=== PATIENT | female | born 1940 | race African-American/Black ===

== ENCOUNTER 2016-12-21 14:03 | Inpatient (IN) | payer MEDICARE, OTHER ==
[~2016-12-21] VITALS: Ht 165.1 cm; Wt 47.8 kg
[~2016-12-21 14:03] MED LIST: ACET325T21 PO; ACET325T9 PO; ACET500T68 PO; AMLO5TAB4 PO; BISA10SU2 RC; CHOL200074 PO; CHOL500021 PO; CYAN250T PO; DIVA125C3 PO; DIVA250T PO; DOCU100C28 PO; DONE5TAB56 PO; DOXY100C2 PO; FURO40TA4 PO; HALO2TAB PO; MAG30ORA2 PO; MAGN2400 PO; MEMA10TA PO; MEMA28CA PO; METH29OI TP; PANT40TA5 PO; POTA20TA82 PO; QUET25TA PO; RISP0.5T3 PO; SENN8.6T4 PO; SERT50TA PO; SIMV40TA3 PO; TRAZ50TA15 PO; TRIA1CAP3 PO
--- NOTE | 2016-12-21 14:39 | EKG ---
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
[2016-12-21 14:47] LABS: BASO % 1 % (0-3); EOS # 0.5 x10^3/uL (0.0-0.7); EOS % 10 % (0-3); HEMATOCRIT 35.6 % (36.0-47.0); HEMOGLOBIN 11.4 g/dL (12.0-15.5); LYMPH # 1.5 x10^3/uL (1.0-4.8); LYMPH % 30 % (24-48); MEAN CORPUSCULAR HEMOGLOBIN 30 pg (25-35); MEAN CORPUSCULAR HGB CONC 32 g/dL (31-37); MEAN CORPUSCULAR VOLUME 94 fL (79-100); MONO # 0.5 x10^3/uL (0.0-1.1); MONO % 9 % (0-9); NEUT # 2.7 x10^3uL (1.8-7.7); NEUT % 51 % (31-73); PLATELET COUNT 162 x10^3/uL (140-400); RED BLOOD COUNT 3.77 x10^6/uL (3.50-5.40); RED CELL DISTRIBUTION WIDTH 16.5 % (11.5-14.5); WHITE BLOOD COUNT 5.2 x10^3/uL (4.0-11.0)
[2016-12-21 14:52] LABS: ALBUMIN 2.5 g/dL (3.4-5.0); ALBUMIN/GLOBULIN RATIO 0.5 (1.0-1.7); ALK PHOS 112 U/L (46-116); ALT (SGPT) 17 U/L (14-59); ANION GAP 3 (6-14); AST (SGOT) 16 U/L (15-37); BLOOD UREA NITROGEN 17 mg/dL (7-20); BUN/CREATININE RATIO 19 (6-20); CALCIUM 9.4 mg/dL (8.5-10.1); CARBON DIOXIDE 37 mmol/L (21-32); CHLORIDE 108 mmol/L (98-107); CREATININE 0.9 mg/dL (0.6-1.0); GFR 73.3; GLUCOSE 97 mg/dL (70-99); MAGNESIUM 1.8 mg/dL (1.8-2.4); POTASSIUM 3.4 mmol/L (3.5-5.1); SODIUM 148 mmol/L (136-145); TOTAL BILIRUBIN 0.2 mg/dL (0.2-1.0); TOTAL PROTEIN 7.3 g/dL (6.4-8.2)
[2016-12-21 14:53] LABS: VAL ACID 45 mcg/mL (50-100)
[2016-12-21 15:21] LABS: BACTERIA,URINE 0 /HPF (0-FEW); BILIRUBIN,URINE NEG (NEG); CLARITY,URINE CLEAR; COLOR,URINE STRAW; GLUCOSE,URINE NEG (NEG); NITRITE,URINE NEG (NEG); RBC,URINE RARE /HPF (0-2); SQUAMOUS EPITHELIAL CELL,UR OCC /LPF; UROBILINOGEN,URINE 0.2 mg/dL (0.2 mg/dL); WBC,URINE OCC /HPF (0-4)
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
[2016-12-21] MEDS ORDERED: ACETAMINOPHEN 325 MG TABLET PO PRN (16:45)
[2016-12-21 17:45] VITALS: BP 169/79
--- NOTE | 2016-12-21 20:00 | PDOC ---
Exam Vikram Demential Exam: Vikram Note: Please also refer to the separate dictated note~for this date of service dictated separately.~Patient seen individually. Discussed the patient with Nursing staff reviewed the chart.~Reviewed interim history and current functioning. Reviewed vital signs,~Labs/ Radiology~and current medications noted below. Continue current treatment with the changes noted in the dictated addendum note Assessment: Vital Signs: Vital Signs Date Time Temp Pulse Resp B/P (MAP) Pulse Ox O2 Delivery O2 Flow Rate FiO2 12/21/16 17:45 98.1 67 18 169/79 (109) 97 12/21/16 14:15 Room Air Labs: Laboratory Tests Test 12/21/16 14:23 12/21/16 14:50 White Blood Count 5.2 x10^3/uL (4.0-11.0) Red Blood Count 3.77 x10^6/uL (3.50-5.40) Hemoglobin 11.4 g/dL (12.0-15.5) L Hematocrit 35.6 % (36.0-47.0) L Mean Corpuscular Volume 94 fL (79-100) Mean Corpuscular Hemoglobin 30 pg (25-35) Mean Corpuscular Hemoglobin Concent 32 g/dL (31-37) Red Cell Distribution Width 16.5 % (11.5-14.5) H Platelet Count 162 x10^3/uL (140-400) Neutrophils (%) (Auto) 51 % (31-73) Lymphocytes (%) (Auto) 30 % (24-48) Monocytes (%) (Auto) 9 % (0-9) Eosinophils (%) (Auto) 10 % (0-3) H Basophils (%) (Auto) 1 % (0-3) Neutrophils # (Auto) 2.7 x10^3uL (1.8-7.7) Lymphocytes # (Auto) 1.5 x10^3/uL (1.0-4.8) Monocytes # (Auto) 0.5 x10^3/uL (0.0-1.1) Eosinophils # (Auto) 0.5 x10^3/uL (0.0-0.7) Basophils # (Auto) 0.0 x10^3/uL (0.0-0.2) Sodium Level 148 mmol/L (136-145) H Potassium Level 3.4 mmol/L (3.5-5.1) L Chloride Level 108 mmol/L (98-107) H Carbon Dioxide Level 37 mmol/L (21-32) H Anion Gap 3 (6-14) L Blood Urea Nitrogen 17 mg/dL (7-20) Creatinine 0.9 mg/dL (0.6-1.0) Estimated GFR (Cockcroft-Gault) 73.3 BUN/Creatinine Ratio 19 (6-20) Glucose Level 97 mg/dL (70-99) Calcium Level 9.4 mg/dL (8.5-10.1) Magnesium Level 1.8 mg/dL (1.8-2.4) Total Bilirubin 0.2 mg/dL (0.2-1.0) Aspartate Amino Transferase (AST) 16 U/L (15-37) Alanine Aminotransferase (ALT) 17 U/L (14-59) Alkaline Phosphatase 112 U/L (46-116) Total Protein 7.3 g/dL (6.4-8.2) Albumin 2.5 g/dL (3.4-5.0) L Albumin/Globulin Ratio 0.5 (1.0-1.7) L Valproic Acid Level 45 mcg/mL (50-100) L Valproic Acid Last Dose Date 12/21/16 Valproic Acid Last Dose Time 0700 Urine Collection Type U cath Urine Color Straw Urine Clarity Clear Urine pH 7.0 Urine Specific [place] 1.015 Urine Protein Neg (NEG-TRACE) Urine Glucose (UA) Neg mg/dL (NEG) Urine Ketones (Stick) Neg mg/dL (NEG) Urine Blood Small (NEG) Urine Nitrite Neg (NEG) Urine Bilirubin Neg (NEG) Urine Urobilinogen Dipstick 0.2 mg/dL (0.2 mg/dL) Urine Leukocyte Esterase Neg (NEG) Urine RBC Rare /HPF (0-2) Urine WBC Occ /HPF (0-4) Urine Squamous Epithelial Cells Occ /LPF Urine Bacteria 0 /HPF (0-FEW) Urine Mucus Slight /LPF Current Medications: Meds: Current Medications Acetaminophen (Tylenol) 650 mg PRN Q6HRS PRN PO PAIN / TEMP; Start 12/21/16 at 16:45 Active Scripts Active Reported Divalproex Sodium 125 Mg Cap.sprink 125 Mg PO TID Namenda (Memantine Hcl) 10 Mg Tablet 10 Mg PO BID Quetiapine Fumarate 25 Mg Tablet 12.5 Mg PO TID Analgesic [place] (Methyl Salicylate/Menthol) 29 Gm Oint...g. 1 [place] TP PRN QID PRN Milk Of Magnesia (Magnesium Hydroxide) 2,400 Mg/10 Ml Oral.susp 2,400 Mg PO PRN QHS PRN Mag-Al Plus Xs Suspension (Mag Hydrox/Al Hydrox/Simeth) 30 Ml Oral.susp 15 Ml PO PRN AFTMEAL PRN Doxycycline Hyclate 100 Mg Capsule 100 Mg PO BID D3-50 (Cholecalciferol (Vitamin D3)) 50,000 Unit Capsule 50,000 Unit PO WEEKLY Tylenol (Acetaminophen) 325 Mg Tablet 650 Mg PO Q8HRS MAX ACETAMINOPHEN DOSE IS 4000 MG IN 24 HRS FROM ALL SOURCES FOR ADULTS. Haloperidol 2 Mg Tablet 2 Mg PO PRN Q4HRS PRN Zoloft (Sertraline Hcl) 50 Mg Tablet 50 Mg PO DAILY Acetaminophen 325 Mg Tablet 650 Mg PO PRN Q6HRS PRN Aricept (Donepezil Hcl) 5 Mg Tablet 10 Mg PO DAILY Trazodone Hcl 50 Mg Tablet 25 Mg PO QHS GIVE WITH FOOD Diagnosis: Problems: (1) Dementia with behavioral disturbance (2) Anxiety disorder (3) Impulse control disorder (4) Dementia, vascular, with depression (5) Dementia, vascular, with delusions (6) Dementia in Alzheimer's disease with depression (7) Dementia in Alzheimer's disease with delusions ADAN GOMES MD Dec 21, 2016 20:00
[2016-12-21] MEDS ORDERED: WARF-78 PO (20:29)
[2016-12-21] MEDS ORDERED: SOTA80TA20 PO (20:29)
[2016-12-21] MEDS ORDERED: CHOL2000 PO (20:29)
[2016-12-21] MEDS ORDERED: FURO20TA3 PO (20:29)
[2016-12-21] MEDS ORDERED: LORA10TA3 PO (20:29)
[2016-12-21] MEDS ORDERED: MAGNESIUM HYDROXIDE 2,400 MG/30 ML ORAL.SUSP. PO PRN (20:45)
[2016-12-21] MEDS ORDERED: MAG HYDROX/AL HYDROX/SIMETH 30 ML ORAL.SUSP PO PRN ×2 (20:45)
[2016-12-21] MEDS ORDERED: NON FORMULARY ITEM (Magnesium Hydroxide (Milk Of Magnesia) 2,400 MG) PO PRN (20:45)
[2016-12-21] MEDS ORDERED: METHYL SALICYLATE/MENTHOL TOPICAL OINTMENT 29GM TUBE. TP PRN (20:45)
[2016-12-21] MEDS: DIVALPROEX 125 MG CAP.SPRINK PO SCH (21:00)
[2016-12-21] MEDS: MEMANTINE 10 MG TABLET. PO SCH (21:00)
[2016-12-21] MEDS: SOTALOL 80 MG TABLET. PO SCH (21:00)
[2016-12-21] MEDS: traZODone 50 MG TABLET. PO SCH (21:00)
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
[2016-12-22 06:32] VITALS: BP 174/85
[2016-12-22] MEDS: DIVALPROEX 125 MG CAP.SPRINK PO SCH ×2 (08:21→20:55)
[2016-12-22] MEDS: MEMANTINE 10 MG TABLET. PO SCH ×2 (08:21→20:54)
[2016-12-22] MEDS: CHOLECALCIFEROL (VITAMIN D3) 1,000 UNIT TABLET PO SCH (08:26)
[2016-12-22] MEDS: SOTALOL 80 MG TABLET. PO SCH ×2 (08:27→20:54)
[2016-12-22] MEDS: DONEPEZIL HCL 5 MG TABLET. PO SCH (08:27)
[2016-12-22] MEDS: CETIRIZINE HCL 10 MG TABLET PO SCH (08:27)
[2016-12-22] MEDS: SERTRALINE 50 MG TABLET. PO SCH (08:27)
[2016-12-22] MEDS ORDERED: FUROSEMIDE 20 MG TABLET PO SCH (09:00)
[2016-12-22 13:46] LABS: THYROID STIM HORMONE (TSH) 2.555 uIU/mL (0.358-3.740)
[2016-12-22] MEDS: WARFARIN 5 MG TABLET. PO SCH (16:23)
[2016-12-22] MEDS ORDERED: amLODIPine BESYLATE 5 MG TABLET PO ONE (16:30)
[2016-12-22 16:35] VITALS: BP 186/98
[2016-12-22 17:09] LABS: T3 TOTAL 62 ng/dL (71-180); THYROXINE 5.9 ug/dL (4.5-12.0)
--- NOTE | 2016-12-22 19:59 | PDOC ---
Exam Vikram Demential Exam: Vikram Note: Please also refer to the separate dictated note~for this date of service dictated separately.~Patient seen individually. Discussed the patient with Nursing staff reviewed the chart.~Reviewed interim history and current functioning. Reviewed vital signs,~Labs/ Radiology~and current medications noted below. Continue current treatment with the changes noted in the dictated addendum note Assessment: Vital Signs: Vital Signs Date Time Temp Pulse Resp B/P (MAP) Pulse Ox O2 Delivery O2 Flow Rate FiO2 12/22/16 16:35 98.9 72 18 186/98 (127) 98 12/21/16 14:15 Room Air I&O Intake and Output 12/22/16 07:00 Intake Total 480 ml Balance 480 ml Intake Oral 480 ml Labs: Laboratory Tests Test 12/22/16 07:22 Prothrombin Time 26.0 SEC (9.4-11.4) H Prothrombin Time INR 2.5 (0.9-1.1) H Current Medications: Meds: Current Medications Acetaminophen (Tylenol) 650 mg PRN Q6HRS PRN PO PAIN / TEMP; Start 12/21/16 at 16:45; Stop 12/21/16 at 20:46; Status DC Divalproex Sodium (Depakote Sprinkles) 250 mg BID PO Last administered on 08:21; Start 12/21/16 at 21:00; Stop 12/22/16 at 18:34; Status DC Donepezil HCl (Aricept) 5 mg DAILY PO Last administered on 12/22/16 08:27; Start 12/22/16 at 09:00 Haloperidol (Haldol) 2 mg PRN Q4HRS PRN PO AGITATION; Start 12/21/16 at 20:30 Memantine (Namenda) 10 mg BID PO Last administered on 12/22/16 08:21; Start at 21:00 Sertraline HCl (Zoloft) 25 mg DAILY PO Last administered on 12/22/16 08:27; Start 12/22/16 at 09:00 Trazodone HCl (Desyrel) 50 mg QHS PO ; Start 12/21/16 at 21:00 Acetaminophen (Tylenol) 650 mg PRN Q6HRS PRN PO PAIN / TEMP; Start 12/21/16 at 20:45 Multi-Ingredient Ointment (Analgesic [place]) 1 cliff PRN QID PRN TP MUSCLE PAIN; Start 12/21/16 at 20:45 Al Hydroxide/Mg Hydroxide (Mylanta Plus Xs) 15 ml PRN AFTMEALHC PRN PO DYSPEPSIA; Start 12/21/16 at 20:45 Magnesium Hydroxide (Milk Of Magnesia) 2,400 mg PRN QHS PRN PO CONSTIPATION; Start 12/21/16 at 20:45 Furosemide (Lasix) 20 mg DAILY PO Last administered on 12/22/16 08:27; Start 12/22/16 at 09:00; Stop 12/22/16 at 16:11; Status DC Al Hydroxide/Mg Hydroxide (Mylanta Plus Xs) 15 ml PRN AFTMEAL PRN PO DYSPEPSIA ; Start 12/21/16 at 20:45; Status UNV Sotalol HCl (Betapace) 80 mg BID PO Last administered on 12/22/16 08:27; Start 12/21/16 at 21:00 Warfarin Sodium (Coumadin) 5 mg DAILY16 PO Last administered on 12/22/16 16:23 ; Start 12/22/16 at 16:00 Vitamin D (Vitamin D3) 2,000 unit DAILY PO Last administered on 12/22/16 08:26 ; Start 12/22/16 at 09:00 Cetirizine HCl (ZyrTEC) 10 mg DAILY PO Last administered on 12/22/16 08:27; Start 12/22/16 at 09:00 Non-Formulary Medication 2,400 mg PRN QHS PRN PO CONSTIPATION; Start 12/21/16 at 20:45; Status UNV Warfarin Sodium (Coumadin Per Physician) 1 each PRN DAILY PRN MC SEE COMMENTS; Start 12/21/16 at 21:15 Amlodipine Besylate (Norvasc) 10 mg DAILY PO ; Start 12/23/16 at 09:00 Amlodipine Besylate (Norvasc) 10 mg 1X ONCE PO Last administered on 12/22/16 16:25; Start 12/22/16 at 16:30; Stop 12/22/16 at 16:31; Status DC Divalproex Sodium (Depakote Sprinkles) 375 mg BID PO ; Start 12/22/16 at 21:00 Active Scripts Active Reported Vitamin D (Cholecalciferol (Vitamin D3)) 2,000 Unit Capsule 2,000 Units PO DAILY Betapace (Sotalol Hcl) 80 Mg Tablet 80 Mg PO BID Loratadine 10 Mg Tablet 10 Mg PO DAILY Furosemide 20 Mg Tablet 20 Mg PO DAILY Coumadin (Warfarin Sodium) 5 Mg Tablet 5 Mg PO HS Divalproex Sodium 125 Mg Cap.sprink 250 Mg PO BID Namenda (Memantine Hcl) 10 Mg Tablet 10 Mg PO BID Milk Of Magnesia (Magnesium Hydroxide) 2,400 Mg/10 Ml Oral.susp 2,400 Mg PO PRN QHS PRN Mag-Al Plus Xs Suspension (Mag Hydrox/Al Hydrox/Simeth) 30 Ml Oral.susp 15 Ml PO PRN AFTMEAL PRN Haloperidol 2 Mg Tablet 2 Mg PO PRN Q4HRS PRN Zoloft (Sertraline Hcl) 50 Mg Tablet 25 Mg PO DAILY Aricept (Donepezil Hcl) 5 Mg Tablet 5 Mg PO DAILY Trazodone Hcl 50 Mg Tablet 50 Mg PO QHS GIVE WITH FOOD Diagnosis: Problems: (1) Dementia with behavioral disturbance (2) Anxiety disorder (3) Impulse control disorder (4) Dementia, vascular, with depression (5) Dementia, vascular, with delusions (6) Dementia in Alzheimer's disease with depression (7) Dementia in Alzheimer's disease with delusions ADAN GOMES MD Dec 22, 2016 19:59
[2016-12-22] MEDS: traZODone 50 MG TABLET. PO SCH (20:54)
--- NOTE | 2016-12-22 23:43 | ACF ---
Admission Criteria Forms PSYCHIATRIC DISORDERS Clinical Indications for Inpatient Care (Place 'X' for any and all applicable criteria): Ongoing inpatient care may be needed for 1 or more of the following(1)(2)(3)(4)( 6)(7)(8): [ ]I. Danger to self or others not manageable at lower level of care. [ ]II. Grave disability (eg, inability to perform self care necessary at lower level of care) [ ]III. Agitation or inappropriate behavior interfering with care for primary condition (eg, attempting to discontinue lines or drains prematurely, unable to cooperate with respiratory care) [X]IV. Severe disability or disorder indicated by ALL of the following: [X]a) Severe behavioral health disorder-related symptoms or condition indicated by 1 or more of the following: [X]i) Severe problem with cognition, memory, judgment, or impulse control [ ]ii) Severe clinical manifestations (eg, hallucinations, delusions, other acute psychotic symptoms, arnoldo, extreme agitation or anxiety) [X]b) Patient management at lower level of care is not feasible until acute intervention or modification is initiated. Extended stay beyond goal length of stay for the primary condition may be needed untilALLof the following are present(1)(2)(3)(4)(722)(23): [ ]a) Danger to self or others is absent or manageable at lower level of care [ ]b) Behavior crisis management, including physical or chemical restraints, is required and is not available at a lower level of care. [ ]c) Behavioral symptoms (e.g., agitation, somnolence, inappropriate behavior) are present, and are not manageable at a lower level of care. [ ]d) Patient cannot understand follow-up treatment and crisis plan. [ ]e) Provider and supports are sufficiently available at lower level of care. [ ]f) Patient can participate (e.g., verify absence of plan for harm) and is in needed of monitoring. The original [facility] [employer] content created by [employer] has been revised. The portions of the content which have been revised are identified through the use of italic text, and [employer] has neither reviewed nor approved the modified material. All other unmodified content is copyright [facility] [employer]. Please see references footnoted in the original [facility] edition 2015 Admission Criteria Met?: Yes PRASHANT STAPLETON Dec 22, 2016 23:43
[2016-12-23 04:13] LABS: HEMOGLOBIN A1C 5.3 % (4.8-5.6)
[2016-12-23 05:58] VITALS: BP 159/88
[2016-12-23] MEDS: CETIRIZINE HCL 10 MG TABLET PO SCH (09:19)
[2016-12-23] MEDS: DONEPEZIL HCL 5 MG TABLET. PO SCH (09:19)
[2016-12-23] MEDS: CHOLECALCIFEROL (VITAMIN D3) 1,000 UNIT TABLET PO SCH (09:19)
[2016-12-23] MEDS: DIVALPROEX 125 MG CAP.SPRINK PO SCH ×2 (09:19→19:21)
[2016-12-23] MEDS: SERTRALINE 50 MG TABLET. PO SCH (09:19)
[2016-12-23] MEDS: MEMANTINE 10 MG TABLET. PO SCH ×2 (09:19→19:20)
[2016-12-23] MEDS: SOTALOL 80 MG TABLET. PO SCH ×2 (09:21→19:21)
[2016-12-23] MEDS: amLODIPine BESYLATE 10 MG TABLET PO SCH (09:22)
[2016-12-23] MEDS: WARFARIN 5 MG TABLET. PO SCH (15:49)
[2016-12-23 16:19] VITALS: BP 114/76
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
[2016-12-23] MEDS: traZODone 50 MG TABLET. PO SCH (19:21)
--- NOTE | 2016-12-23 19:59 | PDOC ---
Exam Vikram Demential Exam: Vikram Note: Please also refer to the separate dictated note~for this date of service dictated separately.~Patient seen individually. Discussed the patient with Nursing staff reviewed the chart.~Reviewed interim history and current functioning. Reviewed vital signs,~Labs/ Radiology~and current medications noted below. Continue current treatment with the changes noted in the dictated addendum note Assessment: Vital Signs: Vital Signs Date Time Temp Pulse Resp B/P (MAP) Pulse Ox O2 Delivery O2 Flow Rate FiO2 12/23/16 19:21 88 114/76 12/23/16 16:19 98.5 18 97 12/21/16 14:15 Room Air I&O Intake and Output 12/23/16 07:00 Intake Total 660 ml Balance 660 ml Intake Oral 660 ml # Voids 2 Current Medications: Meds: Current Medications Acetaminophen (Tylenol) 650 mg PRN Q6HRS PRN PO PAIN / TEMP; Start 12/21/16 at 16:45; Stop 12/21/16 at 20:46; Status DC Divalproex Sodium (Depakote Sprinkles) 250 mg BID PO Last administered on 08:21; Start 12/21/16 at 21:00; Stop 12/22/16 at 18:34; Status DC Donepezil HCl (Aricept) 5 mg DAILY PO Last administered on 12/23/16 09:19; Start 12/22/16 at 09:00 Haloperidol (Haldol) 2 mg PRN Q4HRS PRN PO AGITATION; Start 12/21/16 at 20:30 Memantine (Namenda) 10 mg BID PO Last administered on 12/23/16 19:20; Start at 21:00 Sertraline HCl (Zoloft) 25 mg DAILY PO Last administered on 12/23/16 09:19; Start 12/22/16 at 09:00 Trazodone HCl (Desyrel) 50 mg QHS PO Last administered on 12/23/16 19:21; Start 12/21/16 at 21:00 Acetaminophen (Tylenol) 650 mg PRN Q6HRS PRN PO PAIN / TEMP; Start 12/21/16 at 20:45 Multi-Ingredient Ointment (Analgesic [place]) 1 cliff PRN QID PRN TP MUSCLE PAIN; Start 12/21/16 at 20:45 Al Hydroxide/Mg Hydroxide (Mylanta Plus Xs) 15 ml PRN AFTMEALHC PRN PO DYSPEPSIA; Start 12/21/16 at 20:45 Magnesium Hydroxide (Milk Of Magnesia) 2,400 mg PRN QHS PRN PO CONSTIPATION; Start 12/21/16 at 20:45 Furosemide (Lasix) 20 mg DAILY PO Last administered on 12/22/16 08:27; Start 12/22/16 at 09:00; Stop 12/22/16 at 16:11; Status DC Al Hydroxide/Mg Hydroxide (Mylanta Plus Xs) 15 ml PRN AFTMEAL PRN PO DYSPEPSIA ; Start 12/21/16 at 20:45; Status UNV Sotalol HCl (Betapace) 80 mg BID PO Last administered on 12/23/16 19:21; Start 12/21/16 at 21:00 Warfarin Sodium (Coumadin) 5 mg DAILY16 PO Last administered on 12/23/16 15:49 ; Start 12/22/16 at 16:00 Vitamin D (Vitamin D3) 2,000 unit DAILY PO Last administered on 12/23/16 09:19 ; Start 12/22/16 at 09:00 Cetirizine HCl (ZyrTEC) 10 mg DAILY PO Last administered on 12/23/16 09:19; Start 12/22/16 at 09:00 Non-Formulary Medication 2,400 mg PRN QHS PRN PO CONSTIPATION; Start 12/21/16 at 20:45; Status UNV Warfarin Sodium (Coumadin Per Physician) 1 each PRN DAILY PRN MC SEE COMMENTS; Start 12/21/16 at 21:15 Amlodipine Besylate (Norvasc) 10 mg DAILY PO Last administered on 12/23/16 09: 22; Start 12/23/16 at 09:00 Amlodipine Besylate (Norvasc) 10 mg 1X ONCE PO Last administered on 12/22/16 16:25; Start 12/22/16 at 16:30; Stop 12/22/16 at 16:31; Status DC Divalproex Sodium (Depakote Sprinkles) 375 mg BID PO Last administered on 19:21; Start 12/22/16 at 21:00 Active Scripts Active Reported Vitamin D (Cholecalciferol (Vitamin D3)) 2,000 Unit Capsule 2,000 Units PO DAILY Betapace (Sotalol Hcl) 80 Mg Tablet 80 Mg PO BID Loratadine 10 Mg Tablet 10 Mg PO DAILY Furosemide 20 Mg Tablet 20 Mg PO DAILY Coumadin (Warfarin Sodium) 5 Mg Tablet 5 Mg PO HS Divalproex Sodium 125 Mg Cap.sprink 250 Mg PO BID Namenda (Memantine Hcl) 10 Mg Tablet 10 Mg PO BID Milk Of Magnesia (Magnesium Hydroxide) 2,400 Mg/10 Ml Oral.susp 2,400 Mg PO PRN QHS PRN Mag-Al Plus Xs Suspension (Mag Hydrox/Al Hydrox/Simeth) 30 Ml Oral.susp 15 Ml PO PRN AFTMEAL PRN Haloperidol 2 Mg Tablet 2 Mg PO PRN Q4HRS PRN Zoloft (Sertraline Hcl) 50 Mg Tablet 25 Mg PO DAILY Aricept (Donepezil Hcl) 5 Mg Tablet 5 Mg PO DAILY Trazodone Hcl 50 Mg Tablet 50 Mg PO QHS GIVE WITH FOOD Diagnosis: Problems: (1) Dementia with behavioral disturbance (2) Anxiety disorder (3) Impulse control disorder (4) Dementia, vascular, with depression (5) Dementia, vascular, with delusions (6) Dementia in Alzheimer's disease with depression (7) Dementia in Alzheimer's disease with delusions ADAN GOMES MD Dec 23, 2016 19:58
--- NOTE | 2016-12-23 23:54 | PN ---
DATE: 12/22/2016 This late entry 12/22/2016 covers elements not covered in my initial note. SUBJECTIVE: I met with the patient in the evening of 12/22/2016. The patient remains confused, making loud vulgar statements, cursing at staff previous evening. Speech is word salad, somewhat hypertensive during the day 12/22/2016, will defer to Dr. Nails. She was agitated, yelling, screaming obscenities evening of 12/22/2016. REVIEW OF SYSTEMS: Ambulation impaired. No CV, , pulmonary, eye, ENT system symptoms on review. Reliability poor. MENTAL STATUS EXAM: Oriented to herself. Insight, judgment, recent and remote memory, attention, concentration, fund of knowledge poor, consistent with her diagnosis. As I met with her, she was oblivious of her surroundings, smiling, but not aggressive she was shortly prior to my visit. LABORATORY DATA: Reviewed. IMPRESSION: Unchanged from initial note. PLAN: Valproic acid level is 45. She is on Depakote sprinkles 250 b.i.d. We will increase to 375 b.i.d. Check labs level, ammonia level in 3 days to reach a therapeutic level. Continue Zoloft, Aricept, trazodone, and Namenda along with Haldol p.r.n. for now. Review drug interactions, risk/benefit ratio favors no further change as of now. ADAN GOMES MD DR: FAISAL/alonso JOB#: [id number] / [id number]
[2016-12-24 06:16] VITALS: BP 155/90
[2016-12-24] MEDS: MEMANTINE 10 MG TABLET. PO SCH ×2 (07:37→19:38)
[2016-12-24] MEDS: CETIRIZINE HCL 10 MG TABLET PO SCH (07:37)
[2016-12-24] MEDS: SERTRALINE 50 MG TABLET. PO SCH (07:39)
[2016-12-24] MEDS: DIVALPROEX 125 MG CAP.SPRINK PO SCH ×2 (07:39→19:38)
[2016-12-24] MEDS: DONEPEZIL HCL 5 MG TABLET. PO SCH (07:39)
[2016-12-24] MEDS: SOTALOL 80 MG TABLET. PO SCH ×2 (07:39→19:39)
[2016-12-24] MEDS: amLODIPine BESYLATE 10 MG TABLET PO SCH (07:41)
[2016-12-24] MEDS: CHOLECALCIFEROL (VITAMIN D3) 1,000 UNIT TABLET PO SCH (07:41)
[2016-12-24 16:46] VITALS: BP 157/78
[2016-12-24] MEDS: WARFARIN 5 MG TABLET. PO SCH (16:54)
[2016-12-24] MEDS: traZODone 50 MG TABLET. PO SCH (19:39)
--- NOTE | 2016-12-24 20:03 | PDOC ---
Exam Vikram Demential Exam: Vikram Note: Please also refer to the separate dictated note~for this date of service dictated separately.~Patient seen individually. Discussed the patient with Nursing staff reviewed the chart.~Reviewed interim history and current functioning. Reviewed vital signs,~Labs/ Radiology~and current medications noted below. Continue current treatment with the changes noted in the dictated addendum note Assessment: Vital Signs: Vital Signs Date Time Temp Pulse Resp B/P (MAP) Pulse Ox O2 Delivery O2 Flow Rate FiO2 12/24/16 19:39 63 157/78 12/24/16 16:46 97.3 18 98 12/21/16 14:15 Room Air I&O Intake and Output 12/24/16 07:00 Intake Total 1080 ml Balance 1080 ml Intake Oral 1080 ml # Voids 1 # Bowel Movements 2 Current Medications: Meds: Current Medications Acetaminophen (Tylenol) 650 mg PRN Q6HRS PRN PO PAIN / TEMP; Start 12/21/16 at 16:45; Stop 12/21/16 at 20:46; Status DC Divalproex Sodium (Depakote Sprinkles) 250 mg BID PO Last administered on 08:21; Start 12/21/16 at 21:00; Stop 12/22/16 at 18:34; Status DC Donepezil HCl (Aricept) 5 mg DAILY PO Last administered on 12/24/16 07:39; Start 12/22/16 at 09:00 Haloperidol (Haldol) 2 mg PRN Q4HRS PRN PO AGITATION; Start 12/21/16 at 20:30 Memantine (Namenda) 10 mg BID PO Last administered on 12/24/16 19:38; Start at 21:00 Sertraline HCl (Zoloft) 25 mg DAILY PO Last administered on 12/24/16 07:39; Start 12/22/16 at 09:00 Trazodone HCl (Desyrel) 50 mg QHS PO Last administered on 12/24/16 19:39; Start 12/21/16 at 21:00 Acetaminophen (Tylenol) 650 mg PRN Q6HRS PRN PO PAIN / TEMP; Start 12/21/16 at 20:45 Multi-Ingredient Ointment (Analgesic [place]) 1 cliff PRN QID PRN TP MUSCLE PAIN; Start 12/21/16 at 20:45 Al Hydroxide/Mg Hydroxide (Mylanta Plus Xs) 15 ml PRN AFTMEALHC PRN PO DYSPEPSIA; Start 12/21/16 at 20:45 Magnesium Hydroxide (Milk Of Magnesia) 2,400 mg PRN QHS PRN PO CONSTIPATION; Start 12/21/16 at 20:45 Furosemide (Lasix) 20 mg DAILY PO Last administered on 12/22/16 08:27; Start 12/22/16 at 09:00; Stop 12/22/16 at 16:11; Status DC Al Hydroxide/Mg Hydroxide (Mylanta Plus Xs) 15 ml PRN AFTMEAL PRN PO DYSPEPSIA ; Start 12/21/16 at 20:45; Status UNV Sotalol HCl (Betapace) 80 mg BID PO Last administered on 12/24/16 19:39; Start 12/21/16 at 21:00 Warfarin Sodium (Coumadin) 5 mg DAILY16 PO Last administered on 12/24/16 16:54 ; Start 12/22/16 at 16:00 Vitamin D (Vitamin D3) 2,000 unit DAILY PO Last administered on 12/24/16 07:41 ; Start 12/22/16 at 09:00 Cetirizine HCl (ZyrTEC) 10 mg DAILY PO Last administered on 12/24/16 07:37; Start 12/22/16 at 09:00 Non-Formulary Medication 2,400 mg PRN QHS PRN PO CONSTIPATION; Start 12/21/16 at 20:45; Status UNV Warfarin Sodium (Coumadin Per Physician) 1 each PRN DAILY PRN MC SEE COMMENTS; Start 12/21/16 at 21:15 Amlodipine Besylate (Norvasc) 10 mg DAILY PO Last administered on 12/24/16 07: 41; Start 12/23/16 at 09:00 Amlodipine Besylate (Norvasc) 10 mg 1X ONCE PO Last administered on 12/22/16 16:25; Start 12/22/16 at 16:30; Stop 12/22/16 at 16:31; Status DC Divalproex Sodium (Depakote Sprinkles) 375 mg BID PO Last administered on 19:38; Start 12/22/16 at 21:00 Active Scripts Active Reported Vitamin D (Cholecalciferol (Vitamin D3)) 2,000 Unit Capsule 2,000 Units PO DAILY Betapace (Sotalol Hcl) 80 Mg Tablet 80 Mg PO BID Loratadine 10 Mg Tablet 10 Mg PO DAILY Furosemide 20 Mg Tablet 20 Mg PO DAILY Coumadin (Warfarin Sodium) 5 Mg Tablet 5 Mg PO HS Divalproex Sodium 125 Mg Cap.sprink 250 Mg PO BID Namenda (Memantine Hcl) 10 Mg Tablet 10 Mg PO BID Milk Of Magnesia (Magnesium Hydroxide) 2,400 Mg/10 Ml Oral.susp 2,400 Mg PO PRN QHS PRN Mag-Al Plus Xs Suspension (Mag Hydrox/Al Hydrox/Simeth) 30 Ml Oral.susp 15 Ml PO PRN AFTMEAL PRN Haloperidol 2 Mg Tablet 2 Mg PO PRN Q4HRS PRN Zoloft (Sertraline Hcl) 50 Mg Tablet 25 Mg PO DAILY Aricept (Donepezil Hcl) 5 Mg Tablet 5 Mg PO DAILY Trazodone Hcl 50 Mg Tablet 50 Mg PO QHS GIVE WITH FOOD Diagnosis: Problems: (1) Dementia with behavioral disturbance (2) Anxiety disorder (3) Impulse control disorder (4) Dementia, vascular, with depression (5) Dementia, vascular, with delusions (6) Dementia in Alzheimer's disease with depression (7) Dementia in Alzheimer's disease with delusions ADAN GOMES MD Dec 24, 2016 20:03
--- NOTE | 2016-12-25 02:24 | PN ---
DATE: 12/23/2016 This is a late entry for 12/23/2016 and covers elements not covered in my initial note of 12/23/2016. SUBJECTIVE: The patient was staffed at a treatment team meeting with the entire team morning 12/23/2016. Seen individually evening of 12/23/2016. She slept 7-1/2 hours previous evening. She uses profanities and the f -- word frequently. REVIEW OF SYSTEMS: Ambulation impaired, in a wheelchair, 2-person assist. No CV, , pulmonary, eye, ENT system symptoms on review. Reliability poor. MENTAL STATUS EXAM: Oriented to herself. Insight, judgment, recent and remote memory, attention, concentration, fund of knowledge poor, consistent with her diagnosis as mentioned in my initial note. PLAN: Reviewed drug interactions, risk and benefit ratio favors continuing current psychotropics. Depakote was increased. Labs level are awaited. We will adjust further to reach a therapeutic level since her last level was subtherapeutic at 45. ADAN GOMES MD DR: FAISAL/alonso JOB#: [id number] / [id number]
[2016-12-25 06:16] VITALS: BP 143/75
[2016-12-25] MEDS: DONEPEZIL HCL 5 MG TABLET. PO SCH (08:35)
[2016-12-25] MEDS: DIVALPROEX 125 MG CAP.SPRINK PO SCH ×2 (08:36→19:24)
[2016-12-25] MEDS: MEMANTINE 10 MG TABLET. PO SCH ×2 (08:36→19:24)
[2016-12-25] MEDS: amLODIPine BESYLATE 10 MG TABLET PO SCH (08:37)
[2016-12-25] MEDS: CETIRIZINE HCL 10 MG TABLET PO SCH (08:37)
[2016-12-25] MEDS: SERTRALINE 50 MG TABLET. PO SCH (08:37)
[2016-12-25] MEDS: CHOLECALCIFEROL (VITAMIN D3) 1,000 UNIT TABLET PO SCH (08:37)
[2016-12-25] MEDS: SOTALOL 80 MG TABLET. PO SCH ×2 (08:45→19:24)
[2016-12-25 15:54] VITALS: BP 107/59
[2016-12-25] MEDS: WARFARIN 5 MG TABLET. PO SCH (16:43)
[2016-12-25] MEDS: traZODone 50 MG TABLET. PO SCH (19:24)
--- NOTE | 2016-12-25 21:38 | PN ---
DATE: 12/24/2016 This late entry 12/24/2016 covers elements not covered in my initial note. SUBJECTIVE: I met with the patient in the evening of 12/24/2016. She is being very confused, labile in her mood, tearful, paranoid, delusional belief, children are being hurt, crying, believes she is , making repeated unconnected statements about this. REVIEW OF SYSTEMS: Ambulation impaired. No CV, , pulmonary, eye, ENT system symptoms on review. Reliability poor. MENTAL STATUS EXAM: Oriented to herself. Insight, judgment, recent and remote memory, attention, concentration, fund of knowledge poor, consistent with her diagnosis as mentioned in my initial note. PLAN: Continue current psychotropics mentioned in my initial note. Reviewed drug interactions, risk/benefit ratio favors no further change as of now. MAN Saúl GOMES MD DR: FAISAL/alonso JOB#: [id number] / [id number]
--- NOTE | 2016-12-25 23:29 | PDOC ---
Exam Vikram Demential Exam: Vikram Note: Please also refer to the separate dictated note~for this date of service dictated separately.~Patient seen individually. Discussed the patient with Nursing staff reviewed the chart.~Reviewed interim history and current functioning. Reviewed vital signs,~Labs/ Radiology~and current medications noted below. Continue current treatment with the changes noted in the dictated addendum note Assessment: Vital Signs: Vital Signs Date Time Temp Pulse Resp B/P (MAP) Pulse Ox O2 Delivery O2 Flow Rate FiO2 12/25/16 19:24 72 178/82 12/25/16 15:54 98.0 18 100 12/21/16 14:15 Room Air I&O Intake and Output 12/25/16 07:00 Intake Total 1260 ml Balance 1260 ml Intake Oral 1260 ml Labs: Laboratory Tests Test 12/25/16 08:08 Prothrombin Time 21.1 SEC (9.4-11.4) H Prothrombin Time INR 2.1 (0.9-1.1) H Current Medications: Meds: Current Medications Acetaminophen (Tylenol) 650 mg PRN Q6HRS PRN PO PAIN / TEMP; Start 12/21/16 at 16:45; Stop 12/21/16 at 20:46; Status DC Divalproex Sodium (Depakote Sprinkles) 250 mg BID PO Last administered on 08:21; Start 12/21/16 at 21:00; Stop 12/22/16 at 18:34; Status DC Donepezil HCl (Aricept) 5 mg DAILY PO Last administered on 12/25/16 08:35; Start 12/22/16 at 09:00 Haloperidol (Haldol) 2 mg PRN Q4HRS PRN PO AGITATION; Start 12/21/16 at 20:30 Memantine (Namenda) 10 mg BID PO Last administered on 12/25/16 19:24; Start at 21:00 Sertraline HCl (Zoloft) 25 mg DAILY PO Last administered on 12/25/16 08:37; Start 12/22/16 at 09:00 Trazodone HCl (Desyrel) 50 mg QHS PO Last administered on 12/25/16 19:24; Start 12/21/16 at 21:00 Acetaminophen (Tylenol) 650 mg PRN Q6HRS PRN PO PAIN / TEMP; Start 12/21/16 at 20:45 Multi-Ingredient Ointment (Analgesic [place]) 1 cliff PRN QID PRN TP MUSCLE PAIN; Start 12/21/16 at 20:45 Al Hydroxide/Mg Hydroxide (Mylanta Plus Xs) 15 ml PRN AFTMEALHC PRN PO DYSPEPSIA; Start 12/21/16 at 20:45 Magnesium Hydroxide (Milk Of Magnesia) 2,400 mg PRN QHS PRN PO CONSTIPATION; Start 12/21/16 at 20:45 Furosemide (Lasix) 20 mg DAILY PO Last administered on 12/22/16 08:27; Start 12/22/16 at 09:00; Stop 12/22/16 at 16:11; Status DC Al Hydroxide/Mg Hydroxide (Mylanta Plus Xs) 15 ml PRN AFTMEAL PRN PO DYSPEPSIA ; Start 12/21/16 at 20:45; Status UNV Sotalol HCl (Betapace) 80 mg BID PO Last administered on 12/25/16 19:24; Start 12/21/16 at 21:00 Warfarin Sodium (Coumadin) 5 mg DAILY16 PO Last administered on 12/25/16 16:43 ; Start 12/22/16 at 16:00 Vitamin D (Vitamin D3) 2,000 unit DAILY PO Last administered on 12/25/16 08:37 ; Start 12/22/16 at 09:00 Cetirizine HCl (ZyrTEC) 10 mg DAILY PO Last administered on 12/25/16 08:37; Start 12/22/16 at 09:00 Non-Formulary Medication 2,400 mg PRN QHS PRN PO CONSTIPATION; Start 12/21/16 at 20:45; Status UNV Warfarin Sodium (Coumadin Per Physician) 1 each PRN DAILY PRN MC SEE COMMENTS; Start 12/21/16 at 21:15 Amlodipine Besylate (Norvasc) 10 mg DAILY PO Last administered on 12/25/16 08: 37; Start 12/23/16 at 09:00 Amlodipine Besylate (Norvasc) 10 mg 1X ONCE PO Last administered on 12/22/16 16:25; Start 12/22/16 at 16:30; Stop 12/22/16 at 16:31; Status DC Divalproex Sodium (Depakote Sprinkles) 375 mg BID PO Last administered on t 19:24; Start 12/22/16 at 21:00 Active Scripts Active Reported Vitamin D (Cholecalciferol (Vitamin D3)) 2,000 Unit Capsule 2,000 Units PO DAILY Betapace (Sotalol Hcl) 80 Mg Tablet 80 Mg PO BID Loratadine 10 Mg Tablet 10 Mg PO DAILY Furosemide 20 Mg Tablet 20 Mg PO DAILY Coumadin (Warfarin Sodium) 5 Mg Tablet 5 Mg PO HS Divalproex Sodium 125 Mg Cap.sprink 250 Mg PO BID Namenda (Memantine Hcl) 10 Mg Tablet 10 Mg PO BID Milk Of Magnesia (Magnesium Hydroxide) 2,400 Mg/10 Ml Oral.susp 2,400 Mg PO PRN QHS PRN Mag-Al Plus Xs Suspension (Mag Hydrox/Al Hydrox/Simeth) 30 Ml Oral.susp 15 Ml PO PRN AFTMEAL PRN Haloperidol 2 Mg Tablet 2 Mg PO PRN Q4HRS PRN Zoloft (Sertraline Hcl) 50 Mg Tablet 25 Mg PO DAILY Aricept (Donepezil Hcl) 5 Mg Tablet 5 Mg PO DAILY Trazodone Hcl 50 Mg Tablet 50 Mg PO QHS GIVE WITH FOOD Diagnosis: Problems: (1) Dementia with behavioral disturbance (2) Anxiety disorder (3) Impulse control disorder (4) Dementia, vascular, with depression (5) Dementia, vascular, with delusions (6) Dementia in Alzheimer's disease with depression (7) Dementia in Alzheimer's disease with delusions ADAN GOMES MD Dec 25, 2016 23:29
[2016-12-26 05:47] VITALS: BP 134/72
[2016-12-26 06:55] LABS: BASO % 1 % (0-3); EOS # 0.5 x10^3/uL (0.0-0.7); EOS % 10 % (0-3); HEMATOCRIT 37.7 % (36.0-47.0); HEMOGLOBIN 12.2 g/dL (12.0-15.5); LYMPH # 1.6 x10^3/uL (1.0-4.8); LYMPH % 31 % (24-48); MEAN CORPUSCULAR HEMOGLOBIN 30 pg (25-35); MEAN CORPUSCULAR HGB CONC 32 g/dL (31-37); MEAN CORPUSCULAR VOLUME 94 fL (79-100); MONO # 0.6 x10^3/uL (0.0-1.1); MONO % 12 % (0-9); NEUT # 2.4 x10^3uL (1.8-7.7); NEUT % 47 % (31-73); PLATELET COUNT 170 x10^3/uL (140-400); RED BLOOD COUNT 4.01 x10^6/uL (3.50-5.40); RED CELL DISTRIBUTION WIDTH 16.5 % (11.5-14.5); WHITE BLOOD COUNT 5.2 x10^3/uL (4.0-11.0)
[2016-12-26 07:06] LABS: ALBUMIN 2.8 g/dL (3.4-5.0); ALBUMIN/GLOBULIN RATIO 0.6 (1.0-1.7); ALK PHOS 110 U/L (46-116); ALT (SGPT) 16 U/L (14-59); ANION GAP 5 (6-14); AST (SGOT) 15 U/L (15-37); BLOOD UREA NITROGEN 26 mg/dL (7-20); BUN/CREATININE RATIO 29 (6-20); CALCIUM 10.3 mg/dL (8.5-10.1); CARBON DIOXIDE 34 mmol/L (21-32); CHLORIDE 106 mmol/L (98-107); CREATININE 0.9 mg/dL (0.6-1.0); GFR 73.3; GLUCOSE 85 mg/dL (70-99); POTASSIUM 4.4 mmol/L (3.5-5.1); SODIUM 145 mmol/L (136-145); TOTAL BILIRUBIN 0.2 mg/dL (0.2-1.0); TOTAL PROTEIN 7.8 g/dL (6.4-8.2)
[2016-12-26 07:14] LABS: VAL ACID 58 mcg/mL (50-100)
[2016-12-26] MEDS: DONEPEZIL HCL 5 MG TABLET. PO SCH (07:43)
[2016-12-26] MEDS: DIVALPROEX 125 MG CAP.SPRINK PO SCH ×2 (07:45→19:30)
[2016-12-26] MEDS: SOTALOL 80 MG TABLET. PO SCH ×2 (07:45→19:31)
[2016-12-26] MEDS: MEMANTINE 10 MG TABLET. PO SCH ×2 (07:45→19:30)
[2016-12-26] MEDS: CHOLECALCIFEROL (VITAMIN D3) 1,000 UNIT TABLET PO SCH (07:46)
[2016-12-26] MEDS: SERTRALINE 50 MG TABLET. PO SCH (07:46)
[2016-12-26] MEDS: amLODIPine BESYLATE 10 MG TABLET PO SCH (07:46)
[2016-12-26] MEDS: CETIRIZINE HCL 10 MG TABLET PO SCH (07:47)
[2016-12-26] MEDS: ACETAMINOPHEN 325 MG TABLET PO PRN (07:50)
[2016-12-26 16:24] VITALS: BP 131/69
[2016-12-26] MEDS: WARFARIN 5 MG TABLET. PO SCH (16:50)
[2016-12-26] MEDS: traZODone 50 MG TABLET. PO SCH (19:30)
--- NOTE | 2016-12-26 19:57 | PDOC ---
Exam Vikram Demential Exam: Vikram Note: Please also refer to the separate dictated note~for this date of service dictated separately.~Patient seen individually. Discussed the patient with Nursing staff reviewed the chart.~Reviewed interim history and current functioning. Reviewed vital signs,~Labs/ Radiology~and current medications noted below. Continue current treatment with the changes noted in the dictated addendum note Assessment: Vital Signs: Vital Signs Date Time Temp Pulse Resp B/P (MAP) Pulse Ox O2 Delivery O2 Flow Rate FiO2 12/26/16 19:31 76 131/69 12/26/16 16:24 97.3 20 98 Room Air I&O Intake and Output 12/26/16 07:00 Intake Total 840 ml Balance 840 ml Intake Oral 840 ml # Voids 1 # Bowel Movements 1 Labs: Laboratory Tests Test 12/26/16 06:45 White Blood Count 5.2 x10^3/uL (4.0-11.0) Red Blood Count 4.01 x10^6/uL (3.50-5.40) Hemoglobin 12.2 g/dL (12.0-15.5) Hematocrit 37.7 % (36.0-47.0) Mean Corpuscular Volume 94 fL (79-100) Mean Corpuscular Hemoglobin 30 pg (25-35) Mean Corpuscular Hemoglobin Concent 32 g/dL (31-37) Red Cell Distribution Width 16.5 % (11.5-14.5) H Platelet Count 170 x10^3/uL (140-400) Neutrophils (%) (Auto) 47 % (31-73) Lymphocytes (%) (Auto) 31 % (24-48) Monocytes (%) (Auto) 12 % (0-9) H Eosinophils (%) (Auto) 10 % (0-3) H Basophils (%) (Auto) 1 % (0-3) Neutrophils # (Auto) 2.4 x10^3uL (1.8-7.7) Lymphocytes # (Auto) 1.6 x10^3/uL (1.0-4.8) Monocytes # (Auto) 0.6 x10^3/uL (0.0-1.1) Eosinophils # (Auto) 0.5 x10^3/uL (0.0-0.7) Basophils # (Auto) 0.0 x10^3/uL (0.0-0.2) Sodium Level 145 mmol/L (136-145) Potassium Level 4.4 mmol/L (3.5-5.1) Chloride Level 106 mmol/L (98-107) Carbon Dioxide Level 34 mmol/L (21-32) H Anion Gap 5 (6-14) L Blood Urea Nitrogen 26 mg/dL (7-20) H Creatinine 0.9 mg/dL (0.6-1.0) Estimated GFR (Cockcroft-Gault) 73.3 BUN/Creatinine Ratio 29 (6-20) H Glucose Level 85 mg/dL (70-99) Calcium Level 10.3 mg/dL (8.5-10.1) H Total Bilirubin 0.2 mg/dL (0.2-1.0) Aspartate Amino Transferase (AST) 15 U/L (15-37) Alanine Aminotransferase (ALT) 16 U/L (14-59) Alkaline Phosphatase 110 U/L (46-116) Ammonia 22 mcmol/L (11-34) Total Protein 7.8 g/dL (6.4-8.2) Albumin 2.8 g/dL (3.4-5.0) L Albumin/Globulin Ratio 0.6 (1.0-1.7) L Valproic Acid Level 58 mcg/mL (50-100) Valproic Acid Last Dose Date 12/25/16 Valproic Acid Last Dose Time 2100 Current Medications: Meds: Current Medications Acetaminophen (Tylenol) 650 mg PRN Q6HRS PRN PO PAIN / TEMP; Start 12/21/16 at 16:45; Stop 12/21/16 at 20:46; Status DC Divalproex Sodium (Depakote Sprinkles) 250 mg BID PO Last administered on 08:21; Start 12/21/16 at 21:00; Stop 12/22/16 at 18:34; Status DC Donepezil HCl (Aricept) 5 mg DAILY PO Last administered on 12/26/16 07:43; Start 12/22/16 at 09:00 Haloperidol (Haldol) 2 mg PRN Q4HRS PRN PO AGITATION; Start 12/21/16 at 20:30 Memantine (Namenda) 10 mg BID PO Last administered on 12/26/16 19:30; Start at 21:00 Sertraline HCl (Zoloft) 25 mg DAILY PO Last administered on 12/26/16 07:46; Start 12/22/16 at 09:00 Trazodone HCl (Desyrel) 50 mg QHS PO Last administered on 12/26/16 19:30; Start 12/21/16 at 21:00 Acetaminophen (Tylenol) 650 mg PRN Q6HRS PRN PO PAIN / TEMP Last administered on 12/26/16 07:50; Start 12/21/16 at 20:45 Multi-Ingredient Ointment (Analgesic [place]) 1 cliff PRN QID PRN TP MUSCLE PAIN; Start 12/21/16 at 20:45 Al Hydroxide/Mg Hydroxide (Mylanta Plus Xs) 15 ml PRN AFTMEALHC PRN PO DYSPEPSIA; Start 12/21/16 at 20:45 Magnesium Hydroxide (Milk Of Magnesia) 2,400 mg PRN QHS PRN PO CONSTIPATION; Start 12/21/16 at 20:45 Furosemide (Lasix) 20 mg DAILY PO Last administered on 12/22/16 08:27; Start 12/22/16 at 09:00; Stop 12/22/16 at 16:11; Status DC Al Hydroxide/Mg Hydroxide (Mylanta Plus Xs) 15 ml PRN AFTMEAL PRN PO DYSPEPSIA ; Start 12/21/16 at 20:45; Status UNV Sotalol HCl (Betapace) 80 mg BID PO Last administered on 12/26/16 19:31; Start 12/21/16 at 21:00 Warfarin Sodium (Coumadin) 5 mg DAILY16 PO Last administered on 12/26/16 16:50 ; Start 12/22/16 at 16:00 Vitamin D (Vitamin D3) 2,000 unit DAILY PO Last administered on 12/26/16 07:46 ; Start 12/22/16 at 09:00 Cetirizine HCl (ZyrTEC) 10 mg DAILY PO Last administered on 12/26/16 07:47; Start 12/22/16 at 09:00 Non-Formulary Medication 2,400 mg PRN QHS PRN PO CONSTIPATION; Start 12/21/16 at 20:45; Status UNV Warfarin Sodium (Coumadin Per Physician) 1 each PRN DAILY PRN MC SEE COMMENTS; Start 12/21/16 at 21:15 Amlodipine Besylate (Norvasc) 10 mg DAILY PO Last administered on 12/26/16 07: 46; Start 12/23/16 at 09:00 Amlodipine Besylate (Norvasc) 10 mg 1X ONCE PO Last administered on 12/22/16 16:25; Start 12/22/16 at 16:30; Stop 12/22/16 at 16:31; Status DC Divalproex Sodium (Depakote Sprinkles) 375 mg BID PO Last administered on 19:30; Start 12/22/16 at 21:00 Active Scripts Active Reported Vitamin D (Cholecalciferol (Vitamin D3)) 2,000 Unit Capsule 2,000 Units PO DAILY Betapace (Sotalol Hcl) 80 Mg Tablet 80 Mg PO BID Loratadine 10 Mg Tablet 10 Mg PO DAILY Furosemide 20 Mg Tablet 20 Mg PO DAILY Coumadin (Warfarin Sodium) 5 Mg Tablet 5 Mg PO HS Divalproex Sodium 125 Mg Cap.sprink 250 Mg PO BID Namenda (Memantine Hcl) 10 Mg Tablet 10 Mg PO BID Milk Of Magnesia (Magnesium Hydroxide) 2,400 Mg/10 Ml Oral.susp 2,400 Mg PO PRN QHS PRN Mag-Al Plus Xs Suspension (Mag Hydrox/Al Hydrox/Simeth) 30 Ml Oral.susp 15 Ml PO PRN AFTMEAL PRN Haloperidol 2 Mg Tablet 2 Mg PO PRN Q4HRS PRN Zoloft (Sertraline Hcl) 50 Mg Tablet 25 Mg PO DAILY Aricept (Donepezil Hcl) 5 Mg Tablet 5 Mg PO DAILY Trazodone Hcl 50 Mg Tablet 50 Mg PO QHS GIVE WITH FOOD Diagnosis: Problems: (1) Dementia with behavioral disturbance (2) Anxiety disorder (3) Impulse control disorder (4) Dementia, vascular, with depression (5) Dementia, vascular, with delusions (6) Dementia in Alzheimer's disease with depression (7) Dementia in Alzheimer's disease with delusions ADAN GOMES MD Dec 26, 2016 19:57
[2016-12-26] MEDS: HALOPERIDOL 2 MG TABLET PO PRN (21:29)
--- NOTE | 2016-12-27 00:27 | PN ---
DATE: 12/25/2016 This late entry 12/25/2016, covers elements not covered in my initial note. SUBJECTIVE: I met with the patient in the evening of 12/25/2016, the patient remains confused, compliant with medications and assessment not aggressive. REVIEW OF SYSTEMS: Ambulation impaired, in walker. No CV, , pulmonary, eye, ENT system symptoms on review. Reliability poor. MENTAL STATUS EXAM: Oriented to herself. Insight, judgment, recent and remote memory, attention, concentration, fund of knowledge poor, consistent with her diagnosis mentioned in my initial note. PLAN: Continue current psychotropics. Reviewed drug interactions risk/benefit ratio favors no further change. Repeat labs level on the valproic acid, adjust to reach a therapeutic level. MAN Saúl GOMES MD DR: FAISAL/alonso JOB#: [id number] / [id number]
[2016-12-27 06:13] VITALS: BP 168/83
[2016-12-27] MEDS: DIVALPROEX 125 MG CAP.SPRINK PO SCH ×2 (06:54→19:22)
[2016-12-27] MEDS: DONEPEZIL HCL 5 MG TABLET. PO SCH (06:54)
[2016-12-27] MEDS: CETIRIZINE HCL 10 MG TABLET PO SCH (06:54)
[2016-12-27] MEDS: CHOLECALCIFEROL (VITAMIN D3) 1,000 UNIT TABLET PO SCH (06:54)
[2016-12-27] MEDS: amLODIPine BESYLATE 10 MG TABLET PO SCH (06:55)
[2016-12-27] MEDS: MEMANTINE 10 MG TABLET. PO SCH ×2 (06:55→19:22)
[2016-12-27] MEDS: SERTRALINE 50 MG TABLET. PO SCH (06:55)
[2016-12-27] MEDS: SOTALOL 80 MG TABLET. PO SCH ×2 (06:58→19:23)
[2016-12-27] MEDS: WARFARIN 5 MG TABLET. PO SCH (16:06)
[2016-12-27 16:08] VITALS: BP 116/79
[2016-12-27] MEDS: traZODone 50 MG TABLET. PO SCH (19:22)
--- NOTE | 2016-12-27 19:54 | PDOC ---
Exam Vikram Demential Exam: Vikram Note: Please also refer to the separate dictated note~for this date of service dictated separately.~Patient seen individually. Discussed the patient with Nursing staff reviewed the chart.~Reviewed interim history and current functioning. Reviewed vital signs,~Labs/ Radiology~and current medications noted below. Continue current treatment with the changes noted in the dictated addendum note Assessment: Vital Signs: Vital Signs Date Time Temp Pulse Resp B/P (MAP) Pulse Ox O2 Delivery O2 Flow Rate FiO2 12/27/16 19:23 76 116/79 12/27/16 16:08 97.6 17 100 12/26/16 16:24 Room Air I&O Intake and Output 12/27/16 06:59 Intake Total 840 ml Balance 840 ml Intake Oral 840 ml # Voids 1 # Bowel Movements 2 Labs: Laboratory Tests Test 12/27/16 07:27 Prothrombin Time 35.4 SEC (9.4-11.4) H Prothrombin Time INR 3.4 (0.9-1.1) H Current Medications: Meds: Current Medications Acetaminophen (Tylenol) 650 mg PRN Q6HRS PRN PO PAIN / TEMP; Start 12/21/16 at 16:45; Stop 12/21/16 at 20:46; Status DC Divalproex Sodium (Depakote Sprinkles) 250 mg BID PO Last administered on 08:21; Start 12/21/16 at 21:00; Stop 12/22/16 at 18:34; Status DC Donepezil HCl (Aricept) 5 mg DAILY PO Last administered on 12/27/16 06:54; Start 12/22/16 at 09:00; Stop 12/27/16 at 16:53; Status DC Haloperidol (Haldol) 2 mg PRN Q4HRS PRN PO AGITATION Last administered on 21:29; Start 12/21/16 at 20:30 Memantine (Namenda) 10 mg BID PO Last administered on 12/27/16 19:22; Start at 21:00 Sertraline HCl (Zoloft) 25 mg DAILY PO Last administered on 12/27/16 06:55; Start 12/22/16 at 09:00; Stop 12/27/16 at 14:06; Status DC Trazodone HCl (Desyrel) 50 mg QHS PO Last administered on 12/27/16 19:22; Start 12/21/16 at 21:00 Acetaminophen (Tylenol) 650 mg PRN Q6HRS PRN PO PAIN / TEMP Last administered on 12/26/16 07:50; Start 12/21/16 at 20:45 Multi-Ingredient Ointment (Analgesic [place]) 1 cliff PRN QID PRN TP MUSCLE PAIN; Start 12/21/16 at 20:45 Al Hydroxide/Mg Hydroxide (Mylanta Plus Xs) 15 ml PRN AFTMEALHC PRN PO DYSPEPSIA; Start 12/21/16 at 20:45 Magnesium Hydroxide (Milk Of Magnesia) 2,400 mg PRN QHS PRN PO CONSTIPATION; Start 12/21/16 at 20:45 Furosemide (Lasix) 20 mg DAILY PO Last administered on 12/22/16 08:27; Start 12/22/16 at 09:00; Stop 12/22/16 at 16:11; Status DC Al Hydroxide/Mg Hydroxide (Mylanta Plus Xs) 15 ml PRN AFTMEAL PRN PO DYSPEPSIA ; Start 12/21/16 at 20:45; Status UNV Sotalol HCl (Betapace) 80 mg BID PO Last administered on 12/27/16 19:23; Start 12/21/16 at 21:00 Warfarin Sodium (Coumadin) 5 mg DAILY16 PO Last administered on 12/27/16 16:06 ; Start 12/22/16 at 16:00 Vitamin D (Vitamin D3) 2,000 unit DAILY PO Last administered on 12/27/16 06:54 ; Start 12/22/16 at 09:00 Cetirizine HCl (ZyrTEC) 10 mg DAILY PO Last administered on 12/27/16 06:54; Start 12/22/16 at 09:00 Non-Formulary Medication 2,400 mg PRN QHS PRN PO CONSTIPATION; Start 12/21/16 at 20:45; Status UNV Warfarin Sodium (Coumadin Per Physician) 1 each PRN DAILY PRN MC SEE COMMENTS; Start 12/21/16 at 21:15 Amlodipine Besylate (Norvasc) 10 mg DAILY PO Last administered on 12/27/16 06: 55; Start 12/23/16 at 09:00 Amlodipine Besylate (Norvasc) 10 mg 1X ONCE PO Last administered on 12/22/16 16:25; Start 12/22/16 at 16:30; Stop 12/22/16 at 16:31; Status DC Divalproex Sodium (Depakote Sprinkles) 375 mg BID PO Last administered on 06:54; Start 12/22/16 at 21:00; Stop 12/27/16 at 16:53; Status DC Sertraline HCl (Zoloft) 25 mg DAILY PO ; Start 12/28/16 at 09:00; Stop 12/28/16 at 09:00; Status DC Divalproex Sodium (Depakote Sprinkles) 500 mg BID PO Last administered on 19:22; Start 12/27/16 at 21:00 Donepezil HCl (Aricept) 10 mg DAILY PO ; Start 12/28/16 at 09:00 Sertraline HCl (Zoloft) 50 mg DAILY PO ; Start 12/28/16 at 09:00 Active Scripts Active Reported Vitamin D (Cholecalciferol (Vitamin D3)) 2,000 Unit Capsule 2,000 Units PO DAILY Betapace (Sotalol Hcl) 80 Mg Tablet 80 Mg PO BID Loratadine 10 Mg Tablet 10 Mg PO DAILY Furosemide 20 Mg Tablet 20 Mg PO DAILY Coumadin (Warfarin Sodium) 5 Mg Tablet 5 Mg PO HS Divalproex Sodium 125 Mg Cap.sprink 250 Mg PO BID Namenda (Memantine Hcl) 10 Mg Tablet 10 Mg PO BID Milk Of Magnesia (Magnesium Hydroxide) 2,400 Mg/10 Ml Oral.susp 2,400 Mg PO PRN QHS PRN Mag-Al Plus Xs Suspension (Mag Hydrox/Al Hydrox/Simeth) 30 Ml Oral.susp 15 Ml PO PRN AFTMEAL PRN Haloperidol 2 Mg Tablet 2 Mg PO PRN Q4HRS PRN Zoloft (Sertraline Hcl) 50 Mg Tablet 25 Mg PO DAILY Aricept (Donepezil Hcl) 5 Mg Tablet 5 Mg PO DAILY Trazodone Hcl 50 Mg Tablet 50 Mg PO QHS GIVE WITH FOOD Diagnosis: Problems: (1) Dementia with behavioral disturbance (2) Anxiety disorder (3) Impulse control disorder (4) Dementia, vascular, with depression (5) Dementia, vascular, with delusions (6) Dementia in Alzheimer's disease with depression (7) Dementia in Alzheimer's disease with delusions ADAN GOMES MD Dec 27, 2016 19:54
--- NOTE | 2016-12-28 01:44 | PN ---
DATE: 12/26/2016 This is a late entry for date of service 12/26/2016 covers elements not covered in my initial note. SUBJECTIVE: The patient was seen individually evening of 12/26/2016. Per nursing report, the patient is confused, compliant with medications and assessment agitated and aggressive before dinnertime. REVIEW OF SYSTEMS: Ambulation impaired. No CV, , pulmonary, eye, ENT system symptoms on review. Reliability poor. MENTAL STATUS EXAM: Oriented to herself. Insight, judgment, recent and remote memory, attention, concentration, fund of knowledge poor, consistent with her diagnosis mentioned in my initial note. PLAN: Continue trazodone 50 mg at bedtime, increase Zoloft to 50 mg a day, Aricept to 10 mg a day, Namenda is 10 b.i.d., Depakote Sprinkles 375 mg b.i.d. with a level of 45. We will increase the Depakote to 500 b.i.d. Check labs level. Adjust further as clinically indicated. Reviewed drug interaction risk, benefit ratio at some length and this favors no other changes than noted. MAN Saúl GOMES MD DR: FAISAL/alonso JOB#: [id number] / [id number]
[2016-12-28 05:58] VITALS: BP 147/79
[2016-12-28] MEDS: SERTRALINE 50 MG TABLET. PO SCH (08:50)
[2016-12-28] MEDS: CHOLECALCIFEROL (VITAMIN D3) 1,000 UNIT TABLET PO SCH (08:50)
[2016-12-28] MEDS: SOTALOL 80 MG TABLET. PO SCH ×2 (08:50→20:51)
[2016-12-28] MEDS: amLODIPine BESYLATE 10 MG TABLET PO SCH (08:51)
[2016-12-28] MEDS: MEMANTINE 10 MG TABLET. PO SCH ×2 (08:51→19:42)
[2016-12-28] MEDS: CETIRIZINE HCL 10 MG TABLET PO SCH (08:51)
[2016-12-28] MEDS: DIVALPROEX 125 MG CAP.SPRINK PO SCH ×2 (08:51→19:43)
[2016-12-28] MEDS: DONEPEZIL HCL 10 MG TABLET PO SCH (08:51)
[2016-12-28] MEDS ORDERED: SERTRALINE 25 MG TABLET. PO SCH (09:00)
[2016-12-28 16:12] VITALS: BP 107/47
[2016-12-28] MEDS: WARFARIN 5 MG TABLET. PO SCH (17:21)
--- NOTE | 2016-12-28 18:51 | PDOC ---
Exam Vikram Demential Exam: Vikram Note: Please also refer to the separate dictated note~for this date of service dictated separately.~Patient seen individually. Discussed the patient with Nursing staff reviewed the chart.~Reviewed interim history and current functioning. Reviewed vital signs,~Labs/ Radiology~and current medications noted below. Continue current treatment with the changes noted in the dictated addendum note Assessment: Vital Signs: Vital Signs Date Time Temp Pulse Resp B/P (MAP) Pulse Ox O2 Delivery O2 Flow Rate FiO2 12/28/16 16:12 98.9 73 18 107/47 (67) 100 12/26/16 16:24 Room Air I&O Intake and Output 12/28/16 07:00 Intake Total 960 ml Balance 960 ml Intake Oral 960 ml # Bowel Movements 1 Current Medications: Meds: Current Medications Acetaminophen (Tylenol) 650 mg PRN Q6HRS PRN PO PAIN / TEMP; Start 12/21/16 at 16:45; Stop 12/21/16 at 20:46; Status DC Divalproex Sodium (Depakote Sprinkles) 250 mg BID PO Last administered on 08:21; Start 12/21/16 at 21:00; Stop 12/22/16 at 18:34; Status DC Donepezil HCl (Aricept) 5 mg DAILY PO Last administered on 12/27/16 06:54; Start 12/22/16 at 09:00; Stop 12/27/16 at 16:53; Status DC Haloperidol (Haldol) 2 mg PRN Q4HRS PRN PO AGITATION Last administered on 21:29; Start 12/21/16 at 20:30 Memantine (Namenda) 10 mg BID PO Last administered on 12/28/16 08:51; Start at 21:00 Sertraline HCl (Zoloft) 25 mg DAILY PO Last administered on 12/27/16 06:55; Start 12/22/16 at 09:00; Stop 12/27/16 at 14:06; Status DC Trazodone HCl (Desyrel) 50 mg QHS PO Last administered on 12/27/16 19:22; Start 12/21/16 at 21:00 Acetaminophen (Tylenol) 650 mg PRN Q6HRS PRN PO PAIN / TEMP Last administered on 12/26/16 07:50; Start 12/21/16 at 20:45 Multi-Ingredient Ointment (Analgesic [place]) 1 cliff PRN QID PRN TP MUSCLE PAIN; Start 12/21/16 at 20:45 Al Hydroxide/Mg Hydroxide (Mylanta Plus Xs) 15 ml PRN AFTMEALHC PRN PO DYSPEPSIA; Start 12/21/16 at 20:45 Magnesium Hydroxide (Milk Of Magnesia) 2,400 mg PRN QHS PRN PO CONSTIPATION; Start 12/21/16 at 20:45 Furosemide (Lasix) 20 mg DAILY PO Last administered on 12/22/16 08:27; Start 12/22/16 at 09:00; Stop 12/22/16 at 16:11; Status DC Al Hydroxide/Mg Hydroxide (Mylanta Plus Xs) 15 ml PRN AFTMEAL PRN PO DYSPEPSIA ; Start 12/21/16 at 20:45; Status UNV Sotalol HCl (Betapace) 80 mg BID PO Last administered on 12/28/16 08:50; Start 12/21/16 at 21:00 Warfarin Sodium (Coumadin) 5 mg DAILY16 PO Last administered on 12/28/16 17:21 ; Start 12/22/16 at 16:00 Vitamin D (Vitamin D3) 2,000 unit DAILY PO Last administered on 12/28/16 08:50 ; Start 12/22/16 at 09:00 Cetirizine HCl (ZyrTEC) 10 mg DAILY PO Last administered on 12/28/16 08:51; Start 12/22/16 at 09:00 Non-Formulary Medication 2,400 mg PRN QHS PRN PO CONSTIPATION; Start 12/21/16 at 20:45; Status UNV Warfarin Sodium (Coumadin Per Physician) 1 each PRN DAILY PRN MC SEE COMMENTS; Start 12/21/16 at 21:15 Amlodipine Besylate (Norvasc) 10 mg DAILY PO Last administered on 12/28/16 08: 51; Start 12/23/16 at 09:00 Amlodipine Besylate (Norvasc) 10 mg 1X ONCE PO Last administered on 12/22/16 16:25; Start 12/22/16 at 16:30; Stop 12/22/16 at 16:31; Status DC Divalproex Sodium (Depakote Sprinkles) 375 mg BID PO Last administered on 06:54; Start 12/22/16 at 21:00; Stop 12/27/16 at 16:53; Status DC Sertraline HCl (Zoloft) 25 mg DAILY PO ; Start 12/28/16 at 09:00; Stop 12/28/16 at 09:00; Status DC Divalproex Sodium (Depakote Sprinkles) 500 mg BID PO Last administered on 08:51; Start 12/27/16 at 21:00 Donepezil HCl (Aricept) 10 mg DAILY PO Last administered on 12/28/16 08:51; Start 12/28/16 at 09:00 Sertraline HCl (Zoloft) 50 mg DAILY PO Last administered on 12/28/16 08:50; Start 12/28/16 at 09:00 Active Scripts Active Reported Vitamin D (Cholecalciferol (Vitamin D3)) 2,000 Unit Capsule 2,000 Units PO DAILY Betapace (Sotalol Hcl) 80 Mg Tablet 80 Mg PO BID Loratadine 10 Mg Tablet 10 Mg PO DAILY Furosemide 20 Mg Tablet 20 Mg PO DAILY Coumadin (Warfarin Sodium) 5 Mg Tablet 5 Mg PO HS Divalproex Sodium 125 Mg Cap.sprink 250 Mg PO BID Namenda (Memantine Hcl) 10 Mg Tablet 10 Mg PO BID Milk Of Magnesia (Magnesium Hydroxide) 2,400 Mg/10 Ml Oral.susp 2,400 Mg PO PRN QHS PRN Mag-Al Plus Xs Suspension (Mag Hydrox/Al Hydrox/Simeth) 30 Ml Oral.susp 15 Ml PO PRN AFTMEAL PRN Haloperidol 2 Mg Tablet 2 Mg PO PRN Q4HRS PRN Zoloft (Sertraline Hcl) 50 Mg Tablet 25 Mg PO DAILY Aricept (Donepezil Hcl) 5 Mg Tablet 5 Mg PO DAILY Trazodone Hcl 50 Mg Tablet 50 Mg PO QHS GIVE WITH FOOD Diagnosis: Problems: (1) Dementia in Alzheimer's disease with delusions (2) Dementia in Alzheimer's disease with depression (3) Dementia, vascular, with delusions (4) Dementia, vascular, with depression (5) Impulse control disorder (6) Anxiety disorder (7) Dementia with behavioral disturbance ADAN GOMES MD Dec 28, 2016 18:51
[2016-12-28] MEDS: traZODone 50 MG TABLET. PO SCH (19:42)
[2016-12-28 20:53] VITALS: BP 93/60
--- NOTE | 2016-12-29 04:21 | PN ---
DATE: 12/27/2016 This late entry of 12/27/2016 covers elements not covered in my initial note of 12/27/2016. SUBJECTIVE: I met with the patient evening of 12/27/2016. Per nursing report, the patient remains labile, confused, delusional, cursing, using profane language including "PU ---" and "F--- off." She gets intermittently aggressive. REVIEW OF SYSTEMS: Ambulation impaired, in a wheelchair. No CV, , pulmonary, eye, ENT system symptoms on review. Reliability poor. MENTAL STATUS EXAMINATION: Oriented to herself. Insight, judgment, recent and remote memory, attention, concentration, fund of knowledge poor, consistent with her diagnosis mentioned in my initial note. PLAN: The patient's Depakote was increased as was the Aricept and Zoloft. Follow labs level, make further adjustments as clinically indicated. Review drug interactions risk, benefit ratio. ADAN GOMES MD DR: FAISAL/alonso JOB#: [id number] / [id number]
[2016-12-29 06:27] VITALS: BP 133/73
[2016-12-29] MEDS: DIVALPROEX 125 MG CAP.SPRINK PO SCH ×2 (09:23→19:22)
[2016-12-29] MEDS: DONEPEZIL HCL 10 MG TABLET PO SCH (09:23)
[2016-12-29] MEDS: SERTRALINE 50 MG TABLET. PO SCH (09:23)
[2016-12-29] MEDS: MEMANTINE 10 MG TABLET. PO SCH ×2 (09:23→19:22)
[2016-12-29] MEDS: CETIRIZINE HCL 10 MG TABLET PO SCH (09:23)
[2016-12-29] MEDS: amLODIPine BESYLATE 10 MG TABLET PO SCH (09:23)
[2016-12-29] MEDS: CHOLECALCIFEROL (VITAMIN D3) 1,000 UNIT TABLET PO SCH (09:23)
[2016-12-29] MEDS: SOTALOL 80 MG TABLET. PO SCH ×2 (09:24→21:00)
[2016-12-29 16:31] VITALS: BP 106/65
[2016-12-29] MEDS: WARFARIN 5 MG TABLET. PO SCH (17:18)
--- NOTE | 2016-12-29 18:36 | PDOC ---
Exam Vikram Demential Exam: Vikram Note: Please also refer to the separate dictated note~for this date of service dictated separately.~Patient seen individually. Discussed the patient with Nursing staff reviewed the chart.~Reviewed interim history and current functioning. Reviewed vital signs,~Labs/ Radiology~and current medications noted below. Continue current treatment with the changes noted in the dictated addendum note Assessment: Vital Signs: Vital Signs Date Time Temp Pulse Resp B/P (MAP) Pulse Ox O2 Delivery O2 Flow Rate FiO2 12/29/16 16:31 97.1 85 20 106/65 (79) 96 12/26/16 16:24 Room Air I&O Intake and Output 12/29/16 07:00 Intake Total 720 ml Balance 720 ml Intake Oral 720 ml Current Medications: Meds: Current Medications Acetaminophen (Tylenol) 650 mg PRN Q6HRS PRN PO PAIN / TEMP; Start 12/21/16 at 16:45; Stop 12/21/16 at 20:46; Status DC Divalproex Sodium (Depakote Sprinkles) 250 mg BID PO Last administered on 08:21; Start 12/21/16 at 21:00; Stop 12/22/16 at 18:34; Status DC Donepezil HCl (Aricept) 5 mg DAILY PO Last administered on 12/27/16 06:54; Start 12/22/16 at 09:00; Stop 12/27/16 at 16:53; Status DC Haloperidol (Haldol) 2 mg PRN Q4HRS PRN PO AGITATION Last administered on 21:29; Start 12/21/16 at 20:30 Memantine (Namenda) 10 mg BID PO Last administered on 12/29/16 09:23; Start at 21:00 Sertraline HCl (Zoloft) 25 mg DAILY PO Last administered on 12/27/16 06:55; Start 12/22/16 at 09:00; Stop 12/27/16 at 14:06; Status DC Trazodone HCl (Desyrel) 50 mg QHS PO Last administered on 12/28/16 19:42; Start 12/21/16 at 21:00 Acetaminophen (Tylenol) 650 mg PRN Q6HRS PRN PO PAIN / TEMP Last administered on 12/26/16 07:50; Start 12/21/16 at 20:45 Multi-Ingredient Ointment (Analgesic [place]) 1 cliff PRN QID PRN TP MUSCLE PAIN; Start 12/21/16 at 20:45 Al Hydroxide/Mg Hydroxide (Mylanta Plus Xs) 15 ml PRN AFTMEALHC PRN PO DYSPEPSIA; Start 12/21/16 at 20:45 Magnesium Hydroxide (Milk Of Magnesia) 2,400 mg PRN QHS PRN PO CONSTIPATION; Start 12/21/16 at 20:45 Furosemide (Lasix) 20 mg DAILY PO Last administered on 12/22/16 08:27; Start 12/22/16 at 09:00; Stop 12/22/16 at 16:11; Status DC Al Hydroxide/Mg Hydroxide (Mylanta Plus Xs) 15 ml PRN AFTMEAL PRN PO DYSPEPSIA ; Start 12/21/16 at 20:45; Status UNV Sotalol HCl (Betapace) 80 mg BID PO Last administered on 12/29/16 09:24; Start 12/21/16 at 21:00 Warfarin Sodium (Coumadin) 5 mg DAILY16 PO Last administered on 12/29/16 17:18 ; Start 12/22/16 at 16:00 Vitamin D (Vitamin D3) 2,000 unit DAILY PO Last administered on 12/29/16 09:23 ; Start 12/22/16 at 09:00 Cetirizine HCl (ZyrTEC) 10 mg DAILY PO Last administered on 12/29/16 09:23; Start 12/22/16 at 09:00 Non-Formulary Medication 2,400 mg PRN QHS PRN PO CONSTIPATION; Start 12/21/16 at 20:45; Status UNV Warfarin Sodium (Coumadin Per Physician) 1 each PRN DAILY PRN MC SEE COMMENTS; Start 12/21/16 at 21:15 Amlodipine Besylate (Norvasc) 10 mg DAILY PO Last administered on 12/29/16 09: 23; Start 12/23/16 at 09:00 Amlodipine Besylate (Norvasc) 10 mg 1X ONCE PO Last administered on 12/22/16 16:25; Start 12/22/16 at 16:30; Stop 12/22/16 at 16:31; Status DC Divalproex Sodium (Depakote Sprinkles) 375 mg BID PO Last administered on 06:54; Start 12/22/16 at 21:00; Stop 12/27/16 at 16:53; Status DC Sertraline HCl (Zoloft) 25 mg DAILY PO ; Start 12/28/16 at 09:00; Stop 12/28/16 at 09:00; Status DC Divalproex Sodium (Depakote Sprinkles) 500 mg BID PO Last administered on 09:23; Start 12/27/16 at 21:00 Donepezil HCl (Aricept) 10 mg DAILY PO Last administered on 12/29/16 09:23; Start 12/28/16 at 09:00 Sertraline HCl (Zoloft) 50 mg DAILY PO Last administered on 12/29/16 09:23; Start 12/28/16 at 09:00 Active Scripts Active Reported Vitamin D (Cholecalciferol (Vitamin D3)) 2,000 Unit Capsule 2,000 Units PO DAILY Betapace (Sotalol Hcl) 80 Mg Tablet 80 Mg PO BID Loratadine 10 Mg Tablet 10 Mg PO DAILY Furosemide 20 Mg Tablet 20 Mg PO DAILY Coumadin (Warfarin Sodium) 5 Mg Tablet 5 Mg PO HS Divalproex Sodium 125 Mg Cap.sprink 250 Mg PO BID Namenda (Memantine Hcl) 10 Mg Tablet 10 Mg PO BID Milk Of Magnesia (Magnesium Hydroxide) 2,400 Mg/10 Ml Oral.susp 2,400 Mg PO PRN QHS PRN Mag-Al Plus Xs Suspension (Mag Hydrox/Al Hydrox/Simeth) 30 Ml Oral.susp 15 Ml PO PRN AFTMEAL PRN Haloperidol 2 Mg Tablet 2 Mg PO PRN Q4HRS PRN Zoloft (Sertraline Hcl) 50 Mg Tablet 25 Mg PO DAILY Aricept (Donepezil Hcl) 5 Mg Tablet 5 Mg PO DAILY Trazodone Hcl 50 Mg Tablet 50 Mg PO QHS GIVE WITH FOOD Diagnosis: Problems: (1) Dementia in Alzheimer's disease with delusions (2) Dementia in Alzheimer's disease with depression (3) Dementia, vascular, with delusions (4) Dementia, vascular, with depression (5) Impulse control disorder (6) Anxiety disorder (7) Dementia with behavioral disturbance ADAN GOMES MD Dec 29, 2016 18:36
[2016-12-29] MEDS: traZODone 50 MG TABLET. PO SCH (19:22)
--- NOTE | 2016-12-30 03:16 | PN ---
DATE: 12/28/2016 This late entry 12/28/2016 covers elements not covered in my initial note. SUBJECTIVE: I met with the patient evening of 12/28/2016. The patient remains confused, slept through breakfast, son visited, no yelling was noted, still remains somewhat delusional. REVIEW OF SYSTEMS: Ambulation impaired, in a walker. No CV, , pulmonary, eye, ENT system symptoms on review. Reliability poor. MENTAL STATUS EXAM: Oriented to herself. Insight, judgment, recent and remote memory, attention, concentration, fund of knowledge poor, consistent with her diagnosis mentioned in my initial note. I met with the patient evening of 12/28/2016 for this evaluation. PLAN: Continue current psychotropics mentioned in my initial note. Review drug contractions, risk/benefit ratio favors no further change as of now. MAN Saúl GOMES MD DR: FAISAL/alonso JOB#: [id number] / [id number]
[2016-12-30 06:19] VITALS: BP 146/77
[2016-12-30 07:37] LABS: BASO % 1 % (0-3); EOS # 0.5 x10^3/uL (0.0-0.7); EOS % 9 % (0-3); HEMATOCRIT 37.8 % (36.0-47.0); HEMOGLOBIN 12.2 g/dL (12.0-15.5); LYMPH # 1.5 x10^3/uL (1.0-4.8); LYMPH % 28 % (24-48); MEAN CORPUSCULAR HEMOGLOBIN 30 pg (25-35); MEAN CORPUSCULAR HGB CONC 32 g/dL (31-37); MEAN CORPUSCULAR VOLUME 94 fL (79-100); MONO # 0.5 x10^3/uL (0.0-1.1); MONO % 9 % (0-9); NEUT # 2.9 x10^3uL (1.8-7.7); NEUT % 53 % (31-73); PLATELET COUNT 179 x10^3/uL (140-400); RED BLOOD COUNT 4.02 x10^6/uL (3.50-5.40); RED CELL DISTRIBUTION WIDTH 16.4 % (11.5-14.5); WHITE BLOOD COUNT 5.5 x10^3/uL (4.0-11.0)
[2016-12-30 07:47] LABS: ALBUMIN 2.6 g/dL (3.4-5.0); ALBUMIN/GLOBULIN RATIO 0.5 (1.0-1.7); ALK PHOS 110 U/L (46-116); ALT (SGPT) 15 U/L (14-59); ANION GAP -1 (6-14); AST (SGOT) 23 U/L (15-37); BLOOD UREA NITROGEN 24 mg/dL (7-20); BUN/CREATININE RATIO 30 (6-20); CARBON DIOXIDE 38 mmol/L (21-32); CHLORIDE 109 mmol/L (98-107); CREATININE 0.8 mg/dL (0.6-1.0); GFR 83.9; GLUCOSE 81 mg/dL (70-99); POTASSIUM 5.2 mmol/L (3.5-5.1); SODIUM 146 mmol/L (136-145); TOTAL BILIRUBIN 0.1 mg/dL (0.2-1.0); TOTAL PROTEIN 7.5 g/dL (6.4-8.2); VAL ACID 64 mcg/mL (50-100)
[2016-12-30] MEDS: MEMANTINE 10 MG TABLET. PO SCH ×2 (09:24→19:31)
[2016-12-30] MEDS: DIVALPROEX 125 MG CAP.SPRINK PO SCH ×2 (09:24→19:31)
[2016-12-30] MEDS: CHOLECALCIFEROL (VITAMIN D3) 1,000 UNIT TABLET PO SCH (09:24)
[2016-12-30] MEDS: amLODIPine BESYLATE 10 MG TABLET PO SCH (09:24)
[2016-12-30] MEDS: CETIRIZINE HCL 10 MG TABLET PO SCH (09:24)
[2016-12-30] MEDS: SERTRALINE 50 MG TABLET. PO SCH (09:24)
[2016-12-30] MEDS: DONEPEZIL HCL 10 MG TABLET PO SCH (09:24)
[2016-12-30] MEDS: SOTALOL 80 MG TABLET. PO SCH ×2 (09:25→19:38)
[2016-12-30] MEDS: busPIRone 5 MG TABLET. PO SCH ×2 (14:02→19:30)
[2016-12-30 16:14] VITALS: BP 106/71
[2016-12-30] MEDS: traZODone 50 MG TABLET. PO SCH (19:32)
--- NOTE | 2016-12-30 20:42 | PDOC ---
Exam Vikram Demential Exam: Vikram Note: Please also refer to the separate dictated note~for this date of service dictated separately.~Patient seen individually. Discussed the patient with Nursing staff reviewed the chart.~Reviewed interim history and current functioning. Reviewed vital signs,~Labs/ Radiology~and current medications noted below. Continue current treatment with the changes noted in the dictated addendum note Assessment: Vital Signs: Vital Signs Date Time Temp Pulse Resp B/P (MAP) Pulse Ox O2 Delivery O2 Flow Rate FiO2 12/30/16 19:38 74 115/70 12/30/16 16:14 97.5 20 99 12/26/16 16:24 Room Air I&O Intake and Output 12/30/16 07:00 Intake Total 960 ml Balance 960 ml Intake Oral 960 ml # Voids 1 # Bowel Movements 2 Labs: Laboratory Tests Test 12/30/16 07:27 12/30/16 13:12 White Blood Count 5.5 x10^3/uL (4.0-11.0) Red Blood Count 4.02 x10^6/uL (3.50-5.40) Hemoglobin 12.2 g/dL (12.0-15.5) Hematocrit 37.8 % (36.0-47.0) Mean Corpuscular Volume 94 fL (79-100) Mean Corpuscular Hemoglobin 30 pg (25-35) Mean Corpuscular Hemoglobin Concent 32 g/dL (31-37) Red Cell Distribution Width 16.4 % (11.5-14.5) H Platelet Count 179 x10^3/uL (140-400) Neutrophils (%) (Auto) 53 % (31-73) Lymphocytes (%) (Auto) 28 % (24-48) Monocytes (%) (Auto) 9 % (0-9) Eosinophils (%) (Auto) 9 % (0-3) H Basophils (%) (Auto) 1 % (0-3) Neutrophils # (Auto) 2.9 x10^3uL (1.8-7.7) Lymphocytes # (Auto) 1.5 x10^3/uL (1.0-4.8) Monocytes # (Auto) 0.5 x10^3/uL (0.0-1.1) Eosinophils # (Auto) 0.5 x10^3/uL (0.0-0.7) Basophils # (Auto) 0.0 x10^3/uL (0.0-0.2) Sodium Level 146 mmol/L (136-145) H Potassium Level 5.2 mmol/L (3.5-5.1) H Chloride Level 109 mmol/L (98-107) H Carbon Dioxide Level 38 mmol/L (21-32) H Anion Gap -1 (6-14) L Blood Urea Nitrogen 24 mg/dL (7-20) H Creatinine 0.8 mg/dL (0.6-1.0) Estimated GFR (Cockcroft-Gault) 83.9 BUN/Creatinine Ratio 30 (6-20) H Glucose Level 81 mg/dL (70-99) Calcium Level 10.0 mg/dL (8.5-10.1) Total Bilirubin 0.1 mg/dL (0.2-1.0) L Aspartate Amino Transferase (AST) 23 U/L (15-37) Alanine Aminotransferase (ALT) 15 U/L (14-59) Alkaline Phosphatase 110 U/L (46-116) Total Protein 7.5 g/dL (6.4-8.2) Albumin 2.6 g/dL (3.4-5.0) L Albumin/Globulin Ratio 0.5 (1.0-1.7) L Valproic Acid Level 64 mcg/mL (50-100) Valproic Acid Last Dose Date 12/29/16 Valproic Acid Last Dose Time 2100 Prothrombin Time 54.9 SEC (9.4-11.4) H Prothrombin Time INR 5.3 (0.9-1.1) *H Current Medications: Meds: Current Medications Acetaminophen (Tylenol) 650 mg PRN Q6HRS PRN PO PAIN / TEMP; Start 12/21/16 at 16:45; Stop 12/21/16 at 20:46; Status DC Divalproex Sodium (Depakote Sprinkles) 250 mg BID PO Last administered on 08:21; Start 12/21/16 at 21:00; Stop 12/22/16 at 18:34; Status DC Donepezil HCl (Aricept) 5 mg DAILY PO Last administered on 12/27/16 06:54; Start 12/22/16 at 09:00; Stop 12/27/16 at 16:53; Status DC Haloperidol (Haldol) 2 mg PRN Q4HRS PRN PO AGITATION Last administered on 21:29; Start 12/21/16 at 20:30 Memantine (Namenda) 10 mg BID PO Last administered on 12/30/16 19:31; Start at 21:00 Sertraline HCl (Zoloft) 25 mg DAILY PO Last administered on 12/27/16 06:55; Start 12/22/16 at 09:00; Stop 12/27/16 at 14:06; Status DC Trazodone HCl (Desyrel) 50 mg QHS PO Last administered on 12/30/16 19:32; Start 12/21/16 at 21:00 Acetaminophen (Tylenol) 650 mg PRN Q6HRS PRN PO PAIN / TEMP Last administered on 12/26/16 07:50; Start 12/21/16 at 20:45 Multi-Ingredient Ointment (Analgesic [place]) 1 cliff PRN QID PRN TP MUSCLE PAIN; Start 12/21/16 at 20:45 Al Hydroxide/Mg Hydroxide (Mylanta Plus Xs) 15 ml PRN AFTMEALHC PRN PO DYSPEPSIA; Start 12/21/16 at 20:45 Magnesium Hydroxide (Milk Of Magnesia) 2,400 mg PRN QHS PRN PO CONSTIPATION; Start 12/21/16 at 20:45 Furosemide (Lasix) 20 mg DAILY PO Last administered on 12/22/16 08:27; Start 12/22/16 at 09:00; Stop 12/22/16 at 16:11; Status DC Al Hydroxide/Mg Hydroxide (Mylanta Plus Xs) 15 ml PRN AFTMEAL PRN PO DYSPEPSIA ; Start 12/21/16 at 20:45; Status UNV Sotalol HCl (Betapace) 80 mg BID PO Last administered on 12/30/16 19:38; Start 12/21/16 at 21:00 Warfarin Sodium (Coumadin) 5 mg DAILY16 PO Last administered on 12/29/16 17:18 ; Start 12/22/16 at 16:00; Stop 12/30/16 at 12:17; Status DC Vitamin D (Vitamin D3) 2,000 unit DAILY PO Last administered on 12/30/16 09:24 ; Start 12/22/16 at 09:00 Cetirizine HCl (ZyrTEC) 10 mg DAILY PO Last administered on 12/30/16 09:24; Start 12/22/16 at 09:00 Non-Formulary Medication 2,400 mg PRN QHS PRN PO CONSTIPATION; Start 12/21/16 at 20:45; Status UNV Warfarin Sodium (Coumadin Per Physician) 1 each PRN DAILY PRN MC SEE COMMENTS; Start 12/21/16 at 21:15; Stop 12/30/16 at 12:17; Status DC Amlodipine Besylate (Norvasc) 10 mg DAILY PO Last administered on 12/30/16 09: 24; Start 12/23/16 at 09:00 Amlodipine Besylate (Norvasc) 10 mg 1X ONCE PO Last administered on 12/22/16 16:25; Start 12/22/16 at 16:30; Stop 12/22/16 at 16:31; Status DC Divalproex Sodium (Depakote Sprinkles) 375 mg BID PO Last administered on 06:54; Start 12/22/16 at 21:00; Stop 12/27/16 at 16:53; Status DC Sertraline HCl (Zoloft) 25 mg DAILY PO ; Start 12/28/16 at 09:00; Stop 12/28/16 at 09:00; Status DC Divalproex Sodium (Depakote Sprinkles) 500 mg BID PO Last administered on 19:31; Start 12/27/16 at 21:00 Donepezil HCl (Aricept) 10 mg DAILY PO Last administered on 12/30/16 09:24; Start 12/28/16 at 09:00 Sertraline HCl (Zoloft) 50 mg DAILY PO Last administered on 12/30/16 09:24; Start 12/28/16 at 09:00 Warfarin Sodium (Coumadin Per Pharmacy) 1 each PRN DAILY PRN MC SEE COMMENTS Last administered on 12/30/16 14:09; Start 12/30/16 at 12:15 Buspirone HCl (Buspar) 5 mg BID PO ; Start 12/30/16 at 21:00; Stop 12/30/16 at 21:00; Status DC Buspirone HCl (Buspar) 5 mg TID PO Last administered on 12/30/16t 19:30; Start 12/30/16 at 14:00 Warfarin Sodium (Coumadin - No Dose Today) 1 each 1X WARF ONCE MC ; Start 12/30 at 16:00; Stop 12/30/16 at 16:01; Status DC Active Scripts Active Reported Vitamin D (Cholecalciferol (Vitamin D3)) 2,000 Unit Capsule 2,000 Units PO DAILY Betapace (Sotalol Hcl) 80 Mg Tablet 80 Mg PO BID Loratadine 10 Mg Tablet 10 Mg PO DAILY Furosemide 20 Mg Tablet 20 Mg PO DAILY Coumadin (Warfarin Sodium) 5 Mg Tablet 5 Mg PO HS Divalproex Sodium 125 Mg Cap.sprink 250 Mg PO BID Namenda (Memantine Hcl) 10 Mg Tablet 10 Mg PO BID Milk Of Magnesia (Magnesium Hydroxide) 2,400 Mg/10 Ml Oral.susp 2,400 Mg PO PRN QHS PRN Mag-Al Plus Xs Suspension (Mag Hydrox/Al Hydrox/Simeth) 30 Ml Oral.susp 15 Ml PO PRN AFTMEAL PRN Haloperidol 2 Mg Tablet 2 Mg PO PRN Q4HRS PRN Zoloft (Sertraline Hcl) 50 Mg Tablet 25 Mg PO DAILY Aricept (Donepezil Hcl) 5 Mg Tablet 5 Mg PO DAILY Trazodone Hcl 50 Mg Tablet 50 Mg PO QHS GIVE WITH FOOD Diagnosis: Problems: (1) Dementia with behavioral disturbance (2) Anxiety disorder (3) Impulse control disorder (4) Dementia, vascular, with depression (5) Dementia, vascular, with delusions (6) Dementia in Alzheimer's disease with depression (7) Dementia in Alzheimer's disease with delusions ADAN GOMES MD Dec 30, 2016 20:42
[2016-12-30] MEDS ORDERED: busPIRone 5 MG TABLET. PO SCH (21:00)
--- NOTE | 2016-12-31 01:58 | PN ---
DATE: 12/29/2016 This is a late entry for 12/29/2016 and covers elements not covered in my initial note. I met with the patient the evening of 12/29/2016. The patient remains confused, has not been cursing, slept reasonably well. REVIEW OF SYSTEMS: Ambulation impaired, in a wheelchair. No CV, , pulmonary, eye system symptoms on review. Reliability poor. MENTAL STATUS EXAM: Oriented to herself. Insight, judgment, recent and remote memory, attention, concentration, fund of knowledge poor, consistent with her diagnosis mentioned in my initial note. PLAN: Continue current psychotropics. Reviewed drug contractions. Risk/benefit ratio favors no further changes as of now, but may consider increasing Zoloft in due course. Depakote was increased. Repeat labs level on 12/30/2016. Adjust further as clinically indicated. MAN Saúl GOMES MD DR: FAISAL/alonso JOB#: [id number] / [id number]
[2016-12-31 06:05] VITALS: BP 145/76
[2016-12-31 08:07] LABS: ALBUMIN 2.9 g/dL (3.4-5.0); ALBUMIN/GLOBULIN RATIO 0.6 (1.0-1.7); CALCIUM 10.3 mg/dL (8.5-10.1); CREATININE 0.8 mg/dL (0.6-1.0); GFR 83.9; MAGNESIUM 2.1 mg/dL (1.8-2.4); POTASSIUM 4.3 mmol/L (3.5-5.1); TOTAL BILIRUBIN 0.2 mg/dL (0.2-1.0); TOTAL PROTEIN 8.1 g/dL (6.4-8.2)
[2016-12-31] MEDS: busPIRone 5 MG TABLET. PO SCH ×3 (08:15→19:34)
[2016-12-31] MEDS: CETIRIZINE HCL 10 MG TABLET PO SCH (08:15)
[2016-12-31] MEDS: amLODIPine BESYLATE 10 MG TABLET PO SCH (08:15)
[2016-12-31] MEDS: SERTRALINE 50 MG TABLET. PO SCH (08:15)
[2016-12-31] MEDS: MEMANTINE 10 MG TABLET. PO SCH ×2 (08:15→19:34)
[2016-12-31] MEDS: DONEPEZIL HCL 10 MG TABLET PO SCH (08:15)
[2016-12-31] MEDS: CHOLECALCIFEROL (VITAMIN D3) 1,000 UNIT TABLET PO SCH (08:15)
[2016-12-31] MEDS: DIVALPROEX 125 MG CAP.SPRINK PO SCH ×2 (08:16→19:34)
[2016-12-31] MEDS: SOTALOL 80 MG TABLET. PO SCH ×2 (08:18→22:02)
--- NOTE | 2016-12-31 10:16 | PDOC ---
Exam Vikram Demential Exam: Vikram Note: Please also refer to the separate dictated note~for this date of service dictated separately.~Patient seen individually. Discussed the patient with Nursing staff reviewed the chart.~Reviewed interim history and current functioning. Reviewed vital signs,~Labs/ Radiology~and current medications noted below. Continue current treatment with the changes noted in the dictated addendum note Assessment: Vital Signs: Vital Signs Date Time Temp Pulse Resp B/P (MAP) Pulse Ox O2 Delivery O2 Flow Rate FiO2 12/31/16 08:18 68 145/76 12/31/16 06:05 98.4 18 95 12/26/16 16:24 Room Air I&O Intake and Output 12/31/16 06:59 Intake Total 1620 ml Balance 1620 ml Intake Oral 1620 ml Labs: Laboratory Tests Test 12/30/16 13:12 12/31/16 07:31 Prothrombin Time 54.9 SEC (9.4-11.4) H 50.2 SEC (9.4-11.4) H Prothrombin Time INR 5.3 (0.9-1.1) *H 4.9 (0.9-1.1) *H Sodium Level 143 mmol/L (136-145) Potassium Level 4.3 mmol/L (3.5-5.1) Chloride Level 107 mmol/L (98-107) Carbon Dioxide Level 35 mmol/L (21-32) H Anion Gap 1 (6-14) L Blood Urea Nitrogen 25 mg/dL (7-20) H Creatinine 0.8 mg/dL (0.6-1.0) Estimated GFR (Cockcroft-Gault) 83.9 BUN/Creatinine Ratio 31 (6-20) H Glucose Level 73 mg/dL (70-99) Calcium Level 10.3 mg/dL (8.5-10.1) H Magnesium Level 2.1 mg/dL (1.8-2.4) Total Bilirubin 0.2 mg/dL (0.2-1.0) Aspartate Amino Transferase (AST) 16 U/L (15-37) Alanine Aminotransferase (ALT) 15 U/L (14-59) Alkaline Phosphatase 114 U/L (46-116) Total Protein 8.1 g/dL (6.4-8.2) Albumin 2.9 g/dL (3.4-5.0) L Albumin/Globulin Ratio 0.6 (1.0-1.7) L Current Medications: Meds: Current Medications Acetaminophen (Tylenol) 650 mg PRN Q6HRS PRN PO PAIN / TEMP; Start 12/21/16 at 16:45; Stop 12/21/16 at 20:46; Status DC Divalproex Sodium (Depakote Sprinkles) 250 mg BID PO Last administered on 08:21; Start 12/21/16 at 21:00; Stop 12/22/16 at 18:34; Status DC Donepezil HCl (Aricept) 5 mg DAILY PO Last administered on 12/27/16 06:54; Start 12/22/16 at 09:00; Stop 12/27/16 at 16:53; Status DC Haloperidol (Haldol) 2 mg PRN Q4HRS PRN PO AGITATION Last administered on 21:29; Start 12/21/16 at 20:30 Memantine (Namenda) 10 mg BID PO Last administered on 12/31/16 08:15; Start at 21:00 Sertraline HCl (Zoloft) 25 mg DAILY PO Last administered on 12/27/16 06:55; Start 12/22/16 at 09:00; Stop 12/27/16 at 14:06; Status DC Trazodone HCl (Desyrel) 50 mg QHS PO Last administered on 12/30/16 19:32; Start 12/21/16 at 21:00 Acetaminophen (Tylenol) 650 mg PRN Q6HRS PRN PO PAIN / TEMP Last administered on 12/26/16 07:50; Start 12/21/16 at 20:45 Multi-Ingredient Ointment (Analgesic [place]) 1 cliff PRN QID PRN TP MUSCLE PAIN; Start 12/21/16 at 20:45 Al Hydroxide/Mg Hydroxide (Mylanta Plus Xs) 15 ml PRN AFTMEALHC PRN PO DYSPEPSIA; Start 12/21/16 at 20:45 Magnesium Hydroxide (Milk Of Magnesia) 2,400 mg PRN QHS PRN PO CONSTIPATION; Start 12/21/16 at 20:45 Furosemide (Lasix) 20 mg DAILY PO Last administered on 12/22/16 08:27; Start 12/22/16 at 09:00; Stop 12/22/16 at 16:11; Status DC Al Hydroxide/Mg Hydroxide (Mylanta Plus Xs) 15 ml PRN AFTMEAL PRN PO DYSPEPSIA ; Start 12/21/16 at 20:45; Status UNV Sotalol HCl (Betapace) 80 mg BID PO Last administered on 12/31/16 08:18; Start 12/21/16 at 21:00 Warfarin Sodium (Coumadin) 5 mg DAILY16 PO Last administered on 12/29/16 17:18 ; Start 12/22/16 at 16:00; Stop 12/30/16 at 12:17; Status DC Vitamin D (Vitamin D3) 2,000 unit DAILY PO Last administered on 12/31/16 08:15 ; Start 12/22/16 at 09:00 Cetirizine HCl (ZyrTEC) 10 mg DAILY PO Last administered on 12/31/16 08:15; Start 12/22/16 at 09:00 Non-Formulary Medication 2,400 mg PRN QHS PRN PO CONSTIPATION; Start 12/21/16 at 20:45; Status UNV Warfarin Sodium (Coumadin Per Physician) 1 each PRN DAILY PRN MC SEE COMMENTS; Start 12/21/16 at 21:15; Stop 12/30/16 at 12:17; Status DC Amlodipine Besylate (Norvasc) 10 mg DAILY PO Last administered on 12/31/16 08: 15; Start 12/23/16 at 09:00 Amlodipine Besylate (Norvasc) 10 mg 1X ONCE PO Last administered on 12/22/16 16:25; Start 12/22/16 at 16:30; Stop 12/22/16 at 16:31; Status DC Divalproex Sodium (Depakote Sprinkles) 375 mg BID PO Last administered on 06:54; Start 12/22/16 at 21:00; Stop 12/27/16 at 16:53; Status DC Sertraline HCl (Zoloft) 25 mg DAILY PO ; Start 12/28/16 at 09:00; Stop 12/28/16 at 09:00; Status DC Divalproex Sodium (Depakote Sprinkles) 500 mg BID PO Last administered on 08:16; Start 12/27/16 at 21:00 Donepezil HCl (Aricept) 10 mg DAILY PO Last administered on 12/31/16 08:15; Start 12/28/16 at 09:00 Sertraline HCl (Zoloft) 50 mg DAILY PO Last administered on 12/31/16 08:15; Start 12/28/16 at 09:00 Warfarin Sodium (Coumadin Per Pharmacy) 1 each PRN DAILY PRN MC SEE COMMENTS Last administered on 12/30/16 14:09; Start 12/30/16 at 12:15 Buspirone HCl (Buspar) 5 mg BID PO ; Start 12/30/16 at 21:00; Stop 12/30/16 at 21:00; Status DC Buspirone HCl (Buspar) 5 mg TID PO Last administered on 12/31/16 08:15; Start 12/30/16 at 14:00 Warfarin Sodium (Coumadin - No Dose Today) 1 each 1X WARF ONCE MC ; Start 12/30 at 16:00; Stop 12/30/16 at 16:01; Status DC Active Scripts Active Reported Vitamin D (Cholecalciferol (Vitamin D3)) 2,000 Unit Capsule 2,000 Units PO DAILY Betapace (Sotalol Hcl) 80 Mg Tablet 80 Mg PO BID Loratadine 10 Mg Tablet 10 Mg PO DAILY Furosemide 20 Mg Tablet 20 Mg PO DAILY Coumadin (Warfarin Sodium) 5 Mg Tablet 5 Mg PO HS Divalproex Sodium 125 Mg Cap.sprink 250 Mg PO BID Namenda (Memantine Hcl) 10 Mg Tablet 10 Mg PO BID Milk Of Magnesia (Magnesium Hydroxide) 2,400 Mg/10 Ml Oral.susp 2,400 Mg PO PRN QHS PRN Mag-Al Plus Xs Suspension (Mag Hydrox/Al Hydrox/Simeth) 30 Ml Oral.susp 15 Ml PO PRN AFTMEAL PRN Haloperidol 2 Mg Tablet 2 Mg PO PRN Q4HRS PRN Zoloft (Sertraline Hcl) 50 Mg Tablet 25 Mg PO DAILY Aricept (Donepezil Hcl) 5 Mg Tablet 5 Mg PO DAILY Trazodone Hcl 50 Mg Tablet 50 Mg PO QHS GIVE WITH FOOD Diagnosis: Problems: (1) Dementia in Alzheimer's disease with delusions (2) Dementia in Alzheimer's disease with depression (3) Dementia, vascular, with delusions (4) Dementia, vascular, with depression (5) Impulse control disorder (6) Anxiety disorder (7) Dementia with behavioral disturbance ADAN GOMES MD Dec 31, 2016 10:16
[2016-12-31 15:56] VITALS: BP 122/87
--- NOTE | 2016-12-31 19:02 | PN ---
DATE: 12/30/2016 PSYCHIATRIC PROGRESS NOTE This note covers elements not covered in my initial note of 12/30/2016. SUBJECTIVE: The patient was staffed at a treatment team meeting with the entire team morning of 12/30/2016. Seen individually evening of 12/30/2016. She remains disorganized, confused, but more alert yesterday, though yesterday morning, she was cursing today she has not done that. REVIEW OF SYSTEMS: Ambulation impaired. No CV, , pulmonary, eye, ENT system symptoms on review. Reliability poor. MENTAL STATUS EXAM: Oriented to herself. Insight, judgment, recent and remote memory, attention, concentration, fund of knowledge poor, consistent with her diagnosis mentioned in my initial note. PLAN: Continue current psychotropics reviewed, drug interactions. Risk/benefit ratio favors no further Change. MAN Saúl GOMES MD DR: FAISAL/alonso JOB#: [id number] / [id number]
[2016-12-31] MEDS: traZODone 50 MG TABLET. PO SCH (19:34)
--- NOTE | 2016-12-31 19:55 | PDOC ---
Exam Vikram Demential Exam: Vikram Note: Please also refer to the separate dictated note~for this date of service dictated separately.~Patient seen individually. Discussed the patient with Nursing staff reviewed the chart.~Reviewed interim history and current functioning. Reviewed vital signs,~Labs/ Radiology~and current medications noted below. Continue current treatment with the changes noted in the dictated addendum note Assessment: Vital Signs: Vital Signs Date Time Temp Pulse Resp B/P (MAP) Pulse Ox O2 Delivery O2 Flow Rate FiO2 12/31/16 15:56 97.7 77 18 122/87 (99) 98 12/26/16 16:24 Room Air I&O Intake and Output 12/31/16 06:59 Intake Total 1620 ml Balance 1620 ml Intake Oral 1620 ml Labs: Laboratory Tests Test 12/31/16 07:31 Prothrombin Time 50.2 SEC (9.4-11.4) H Prothrombin Time INR 4.9 (0.9-1.1) *H Sodium Level 143 mmol/L (136-145) Potassium Level 4.3 mmol/L (3.5-5.1) Chloride Level 107 mmol/L (98-107) Carbon Dioxide Level 35 mmol/L (21-32) H Anion Gap 1 (6-14) L Blood Urea Nitrogen 25 mg/dL (7-20) H Creatinine 0.8 mg/dL (0.6-1.0) Estimated GFR (Cockcroft-Gault) 83.9 BUN/Creatinine Ratio 31 (6-20) H Glucose Level 73 mg/dL (70-99) Calcium Level 10.3 mg/dL (8.5-10.1) H Magnesium Level 2.1 mg/dL (1.8-2.4) Total Bilirubin 0.2 mg/dL (0.2-1.0) Aspartate Amino Transferase (AST) 16 U/L (15-37) Alanine Aminotransferase (ALT) 15 U/L (14-59) Alkaline Phosphatase 114 U/L (46-116) Total Protein 8.1 g/dL (6.4-8.2) Albumin 2.9 g/dL (3.4-5.0) L Albumin/Globulin Ratio 0.6 (1.0-1.7) L Current Medications: Meds: Current Medications Acetaminophen (Tylenol) 650 mg PRN Q6HRS PRN PO PAIN / TEMP; Start 12/21/16 at 16:45; Stop 12/21/16 at 20:46; Status DC Divalproex Sodium (Depakote Sprinkles) 250 mg BID PO Last administered on 08:21; Start 12/21/16 at 21:00; Stop 12/22/16 at 18:34; Status DC Donepezil HCl (Aricept) 5 mg DAILY PO Last administered on 12/27/16 06:54; Start 12/22/16 at 09:00; Stop 12/27/16 at 16:53; Status DC Haloperidol (Haldol) 2 mg PRN Q4HRS PRN PO AGITATION Last administered on 21:29; Start 12/21/16 at 20:30 Memantine (Namenda) 10 mg BID PO Last administered on 12/31/16 19:34; Start at 21:00 Sertraline HCl (Zoloft) 25 mg DAILY PO Last administered on 12/27/16 06:55; Start 12/22/16 at 09:00; Stop 12/27/16 at 14:06; Status DC Trazodone HCl (Desyrel) 50 mg QHS PO Last administered on 12/31/16 19:34; Start 12/21/16 at 21:00 Acetaminophen (Tylenol) 650 mg PRN Q6HRS PRN PO PAIN / TEMP Last administered on 12/26/16 07:50; Start 12/21/16 at 20:45 Multi-Ingredient Ointment (Analgesic [place]) 1 cliff PRN QID PRN TP MUSCLE PAIN; Start 12/21/16 at 20:45 Al Hydroxide/Mg Hydroxide (Mylanta Plus Xs) 15 ml PRN AFTMEALHC PRN PO DYSPEPSIA; Start 12/21/16 at 20:45 Magnesium Hydroxide (Milk Of Magnesia) 2,400 mg PRN QHS PRN PO CONSTIPATION; Start 12/21/16 at 20:45 Furosemide (Lasix) 20 mg DAILY PO Last administered on 12/22/16 08:27; Start 12/22/16 at 09:00; Stop 12/22/16 at 16:11; Status DC Al Hydroxide/Mg Hydroxide (Mylanta Plus Xs) 15 ml PRN AFTMEAL PRN PO DYSPEPSIA ; Start 12/21/16 at 20:45; Status UNV Sotalol HCl (Betapace) 80 mg BID PO Last administered on 12/31/16 08:18; Start 12/21/16 at 21:00 Warfarin Sodium (Coumadin) 5 mg DAILY16 PO Last administered on 12/29/16 17:18 ; Start 12/22/16 at 16:00; Stop 12/30/16 at 12:17; Status DC Vitamin D (Vitamin D3) 2,000 unit DAILY PO Last administered on 12/31/16 08:15 ; Start 12/22/16 at 09:00 Cetirizine HCl (ZyrTEC) 10 mg DAILY PO Last administered on 12/31/16 08:15; Start 12/22/16 at 09:00 Non-Formulary Medication 2,400 mg PRN QHS PRN PO CONSTIPATION; Start 12/21/16 at 20:45; Status UNV Warfarin Sodium (Coumadin Per Physician) 1 each PRN DAILY PRN MC SEE COMMENTS; Start 12/21/16 at 21:15; Stop 12/30/16 at 12:17; Status DC Amlodipine Besylate (Norvasc) 10 mg DAILY PO Last administered on 12/31/16 08: 15; Start 12/23/16 at 09:00 Amlodipine Besylate (Norvasc) 10 mg 1X ONCE PO Last administered on 12/22/16 16:25; Start 12/22/16 at 16:30; Stop 12/22/16 at 16:31; Status DC Divalproex Sodium (Depakote Sprinkles) 375 mg BID PO Last administered on 06:54; Start 12/22/16 at 21:00; Stop 12/27/16 at 16:53; Status DC Sertraline HCl (Zoloft) 25 mg DAILY PO ; Start 12/28/16 at 09:00; Stop 12/28/16 at 09:00; Status DC Divalproex Sodium (Depakote Sprinkles) 500 mg BID PO Last administered on 19:34; Start 12/27/16 at 21:00 Donepezil HCl (Aricept) 10 mg DAILY PO Last administered on 12/31/16 08:15; Start 12/28/16 at 09:00 Sertraline HCl (Zoloft) 50 mg DAILY PO Last administered on 12/31/16 08:15; Start 12/28/16 at 09:00 Warfarin Sodium (Coumadin Per Pharmacy) 1 each PRN DAILY PRN MC SEE COMMENTS Last administered on 12/31/16 14:38; Start 12/30/16 at 12:15 Buspirone HCl (Buspar) 5 mg BID PO ; Start 12/30/16 at 21:00; Stop 12/30/16 at 21:00; Status DC Buspirone HCl (Buspar) 5 mg TID PO Last administered on 12/31/16 19:34; Start 12/30/16 at 14:00 Warfarin Sodium (Coumadin - No Dose Today) 1 each 1X WARF ONCE MC ; Start 12/30 at 16:00; Stop 12/30/16 at 16:01; Status DC Warfarin Sodium (Coumadin - No Dose Today) 1 each 1X WARF ONCE MC ; Start 12/31 at 16:00; Stop 12/31/16 at 16:01; Status DC Active Scripts Active Reported Vitamin D (Cholecalciferol (Vitamin D3)) 2,000 Unit Capsule 2,000 Units PO DAILY Betapace (Sotalol Hcl) 80 Mg Tablet 80 Mg PO BID Loratadine 10 Mg Tablet 10 Mg PO DAILY Furosemide 20 Mg Tablet 20 Mg PO DAILY Coumadin (Warfarin Sodium) 5 Mg Tablet 5 Mg PO HS Divalproex Sodium 125 Mg Cap.sprink 250 Mg PO BID Namenda (Memantine Hcl) 10 Mg Tablet 10 Mg PO BID Milk Of Magnesia (Magnesium Hydroxide) 2,400 Mg/10 Ml Oral.susp 2,400 Mg PO PRN QHS PRN Mag-Al Plus Xs Suspension (Mag Hydrox/Al Hydrox/Simeth) 30 Ml Oral.susp 15 Ml PO PRN AFTMEAL PRN Haloperidol 2 Mg Tablet 2 Mg PO PRN Q4HRS PRN Zoloft (Sertraline Hcl) 50 Mg Tablet 25 Mg PO DAILY Aricept (Donepezil Hcl) 5 Mg Tablet 5 Mg PO DAILY Trazodone Hcl 50 Mg Tablet 50 Mg PO QHS GIVE WITH FOOD Diagnosis: Problems: (1) Dementia with behavioral disturbance (2) Anxiety disorder (3) Impulse control disorder (4) Dementia, vascular, with depression (5) Dementia, vascular, with delusions (6) Dementia in Alzheimer's disease with depression (7) Dementia in Alzheimer's disease with delusions ADAN GOMES MD Dec 31, 2016 19:55
--- NOTE | 2016-12-31 22:04 | PN ---
DATE: 12/30/2016 This is a late entry for 12/30/2016 covers the elements not covered in my initial note of 12/30/2016. SUBJECTIVE: The patient was seen on rounds the evening of 12/30/2016. She was also at a treatment team meeting with the entire team. ADAN GOMES MD DR: FAISAL/alonso JOB#: [id number] / [id number]
[2016-12-31] MEDS: HALOPERIDOL 2 MG TABLET PO PRN (22:40)
--- NOTE | 2017-01-01 04:55 | PN ---
DATE: 12/31/2016 PSYCHIATRIC PROGRESS NOTE The patient was seen individually on the morning of 12/31/2016. This note follows elements not covered in my note of 12/31/2016. SUBJECTIVE: Per nursing report, the patient remains confused, but is less agitated, less labile. INR is elevated and I will defer to Dr. Rain. REVIEW OF SYSTEMS: Ambulation impaired. No CV, , pulmonary, eye, ENT system symptoms on review. Reliability poor. MENTAL STATUS EXAM: Oriented to herself. Insight, judgment, recent and remote memory, attention, concentration, fund of knowledge poor, consistent with her diagnosis as mentioned in my initial note. PLAN: Continue current psychotropics, reviewed drug interactions. Risk/benefit ratio favors no further change at this time. MAN Saúl GOMES MD DR: FAISAL/alonso JOB#: [id number] / [id number]
[2017-01-01 06:06] VITALS: BP 130/68
[2017-01-01] MEDS: DONEPEZIL HCL 10 MG TABLET PO SCH (07:59)
[2017-01-01] MEDS: SOTALOL 80 MG TABLET. PO SCH ×2 (08:00→19:37)
[2017-01-01] MEDS: MEMANTINE 10 MG TABLET. PO SCH ×2 (08:00→19:34)
[2017-01-01] MEDS: DIVALPROEX 125 MG CAP.SPRINK PO SCH ×2 (08:00→19:34)
[2017-01-01] MEDS: busPIRone 5 MG TABLET. PO SCH ×3 (08:00→19:34)
[2017-01-01] MEDS: amLODIPine BESYLATE 10 MG TABLET PO SCH (08:01)
[2017-01-01] MEDS: CHOLECALCIFEROL (VITAMIN D3) 1,000 UNIT TABLET PO SCH (08:16)
[2017-01-01] MEDS: CETIRIZINE HCL 10 MG TABLET PO SCH (08:16)
[2017-01-01] MEDS: SERTRALINE 50 MG TABLET. PO SCH (08:16)
[2017-01-01 15:42] VITALS: BP 155/71
[2017-01-01] MEDS ORDERED: WARFARIN 3 MG TABLET. PO ONE (16:00)
[2017-01-01] MEDS: traZODone 50 MG TABLET. PO SCH (19:34)
[2017-01-02 06:40] VITALS: BP 125/85
[2017-01-02] MEDS: DONEPEZIL HCL 10 MG TABLET PO SCH (08:29)
[2017-01-02] MEDS: DIVALPROEX 125 MG CAP.SPRINK PO SCH ×2 (08:30→19:57)
[2017-01-02] MEDS: busPIRone 5 MG TABLET. PO SCH ×3 (08:30→19:56)
[2017-01-02] MEDS: MEMANTINE 10 MG TABLET. PO SCH ×2 (08:30→19:56)
[2017-01-02] MEDS: CHOLECALCIFEROL (VITAMIN D3) 1,000 UNIT TABLET PO SCH (08:31)
[2017-01-02] MEDS: SERTRALINE 50 MG TABLET. PO SCH (08:31)
[2017-01-02] MEDS: amLODIPine BESYLATE 10 MG TABLET PO SCH (08:31)
[2017-01-02] MEDS: CETIRIZINE HCL 10 MG TABLET PO SCH (08:31)
[2017-01-02] MEDS: SOTALOL 80 MG TABLET. PO SCH ×2 (08:59→20:02)
[2017-01-02] MEDS ORDERED: WARFARIN 4 MG TABLET. PO ONE (16:00)
[2017-01-02 16:44] VITALS: BP 125/80
--- NOTE | 2017-01-02 19:47 | PDOC ---
Exam Vikram Demential Exam: Vikram Note: Please also refer to the separate dictated note~for this date of service dictated separately.~Patient seen individually. Discussed the patient with Nursing staff reviewed the chart.~Reviewed interim history and current functioning. Reviewed vital signs,~Labs/ Radiology~and current medications noted below. Continue current treatment with the changes noted in the dictated addendum note Assessment: Vital Signs: Vital Signs Date Time Temp Pulse Resp B/P (MAP) Pulse Ox O2 Delivery O2 Flow Rate FiO2 01/02/17 16:44 97.5 79 20 125/80 (95) 99 01/01/17 15:42 Room Air I&O Intake and Output 01/02/17 06:59 Intake Total 960 ml Balance 960 ml Intake Oral 960 ml # Bowel Movements 1 Labs: Laboratory Tests Test 01/02/17 06:38 Prothrombin Time 21.4 SEC (9.4-11.4) H Prothrombin Time INR 2.1 (0.9-1.1) H Current Medications: Meds: Current Medications Acetaminophen (Tylenol) 650 mg PRN Q6HRS PRN PO PAIN / TEMP; Start 12/21/16 at 16:45; Stop 12/21/16 at 20:46; Status DC Divalproex Sodium (Depakote Sprinkles) 250 mg BID PO Last administered on 08:21; Start 12/21/16 at 21:00; Stop 12/22/16 at 18:34; Status DC Donepezil HCl (Aricept) 5 mg DAILY PO Last administered on 12/27/16 06:54; Start 12/22/16 at 09:00; Stop 12/27/16 at 16:53; Status DC Haloperidol (Haldol) 2 mg PRN Q4HRS PRN PO AGITATION Last administered on 22:40; Start 12/21/16 at 20:30 Memantine (Namenda) 10 mg BID PO Last administered on 01/02/17 08:30; Start at 21:00 Sertraline HCl (Zoloft) 25 mg DAILY PO Last administered on 12/27/16 06:55; Start 12/22/16 at 09:00; Stop 12/27/16 at 14:06; Status DC Trazodone HCl (Desyrel) 50 mg QHS PO Last administered on 01/01/17 19:34; Start 12/21/16 at 21:00 Acetaminophen (Tylenol) 650 mg PRN Q6HRS PRN PO PAIN / TEMP Last administered on 12/26/16 07:50; Start 12/21/16 at 20:45 Multi-Ingredient Ointment (Analgesic [place]) 1 cliff PRN QID PRN TP MUSCLE PAIN; Start 12/21/16 at 20:45 Al Hydroxide/Mg Hydroxide (Mylanta Plus Xs) 15 ml PRN AFTMEALHC PRN PO DYSPEPSIA; Start 12/21/16 at 20:45 Magnesium Hydroxide (Milk Of Magnesia) 2,400 mg PRN QHS PRN PO CONSTIPATION; Start 12/21/16 at 20:45 Furosemide (Lasix) 20 mg DAILY PO Last administered on 12/22/16 08:27; Start 12/22/16 at 09:00; Stop 12/22/16 at 16:11; Status DC Al Hydroxide/Mg Hydroxide (Mylanta Plus Xs) 15 ml PRN AFTMEAL PRN PO DYSPEPSIA ; Start 12/21/16 at 20:45; Status UNV Sotalol HCl (Betapace) 80 mg BID PO Last administered on 01/01/17 19:37; Start 12/21/16 at 21:00 Warfarin Sodium (Coumadin) 5 mg DAILY16 PO Last administered on 12/29/16 17:18 ; Start 12/22/16 at 16:00; Stop 12/30/16 at 12:17; Status DC Vitamin D (Vitamin D3) 2,000 unit DAILY PO Last administered on 01/02/17 08:31 ; Start 12/22/16 at 09:00 Cetirizine HCl (ZyrTEC) 10 mg DAILY PO Last administered on 01/02/17 08:31; Start 12/22/16 at 09:00 Non-Formulary Medication 2,400 mg PRN QHS PRN PO CONSTIPATION; Start 12/21/16 at 20:45; Status UNV Warfarin Sodium (Coumadin Per Physician) 1 each PRN DAILY PRN MC SEE COMMENTS; Start 12/21/16 at 21:15; Stop 12/30/16 at 12:17; Status DC Amlodipine Besylate (Norvasc) 10 mg DAILY PO Last administered on 01/02/17 08: 31; Start 12/23/16 at 09:00 Amlodipine Besylate (Norvasc) 10 mg 1X ONCE PO Last administered on 12/22/16 16:25; Start 12/22/16 at 16:30; Stop 12/22/16 at 16:31; Status DC Divalproex Sodium (Depakote Sprinkles) 375 mg BID PO Last administered on 06:54; Start 12/22/16 at 21:00; Stop 12/27/16 at 16:53; Status DC Sertraline HCl (Zoloft) 25 mg DAILY PO ; Start 12/28/16 at 09:00; Stop 12/28/16 at 09:00; Status DC Divalproex Sodium (Depakote Sprinkles) 500 mg BID PO Last administered on 08:30; Start 12/27/16 at 21:00; Stop 01/02/17 at 19:20; Status DC Donepezil HCl (Aricept) 10 mg DAILY PO Last administered on 01/02/17 08:29; Start 12/28/16 at 09:00 Sertraline HCl (Zoloft) 50 mg DAILY PO Last administered on 01/02/17 08:31; Start 12/28/16 at 09:00 Warfarin Sodium (Coumadin Per Pharmacy) 1 each PRN DAILY PRN MC SEE COMMENTS Last administered on 01/02/17 10:25; Start 12/30/16 at 12:15 Buspirone HCl (Buspar) 5 mg BID PO ; Start 12/30/16 at 21:00; Stop 12/30/16 at 21:00; Status DC Buspirone HCl (Buspar) 5 mg TID PO Last administered on 01/02/17 08:30; Start 12/30/16 at 14:00 Warfarin Sodium (Coumadin - No Dose Today) 1 each 1X WARF ONCE MC ; Start 12/30 at 16:00; Stop 12/30/16 at 16:01; Status DC Warfarin Sodium (Coumadin - No Dose Today) 1 each 1X WARF ONCE MC ; Start 12/31 at 16:00; Stop 12/31/16 at 16:01; Status DC Warfarin Sodium (Coumadin) 3 mg 1X WARF ONCE PO Last administered on 17:11; Start 01/01/17 at 16:00; Stop 01/01/17 at 16:01; Status DC Olanzapine (ZyPREXA ZYDIS) 2.5 mg PRN Q2HR PRN PO PSYCHOSIS; Start 01/01/17 at 12:15 Warfarin Sodium (Coumadin) 4 mg 1X WARF ONCE PO Last administered on t 16:45; Start 01/02/17 at 16:00; Stop 01/02/17 at 16:01; Status DC Divalproex Sodium (Depakote Sprinkles) 500 mg HS PO ; Start 01/02/17 at 21:00 Divalproex Sodium (Depakote Sprinkles) 250 mg DAILY PO ; Start 01/03/17 at 09:00 Divalproex Sodium (Depakote Sprinkles) 250 mg DAILY PO ; Start 01/03/17 at 09:00 ; Stop 01/03/17 at 09:00; Status DC Active Scripts Active Reported Vitamin D (Cholecalciferol (Vitamin D3)) 2,000 Unit Capsule 2,000 Units PO DAILY Betapace (Sotalol Hcl) 80 Mg Tablet 80 Mg PO BID Loratadine 10 Mg Tablet 10 Mg PO DAILY Furosemide 20 Mg Tablet 20 Mg PO DAILY Coumadin (Warfarin Sodium) 5 Mg Tablet 5 Mg PO HS Divalproex Sodium 125 Mg Cap.sprink 250 Mg PO BID Namenda (Memantine Hcl) 10 Mg Tablet 10 Mg PO BID Milk Of Magnesia (Magnesium Hydroxide) 2,400 Mg/10 Ml Oral.susp 2,400 Mg PO PRN QHS PRN Mag-Al Plus Xs Suspension (Mag Hydrox/Al Hydrox/Simeth) 30 Ml Oral.susp 15 Ml PO PRN AFTMEAL PRN Haloperidol 2 Mg Tablet 2 Mg PO PRN Q4HRS PRN Zoloft (Sertraline Hcl) 50 Mg Tablet 25 Mg PO DAILY Aricept (Donepezil Hcl) 5 Mg Tablet 5 Mg PO DAILY Trazodone Hcl 50 Mg Tablet 50 Mg PO QHS GIVE WITH FOOD Diagnosis: Problems: (1) Dementia with behavioral disturbance (2) Anxiety disorder (3) Impulse control disorder (4) Dementia, vascular, with depression (5) Dementia, vascular, with delusions (6) Dementia in Alzheimer's disease with depression (7) Dementia in Alzheimer's disease with delusions ADAN GOMES MD Jan 02, 2017 19:47
[2017-01-02] MEDS: traZODone 50 MG TABLET. PO SCH (19:56)
[2017-01-03 06:04] VITALS: BP 132/71
[2017-01-03] MEDS: DONEPEZIL HCL 10 MG TABLET PO SCH (08:34)
[2017-01-03] MEDS: busPIRone 5 MG TABLET. PO SCH ×2 (08:35→14:16)
[2017-01-03] MEDS: SOTALOL 80 MG TABLET. PO SCH ×2 (08:35→19:48)
[2017-01-03] MEDS: DIVALPROEX 125 MG CAP.SPRINK PO SCH ×3 (08:38→19:49)
[2017-01-03] MEDS: MEMANTINE 10 MG TABLET. PO SCH ×2 (08:38→19:48)
[2017-01-03] MEDS: CHOLECALCIFEROL (VITAMIN D3) 1,000 UNIT TABLET PO SCH (08:39)
[2017-01-03] MEDS: SERTRALINE 50 MG TABLET. PO SCH (08:39)
[2017-01-03] MEDS: CETIRIZINE HCL 10 MG TABLET PO SCH (08:39)
[2017-01-03] MEDS: amLODIPine BESYLATE 10 MG TABLET PO SCH (08:39)
[2017-01-03] MEDS: ACETAMINOPHEN 325 MG TABLET PO PRN (08:45)
[2017-01-03] MEDS ORDERED: DIVALPROEX 125 MG CAP.SPRINK PO SCH ×2 (09:00)
[2017-01-03 15:49] VITALS: BP 107/65
[2017-01-03] MEDS ORDERED: WARFARIN 4 MG TABLET. PO ONE (16:00)
[2017-01-03] MEDS: traZODone 50 MG TABLET. PO SCH (19:47)
--- NOTE | 2017-01-03 19:54 | PDOC ---
Exam Vikram Demential Exam: Vikram Note: Please also refer to the separate dictated note~for this date of service dictated separately.~Patient seen individually. Discussed the patient with Nursing staff reviewed the chart.~Reviewed interim history and current functioning. Reviewed vital signs,~Labs/ Radiology~and current medications noted below. Continue current treatment with the changes noted in the dictated addendum note Assessment: Vital Signs: Vital Signs Date Time Temp Pulse Resp B/P (MAP) Pulse Ox O2 Delivery O2 Flow Rate FiO2 01/03/17 19:48 73 107/65 01/03/17 15:49 97.1 20 98 01/01/17 15:42 Room Air I&O Intake and Output 01/03/17 07:00 Intake Total 1100 ml Balance 1100 ml Intake Oral 1100 ml # Voids 2 # Bowel Movements 1 Labs: Laboratory Tests Test 01/03/17 07:24 Prothrombin Time 23.5 SEC (9.4-11.4) H Prothrombin Time INR 2.3 (0.9-1.1) H Current Medications: Meds: Current Medications Acetaminophen (Tylenol) 650 mg PRN Q6HRS PRN PO PAIN / TEMP; Start 12/21/16 at 16:45; Stop 12/21/16 at 20:46; Status DC Divalproex Sodium (Depakote Sprinkles) 250 mg BID PO Last administered on 08:21; Start 12/21/16 at 21:00; Stop 12/22/16 at 18:34; Status DC Donepezil HCl (Aricept) 5 mg DAILY PO Last administered on 12/27/16 06:54; Start 12/22/16 at 09:00; Stop 12/27/16 at 16:53; Status DC Haloperidol (Haldol) 2 mg PRN Q4HRS PRN PO AGITATION Last administered on 22:40; Start 12/21/16 at 20:30 Memantine (Namenda) 10 mg BID PO Last administered on 01/03/17 19:48; Start at 21:00 Sertraline HCl (Zoloft) 25 mg DAILY PO Last administered on 12/27/16 06:55; Start 12/22/16 at 09:00; Stop 12/27/16 at 14:06; Status DC Trazodone HCl (Desyrel) 50 mg QHS PO Last administered on 01/03/17 19:47; Start 12/21/16 at 21:00 Acetaminophen (Tylenol) 650 mg PRN Q6HRS PRN PO PAIN / TEMP Last administered on 01/03/17 08:45; Start 12/21/16 at 20:45 Multi-Ingredient Ointment (Analgesic [place]) 1 cliff PRN QID PRN TP MUSCLE PAIN; Start 12/21/16 at 20:45 Al Hydroxide/Mg Hydroxide (Mylanta Plus Xs) 15 ml PRN AFTMEALHC PRN PO DYSPEPSIA; Start 12/21/16 at 20:45 Magnesium Hydroxide (Milk Of Magnesia) 2,400 mg PRN QHS PRN PO CONSTIPATION; Start 12/21/16 at 20:45 Furosemide (Lasix) 20 mg DAILY PO Last administered on 12/22/16 08:27; Start 12/22/16 at 09:00; Stop 12/22/16 at 16:11; Status DC Al Hydroxide/Mg Hydroxide (Mylanta Plus Xs) 15 ml PRN AFTMEAL PRN PO DYSPEPSIA ; Start 12/21/16 at 20:45; Status UNV Sotalol HCl (Betapace) 80 mg BID PO Last administered on 01/03/17 19:48; Start 12/21/16 at 21:00 Warfarin Sodium (Coumadin) 5 mg DAILY16 PO Last administered on 12/29/16 17:18 ; Start 12/22/16 at 16:00; Stop 12/30/16 at 12:17; Status DC Vitamin D (Vitamin D3) 2,000 unit DAILY PO Last administered on 01/03/17 08:39 ; Start 12/22/16 at 09:00 Cetirizine HCl (ZyrTEC) 10 mg DAILY PO Last administered on 01/03/17 08:39; Start 12/22/16 at 09:00 Non-Formulary Medication 2,400 mg PRN QHS PRN PO CONSTIPATION; Start 12/21/16 at 20:45; Status UNV Warfarin Sodium (Coumadin Per Physician) 1 each PRN DAILY PRN MC SEE COMMENTS; Start 12/21/16 at 21:15; Stop 12/30/16 at 12:17; Status DC Amlodipine Besylate (Norvasc) 10 mg DAILY PO Last administered on 01/03/17 08: 39; Start 12/23/16 at 09:00 Amlodipine Besylate (Norvasc) 10 mg 1X ONCE PO Last administered on 12/22/16 16:25; Start 12/22/16 at 16:30; Stop 12/22/16 at 16:31; Status DC Divalproex Sodium (Depakote Sprinkles) 375 mg BID PO Last administered on 06:54; Start 12/22/16 at 21:00; Stop 12/27/16 at 16:53; Status DC Sertraline HCl (Zoloft) 25 mg DAILY PO ; Start 12/28/16 at 09:00; Stop 12/28/16 at 09:00; Status DC Divalproex Sodium (Depakote Sprinkles) 500 mg BID PO Last administered on 08:30; Start 12/27/16 at 21:00; Stop 01/02/17 at 19:20; Status DC Donepezil HCl (Aricept) 10 mg DAILY PO Last administered on 01/03/17 08:34; Start 12/28/16 at 09:00 Sertraline HCl (Zoloft) 50 mg DAILY PO Last administered on 01/03/17 08:39; Start 12/28/16 at 09:00 Warfarin Sodium (Coumadin Per Pharmacy) 1 each PRN DAILY PRN MC SEE COMMENTS Last administered on 01/03/17 15:05; Start 12/30/16 at 12:15 Buspirone HCl (Buspar) 5 mg BID PO ; Start 12/30/16 at 21:00; Stop 12/30/16 at 21:00; Status DC Buspirone HCl (Buspar) 5 mg TID PO Last administered on 01/03/17 14:16; Start 12/30/16 at 14:00; Stop 01/03/17 at 18:36; Status DC Warfarin Sodium (Coumadin - No Dose Today) 1 each 1X WARF ONCE MC ; Start 12/30 at 16:00; Stop 12/30/16 at 16:01; Status DC Warfarin Sodium (Coumadin - No Dose Today) 1 each 1X WARF ONCE MC ; Start 12/31 at 16:00; Stop 12/31/16 at 16:01; Status DC Warfarin Sodium (Coumadin) 3 mg 1X WARF ONCE PO Last administered on 17:11; Start 01/01/17 at 16:00; Stop 01/01/17 at 16:01; Status DC Olanzapine (ZyPREXA ZYDIS) 2.5 mg PRN Q2HR PRN PO PSYCHOSIS; Start 01/01/17 at 12:15 Warfarin Sodium (Coumadin) 4 mg 1X WARF ONCE PO Last administered on 16:45; Start 01/02/17 at 16:00; Stop 01/02/17 at 16:01; Status DC Divalproex Sodium (Depakote Sprinkles) 500 mg HS PO Last administered on 19:49; Start 01/02/17 at 21:00 Divalproex Sodium (Depakote Sprinkles) 250 mg DAILY PO ; Start 01/03/17 at 09:00 ; Stop 01/03/17 at 09:00; Status DC Divalproex Sodium (Depakote Sprinkles) 250 mg DAILY PO ; Start 01/03/17 at 09:00 ; Stop 01/03/17 at 09:00; Status DC Divalproex Sodium (Depakote Sprinkles) 250 mg BID92 PO Last administered on 14:16; Start 01/03/17 at 09:00 Warfarin Sodium (Coumadin) 4 mg 1X WARF ONCE PO Last administered on 15:54; Start 01/03/17 at 16:00; Stop 01/03/17 at 16:02; Status DC Active Scripts Active Reported Vitamin D (Cholecalciferol (Vitamin D3)) 2,000 Unit Capsule 2,000 Units PO DAILY Betapace (Sotalol Hcl) 80 Mg Tablet 80 Mg PO BID Loratadine 10 Mg Tablet 10 Mg PO DAILY Furosemide 20 Mg Tablet 20 Mg PO DAILY Coumadin (Warfarin Sodium) 5 Mg Tablet 5 Mg PO HS Divalproex Sodium 125 Mg Cap.sprink 250 Mg PO BID Namenda (Memantine Hcl) 10 Mg Tablet 10 Mg PO BID Milk Of Magnesia (Magnesium Hydroxide) 2,400 Mg/10 Ml Oral.susp 2,400 Mg PO PRN QHS PRN Mag-Al Plus Xs Suspension (Mag Hydrox/Al Hydrox/Simeth) 30 Ml Oral.susp 15 Ml PO PRN AFTMEAL PRN Haloperidol 2 Mg Tablet 2 Mg PO PRN Q4HRS PRN Zoloft (Sertraline Hcl) 50 Mg Tablet 25 Mg PO DAILY Aricept (Donepezil Hcl) 5 Mg Tablet 5 Mg PO DAILY Trazodone Hcl 50 Mg Tablet 50 Mg PO QHS GIVE WITH FOOD Diagnosis: Problems: (1) Dementia with behavioral disturbance (2) Anxiety disorder (3) Impulse control disorder (4) Dementia, vascular, with depression (5) Dementia, vascular, with delusions (6) Dementia in Alzheimer's disease with depression (7) Dementia in Alzheimer's disease with delusions ADAN GOMES MD Jan 03, 2017 19:54
[2017-01-04] MEDS ORDERED: ACET325T9 PO (02:11)
[2017-01-04] MEDS ORDERED: CETI10TA16 PO (02:12)
[2017-01-04] MEDS ORDERED: DIVA125C PO (03:05)
[2017-01-04] MEDS ORDERED: DONE10TA61 PO (03:05)
[2017-01-04] MEDS ORDERED: MAGN400O7 PO (03:06)
[2017-01-04] MEDS ORDERED: METH29OI TP (03:07)
[2017-01-04] MEDS ORDERED: OLAN5TAB5 PO (03:08)
[2017-01-04] MEDS ORDERED: BUSP5TAB PO (03:10)
[2017-01-04] MEDS ORDERED: AMLO10TA4 PO (03:11)
[2017-01-04] MEDS ORDERED: WARF1TAB74 PO (03:13)
[2017-01-04] MEDS: DIVALPROEX 125 MG CAP.SPRINK PO SCH ×2 (08:35→15:38)
[2017-01-04] MEDS: MEMANTINE 10 MG TABLET. PO SCH (08:35)
[2017-01-04] MEDS: CHOLECALCIFEROL (VITAMIN D3) 1,000 UNIT TABLET PO SCH (08:35)
[2017-01-04] MEDS: CETIRIZINE HCL 10 MG TABLET PO SCH (08:35)
[2017-01-04] MEDS: DONEPEZIL HCL 10 MG TABLET PO SCH (08:35)
[2017-01-04] MEDS: SERTRALINE 50 MG TABLET. PO SCH (08:35)
[2017-01-04] MEDS: amLODIPine BESYLATE 10 MG TABLET PO SCH (08:35)
[2017-01-04] MEDS: SOTALOL 80 MG TABLET. PO SCH (08:37)
[2017-01-04 09:00] VITALS: BP 137/72
--- NOTE | 2017-01-04 10:26 | PN ---
DATE: 01/02/2017 PSYCHIATRIC PROGRESS NOTE This is a late entry 01/02/2017, covers elements not covered in my initial note of 01/02/2017. SUBJECTIVE: The patient remains confused. I met with her in the evening of 01/02/2017, somewhat sedated at times. REVIEW OF SYSTEMS: No CV, , pulmonary, eye, ENT system symptoms on review. Reliability poor. She is in a wheelchair. MENTAL STATUS EXAM: Oriented to herself. Insight, judgment, recent and remote memory, attention, concentration, fund of knowledge poor, consistent with her diagnoses mentioned in my initial note. PLAN: Change Depakote Sprinkles from 500 b.i.d. to 250 mg and 500 mg at bedtime to help with the daytime sedation. Maintain the rest unchanged. Review drug interactions. Risk/benefit ratio favors no further change. MAN Saúl GOMES MD DR: FAISAL/alonso JOB#: [id number] / [id number]
[2017-01-04] MEDS ORDERED: WARFARIN 3 MG TABLET. PO ONE (15:15)
[2017-01-04 15:55] VITALS: BP 124/80
--- NOTE | 2017-01-04 19:37 | PDOC ---
Exam Vikram Demential Exam: Vikram Note: Please also refer to the separate dictated note~for this date of service dictated separately.~Patient seen individually. Discussed the patient with Nursing staff reviewed the chart.~Reviewed interim history and current functioning. Reviewed vital signs,~Labs/ Radiology~and current medications noted below. Continue current treatment with the changes noted in the dictated addendum note Assessment: Vital Signs: Vital Signs Date Time Temp Pulse Resp B/P (MAP) Pulse Ox O2 Delivery O2 Flow Rate FiO2 01/04/17 15:55 97.0 69 16 124/80 (95) 98 01/01/17 15:42 Room Air I&O Intake and Output 01/05/17 07:00 Intake Total 840 ml Balance 840 ml Intake Oral 840 ml Labs: Laboratory Tests Test 01/04/17 06:15 Prothrombin Time 28.9 SEC (9.4-11.4) H Prothrombin Time INR 2.8 (0.9-1.1) H Current Medications: Meds: Current Medications Acetaminophen (Tylenol) 650 mg PRN Q6HRS PRN PO PAIN / TEMP; Start 12/21/16 at 16:45; Stop 12/21/16 at 20:46; Status DC Divalproex Sodium (Depakote Sprinkles) 250 mg BID PO Last administered on 08:21; Start 12/21/16 at 21:00; Stop 12/22/16 at 18:34; Status DC Donepezil HCl (Aricept) 5 mg DAILY PO Last administered on 12/27/16 06:54; Start 12/22/16 at 09:00; Stop 12/27/16 at 16:53; Status DC Haloperidol (Haldol) 2 mg PRN Q4HRS PRN PO AGITATION Last administered on 22:40; Start 12/21/16 at 20:30; Stop 01/04/17 at 16:32; Status DC Memantine (Namenda) 10 mg BID PO Last administered on 01/04/17 08:35; Start at 21:00; Stop 01/04/17 at 16:32; Status DC Sertraline HCl (Zoloft) 25 mg DAILY PO Last administered on 12/27/16 06:55; Start 12/22/16 at 09:00; Stop 12/27/16 at 14:06; Status DC Trazodone HCl (Desyrel) 50 mg QHS PO Last administered on 01/03/17 19:47; Start 12/21/16 at 21:00; Stop 01/04/17 at 16:32; Status DC Acetaminophen (Tylenol) 650 mg PRN Q6HRS PRN PO PAIN / TEMP Last administered on 01/03/17 08:45; Start 12/21/16 at 20:45; Stop 01/04/17 at 16:32; Status DC Multi-Ingredient Ointment (Analgesic [place]) 1 morteza PRN QID PRN TP MUSCLE PAIN; Start 12/21/16 at 20:45; Stop 01/04/17 at 16:32; Status DC Al Hydroxide/Mg Hydroxide (Mylanta Plus Xs) 15 ml PRN AFTMEALHC PRN PO DYSPEPSIA; Start 12/21/16 at 20:45; Stop 01/04/17 at 16:32; Status DC Magnesium Hydroxide (Milk Of Magnesia) 2,400 mg PRN QHS PRN PO CONSTIPATION; Start 12/21/16 at 20:45; Stop 01/04/17 at 16:32; Status DC Furosemide (Lasix) 20 mg DAILY PO Last administered on 12/22/16 08:27; Start 12/22/16 at 09:00; Stop 12/22/16 at 16:11; Status DC Al Hydroxide/Mg Hydroxide (Mylanta Plus Xs) 15 ml PRN AFTMEAL PRN PO DYSPEPSIA ; Start 12/21/16 at 20:45; Status UNV Sotalol HCl (Betapace) 80 mg BID PO Last administered on 01/04/17 08:37; Start 12/21/16 at 21:00; Stop 01/04/17 at 16:32; Status DC Warfarin Sodium (Coumadin) 5 mg DAILY16 PO Last administered on 12/29/16 17:18 ; Start 12/22/16 at 16:00; Stop 12/30/16 at 12:17; Status DC Vitamin D (Vitamin D3) 2,000 unit DAILY PO Last administered on 01/04/17 08:35 ; Start 12/22/16 at 09:00; Stop 01/04/17 at 16:32; Status DC Cetirizine HCl (ZyrTEC) 10 mg DAILY PO Last administered on 01/04/17 08:35; Start 12/22/16 at 09:00; Stop 01/04/17 at 16:32; Status DC Non-Formulary Medication 2,400 mg PRN QHS PRN PO CONSTIPATION; Start 12/21/16 at 20:45; Status UNV Warfarin Sodium (Coumadin Per Physician) 1 each PRN DAILY PRN MC SEE COMMENTS; Start 12/21/16 at 21:15; Stop 12/30/16 at 12:17; Status DC Amlodipine Besylate (Norvasc) 10 mg DAILY PO Last administered on 01/04/17 08: 35; Start 12/23/16 at 09:00; Stop 01/04/17 at 16:32; Status DC Amlodipine Besylate (Norvasc) 10 mg 1X ONCE PO Last administered on 12/22/16 16:25; Start 12/22/16 at 16:30; Stop 12/22/16 at 16:31; Status DC Divalproex Sodium (Depakote Sprinkles) 375 mg BID PO Last administered on 06:54; Start 12/22/16 at 21:00; Stop 12/27/16 at 16:53; Status DC Sertraline HCl (Zoloft) 25 mg DAILY PO ; Start 12/28/16 at 09:00; Stop 12/28/16 at 09:00; Status DC Divalproex Sodium (Depakote Sprinkles) 500 mg BID PO Last administered on 08:30; Start 12/27/16 at 21:00; Stop 01/02/17 at 19:20; Status DC Donepezil HCl (Aricept) 10 mg DAILY PO Last administered on 01/04/17 08:35; Start 12/28/16 at 09:00; Stop 01/04/17 at 16:32; Status DC Sertraline HCl (Zoloft) 50 mg DAILY PO Last administered on 01/04/17 08:35; Start 12/28/16 at 09:00; Stop 01/04/17 at 16:32; Status DC Warfarin Sodium (Coumadin Per Pharmacy) 1 each PRN DAILY PRN MC SEE COMMENTS Last administered on 01/04/17 12:40; Start 12/30/16 at 12:15; Stop 01/04/17 at 16:32; Status DC Buspirone HCl (Buspar) 5 mg BID PO ; Start 12/30/16 at 21:00; Stop 12/30/16 at 21:00; Status DC Buspirone HCl (Buspar) 5 mg TID PO Last administered on 01/03/17 14:16; Start 12/30/16 at 14:00; Stop 01/03/17 at 18:36; Status DC Warfarin Sodium (Coumadin - No Dose Today) 1 each 1X WARF ONCE MC ; Start 12/30 at 16:00; Stop 12/30/16 at 16:01; Status DC Warfarin Sodium (Coumadin - No Dose Today) 1 each 1X WARF ONCE MC ; Start 12/31 at 16:00; Stop 12/31/16 at 16:01; Status DC Warfarin Sodium (Coumadin) 3 mg 1X WARF ONCE PO Last administered on 17:11; Start 01/01/17 at 16:00; Stop 01/01/17 at 16:01; Status DC Olanzapine (ZyPREXA ZYDIS) 2.5 mg PRN Q2HR PRN PO PSYCHOSIS; Start 01/01/17 at 12:15; Stop 01/04/17 at 16:32; Status DC Warfarin Sodium (Coumadin) 4 mg 1X WARF ONCE PO Last administered on 16:45; Start 01/02/17 at 16:00; Stop 01/02/17 at 16:01; Status DC Divalproex Sodium (Depakote Sprinkles) 500 mg HS PO Last administered on 19:49; Start 01/02/17 at 21:00; Stop 01/04/17 at 16:32; Status DC Divalproex Sodium (Depakote Sprinkles) 250 mg DAILY PO ; Start 01/03/17 at 09:00 ; Stop 01/03/17 at 09:00; Status DC Divalproex Sodium (Depakote Sprinkles) 250 mg DAILY PO ; Start 01/03/17 at 09:00 ; Stop 01/03/17 at 09:00; Status DC Divalproex Sodium (Depakote Sprinkles) 250 mg BID92 PO Last administered on 15:38; Start 01/03/17 at 09:00; Stop 01/04/17 at 16:32; Status DC Warfarin Sodium (Coumadin) 4 mg 1X WARF ONCE PO Last administered on 15:54; Start 01/03/17 at 16:00; Stop 01/03/17 at 16:02; Status DC Warfarin Sodium (Coumadin) 3 mg 1X WARF ONCE PO Last administered on 15:38; Start 01/04/17 at 15:15; Stop 01/04/17 at 15:16; Status DC Active Scripts Active Reported Coumadin (Warfarin Sodium) 1 Mg Tablet 3 Mg PO DAILY16 Norvasc (Amlodipine Besylate) 10 Mg Tablet 10 Mg PO DAILY Buspirone Hcl 5 Mg Tablet 5 Mg PO TID Zyprexa Zydis (Olanzapine) 5 Mg Tab.rapdis 2.5 Mg PO PRN Q2HR PRN MDD 7.5mg Analgesic [place] (Methyl Salicylate/Menthol) 28 Gm Oint...g. 1 Morteza TP PRN QID PRN Milk Of Magnesia (Magnesium Hydroxide) 400 Mg/5 Ml Oral.susp 2,400 Mg PO PRN QHS PRN Aricept (Donepezil Hcl) 10 Mg Tablet 10 Mg PO DAILY Depakote Sprinkle (Divalproex Sodium) 125 Mg Cap.sprink 500 Mg PO QHS Cetirizine Hcl 10 Mg Tablet 10 Mg PO DAILY Tylenol (Acetaminophen) 325 Mg Tablet 650 Mg PO PRN Q6HRS PRN Vitamin D (Cholecalciferol (Vitamin D3)) 2,000 Unit Capsule 2,000 Units PO DAILY Betapace (Sotalol Hcl) 80 Mg Tablet 80 Mg PO BID Divalproex Sodium 125 Mg Cap.sprink 250 Mg PO BID92 Namenda (Memantine Hcl) 10 Mg Tablet 10 Mg PO BID Mag-Al Plus Xs Suspension (Mag Hydrox/Al Hydrox/Simeth) 30 Ml Oral.susp 15 Ml PO PRN AFTMEAL PRN Haloperidol 2 Mg Tablet 2 Mg PO PRN Q4HRS PRN Zoloft (Sertraline Hcl) 50 Mg Tablet 50 Mg PO DAILY Trazodone Hcl 50 Mg Tablet 50 Mg PO QHS GIVE WITH FOOD Diagnosis: Problems: (1) Dementia with behavioral disturbance (2) Anxiety disorder (3) Impulse control disorder (4) Dementia, vascular, with depression (5) Dementia, vascular, with delusions (6) Dementia in Alzheimer's disease with depression (7) Dementia in Alzheimer's disease with delusions ADAN GOMES MD Jan 04, 2017 19:37
--- NOTE | 2017-01-05 01:52 | PN ---
DATE: 01/03/2017 This late entry 01/03/2017 covers elements not covered in my initial note. I met with the patient in the evening of 01/03/2017. The patient has been somewhat sedated. Staff had to feed her supper, normally she feeds herself. REVIEW OF SYSTEMS: Ambulation impaired, in a wheelchair. No CV, , pulmonary, eye, ENT system symptoms on review. Reliability poor. MENTAL STATUS EXAM: Oriented to herself, not very verbal. Insight, judgment, recent and remote memory, attention, concentration, fund of knowledge poor, consistent with her diagnosis mentioned in my initial note. PLAN: Stop the BuSpar in case it is causing sedation. Maintain the rest of the psychotropics mentioned in my initial note. Check labs level on the Depakote. Adjust further as clinically indicated, reviewed drug interactions, risk/benefit ratio favors no further change. MAN Saúl GOMES MD DR: FAISAL/alonso JOB#: [id number] / [id number]
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
== END 2017-01-04 16:32 | DRG 56 ==
LOC: ER 14:03 → GEROPSY 17:22
PROVIDERS: ADMIT Psychiatry & Neurology Psychiatry; ATTEND Psychiatry & Neurology Psychiatry
DX: G30.9 Alzheimer's disease, unspecified (principal); E43 Unspecified severe protein-calorie malnutrition; E87.0 Hyperosmolality and hypernatremia; F01.51 Vascular dementia, unspecified severity, with behavioral disturbance; I48.91 Unspecified atrial fibrillation; R13.10 Dysphagia, unspecified; F02.81 Dementia in other diseases classified elsewhere, unspecified severity, with behavioral disturbance; E78.5 Hyperlipidemia, unspecified; E87.6 Hypokalemia; F22 Delusional disorders; F32.9 Major depressive disorder, single episode, unspecified; F41.9 Anxiety disorder, unspecified; F63.9 Impulse disorder, unspecified; I10 Essential (primary) hypertension; G47.00 Insomnia, unspecified; Z66 Do not resuscitate; Z99.3 Dependence on wheelchair
CPT/HCPCS: 36415; 80053; 80061; 80164; 81001; 82140; 82306; 82607; 83036; 83540; 83550; 83735; 84436; 84443; 84480; 85025; 85610; 86592; 86593; 93005; 99285-25

== ENCOUNTER 2017-03-09 17:30 | Inpatient (IN) | payer MEDICARE, OTHER ==
[~2017-03-09] VITALS: Ht 162.6 cm; Wt 53.2 kg
[~2017-03-09 17:30] MED LIST changes: +AMLO10TA4 PO; +BUSP5TAB PO; +CETI10TA16 PO; +CHOL2000 PO; +DIVA125C PO; +DONE10TA61 PO; +FURO20TA3 PO; +LORA10TA3 PO; +MAGN400O7 PO; +OLAN5TAB5 PO; +SOTA80TA20 PO; +WARF-78 PO; +WARF1TAB74 PO
[2017-03-09 18:11] LABS: BASO % 0 % (0-3); EOS # 0.9 x10^3/uL (0.0-0.7); EOS % 14 % (0-3); HEMATOCRIT 37.4 % (36.0-47.0); HEMOGLOBIN 12.3 g/dL (12.0-15.5); LYMPH % 32 % (24-48); MEAN CORPUSCULAR HEMOGLOBIN 31 pg (25-35); MEAN CORPUSCULAR HGB CONC 33 g/dL (31-37); MEAN CORPUSCULAR VOLUME 95 fL (79-100); MONO # 0.6 x10^3/uL (0.0-1.1); MONO % 9 % (0-9); NEUT # 2.8 x10^3uL (1.8-7.7); NEUT % 44 % (31-73); PLATELET COUNT 175 x10^3/uL (140-400); RED BLOOD COUNT 3.93 x10^6/uL (3.50-5.40); RED CELL DISTRIBUTION WIDTH 16.3 % (11.5-14.5); WHITE BLOOD COUNT 6.3 x10^3/uL (4.0-11.0)
[2017-03-09 18:22] LABS: ALBUMIN 2.6 g/dL (3.4-5.0); ALBUMIN/GLOBULIN RATIO 0.6 (1.0-1.7); CREATININE 0.9 mg/dL (0.6-1.0); GFR 73.3; MAGNESIUM 1.8 mg/dL (1.8-2.4); POTASSIUM 3.9 mmol/L (3.5-5.1); TOTAL BILIRUBIN 0.1 mg/dL (0.2-1.0); TOTAL PROTEIN 7.1 g/dL (6.4-8.2)
[2017-03-09] MEDS ORDERED: LIDOCAINE 2%/EPI 1:100,000 20 ML VIAL. IJ ONE (18:30)
[2017-03-09 19:05] LABS: COLOR,URINE STRAW
[2017-03-09 19:06] LABS: BACTERIA,URINE MANY /HPF (0-FEW); BILIRUBIN,URINE NEG (NEG); CLARITY,URINE HAZY; GLUCOSE,URINE NEG (NEG); NITRITE,URINE POS (NEG); SQUAMOUS EPITHELIAL CELL,UR OCC /LPF; UROBILINOGEN,URINE 0.2 mg/dL (0.2 mg/dL)
[2017-03-09] MEDS ORDERED: CEPHALEXIN 250 MG CAPSULE PO ONE (19:30)
[2017-03-09] MEDS ORDERED: MAG HYDROX/AL HYDROX/SIMETH 30 ML ORAL.SUSP PO PRN (20:15)
[2017-03-09] MEDS ORDERED: METHYL SALICYLATE/MENTHOL TOPICAL OINTMENT 29GM TUBE. TP PRN (20:15)
[2017-03-09] MEDS ORDERED: MAGNESIUM HYDROXIDE 2,400 MG/30 ML ORAL.SUSP. PO PRN (20:15)
[2017-03-09] MEDS ORDERED: ACETAMINOPHEN 325 MG TABLET PO PRN (20:15)
[2017-03-09 20:18] VITALS: BP 168/82
--- NOTE | 2017-03-09 20:45 | PDOC ---
Exam Vikram Demential Exam: Vikram Note: Please also refer to the separate dictated note~for this date of service dictated separately.~Patient seen individually. Discussed the patient with Nursing staff reviewed the chart.~Reviewed interim history and current functioning. Reviewed vital signs,~Labs/ Radiology~and current medications noted below. Continue current treatment with the changes noted in the dictated addendum note Assessment: Vital Signs: Vital Signs Date Time Temp Pulse Resp B/P (MAP) Pulse Ox O2 Delivery O2 Flow Rate FiO2 03/09/17 20:18 97.4 55 18 168/82 (110) 95.0 03/09/17 17:56 98 Room Air Labs: Laboratory Tests Test 03/09/17 17:45 03/09/17 18:30 White Blood Count 6.3 x10^3/uL (4.0-11.0) Red Blood Count 3.93 x10^6/uL (3.50-5.40) Hemoglobin 12.3 g/dL (12.0-15.5) Hematocrit 37.4 % (36.0-47.0) Mean Corpuscular Volume 95 fL (79-100) Mean Corpuscular Hemoglobin 31 pg (25-35) Mean Corpuscular Hemoglobin Concent 33 g/dL (31-37) Red Cell Distribution Width 16.3 % (11.5-14.5) H Platelet Count 175 x10^3/uL (140-400) Neutrophils (%) (Auto) 44 % (31-73) Lymphocytes (%) (Auto) 32 % (24-48) Monocytes (%) (Auto) 9 % (0-9) Eosinophils (%) (Auto) 14 % (0-3) H Basophils (%) (Auto) 0 % (0-3) Neutrophils # (Auto) 2.8 x10^3uL (1.8-7.7) Lymphocytes # (Auto) 2.0 x10^3/uL (1.0-4.8) Monocytes # (Auto) 0.6 x10^3/uL (0.0-1.1) Eosinophils # (Auto) 0.9 x10^3/uL (0.0-0.7) H Basophils # (Auto) 0.0 x10^3/uL (0.0-0.2) Sodium Level 143 mmol/L (136-145) Potassium Level 3.9 mmol/L (3.5-5.1) Chloride Level 105 mmol/L (98-107) Carbon Dioxide Level 32 mmol/L (21-32) Anion Gap 6 (6-14) Blood Urea Nitrogen 21 mg/dL (7-20) H Creatinine 0.9 mg/dL (0.6-1.0) Estimated GFR (Cockcroft-Gault) 73.3 BUN/Creatinine Ratio 23 (6-20) H Glucose Level 108 mg/dL (70-99) H Calcium Level 10.0 mg/dL (8.5-10.1) Magnesium Level 1.8 mg/dL (1.8-2.4) Total Bilirubin 0.1 mg/dL (0.2-1.0) L Aspartate Amino Transferase (AST) 18 U/L (15-37) Alanine Aminotransferase (ALT) 18 U/L (14-59) Alkaline Phosphatase 97 U/L (46-116) Total Protein 7.1 g/dL (6.4-8.2) Albumin 2.6 g/dL (3.4-5.0) L Albumin/Globulin Ratio 0.6 (1.0-1.7) L Urine Collection Type U cath Urine Color Straw Urine Clarity Hazy Urine pH 7.0 Urine Specific [place] 1.015 Urine Protein Neg (NEG-TRACE) Urine Glucose (UA) Neg mg/dL (NEG) Urine Ketones (Stick) Neg mg/dL (NEG) Urine Blood Trace (NEG) Urine Nitrite Pos (NEG) Urine Bilirubin Neg (NEG) Urine Urobilinogen Dipstick 0.2 mg/dL (0.2 mg/dL) Urine Leukocyte Esterase Large (NEG) Urine RBC 3-5 /HPF (0-2) Urine WBC 11-20 /HPF (0-4) Urine Squamous Epithelial Cells Occ /LPF Urine Bacteria Many /HPF (0-FEW) Current Medications: Meds: Current Medications Lidocaine/ Epinephrine (Xylocaine 2%-Epi 1:100,000) 20 ml 1X ONCE IJ ; Start 03/09/17 at 18:30; Stop 03/09/17 at 18:31; Status DC Cephalexin HCl (Keflex) 500 mg 1X ONCE PO ; Start 03/09/17 at 19:30; Stop 03/09 at 19:32; Status DC Acetaminophen (Tylenol) 650 mg PRN Q6HRS PRN PO PAIN / TEMP; Start 03/09/17 at 20:15 Multi-Ingredient Ointment (Analgesic [place]) 1 morteza PRN QID PRN TP MUSCLE PAIN; Start 03/09/17 at 20:15 Al Hydroxide/Mg Hydroxide (Mylanta Plus Xs) 15 ml PRN AFTMEALHC PRN PO DYSPEPSIA; Start 03/09/17 at 20:15 Magnesium Hydroxide (Milk Of Magnesia) 2,400 mg PRN QHS PRN PO CONSTIPATION; Start 03/09/17 at 20:15 Active Scripts Active Reported Coumadin (Warfarin Sodium) 1 Mg Tablet 3 Mg PO DAILY16 Norvasc (Amlodipine Besylate) 10 Mg Tablet 10 Mg PO DAILY Buspirone Hcl 5 Mg Tablet 5 Mg PO TID Zyprexa Zydis (Olanzapine) 5 Mg Tab.rapdis 2.5 Mg PO PRN Q2HR PRN MDD 7.5mg Analgesic [place] (Methyl Salicylate/Menthol) 28 Gm Oint...g. 1 Morteza TP PRN QID PRN Milk Of Magnesia (Magnesium Hydroxide) 400 Mg/5 Ml Oral.susp 2,400 Mg PO PRN QHS PRN Aricept (Donepezil Hcl) 10 Mg Tablet 10 Mg PO DAILY Depakote Sprinkle (Divalproex Sodium) 125 Mg Cap.sprink 500 Mg PO QHS Cetirizine Hcl 10 Mg Tablet 10 Mg PO DAILY Tylenol (Acetaminophen) 325 Mg Tablet 650 Mg PO PRN Q6HRS PRN Vitamin D (Cholecalciferol (Vitamin D3)) 2,000 Unit Capsule 2,000 Units PO DAILY Betapace (Sotalol Hcl) 80 Mg Tablet 80 Mg PO BID Divalproex Sodium 125 Mg Cap.sprink 250 Mg PO BID92 Namenda (Memantine Hcl) 10 Mg Tablet 10 Mg PO BID Mag-Al Plus Xs Suspension (Mag Hydrox/Al Hydrox/Simeth) 30 Ml Oral.susp 15 Ml PO PRN AFTMEAL PRN Haloperidol 2 Mg Tablet 2 Mg PO PRN Q4HRS PRN Zoloft (Sertraline Hcl) 50 Mg Tablet 50 Mg PO DAILY Trazodone Hcl 50 Mg Tablet 50 Mg PO QHS GIVE WITH FOOD Diagnosis: Problems: (1) Dementia with behavioral disturbance (2) Anxiety disorder (3) Impulse control disorder (4) Dementia, vascular, with depression (5) Dementia, vascular, with delusions (6) Dementia in Alzheimer's disease with depression (7) Dementia in Alzheimer's disease with delusions ADAN GOMES MD Mar 09, 2017 20:45
[2017-03-09 21:19] LABS: VAL ACID 69 mcg/mL (50-100)
[2017-03-09] MEDS ORDERED: BUSP10TA PO (21:38)
[2017-03-09] MEDS ORDERED: WARF3TAB7 PO (21:38)
[2017-03-09] MEDS ORDERED: DIVA125C PO (21:38)
--- NOTE | 2017-03-09 21:56 | EKG ---
[address] [address] Test Date: 2017-03-09 Test Time: 17:57:48 Pat Name: HAILEY LABOY Department: Room: [address] [place] [address] Gender: F Puff Ironer: OLEKSANDR : 1940 Requested By: NI LUND Order Number: [id number] Reading MD: Ramírez Santana MD Measurements Intervals [place] Rate: 58 P: 33 KS: 160 QRS: -21 QRSD: 88 T: -36 QT: 414 QTc: 410 Interpretive Statements SINUS RHYTHM LEFTWARD AXIS NON-SPECIFIC ST/T CHANGES Electronically Signed On 03-12-2017 13:36:38 CDT by Ramírez Santana MD
[2017-03-09] MEDS: MEMANTINE 10 MG TABLET. PO SCH (22:30)
[2017-03-09] MEDS: DIVALPROEX 125 MG CAP.SPRINK PO SCH (22:30)
[2017-03-09] MEDS: busPIRone 10 MG TABLET. PO SCH (22:30)
--- NOTE | 2017-03-10 03:52 | ED.ADGEN ---
Past History Past Medical History: A-Fib, Anxiety, High Cholesterol, Hypertension, Other Past Surgical History: Other Smoking: Non-smoker Alcohol Use: None Drug Use: None Adult General Chief Complaint Chief Complaint Encounter for medical screening evaluation for psychiatric hold [facility] HPI Patient is a 76-year-old female with recent hospitalization for depression who presents by taxi from nursing facility with complaints of suicidal ideation and requests for readmission to [facility] health unit. Patient states she feels depressed is tearful. She does not like her current facility's cafeteria staffing and is having difficulty adapting to new environment. Patient denies any medical symptoms or complaints. [] Review of Systems Review of Systems ROS as per HPI Current Medications Current Medications Current Medications Medications (Trade) Dose Ordered Sig/Lauro Start Time Stop Time Status Last Admin Dose Admin Lidocaine/ Epinephrine (Xylocaine 2%-Epi 1:100,000) 20 ml 1X ONCE 03/09/17 18:30 03/09/17 18:31 DC Allergies Allergies Allergies Coded Allergies Type Severity Reaction Last Updated Verified No Known Drug Allergies 10/26/14 No Physical Exam Physical Exam Constitutional: Well developed, well nourished, no acute distress, non-toxic appearance. [] HENT: Normocephalic, atraumatic, bilateral external ears normal, oropharynx moist, no oral exudates, nose normal. [] Eyes: PERRLA, EOMI, conjunctiva normal, no discharge. [] Neck: Normal range of motion, no tenderness, supple, no stridor. [] Cardiovascular:Heart rate regular rhythm, no murmur [] Lungs & Thorax: Bilateral breath sounds clear to auscultation [] Abdomen: Bowel sounds normal, soft, no tenderness, no masses, no pulsatile masses. [] Skin: Warm, dry, no erythema, no rash. [] Back: No tenderness, no CVA tenderness. [] Extremities: No tenderness, no cyanosis, no clubbing, ROM intact, no edema. [] Neurologic: Alert and oriented,, normal motor function, normal sensory function , no focal deficits noted. [] Psychologic: Affect normal, tearful, depressed, suicidal ideation. Current Patient Data Vital Signs Vital Signs Date Time Temp Pulse Resp B/P (MAP) Pulse Ox O2 Delivery O2 Flow Rate FiO2 03/09/17 17:56 97.5 73 18 98 Room Air Lab Results Laboratory Tests Test 03/09/17 17:45 03/09/17 18:30 White Blood Count 6.3 x10^3/uL (4.0-11.0) Red Blood Count 3.93 x10^6/uL (3.50-5.40) Hemoglobin 12.3 g/dL (12.0-15.5) Hematocrit 37.4 % (36.0-47.0) Mean Corpuscular Volume 95 fL (79-100) Mean Corpuscular Hemoglobin 31 pg (25-35) Mean Corpuscular Hemoglobin Concent 33 g/dL (31-37) Red Cell Distribution Width 16.3 % (11.5-14.5) H Platelet Count 175 x10^3/uL (140-400) Neutrophils (%) (Auto) 44 % (31-73) Lymphocytes (%) (Auto) 32 % (24-48) Monocytes (%) (Auto) 9 % (0-9) Eosinophils (%) (Auto) 14 % (0-3) H Basophils (%) (Auto) 0 % (0-3) Neutrophils # (Auto) 2.8 x10^3uL (1.8-7.7) Lymphocytes # (Auto) 2.0 x10^3/uL (1.0-4.8) Monocytes # (Auto) 0.6 x10^3/uL (0.0-1.1) Eosinophils # (Auto) 0.9 x10^3/uL (0.0-0.7) H Basophils # (Auto) 0.0 x10^3/uL (0.0-0.2) Sodium Level 143 mmol/L (136-145) Potassium Level 3.9 mmol/L (3.5-5.1) Chloride Level 105 mmol/L (98-107) Carbon Dioxide Level 32 mmol/L (21-32) Anion Gap 6 (6-14) Blood Urea Nitrogen 21 mg/dL (7-20) H Creatinine 0.9 mg/dL (0.6-1.0) Estimated GFR (Cockcroft-Gault) 73.3 BUN/Creatinine Ratio 23 (6-20) H Glucose Level 108 mg/dL (70-99) H Calcium Level 10.0 mg/dL (8.5-10.1) Magnesium Level 1.8 mg/dL (1.8-2.4) Total Bilirubin 0.1 mg/dL (0.2-1.0) L Aspartate Amino Transferase (AST) 18 U/L (15-37) Alanine Aminotransferase (ALT) 18 U/L (14-59) Alkaline Phosphatase 97 U/L (46-116) Total Protein 7.1 g/dL (6.4-8.2) Albumin 2.6 g/dL (3.4-5.0) L Albumin/Globulin Ratio 0.6 (1.0-1.7) L 25-Hydroxy Vitamin D Total 36.7 ng/mL (30.0-100.0) Valproic Acid Level 69 mcg/mL (50-100) Valproic Acid Last Dose Date 03/09/17 Valproic Acid Last Dose Time 0900 Urine Collection Type U cath Urine Color Straw Urine Clarity Hazy Urine pH 7.0 Urine Specific [place] 1.015 Urine Protein Neg (NEG-TRACE) Urine Glucose (UA) Neg mg/dL (NEG) Urine Ketones (Stick) Neg mg/dL (NEG) Urine Blood Trace (NEG) Urine Nitrite Pos (NEG) Urine Bilirubin Neg (NEG) Urine Urobilinogen Dipstick 0.2 mg/dL (0.2 mg/dL) Urine Leukocyte Esterase Large (NEG) Urine RBC 3-5 /HPF (0-2) Urine WBC 11-20 /HPF (0-4) Urine Squamous Epithelial Cells Occ /LPF Urine Bacteria Many /HPF (0-FEW) EKG EKG [EKG: Normal sinus rhythm] Radiology/Procedures Radiology/Procedures [] Course & Med Decision Making Course & Med Decision Making Pertinent Labs and Imaging studies reviewed. (See chart for details) [Medically cleared. Patient does have a urinary tract infection. Single dose of antibiotic given. Patient accepted to SDU.] Final Impression Final Impression [#1 and counter for medical screening exam for psychiatric admission #2 urinary tract infection] Problems: Dragon Disclaimer Dragon Disclaimer This electronic medical record was generated, in whole or in part, using a voice recognition dictation system. NI LUND DO Mar 10, 2017 03:52
[2017-03-10 06:10] VITALS: BP 132/72
--- NOTE | 2017-03-10 08:01 | RAD ---
Portable chest, 03/09/2017: History: Shortness of breath seen in behavioral health evaluation The heart is enlarged with prominence of the left ventricle. There is calcific plaquing and tortuosity of the thoracic aorta. The pulmonary vascularity is normal. No pulmonary infiltrates are seen. There is no evidence of pleural fluid. Moderate hypertrophic spurring is present in the spine. IMPRESSION: 1. Cardiomegaly and aortic atherosclerosis. 2. No acute abnormality is detected.
[2017-03-10] MEDS: busPIRone 10 MG TABLET. PO SCH ×3 (08:24→19:23)
[2017-03-10] MEDS: MEMANTINE 10 MG TABLET. PO SCH ×2 (08:24→19:22)
[2017-03-10] MEDS: SERTRALINE 50 MG TABLET. PO SCH (08:26)
[2017-03-10] MEDS: DIVALPROEX 125 MG CAP.SPRINK PO SCH ×3 (08:27→19:23)
[2017-03-10] MEDS: DONEPEZIL HCL 10 MG TABLET PO SCH (08:27)
[2017-03-10] MEDS ORDERED: ACETAMINOPHEN 325 MG TABLET PO PRN (08:30)
[2017-03-10] MEDS ORDERED: MAGNESIUM HYDROXIDE 2,400 MG/30 ML ORAL.SUSP. PO PRN (08:30)
[2017-03-10] MEDS ORDERED: METHYL SALICYLATE/MENTHOL TOPICAL OINTMENT 29GM TUBE. TP PRN (08:30)
[2017-03-10] MEDS: CHOLECALCIFEROL (VITAMIN D3) 1,000 UNIT TABLET PO SCH (08:43)
[2017-03-10] MEDS: CETIRIZINE HCL 10 MG TABLET PO SCH (08:44)
[2017-03-10] MEDS ORDERED: amLODIPine BESYLATE 10 MG TABLET PO SCH (09:00)
[2017-03-10] MEDS: SOTALOL 80 MG TABLET. PO SCH ×2 (09:00→19:24)
[2017-03-10 14:08] LABS: THYROID STIM HORMONE (TSH) 4.257 uIU/mL (0.358-3.740)
[2017-03-10 16:18] VITALS: BP 122/89
[2017-03-10] MEDS: WARFARIN 2.5 MG TABLET. PO SCH (16:23)
[2017-03-10] MEDS: WARFARIN 1 MG TABLET. PO SCH (16:23)
[2017-03-10 19:08] LABS: T3 TOTAL 74 ng/dL (71-180); THYROXINE 6.4 ug/dL (4.5-12.0)
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
[2017-03-10] MEDS: traZODone 50 MG TABLET. PO SCH (19:36)
--- NOTE | 2017-03-10 20:36 | PDOC ---
Exam Vikram Demential Exam: Vikram Note: Please also refer to the separate dictated note~for this date of service dictated separately.~Patient seen individually. Discussed the patient with Nursing staff reviewed the chart.~Reviewed interim history and current functioning. Reviewed vital signs,~Labs/ Radiology~and current medications noted below. Continue current treatment with the changes noted in the dictated addendum note Assessment: Vital Signs: Vital Signs Date Time Temp Pulse Resp B/P (MAP) Pulse Ox O2 Delivery O2 Flow Rate FiO2 03/10/17 19:24 64 122/89 03/10/17 16:18 97.8 16 97 Room Air 03/09/17 20:18 95.0 I&O Intake and Output 03/11/17 07:00 Intake Total 840 ml Balance 840 ml Intake Oral 840 ml Labs: Laboratory Tests Test 03/10/17 09:17 Prothrombin Time 26.7 SEC (9.4-11.4) H Prothrombin Time INR 2.6 (0.9-1.1) H Current Medications: Meds: Current Medications Lidocaine/ Epinephrine (Xylocaine 2%-Epi 1:100,000) 20 ml 1X ONCE IJ ; Start 03/09/17 at 18:30; Stop 03/09/17 at 18:31; Status DC Cephalexin HCl (Keflex) 500 mg 1X ONCE PO Last administered on 03/09/17t 22:30 ; Start 03/09/17 at 19:30; Stop 03/09/17 at 19:32; Status DC Acetaminophen (Tylenol) 650 mg PRN Q6HRS PRN PO PAIN / TEMP; Start 03/09/17 at 20:15; Stop 03/10/17 at 16:10; Status DC Multi-Ingredient Ointment (Analgesic [place]) 1 morteza PRN QID PRN TP MUSCLE PAIN; Start 03/09/17 at 20:15; Stop 03/10/17 at 16:12; Status DC Al Hydroxide/Mg Hydroxide (Mylanta Plus Xs) 15 ml PRN AFTMEALHC PRN PO DYSPEPSIA; Start 03/09/17 at 20:15 Magnesium Hydroxide (Milk Of Magnesia) 2,400 mg PRN QHS PRN PO CONSTIPATION; Start 03/09/17 at 20:15; Stop 03/10/17 at 16:12; Status DC Buspirone HCl (Buspar) 10 mg TID PO Last administered on 03/10/17 19:23; Start 03/09/17 at 22:30 Divalproex Sodium (Depakote Sprinkles) 250 mg BID92 PO Last administered on 13:31; Start 03/10/17 at 09:00 Divalproex Sodium (Depakote Sprinkles) 375 mg HS PO Last administered on 19:23; Start 03/09/17 at 22:30 Donepezil HCl (Aricept) 10 mg DAILY PO Last administered on 03/10/17 08:27; Start 03/10/17 at 09:00 Haloperidol (Haldol) 2 mg PRN Q4HRS PRN PO AGITATION; Start 03/09/17 at 22:15 Memantine (Namenda) 10 mg BID PO Last administered on 03/10/17 19:22; Start 03/09/17 at 22:30 Olanzapine (ZyPREXA ZYDIS) 2.5 mg PRN Q2HR PRN PO PSYCHOSIS; Start 03/09/17 at 22:15 Sertraline HCl (Zoloft) 50 mg DAILY PO Last administered on 03/10/17 08:26; Start 03/10/17 at 09:00 Trazodone HCl (Desyrel) 50 mg QHS PO Last administered on 03/10/17 19:36; Start 03/10/17 at 21:00 Acetaminophen (Tylenol) 650 mg PRN Q6HRS PRN PO PAIN / TEMP; Start 03/10/17 at 08:30 Amlodipine Besylate (Norvasc) 2.5 mg DAILY PO Last administered on 03/10/17 08 :43; Start 03/10/17 at 09:00; Stop 03/10/17 at 16:11; Status DC Cetirizine HCl (ZyrTEC) 10 mg DAILY PO Last administered on 03/10/17 08:44; Start 03/10/17 at 09:00 Magnesium Hydroxide (Milk Of Magnesia) 2,400 mg PRN QHS PRN PO CONSTIPATION; Start 03/10/17 at 08:30 Multi-Ingredient Ointment (Analgesic [place]) 1 morteza PRN QID PRN TP MUSCLE PAIN; Start 03/10/17 at 08:30 Sotalol HCl (Betapace) 80 mg BID PO Last administered on 03/10/17 19:24; Start 03/10/17 at 09:00 Warfarin Sodium (Coumadin) 2.5 mg DAILY16 PO Last administered on 03/10/17 16: 23; Start 03/10/17 at 16:00 Vitamin D (Vitamin D3) 2,000 unit DAILY PO Last administered on 03/10/17 08:43 ; Start 03/10/17 at 09:00 Warfarin Sodium (Coumadin Per Pharmacy) 1 each PRN DAILY PRN MC SEE COMMENTS Last administered on 03/10/17 13:45; Start 03/10/17 at 08:30 Warfarin Sodium (Coumadin) 1 mg DAILY16 PO Last administered on 03/10/17 16:23 ; Start 03/10/17 at 16:00 Amlodipine Besylate (Norvasc) 2.5 mg DAILY PO ; Start 03/11/17 at 09:00 Active Scripts Active Reported Warfarin Sodium 3 Mg Tablet 3.5 Mg PO Depakote Sprinkle (Divalproex Sodium) 125 Mg Cap.sprink 375 Mg PO HS Buspirone Hcl 10 Mg Tablet 10 Mg PO TID Norvasc (Amlodipine Besylate) 10 Mg Tablet 10 Mg PO DAILY Zyprexa Zydis (Olanzapine) 5 Mg Tab.rapdis 2.5 Mg PO PRN Q2HR PRN MDD 7.5mg Analgesic [place] (Methyl Salicylate/Menthol) 28 Gm Oint...g. 1 Morteza TP PRN QID PRN Milk Of Magnesia (Magnesium Hydroxide) 400 Mg/5 Ml Oral.susp 2,400 Mg PO PRN QHS PRN Aricept (Donepezil Hcl) 10 Mg Tablet 10 Mg PO DAILY Cetirizine Hcl 10 Mg Tablet 10 Mg PO DAILY Tylenol (Acetaminophen) 325 Mg Tablet 650 Mg PO PRN Q6HRS PRN Vitamin D (Cholecalciferol (Vitamin D3)) 2,000 Unit Capsule 2,000 Units PO DAILY Betapace (Sotalol Hcl) 80 Mg Tablet 80 Mg PO BID Divalproex Sodium 125 Mg Cap.sprink 250 Mg PO BID92 Namenda (Memantine Hcl) 10 Mg Tablet 10 Mg PO BID Mag-Al Plus Xs Suspension (Mag Hydrox/Al Hydrox/Simeth) 30 Ml Oral.susp 15 Ml PO PRN AFTMEAL PRN Haloperidol 2 Mg Tablet 2 Mg PO PRN Q4HRS PRN Zoloft (Sertraline Hcl) 50 Mg Tablet 50 Mg PO DAILY Trazodone Hcl 50 Mg Tablet 50 Mg PO QHS GIVE WITH FOOD Diagnosis: Problems: (1) Dementia with behavioral disturbance (2) Anxiety disorder (3) Impulse control disorder (4) Dementia, vascular, with depression (5) Dementia, vascular, with delusions (6) Dementia in Alzheimer's disease with depression (7) Dementia in Alzheimer's disease with delusions ADAN GOMES MD Mar 10, 2017 20:36
[2017-03-11 05:09] LABS: HEMOGLOBIN A1C 5.4 % (4.8-5.6)
[2017-03-11] MEDS: DIVALPROEX 125 MG CAP.SPRINK PO SCH ×3 (09:38→19:46)
[2017-03-11] MEDS: CHOLECALCIFEROL (VITAMIN D3) 1,000 UNIT TABLET PO SCH (09:38)
[2017-03-11] MEDS: busPIRone 10 MG TABLET. PO SCH ×3 (09:38→19:46)
[2017-03-11] MEDS: MEMANTINE 10 MG TABLET. PO SCH ×2 (09:38→19:46)
[2017-03-11] MEDS: DONEPEZIL HCL 10 MG TABLET PO SCH (09:39)
[2017-03-11] MEDS: CETIRIZINE HCL 10 MG TABLET PO SCH (09:39)
[2017-03-11] MEDS: SERTRALINE 50 MG TABLET. PO SCH (09:39)
[2017-03-11 09:45] VITALS: BP 114/70
[2017-03-11] MEDS: SOTALOL 80 MG TABLET. PO SCH ×2 (09:49→19:47)
[2017-03-11] MEDS: amLODIPine BESYLATE 2.5 MG TABLET PO SCH (09:49)
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
[2017-03-11 16:05] VITALS: BP 109/70
[2017-03-11] MEDS: WARFARIN 1 MG TABLET. PO SCH (16:26)
[2017-03-11] MEDS: WARFARIN 2.5 MG TABLET. PO SCH (16:26)
[2017-03-11] MEDS: traZODone 50 MG TABLET. PO SCH (19:46)
--- NOTE | 2017-03-11 20:50 | PDOC ---
Exam Vikram Demential Exam: Vikram Note: Please also refer to the separate dictated note~for this date of service dictated separately.~Patient seen individually. Discussed the patient with Nursing staff reviewed the chart.~Reviewed interim history and current functioning. Reviewed vital signs,~Labs/ Radiology~and current medications noted below. Continue current treatment with the changes noted in the dictated addendum note Assessment: Vital Signs: Vital Signs Date Time Temp Pulse Resp B/P (MAP) Pulse Ox O2 Delivery O2 Flow Rate FiO2 03/11/17 19:47 63 109/70 03/11/17 16:05 97.2 20 96 03/10/17 16:18 Room Air 03/09/17 20:18 95.0 I&O Intake and Output 03/12/17 07:00 Intake Total 1200 ml Balance 1200 ml Intake Oral 1200 ml Labs: Laboratory Tests Test 03/11/17 06:10 Prothrombin Time 25.5 SEC (9.4-11.4) H Prothrombin Time INR 2.5 (0.9-1.1) H Current Medications: Meds: Current Medications Lidocaine/ Epinephrine (Xylocaine 2%-Epi 1:100,000) 20 ml 1X ONCE IJ ; Start 03/09/17 at 18:30; Stop 03/09/17 at 18:31; Status DC Cephalexin HCl (Keflex) 500 mg 1X ONCE PO Last administered on 03/09/17t 22:30 ; Start 03/09/17 at 19:30; Stop 03/09/17 at 19:32; Status DC Acetaminophen (Tylenol) 650 mg PRN Q6HRS PRN PO PAIN / TEMP; Start 03/09/17 at 20:15; Stop 03/10/17 at 16:10; Status DC Multi-Ingredient Ointment (Analgesic [place]) 1 morteza PRN QID PRN TP MUSCLE PAIN; Start 03/09/17 at 20:15; Stop 03/10/17 at 16:12; Status DC Al Hydroxide/Mg Hydroxide (Mylanta Plus Xs) 15 ml PRN AFTMEALHC PRN PO DYSPEPSIA; Start 03/09/17 at 20:15 Magnesium Hydroxide (Milk Of Magnesia) 2,400 mg PRN QHS PRN PO CONSTIPATION; Start 03/09/17 at 20:15; Stop 03/10/17 at 16:12; Status DC Buspirone HCl (Buspar) 10 mg TID PO Last administered on 03/11/17 19:46; Start 03/09/17 at 22:30 Divalproex Sodium (Depakote Sprinkles) 250 mg BID92 PO Last administered on 14:36; Start 03/10/17 at 09:00 Divalproex Sodium (Depakote Sprinkles) 375 mg HS PO Last administered on 19:46; Start 03/09/17 at 22:30 Donepezil HCl (Aricept) 10 mg DAILY PO Last administered on 03/11/17 09:39; Start 03/10/17 at 09:00 Haloperidol (Haldol) 2 mg PRN Q4HRS PRN PO AGITATION; Start 03/09/17 at 22:15 Memantine (Namenda) 10 mg BID PO Last administered on 03/11/17 19:46; Start 03/09/17 at 22:30 Olanzapine (ZyPREXA ZYDIS) 2.5 mg PRN Q2HR PRN PO PSYCHOSIS; Start 03/09/17 at 22:15 Sertraline HCl (Zoloft) 50 mg DAILY PO Last administered on 03/11/17 09:39; Start 03/10/17 at 09:00; Stop 03/11/17 at 18:11; Status DC Trazodone HCl (Desyrel) 50 mg QHS PO Last administered on 03/11/17 19:46; Start 03/10/17 at 21:00 Acetaminophen (Tylenol) 650 mg PRN Q6HRS PRN PO PAIN / TEMP Last administered on 03/11/17 09:50; Start 03/10/17 at 08:30 Amlodipine Besylate (Norvasc) 2.5 mg DAILY PO Last administered on 03/10/17 08 :43; Start 03/10/17 at 09:00; Stop 03/10/17 at 16:11; Status DC Cetirizine HCl (ZyrTEC) 10 mg DAILY PO Last administered on 03/11/17 09:39; Start 03/10/17 at 09:00 Magnesium Hydroxide (Milk Of Magnesia) 2,400 mg PRN QHS PRN PO CONSTIPATION; Start 03/10/17 at 08:30 Multi-Ingredient Ointment (Analgesic [place]) 1 morteza PRN QID PRN TP MUSCLE PAIN; Start 03/10/17 at 08:30 Sotalol HCl (Betapace) 80 mg BID PO Last administered on 03/11/17 19:47; Start 03/10/17 at 09:00 Warfarin Sodium (Coumadin) 2.5 mg DAILY16 PO Last administered on 03/11/17 16: 26; Start 03/10/17 at 16:00 Vitamin D (Vitamin D3) 2,000 unit DAILY PO Last administered on 03/11/17 09:38 ; Start 03/10/17 at 09:00 Warfarin Sodium (Coumadin Per Pharmacy) 1 each PRN DAILY PRN MC SEE COMMENTS Last administered on 03/11/17 13:38; Start 03/10/17 at 08:30 Warfarin Sodium (Coumadin) 1 mg DAILY16 PO Last administered on 03/11/17 16:26 ; Start 03/10/17 at 16:00 Amlodipine Besylate (Norvasc) 2.5 mg DAILY PO Last administered on 03/11/17 09 :49; Start 03/11/17 at 09:00 Sertraline HCl (Zoloft) 75 mg DAILY PO ; Start 03/12/17 at 09:00 Active Scripts Active Reported Warfarin Sodium 3 Mg Tablet 3.5 Mg PO Depakote Sprinkle (Divalproex Sodium) 125 Mg Cap.sprink 375 Mg PO HS Buspirone Hcl 10 Mg Tablet 10 Mg PO TID Norvasc (Amlodipine Besylate) 10 Mg Tablet 10 Mg PO DAILY Zyprexa Zydis (Olanzapine) 5 Mg Tab.rapdis 2.5 Mg PO PRN Q2HR PRN MDD 7.5mg Analgesic [place] (Methyl Salicylate/Menthol) 28 Gm Oint...g. 1 Morteza TP PRN QID PRN Milk Of Magnesia (Magnesium Hydroxide) 400 Mg/5 Ml Oral.susp 2,400 Mg PO PRN QHS PRN Aricept (Donepezil Hcl) 10 Mg Tablet 10 Mg PO DAILY Cetirizine Hcl 10 Mg Tablet 10 Mg PO DAILY Tylenol (Acetaminophen) 325 Mg Tablet 650 Mg PO PRN Q6HRS PRN Vitamin D (Cholecalciferol (Vitamin D3)) 2,000 Unit Capsule 2,000 Units PO DAILY Betapace (Sotalol Hcl) 80 Mg Tablet 80 Mg PO BID Divalproex Sodium 125 Mg Cap.sprink 250 Mg PO BID92 Namenda (Memantine Hcl) 10 Mg Tablet 10 Mg PO BID Mag-Al Plus Xs Suspension (Mag Hydrox/Al Hydrox/Simeth) 30 Ml Oral.susp 15 Ml PO PRN AFTMEAL PRN Haloperidol 2 Mg Tablet 2 Mg PO PRN Q4HRS PRN Zoloft (Sertraline Hcl) 50 Mg Tablet 50 Mg PO DAILY Trazodone Hcl 50 Mg Tablet 50 Mg PO QHS GIVE WITH FOOD Diagnosis: Problems: (1) Dementia with behavioral disturbance (2) Anxiety disorder (3) Impulse control disorder (4) Dementia, vascular, with depression (5) Dementia, vascular, with delusions (6) Dementia in Alzheimer's disease with depression (7) Dementia in Alzheimer's disease with delusions ADAN GOMES MD Mar 11, 2017 20:50
[2017-03-12 05:56] VITALS: BP 158/84
[2017-03-12] MEDS: DIVALPROEX 125 MG CAP.SPRINK PO SCH ×3 (06:30→19:35)
[2017-03-12] MEDS: DONEPEZIL HCL 10 MG TABLET PO SCH (06:31)
[2017-03-12] MEDS: MEMANTINE 10 MG TABLET. PO SCH ×2 (06:31→19:35)
[2017-03-12] MEDS: amLODIPine BESYLATE 2.5 MG TABLET PO SCH (06:31)
[2017-03-12] MEDS: busPIRone 10 MG TABLET. PO SCH ×3 (06:31→19:35)
[2017-03-12] MEDS: CETIRIZINE HCL 10 MG TABLET PO SCH (06:31)
[2017-03-12] MEDS: CHOLECALCIFEROL (VITAMIN D3) 1,000 UNIT TABLET PO SCH (06:31)
[2017-03-12] MEDS: SOTALOL 80 MG TABLET. PO SCH ×2 (06:32→19:34)
[2017-03-12] MEDS: SERTRALINE 50 MG TABLET. PO SCH (06:35)
[2017-03-12] MEDS ORDERED: FOSFOMYCIN TROMETHAMINE 3 GM PACKET PO ONE (12:00)
[2017-03-12 16:09] VITALS: BP 128/81
[2017-03-12] MEDS: WARFARIN 2.5 MG TABLET. PO SCH (18:11)
[2017-03-12] MEDS: WARFARIN 1 MG TABLET. PO SCH (18:11)
[2017-03-12] MEDS: traZODone 50 MG TABLET. PO SCH (19:35)
--- NOTE | 2017-03-12 21:42 | PN ---
DATE: 03/11/2017 PSYCHIATRIC PROGRESS NOTE This late entry for 03/11/2017 covers elements not covered in my initial note of 03/11/2017. SUBJECTIVE: I met with the patient evening of 03/11/2017. The patient slept much of the day on 03/11/2017, was combative with cares, restless, anxious morning of 03/11/2017. REVIEW OF SYSTEMS: Ambulation impaired, in a wheelchair. No CV, , pulmonary, eye, ENT system symptoms on review. Reliability poor. MENTAL STATUS EXAM: Oriented to herself. Insight, judgment, recent and remote memory, attention, concentration, fund of knowledge poor, consistent with her diagnosis mentioned in my initial note. PLAN: Increase Zoloft to 75 mg a day. Continue rest of the psychotropics, Aricept, Depakote, Namenda, BuSpar, trazodone, along with Zyprexa p.r.n. Reviewed drug interactions, risk/benefit ratio favors no further change. ADAN GOMES MD DR: FAISAL/alonso JOB#: [id number] / [id number]
--- NOTE | 2017-03-12 23:43 | PDOC ---
Exam Vikram Demential Exam: Vikram Note: Please also refer to the separate dictated note~for this date of service dictated separately.~Patient seen individually. Discussed the patient with Nursing staff reviewed the chart.~Reviewed interim history and current functioning. Reviewed vital signs,~Labs/ Radiology~and current medications noted below. Continue current treatment with the changes noted in the dictated addendum note Assessment: Vital Signs: Vital Signs Date Time Temp Pulse Resp B/P (MAP) Pulse Ox O2 Delivery O2 Flow Rate FiO2 03/12/17 19:34 80 128/81 03/12/17 16:09 98.3 18 94 03/10/17 16:18 Room Air 03/09/17 20:18 95.0 I&O Intake and Output 03/13/17 07:00 Intake Total 1200 ml Balance 1200 ml Intake Oral 1200 ml # Bowel Movements 2 Current Medications: Meds: Current Medications Lidocaine/ Epinephrine (Xylocaine 2%-Epi 1:100,000) 20 ml 1X ONCE IJ ; Start 03/09/17 at 18:30; Stop 03/09/17 at 18:31; Status DC Cephalexin HCl (Keflex) 500 mg 1X ONCE PO Last administered on 03/09/17 22:30 ; Start 03/09/17 at 19:30; Stop 03/09/17 at 19:32; Status DC Acetaminophen (Tylenol) 650 mg PRN Q6HRS PRN PO PAIN / TEMP; Start 03/09/17 at 20:15; Stop 03/10/17 at 16:10; Status DC Multi-Ingredient Ointment (Analgesic [place]) 1 morteza PRN QID PRN TP MUSCLE PAIN; Start 03/09/17 at 20:15; Stop 03/10/17 at 16:12; Status DC Al Hydroxide/Mg Hydroxide (Mylanta Plus Xs) 15 ml PRN AFTMEALHC PRN PO DYSPEPSIA; Start 03/09/17 at 20:15 Magnesium Hydroxide (Milk Of Magnesia) 2,400 mg PRN QHS PRN PO CONSTIPATION; Start 03/09/17 at 20:15; Stop 03/10/17 at 16:12; Status DC Buspirone HCl (Buspar) 10 mg TID PO Last administered on 03/12/17t 19:35; Start 03/09/17 at 22:30 Divalproex Sodium (Depakote Sprinkles) 250 mg BID92 PO Last administered on 14:00; Start 03/10/17 at 09:00 Divalproex Sodium (Depakote Sprinkles) 375 mg HS PO Last administered on 19:35; Start 03/09/17 at 22:30 Donepezil HCl (Aricept) 10 mg DAILY PO Last administered on 03/12/17 06:31; Start 03/10/17 at 09:00 Haloperidol (Haldol) 2 mg PRN Q4HRS PRN PO AGITATION; Start 03/09/17 at 22:15 Memantine (Namenda) 10 mg BID PO Last administered on 03/12/17 19:35; Start 03/09/17 at 22:30 Olanzapine (ZyPREXA ZYDIS) 2.5 mg PRN Q2HR PRN PO PSYCHOSIS; Start 03/09/17 at 22:15 Sertraline HCl (Zoloft) 50 mg DAILY PO Last administered on 03/11/17 09:39; Start 03/10/17 at 09:00; Stop 03/11/17 at 18:11; Status DC Trazodone HCl (Desyrel) 50 mg QHS PO Last administered on 03/12/17 19:35; Start 03/10/17 at 21:00 Acetaminophen (Tylenol) 650 mg PRN Q6HRS PRN PO PAIN / TEMP Last administered on 03/11/17 09:50; Start 03/10/17 at 08:30 Amlodipine Besylate (Norvasc) 2.5 mg DAILY PO Last administered on 03/10/17 08 :43; Start 03/10/17 at 09:00; Stop 03/10/17 at 16:11; Status DC Cetirizine HCl (ZyrTEC) 10 mg DAILY PO Last administered on 03/12/17 06:31; Start 03/10/17 at 09:00 Magnesium Hydroxide (Milk Of Magnesia) 2,400 mg PRN QHS PRN PO CONSTIPATION; Start 03/10/17 at 08:30 Multi-Ingredient Ointment (Analgesic [place]) 1 morteza PRN QID PRN TP MUSCLE PAIN; Start 03/10/17 at 08:30 Sotalol HCl (Betapace) 80 mg BID PO Last administered on 03/12/17 19:34; Start 03/10/17 at 09:00 Warfarin Sodium (Coumadin) 2.5 mg DAILY16 PO Last administered on 03/12/17 18: 11; Start 03/10/17 at 16:00 Vitamin D (Vitamin D3) 2,000 unit DAILY PO Last administered on 03/12/17 06:31 ; Start 03/10/17 at 09:00 Warfarin Sodium (Coumadin Per Pharmacy) 1 each PRN DAILY PRN MC SEE COMMENTS Last administered on 03/11/17 13:38; Start 03/10/17 at 08:30 Warfarin Sodium (Coumadin) 1 mg DAILY16 PO Last administered on 03/12/17 18:11 ; Start 03/10/17 at 16:00 Amlodipine Besylate (Norvasc) 2.5 mg DAILY PO Last administered on 03/12/17 06 :31; Start 03/11/17 at 09:00 Sertraline HCl (Zoloft) 75 mg DAILY PO Last administered on 03/12/17 06:35; Start 03/12/17 at 09:00 Fosfomycin Tromethamine (Monurol) 3 gm 1X ONCE PO Last administered on 14:36; Start 03/12/17 at 12:00; Stop 03/12/17 at 12:01; Status DC Active Scripts Active Reported Warfarin Sodium 3 Mg Tablet 3.5 Mg PO Depakote Sprinkle (Divalproex Sodium) 125 Mg Cap.sprink 375 Mg PO HS Buspirone Hcl 10 Mg Tablet 10 Mg PO TID Norvasc (Amlodipine Besylate) 10 Mg Tablet 10 Mg PO DAILY Zyprexa Zydis (Olanzapine) 5 Mg Tab.rapdis 2.5 Mg PO PRN Q2HR PRN MDD 7.5mg Analgesic [place] (Methyl Salicylate/Menthol) 28 Gm Oint...g. 1 Morteza TP PRN QID PRN Milk Of Magnesia (Magnesium Hydroxide) 400 Mg/5 Ml Oral.susp 2,400 Mg PO PRN QHS PRN Aricept (Donepezil Hcl) 10 Mg Tablet 10 Mg PO DAILY Cetirizine Hcl 10 Mg Tablet 10 Mg PO DAILY Tylenol (Acetaminophen) 325 Mg Tablet 650 Mg PO PRN Q6HRS PRN Vitamin D (Cholecalciferol (Vitamin D3)) 2,000 Unit Capsule 2,000 Units PO DAILY Betapace (Sotalol Hcl) 80 Mg Tablet 80 Mg PO BID Divalproex Sodium 125 Mg Cap.sprink 250 Mg PO BID92 Namenda (Memantine Hcl) 10 Mg Tablet 10 Mg PO BID Mag-Al Plus Xs Suspension (Mag Hydrox/Al Hydrox/Simeth) 30 Ml Oral.susp 15 Ml PO PRN AFTMEAL PRN Haloperidol 2 Mg Tablet 2 Mg PO PRN Q4HRS PRN Zoloft (Sertraline Hcl) 50 Mg Tablet 50 Mg PO DAILY Trazodone Hcl 50 Mg Tablet 50 Mg PO QHS GIVE WITH FOOD Diagnosis: Problems: (1) Dementia with behavioral disturbance (2) Anxiety disorder (3) Impulse control disorder (4) Dementia, vascular, with depression (5) Dementia, vascular, with delusions (6) Dementia in Alzheimer's disease with depression (7) Dementia in Alzheimer's disease with delusions ADAN GOMES MD Mar 12, 2017 23:43
[2017-03-13 06:09] VITALS: BP 159/78
[2017-03-13] MEDS: SOTALOL 80 MG TABLET. PO SCH ×2 (06:29→19:36)
[2017-03-13] MEDS: DIVALPROEX 125 MG CAP.SPRINK PO SCH ×3 (06:29→19:36)
[2017-03-13] MEDS: amLODIPine BESYLATE 2.5 MG TABLET PO SCH (06:29)
[2017-03-13] MEDS: CETIRIZINE HCL 10 MG TABLET PO SCH (06:29)
[2017-03-13] MEDS: MEMANTINE 10 MG TABLET. PO SCH ×2 (06:29→19:36)
[2017-03-13] MEDS: busPIRone 10 MG TABLET. PO SCH ×3 (06:30→19:36)
[2017-03-13] MEDS: DONEPEZIL HCL 10 MG TABLET PO SCH (06:30)
[2017-03-13] MEDS: SERTRALINE 50 MG TABLET. PO SCH (06:30)
[2017-03-13] MEDS: CHOLECALCIFEROL (VITAMIN D3) 1,000 UNIT TABLET PO SCH (06:30)
[2017-03-13] MEDS: WARFARIN 1 MG TABLET. PO SCH (16:10)
[2017-03-13] MEDS: WARFARIN 2.5 MG TABLET. PO SCH (16:11)
[2017-03-13 16:30] VITALS: BP 123/74
--- NOTE | 2017-03-13 17:59 | PDOC ---
Exam Vikram Demential Exam: Vikram Note: Please also refer to the separate dictated note~for this date of service dictated separately.~Patient seen individually. Discussed the patient with Nursing staff reviewed the chart.~Reviewed interim history and current functioning. Reviewed vital signs,~Labs/ Radiology~and current medications noted below. Continue current treatment with the changes noted in the dictated addendum note Assessment: Vital Signs: Vital Signs Date Time Temp Pulse Resp B/P (MAP) Pulse Ox O2 Delivery O2 Flow Rate FiO2 03/13/17 16:30 97.6 73 18 123/74 (90) 94 03/10/17 16:18 Room Air 03/09/17 20:18 95.0 I&O Intake and Output 03/14/17 07:00 Intake Total 360 ml Balance 360 ml Intake Oral 360 ml Current Medications: Meds: Current Medications Lidocaine/ Epinephrine (Xylocaine 2%-Epi 1:100,000) 20 ml 1X ONCE IJ ; Start 03/09/17 at 18:30; Stop 03/09/17 at 18:31; Status DC Cephalexin HCl (Keflex) 500 mg 1X ONCE PO Last administered on 03/09/17t 22:30 ; Start 03/09/17 at 19:30; Stop 03/09/17 at 19:32; Status DC Acetaminophen (Tylenol) 650 mg PRN Q6HRS PRN PO PAIN / TEMP; Start 03/09/17 at 20:15; Stop 03/10/17 at 16:10; Status DC Multi-Ingredient Ointment (Analgesic [place]) 1 morteza PRN QID PRN TP MUSCLE PAIN; Start 03/09/17 at 20:15; Stop 03/10/17 at 16:12; Status DC Al Hydroxide/Mg Hydroxide (Mylanta Plus Xs) 15 ml PRN AFTMEALHC PRN PO DYSPEPSIA; Start 03/09/17 at 20:15 Magnesium Hydroxide (Milk Of Magnesia) 2,400 mg PRN QHS PRN PO CONSTIPATION; Start 03/09/17 at 20:15; Stop 03/10/17 at 16:12; Status DC Buspirone HCl (Buspar) 10 mg TID PO Last administered on 03/13/17t 14:17; Start 03/09/17 at 22:30 Divalproex Sodium (Depakote Sprinkles) 250 mg BID92 PO Last administered on 14:17; Start 03/10/17 at 09:00 Divalproex Sodium (Depakote Sprinkles) 375 mg HS PO Last administered on 19:35; Start 03/09/17 at 22:30 Donepezil HCl (Aricept) 10 mg DAILY PO Last administered on 03/13/17 06:30; Start 03/10/17 at 09:00 Haloperidol (Haldol) 2 mg PRN Q4HRS PRN PO AGITATION; Start 03/09/17 at 22:15 Memantine (Namenda) 10 mg BID PO Last administered on 03/13/17 06:29; Start 03/09/17 at 22:30 Olanzapine (ZyPREXA ZYDIS) 2.5 mg PRN Q2HR PRN PO PSYCHOSIS Last administered on 03/13/17 16:28; Start 03/09/17 at 22:15 Sertraline HCl (Zoloft) 50 mg DAILY PO Last administered on 03/11/17 09:39; Start 03/10/17 at 09:00; Stop 03/11/17 at 18:11; Status DC Trazodone HCl (Desyrel) 50 mg QHS PO Last administered on 03/12/17 19:35; Start 03/10/17 at 21:00 Acetaminophen (Tylenol) 650 mg PRN Q6HRS PRN PO PAIN / TEMP Last administered on 03/11/17 09:50; Start 03/10/17 at 08:30 Amlodipine Besylate (Norvasc) 2.5 mg DAILY PO Last administered on 03/10/17 08 :43; Start 03/10/17 at 09:00; Stop 03/10/17 at 16:11; Status DC Cetirizine HCl (ZyrTEC) 10 mg DAILY PO Last administered on 03/13/17 06:29; Start 03/10/17 at 09:00 Magnesium Hydroxide (Milk Of Magnesia) 2,400 mg PRN QHS PRN PO CONSTIPATION; Start 03/10/17 at 08:30 Multi-Ingredient Ointment (Analgesic [place]) 1 morteza PRN QID PRN TP MUSCLE PAIN; Start 03/10/17 at 08:30 Sotalol HCl (Betapace) 80 mg BID PO Last administered on 03/13/17 06:29; Start 03/10/17 at 09:00 Warfarin Sodium (Coumadin) 2.5 mg DAILY16 PO Last administered on 03/13/17 16: 11; Start 03/10/17 at 16:00 Vitamin D (Vitamin D3) 2,000 unit DAILY PO Last administered on 03/13/17 06:30 ; Start 03/10/17 at 09:00 Warfarin Sodium (Coumadin Per Pharmacy) 1 each PRN DAILY PRN MC SEE COMMENTS Last administered on 03/11/17 13:38; Start 03/10/17 at 08:30 Warfarin Sodium (Coumadin) 1 mg DAILY16 PO Last administered on 03/13/17 16:10 ; Start 03/10/17 at 16:00 Amlodipine Besylate (Norvasc) 2.5 mg DAILY PO Last administered on 03/13/17 06 :29; Start 03/11/17 at 09:00 Sertraline HCl (Zoloft) 75 mg DAILY PO Last administered on 03/13/17 06:30; Start 03/12/17 at 09:00 Fosfomycin Tromethamine (Monurol) 3 gm 1X ONCE PO Last administered on 14:36; Start 03/12/17 at 12:00; Stop 03/12/17 at 12:01; Status DC Atorvastatin Calcium (Lipitor) 20 mg QHS PO ; Start 03/13/17 at 21:00 Quetiapine Fumarate (SEROquel) 12.5 mg QHS PO ; Start 03/13/17 at 21:00; Status UNV Active Scripts Active Reported Warfarin Sodium 3 Mg Tablet 3.5 Mg PO Depakote Sprinkle (Divalproex Sodium) 125 Mg Cap.sprink 375 Mg PO HS Buspirone Hcl 10 Mg Tablet 10 Mg PO TID Norvasc (Amlodipine Besylate) 10 Mg Tablet 10 Mg PO DAILY Zyprexa Zydis (Olanzapine) 5 Mg Tab.rapdis 2.5 Mg PO PRN Q2HR PRN MDD 7.5mg Analgesic [place] (Methyl Salicylate/Menthol) 28 Gm Oint...g. 1 Morte[place] TP PRN QID PRN Milk Of Magnesia (Magnesium Hydroxide) 400 Mg/5 Ml Oral.susp 2,400 Mg PO PRN QHS PRN Aricept (Donepezil Hcl) 10 Mg Tablet 10 Mg PO DAILY Cetirizine Hcl 10 Mg Tablet 10 Mg PO DAILY Tylenol (Acetaminophen) 325 Mg Tablet 650 Mg PO PRN Q6HRS PRN Vitamin D (Cholecalciferol (Vitamin D3)) 2,000 Unit Capsule 2,000 Units PO DAILY Betapace (Sotalol Hcl) 80 Mg Tablet 80 Mg PO BID Divalproex Sodium 125 Mg Cap.sprink 250 Mg PO BID92 Namenda (Memantine Hcl) 10 Mg Tablet 10 Mg PO BID Mag-Al Plus Xs Suspension (Mag Hydrox/Al Hydrox/Simeth) 30 Ml Oral.susp 15 Ml PO PRN AFTMEAL PRN Haloperidol 2 Mg Tablet 2 Mg PO PRN Q4HRS PRN Zoloft (Sertraline Hcl) 50 Mg Tablet 50 Mg PO DAILY Trazodone Hcl 50 Mg Tablet 50 Mg PO QHS GIVE WITH FOOD Diagnosis: Problems: (1) Dementia in Alzheimer's disease with delusions (2) Dementia in Alzheimer's disease with depression (3) Dementia, vascular, with delusions (4) Dementia, vascular, with depression (5) Impulse control disorder (6) Anxiety disorder ADAN GOMES MD Mar 13, 2017 17:59
[2017-03-13] MEDS: traZODone 50 MG TABLET. PO SCH (19:36)
[2017-03-13] MEDS: QUEtiapine 25 MG TABLET. PO SCH (19:37)
[2017-03-13] MEDS: ATORVASTATIN CALCIUM 20 MG TABLET PO SCH (19:37)
--- NOTE | 2017-03-13 19:59 | PDOC ---
Exam Vikram Demential Exam: Vikram Note: Please also refer to the separate dictated note~for this date of service dictated separately.~Patient seen individually. Discussed the patient with Nursing staff reviewed the chart.~Reviewed interim history and current functioning. Reviewed vital signs,~Labs/ Radiology~and current medications noted below. Continue current treatment with the changes noted in the dictated addendum note Assessment: Vital Signs: Vital Signs Date Time Temp Pulse Resp B/P (MAP) Pulse Ox O2 Delivery O2 Flow Rate FiO2 03/13/17 19:36 73 123/74 03/13/17 16:30 97.6 18 94 03/10/17 16:18 Room Air 03/09/17 20:18 95.0 I&O Intake and Output 03/14/17 07:00 Intake Total 480 ml Balance 480 ml Intake Oral 480 ml # Bowel Movements 1 Current Medications: Meds: Current Medications Lidocaine/ Epinephrine (Xylocaine 2%-Epi 1:100,000) 20 ml 1X ONCE IJ ; Start 03/09/17 at 18:30; Stop 03/09/17 at 18:31; Status DC Cephalexin HCl (Keflex) 500 mg 1X ONCE PO Last administered on 03/09/17 22:30 ; Start 03/09/17 at 19:30; Stop 03/09/17 at 19:32; Status DC Acetaminophen (Tylenol) 650 mg PRN Q6HRS PRN PO PAIN / TEMP; Start 03/09/17 at 20:15; Stop 03/10/17 at 16:10; Status DC Multi-Ingredient Ointment (Analgesic [place]) 1 morteza PRN QID PRN TP MUSCLE PAIN; Start 03/09/17 at 20:15; Stop 03/10/17 at 16:12; Status DC Al Hydroxide/Mg Hydroxide (Mylanta Plus Xs) 15 ml PRN AFTMEALHC PRN PO DYSPEPSIA; Start 03/09/17 at 20:15 Magnesium Hydroxide (Milk Of Magnesia) 2,400 mg PRN QHS PRN PO CONSTIPATION; Start 03/09/17 at 20:15; Stop 03/10/17 at 16:12; Status DC Buspirone HCl (Buspar) 10 mg TID PO Last administered on 03/13/17t 19:36; Start 03/09/17 at 22:30 Divalproex Sodium (Depakote Sprinkles) 250 mg BID92 PO Last administered on 14:17; Start 03/10/17 at 09:00 Divalproex Sodium (Depakote Sprinkles) 375 mg HS PO Last administered on 19:36; Start 03/09/17 at 22:30 Donepezil HCl (Aricept) 10 mg DAILY PO Last administered on 03/13/17 06:30; Start 03/10/17 at 09:00 Haloperidol (Haldol) 2 mg PRN Q4HRS PRN PO AGITATION; Start 03/09/17 at 22:15 Memantine (Namenda) 10 mg BID PO Last administered on 03/13/17 19:36; Start 03/09/17 at 22:30 Olanzapine (ZyPREXA ZYDIS) 2.5 mg PRN Q2HR PRN PO PSYCHOSIS Last administered on 03/13/17 16:28; Start 03/09/17 at 22:15 Sertraline HCl (Zoloft) 50 mg DAILY PO Last administered on 03/11/17 09:39; Start 03/10/17 at 09:00; Stop 03/11/17 at 18:11; Status DC Trazodone HCl (Desyrel) 50 mg QHS PO Last administered on 03/13/17 19:36; Start 03/10/17 at 21:00 Acetaminophen (Tylenol) 650 mg PRN Q6HRS PRN PO PAIN / TEMP Last administered on 03/11/17 09:50; Start 03/10/17 at 08:30 Amlodipine Besylate (Norvasc) 2.5 mg DAILY PO Last administered on 03/10/17 08 :43; Start 03/10/17 at 09:00; Stop 03/10/17 at 16:11; Status DC Cetirizine HCl (ZyrTEC) 10 mg DAILY PO Last administered on 03/13/17 06:29; Start 03/10/17 at 09:00 Magnesium Hydroxide (Milk Of Magnesia) 2,400 mg PRN QHS PRN PO CONSTIPATION; Start 03/10/17 at 08:30 Multi-Ingredient Ointment (Analgesic [place]) 1 morteza PRN QID PRN TP MUSCLE PAIN; Start 03/10/17 at 08:30 Sotalol HCl (Betapace) 80 mg BID PO Last administered on 03/13/17 19:36; Start 03/10/17 at 09:00 Warfarin Sodium (Coumadin) 2.5 mg DAILY16 PO Last administered on 03/13/17 16: 11; Start 03/10/17 at 16:00 Vitamin D (Vitamin D3) 2,000 unit DAILY PO Last administered on 03/13/17 06:30 ; Start 03/10/17 at 09:00 Warfarin Sodium (Coumadin Per Pharmacy) 1 each PRN DAILY PRN MC SEE COMMENTS Last administered on 03/11/17 13:38; Start 03/10/17 at 08:30 Warfarin Sodium (Coumadin) 1 mg DAILY16 PO Last administered on 03/13/17 16:10 ; Start 03/10/17 at 16:00 Amlodipine Besylate (Norvasc) 2.5 mg DAILY PO Last administered on 03/13/17 06 :29; Start 03/11/17 at 09:00 Sertraline HCl (Zoloft) 75 mg DAILY PO Last administered on 03/13/17 06:30; Start 03/12/17 at 09:00 Fosfomycin Tromethamine (Monurol) 3 gm 1X ONCE PO Last administered on 14:36; Start 03/12/17 at 12:00; Stop 03/12/17 at 12:01; Status DC Atorvastatin Calcium (Lipitor) 20 mg QHS PO Last administered on 03/13/17 19: 37; Start 03/13/17 at 21:00 Quetiapine Fumarate (SEROquel) 12.5 mg QHS PO Last administered on 03/13/17 19 :37; Start 03/13/17 at 21:00 Active Scripts Active Reported Warfarin Sodium 3 Mg Tablet 3.5 Mg PO Depakote Sprinkle (Divalproex Sodium) 125 Mg Cap.sprink 375 Mg PO HS Buspirone Hcl 10 Mg Tablet 10 Mg PO TID Norvasc (Amlodipine Besylate) 10 Mg Tablet 10 Mg PO DAILY Zyprexa Zydis (Olanzapine) 5 Mg Tab.rapdis 2.5 Mg PO PRN Q2HR PRN MDD 7.5mg Analgesic [place] (Methyl Salicylate/Menthol) 28 Gm Oint...g. 1 [place] TP PRN QID PRN Milk Of Magnesia (Magnesium Hydroxide) 400 Mg/5 Ml Oral.susp 2,400 Mg PO PRN QHS PRN Aricept (Donepezil Hcl) 10 Mg Tablet 10 Mg PO DAILY Cetirizine Hcl 10 Mg Tablet 10 Mg PO DAILY Tylenol (Acetaminophen) 325 Mg Tablet 650 Mg PO PRN Q6HRS PRN Vitamin D (Cholecalciferol (Vitamin D3)) 2,000 Unit Capsule 2,000 Units PO DAILY Betapace (Sotalol Hcl) 80 Mg Tablet 80 Mg PO BID Divalproex Sodium 125 Mg Cap.sprink 250 Mg PO BID92 Namenda (Memantine Hcl) 10 Mg Tablet 10 Mg PO BID Mag-Al Plus Xs Suspension (Mag Hydrox/Al Hydrox/Simeth) 30 Ml Oral.susp 15 Ml PO PRN AFTMEAL PRN Haloperidol 2 Mg Tablet 2 Mg PO PRN Q4HRS PRN Zoloft (Sertraline Hcl) 50 Mg Tablet 50 Mg PO DAILY Trazodone Hcl 50 Mg Tablet 50 Mg PO QHS GIVE WITH FOOD Diagnosis: Problems: (1) Dementia with behavioral disturbance (2) Anxiety disorder (3) Impulse control disorder (4) Dementia, vascular, with depression (5) Dementia, vascular, with delusions (6) Dementia in Alzheimer's disease with depression (7) Dementia in Alzheimer's disease with delusions ADAN GOMES MD Mar 13, 2017 19:59
[2017-03-14 06:20] VITALS: BP 127/76
--- NOTE | 2017-03-14 09:38 | PN ---
DATE: 03/12/2017 PSYCHIATRIC PROGRESS NOTE This late entry for 03/12/2017 covers elements not covered in my initial note of 03/12/2017. SUBJECTIVE: I met with the patient evening of 03/12/2017. The patient has been confused, combative with cares, trying to stand up with a fall risk. Son visited. Nursing staff wondered whether he had smell of alcohol on him. Other than care, she is doing better. REVIEW OF SYSTEMS: Ambulation impaired in wheelchair. No CV, , pulmonary, eye, ENT system symptoms on review. Reliability poor. MENTAL STATUS EXAM: Oriented to herself. Insight, judgment, recent and remote memory, attention, concentration, fund of knowledge poor, consistent with her diagnosis mentioned in my initial note. PLAN: Continue current psychotropics. Reviewed drug interactions. Risks and benefits ratio favors no further change. MAN Saúl GOMES MD DR: FAISAL/alonso JOB#: [id number] / [id number]
[2017-03-14] MEDS: DIVALPROEX 125 MG CAP.SPRINK PO SCH ×3 (10:17→19:21)
[2017-03-14] MEDS: CHOLECALCIFEROL (VITAMIN D3) 1,000 UNIT TABLET PO SCH (10:17)
[2017-03-14] MEDS: SOTALOL 80 MG TABLET. PO SCH ×2 (10:17→19:23)
[2017-03-14] MEDS: busPIRone 10 MG TABLET. PO SCH ×3 (10:17→19:21)
[2017-03-14] MEDS: SERTRALINE 50 MG TABLET. PO SCH (10:18)
[2017-03-14] MEDS: CETIRIZINE HCL 10 MG TABLET PO SCH (10:18)
[2017-03-14] MEDS: DONEPEZIL HCL 10 MG TABLET PO SCH (10:18)
[2017-03-14] MEDS: amLODIPine BESYLATE 2.5 MG TABLET PO SCH (10:18)
[2017-03-14] MEDS: MEMANTINE 10 MG TABLET. PO SCH ×2 (10:18→19:23)
[2017-03-14 16:00] VITALS: BP 114/51
[2017-03-14] MEDS: traZODone 50 MG TABLET. PO SCH (19:20)
[2017-03-14] MEDS: ATORVASTATIN CALCIUM 20 MG TABLET PO SCH (19:20)
[2017-03-14] MEDS: QUEtiapine 25 MG TABLET. PO SCH (19:21)
--- NOTE | 2017-03-14 19:46 | PDOC ---
Exam Vikram Demential Exam: Vikram Note: Please also refer to the separate dictated note~for this date of service dictated separately.~Patient seen individually. Discussed the patient with Nursing staff reviewed the chart.~Reviewed interim history and current functioning. Reviewed vital signs,~Labs/ Radiology~and current medications noted below. Continue current treatment with the changes noted in the dictated addendum note Assessment: Vital Signs: Vital Signs Date Time Temp Pulse Resp B/P (MAP) Pulse Ox O2 Delivery O2 Flow Rate FiO2 03/14/17 19:23 80 160/72 03/14/17 16:00 97.5 16 100 03/10/17 16:18 Room Air 03/09/17 20:18 95.0 I&O Intake and Output 03/15/17 07:00 Intake Total 1200 ml Balance 1200 ml Intake Oral 1200 ml Labs: Laboratory Tests Test 03/14/17 07:35 Prothrombin Time 37.2 SEC (9.4-11.4) H Prothrombin Time INR 3.7 (0.9-1.1) H Current Medications: Meds: Current Medications Lidocaine/ Epinephrine (Xylocaine 2%-Epi 1:100,000) 20 ml 1X ONCE IJ ; Start 03/09/17 at 18:30; Stop 03/09/17 at 18:31; Status DC Cephalexin HCl (Keflex) 500 mg 1X ONCE PO Last administered on 03/09/17t 22:30 ; Start 03/09/17 at 19:30; Stop 03/09/17 at 19:32; Status DC Acetaminophen (Tylenol) 650 mg PRN Q6HRS PRN PO PAIN / TEMP; Start 03/09/17 at 20:15; Stop 03/10/17 at 16:10; Status DC Multi-Ingredient Ointment (Analgesic [place]) 1 morteza PRN QID PRN TP MUSCLE PAIN; Start 03/09/17 at 20:15; Stop 03/10/17 at 16:12; Status DC Al Hydroxide/Mg Hydroxide (Mylanta Plus Xs) 15 ml PRN AFTMEALHC PRN PO DYSPEPSIA; Start 03/09/17 at 20:15 Magnesium Hydroxide (Milk Of Magnesia) 2,400 mg PRN QHS PRN PO CONSTIPATION; Start 03/09/17 at 20:15; Stop 03/10/17 at 16:12; Status DC Buspirone HCl (Buspar) 10 mg TID PO Last administered on 03/14/17 19:21; Start 03/09/17 at 22:30 Divalproex Sodium (Depakote Sprinkles) 250 mg BID92 PO Last administered on 14:51; Start 03/10/17 at 09:00 Divalproex Sodium (Depakote Sprinkles) 375 mg HS PO Last administered on 19:21; Start 03/09/17 at 22:30 Donepezil HCl (Aricept) 10 mg DAILY PO Last administered on 03/14/17 10:18; Start 03/10/17 at 09:00 Haloperidol (Haldol) 2 mg PRN Q4HRS PRN PO AGITATION; Start 03/09/17 at 22:15 Memantine (Namenda) 10 mg BID PO Last administered on 03/14/17 19:23; Start 03/09/17 at 22:30 Olanzapine (ZyPREXA ZYDIS) 2.5 mg PRN Q2HR PRN PO PSYCHOSIS Last administered on 03/13/17 16:28; Start 03/09/17 at 22:15 Sertraline HCl (Zoloft) 50 mg DAILY PO Last administered on 03/11/17 09:39; Start 03/10/17 at 09:00; Stop 03/11/17 at 18:11; Status DC Trazodone HCl (Desyrel) 50 mg QHS PO Last administered on 03/14/17 19:20; Start 03/10/17 at 21:00 Acetaminophen (Tylenol) 650 mg PRN Q6HRS PRN PO PAIN / TEMP Last administered on 03/11/17 09:50; Start 03/10/17 at 08:30 Amlodipine Besylate (Norvasc) 2.5 mg DAILY PO Last administered on 03/10/17 08 :43; Start 03/10/17 at 09:00; Stop 03/10/17 at 16:11; Status DC Cetirizine HCl (ZyrTEC) 10 mg DAILY PO Last administered on 03/14/17 10:18; Start 03/10/17 at 09:00 Magnesium Hydroxide (Milk Of Magnesia) 2,400 mg PRN QHS PRN PO CONSTIPATION; Start 03/10/17 at 08:30 Multi-Ingredient Ointment (Analgesic [place]) 1 morteza PRN QID PRN TP MUSCLE PAIN; Start 03/10/17 at 08:30 Sotalol HCl (Betapace) 80 mg BID PO Last administered on 03/14/17 19:23; Start 03/10/17 at 09:00 Warfarin Sodium (Coumadin) 2.5 mg DAILY16 PO Last administered on 03/13/17 16: 11; Start 03/10/17 at 16:00; Stop 03/14/17 at 14:02; Status DC Vitamin D (Vitamin D3) 2,000 unit DAILY PO Last administered on 03/14/17 10:17 ; Start 03/10/17 at 09:00 Warfarin Sodium (Coumadin Per Pharmacy) 1 each PRN DAILY PRN MC SEE COMMENTS Last administered on 03/14/17 14:08; Start 03/10/17 at 08:30 Warfarin Sodium (Coumadin) 1 mg DAILY16 PO Last administered on 03/13/17 16:10 ; Start 03/10/17 at 16:00; Stop 03/14/17 at 14:02; Status DC Amlodipine Besylate (Norvasc) 2.5 mg DAILY PO Last administered on 03/14/17 10 :18; Start 03/11/17 at 09:00 Sertraline HCl (Zoloft) 75 mg DAILY PO Last administered on 03/14/17 10:18; Start 03/12/17 at 09:00 Fosfomycin Tromethamine (Monurol) 3 gm 1X ONCE PO Last administered on 14:36; Start 03/12/17 at 12:00; Stop 03/12/17 at 12:01; Status DC Atorvastatin Calcium (Lipitor) 20 mg QHS PO Last administered on 03/14/17 19: 20; Start 03/13/17 at 21:00 Quetiapine Fumarate (SEROquel) 12.5 mg QHS PO Last administered on 03/14/17 19 :21; Start 03/13/17 at 21:00 Warfarin Sodium (Coumadin - No Dose Today) 1 each 1X WARF ONCE MC Last administered on 03/14/17 15:00; Start 03/14/17 at 16:00; Stop 03/14/17 at 16:01 ; Status DC Active Scripts Active Reported Warfarin Sodium 3 Mg Tablet 3.5 Mg PO Depakote Sprinkle (Divalproex Sodium) 125 Mg Cap.sprink 375 Mg PO HS Buspirone Hcl 10 Mg Tablet 10 Mg PO TID Norvasc (Amlodipine Besylate) 10 Mg Tablet 10 Mg PO DAILY Zyprexa Zydis (Olanzapine) 5 Mg Tab.rapdis 2.5 Mg PO PRN Q2HR PRN MDD 7.5mg Analgesic [place] (Methyl Salicylate/Menthol) 28 Gm Oint...g. 1 [place] TP PRN QID PRN Milk Of Magnesia (Magnesium Hydroxide) 400 Mg/5 Ml Oral.susp 2,400 Mg PO PRN QHS PRN Aricept (Donepezil Hcl) 10 Mg Tablet 10 Mg PO DAILY Cetirizine Hcl 10 Mg Tablet 10 Mg PO DAILY Tylenol (Acetaminophen) 325 Mg Tablet 650 Mg PO PRN Q6HRS PRN Vitamin D (Cholecalciferol (Vitamin D3)) 2,000 Unit Capsule 2,000 Units PO DAILY Betapace (Sotalol Hcl) 80 Mg Tablet 80 Mg PO BID Divalproex Sodium 125 Mg Cap.sprink 250 Mg PO BID92 Namenda (Memantine Hcl) 10 Mg Tablet 10 Mg PO BID Mag-Al Plus Xs Suspension (Mag Hydrox/Al Hydrox/Simeth) 30 Ml Oral.susp 15 Ml PO PRN AFTMEAL PRN Haloperidol 2 Mg Tablet 2 Mg PO PRN Q4HRS PRN Zoloft (Sertraline Hcl) 50 Mg Tablet 50 Mg PO DAILY Trazodone Hcl 50 Mg Tablet 50 Mg PO QHS GIVE WITH FOOD Diagnosis: Problems: (1) Anxiety disorder (2) Impulse control disorder (3) Dementia, vascular, with depression (4) Dementia, vascular, with delusions (5) Dementia in Alzheimer's disease with depression (6) Dementia in Alzheimer's disease with delusions ADAN GOMES MD Mar 14, 2017 19:45
--- NOTE | 2017-03-15 02:11 | PN ---
DATE: 03/13/2017 This late entry for 03/13/2017 covers elements not covered in my initial note of 03/13/2017. SUBJECTIVE: I met with the patient in the evening of 03/13/2017. The patient slept 9-1/2 hours previous evening, she removed her shirt a few times, clawing at staff around her, looking terrified, somewhat paranoid, suspicious. REVIEW OF SYSTEMS: Ambulation impaired, in wheelchair. No CV, , pulmonary, eye, ENT system symptoms on review. Reliability poor. MENTAL STATUS EXAM: Oriented to herself. Insight, judgment, recent and remote memory, attention, concentration, fund of knowledge poor, consistent with her diagnosis mentioned in my initial note. PLAN: Continue current psychotropics. Start Seroquel 12.5 mg p.o. at bedtime as an atypical antipsychotic. Valproic acid level is therapeutic at 69. Reviewed drug interactions. Risk/benefit ratio favors no further change. ADAN GOMES MD DR: FAISAL/alonso JOB#: [id number] / [id number]
[2017-03-15 06:38] VITALS: BP 142/76
[2017-03-15] MEDS: MEMANTINE 10 MG TABLET. PO SCH ×2 (08:20→19:22)
[2017-03-15] MEDS: SERTRALINE 50 MG TABLET. PO SCH (08:20)
[2017-03-15] MEDS: DONEPEZIL HCL 10 MG TABLET PO SCH (08:21)
[2017-03-15] MEDS: CETIRIZINE HCL 10 MG TABLET PO SCH (08:21)
[2017-03-15] MEDS: busPIRone 10 MG TABLET. PO SCH ×3 (08:21→19:22)
[2017-03-15] MEDS: amLODIPine BESYLATE 2.5 MG TABLET PO SCH (08:21)
[2017-03-15] MEDS: CHOLECALCIFEROL (VITAMIN D3) 1,000 UNIT TABLET PO SCH (08:21)
[2017-03-15] MEDS: DIVALPROEX 125 MG CAP.SPRINK PO SCH ×3 (08:21→19:23)
[2017-03-15] MEDS: SOTALOL 80 MG TABLET. PO SCH ×2 (08:22→19:23)
[2017-03-15 16:31] VITALS: BP 143/72
[2017-03-15] MEDS: traZODone 50 MG TABLET. PO SCH (19:22)
[2017-03-15] MEDS: ATORVASTATIN CALCIUM 20 MG TABLET PO SCH (19:23)
[2017-03-15] MEDS: QUEtiapine 25 MG TABLET. PO SCH (19:23)
--- NOTE | 2017-03-15 21:42 | PDOC ---
Exam Vikram Demential Exam: Vikram Note: Please also refer to the separate dictated note~for this date of service dictated separately.~Patient seen individually. Discussed the patient with Nursing staff reviewed the chart.~Reviewed interim history and current functioning. Reviewed vital signs,~Labs/ Radiology~and current medications noted below. Continue current treatment with the changes noted in the dictated addendum note Assessment: Vital Signs: Vital Signs Date Time Temp Pulse Resp B/P (MAP) Pulse Ox O2 Delivery O2 Flow Rate FiO2 03/15/17 19:23 62 143/72 03/15/17 16:31 97.3 20 98 03/10/17 16:18 Room Air 03/09/17 20:18 95.0 I&O Intake and Output 03/16/17 07:00 Intake Total 480 ml Balance 480 ml Intake Oral 480 ml Labs: Laboratory Tests Test 03/15/17 07:13 Prothrombin Time 35.6 SEC (9.4-11.4) H Prothrombin Time INR 3.6 (0.9-1.1) H Current Medications: Meds: Current Medications Lidocaine/ Epinephrine (Xylocaine 2%-Epi 1:100,000) 20 ml 1X ONCE IJ ; Start 03/09/17 at 18:30; Stop 03/09/17 at 18:31; Status DC Cephalexin HCl (Keflex) 500 mg 1X ONCE PO Last administered on 03/09/17t 22:30 ; Start 03/09/17 at 19:30; Stop 03/09/17 at 19:32; Status DC Acetaminophen (Tylenol) 650 mg PRN Q6HRS PRN PO PAIN / TEMP; Start 03/09/17 at 20:15; Stop 03/10/17 at 16:10; Status DC Multi-Ingredient Ointment (Analgesic [place]) 1 morteza PRN QID PRN TP MUSCLE PAIN; Start 03/09/17 at 20:15; Stop 03/10/17 at 16:12; Status DC Al Hydroxide/Mg Hydroxide (Mylanta Plus Xs) 15 ml PRN AFTMEALHC PRN PO DYSPEPSIA; Start 03/09/17 at 20:15 Magnesium Hydroxide (Milk Of Magnesia) 2,400 mg PRN QHS PRN PO CONSTIPATION; Start 03/09/17 at 20:15; Stop 03/10/17 at 16:12; Status DC Buspirone HCl (Buspar) 10 mg TID PO Last administered on 03/15/17 19:22; Start 03/09/17 at 22:30 Divalproex Sodium (Depakote Sprinkles) 250 mg BID92 PO Last administered on 14:16; Start 03/10/17 at 09:00 Divalproex Sodium (Depakote Sprinkles) 375 mg HS PO Last administered on 19:23; Start 03/09/17 at 22:30 Donepezil HCl (Aricept) 10 mg DAILY PO Last administered on 03/15/17 08:21; Start 03/10/17 at 09:00 Haloperidol (Haldol) 2 mg PRN Q4HRS PRN PO AGITATION; Start 03/09/17 at 22:15 Memantine (Namenda) 10 mg BID PO Last administered on 03/15/17 19:22; Start 03/09/17 at 22:30 Olanzapine (ZyPREXA ZYDIS) 2.5 mg PRN Q2HR PRN PO PSYCHOSIS Last administered on 03/13/17 16:28; Start 03/09/17 at 22:15 Sertraline HCl (Zoloft) 50 mg DAILY PO Last administered on 03/11/17 09:39; Start 03/10/17 at 09:00; Stop 03/11/17 at 18:11; Status DC Trazodone HCl (Desyrel) 50 mg QHS PO Last administered on 03/15/17 19:22; Start 03/10/17 at 21:00 Acetaminophen (Tylenol) 650 mg PRN Q6HRS PRN PO PAIN / TEMP Last administered on 03/11/17 09:50; Start 03/10/17 at 08:30 Amlodipine Besylate (Norvasc) 2.5 mg DAILY PO Last administered on 03/10/17 08 :43; Start 03/10/17 at 09:00; Stop 03/10/17 at 16:11; Status DC Cetirizine HCl (ZyrTEC) 10 mg DAILY PO Last administered on 03/15/17 08:21; Start 03/10/17 at 09:00 Magnesium Hydroxide (Milk Of Magnesia) 2,400 mg PRN QHS PRN PO CONSTIPATION; Start 03/10/17 at 08:30 Multi-Ingredient Ointment (Analgesic [place]) 1 morteza PRN QID PRN TP MUSCLE PAIN; Start 03/10/17 at 08:30 Sotalol HCl (Betapace) 80 mg BID PO Last administered on 03/15/17 19:23; Start 03/10/17 at 09:00 Warfarin Sodium (Coumadin) 2.5 mg DAILY16 PO Last administered on 03/13/17 16: 11; Start 03/10/17 at 16:00; Stop 03/14/17 at 14:02; Status DC Vitamin D (Vitamin D3) 2,000 unit DAILY PO Last administered on 03/15/17 08:21 ; Start 03/10/17 at 09:00 Warfarin Sodium (Coumadin Per Pharmacy) 1 each PRN DAILY PRN MC SEE COMMENTS Last administered on 03/14/17 14:08; Start 03/10/17 at 08:30 Warfarin Sodium (Coumadin) 1 mg DAILY16 PO Last administered on 03/13/17 16:10 ; Start 03/10/17 at 16:00; Stop 03/14/17 at 14:02; Status DC Amlodipine Besylate (Norvasc) 2.5 mg DAILY PO Last administered on 03/15/17 08 :21; Start 03/11/17 at 09:00 Sertraline HCl (Zoloft) 75 mg DAILY PO Last administered on 03/15/17 08:20; Start 03/12/17 at 09:00 Fosfomycin Tromethamine (Monurol) 3 gm 1X ONCE PO Last administered on 14:36; Start 03/12/17 at 12:00; Stop 03/12/17 at 12:01; Status DC Atorvastatin Calcium (Lipitor) 20 mg QHS PO Last administered on 03/15/17 19: 23; Start 03/13/17 at 21:00 Quetiapine Fumarate (SEROquel) 12.5 mg QHS PO Last administered on 03/15/17 19 :23; Start 03/13/17 at 21:00 Warfarin Sodium (Coumadin - No Dose Today) 1 each 1X WARF ONCE MC Last administered on 03/14/17 15:00; Start 03/14/17 at 16:00; Stop 03/14/17 at 16:01 ; Status DC Warfarin Sodium (Coumadin - No Dose Today) 1 each 1X WARF ONCE MC ; Start 03/15 at 16:00; Stop 03/15/17 at 16:01; Status DC Active Scripts Active Reported Warfarin Sodium 3 Mg Tablet 3.5 Mg PO Depakote Sprinkle (Divalproex Sodium) 125 Mg Cap.sprink 375 Mg PO HS Buspirone Hcl 10 Mg Tablet 10 Mg PO TID Norvasc (Amlodipine Besylate) 10 Mg Tablet 10 Mg PO DAILY Zyprexa Zydis (Olanzapine) 5 Mg Tab.rapdis 2.5 Mg PO PRN Q2HR PRN MDD 7.5mg Analgesic [place] (Methyl Salicylate/Menthol) 28 Gm Oint...g. 1 [place] TP PRN QID PRN Milk Of Magnesia (Magnesium Hydroxide) 400 Mg/5 Ml Oral.susp 2,400 Mg PO PRN QHS PRN Aricept (Donepezil Hcl) 10 Mg Tablet 10 Mg PO DAILY Cetirizine Hcl 10 Mg Tablet 10 Mg PO DAILY Tylenol (Acetaminophen) 325 Mg Tablet 650 Mg PO PRN Q6HRS PRN Vitamin D (Cholecalciferol (Vitamin D3)) 2,000 Unit Capsule 2,000 Units PO DAILY Betapace (Sotalol Hcl) 80 Mg Tablet 80 Mg PO BID Divalproex Sodium 125 Mg Cap.sprink 250 Mg PO BID92 Namenda (Memantine Hcl) 10 Mg Tablet 10 Mg PO BID Mag-Al Plus Xs Suspension (Mag Hydrox/Al Hydrox/Simeth) 30 Ml Oral.susp 15 Ml PO PRN AFTMEAL PRN Haloperidol 2 Mg Tablet 2 Mg PO PRN Q4HRS PRN Zoloft (Sertraline Hcl) 50 Mg Tablet 50 Mg PO DAILY Trazodone Hcl 50 Mg Tablet 50 Mg PO QHS GIVE WITH FOOD Diagnosis: Problems: (1) Dementia with behavioral disturbance (2) Anxiety disorder (3) Impulse control disorder (4) Dementia, vascular, with depression (5) Dementia, vascular, with delusions (6) Dementia in Alzheimer's disease with depression (7) Dementia in Alzheimer's disease with delusions ADAN GOMES MD Mar 15, 2017 21:42
[2017-03-16 06:13] VITALS: BP 162/77
--- NOTE | 2017-03-16 07:52 | PN ---
DATE: 03/14/2017 PSYCHIATRIC PROGRESS NOTE SUBJECTIVE: This late entry 03/14/2017 covers elements not covered in my initial note of 03/14/2017, met with the patient evening of 03/14/2017. The patient remains confused, but has not been aggressive, less labile. REVIEW OF SYSTEMS: Ambulation impaired, in wheelchair. No CV, , pulmonary, eye, ENT system symptoms on review. Reliability poor. MENTAL STATUS EXAM: Oriented to herself. Insight, judgment, recent and remote memory, attention, concentration, fund of knowledge poor, consistent with her diagnosis mentioned in my initial note. PLAN: Continue current psychotropics mentioned in my initial note. Reviewed drug contractions, risk/benefit ratio favors no further change. ADAN GOMES MD DR: FAISAL/alonso JOB#: [id number] / [id number]
[2017-03-16] MEDS: MEMANTINE 10 MG TABLET. PO SCH ×2 (09:25→20:16)
[2017-03-16] MEDS: DIVALPROEX 125 MG CAP.SPRINK PO SCH ×3 (09:25→20:16)
[2017-03-16] MEDS: CHOLECALCIFEROL (VITAMIN D3) 1,000 UNIT TABLET PO SCH (09:25)
[2017-03-16] MEDS: CETIRIZINE HCL 10 MG TABLET PO SCH (09:26)
[2017-03-16] MEDS: DONEPEZIL HCL 10 MG TABLET PO SCH (09:26)
[2017-03-16] MEDS: SERTRALINE 50 MG TABLET. PO SCH (09:26)
[2017-03-16] MEDS: busPIRone 10 MG TABLET. PO SCH ×3 (09:26→20:16)
[2017-03-16] MEDS: SOTALOL 80 MG TABLET. PO SCH ×2 (09:28→20:20)
[2017-03-16] MEDS: amLODIPine BESYLATE 2.5 MG TABLET PO SCH (09:28)
[2017-03-16] MEDS ORDERED: WARFARIN 3 MG TABLET. PO ONE (16:00)
[2017-03-16 16:32] VITALS: BP 128/69
[2017-03-16] MEDS: traZODone 50 MG TABLET. PO SCH (20:17)
[2017-03-16] MEDS: ATORVASTATIN CALCIUM 20 MG TABLET PO SCH (20:17)
[2017-03-16] MEDS: QUEtiapine 25 MG TABLET. PO SCH (20:17)
--- NOTE | 2017-03-16 21:43 | PDOC ---
Exam Vikram Demential Exam: Vikram Note: Please also refer to the separate dictated note~for this date of service dictated separately.~Patient seen individually. Discussed the patient with Nursing staff reviewed the chart.~Reviewed interim history and current functioning. Reviewed vital signs,~Labs/ Radiology~and current medications noted below. Continue current treatment with the changes noted in the dictated addendum note Assessment: Vital Signs: Vital Signs Date Time Temp Pulse Resp B/P (MAP) Pulse Ox O2 Delivery O2 Flow Rate FiO2 03/16/17 20:20 71 128/69 03/16/17 16:32 97.6 18 93 Room Air I&O Intake and Output 03/17/17 07:00 Intake Total 540 ml Balance 540 ml Intake Oral 540 ml Labs: Laboratory Tests Test 03/16/17 06:56 Prothrombin Time 22.3 SEC (9.4-11.4) H Prothrombin Time INR 2.2 (0.9-1.1) H Current Medications: Meds: Current Medications Lidocaine/ Epinephrine (Xylocaine 2%-Epi 1:100,000) 20 ml 1X ONCE IJ ; Start 03/09/17 at 18:30; Stop 03/09/17 at 18:31; Status DC Cephalexin HCl (Keflex) 500 mg 1X ONCE PO Last administered on 03/09/17 22:30 ; Start 03/09/17 at 19:30; Stop 03/09/17 at 19:32; Status DC Acetaminophen (Tylenol) 650 mg PRN Q6HRS PRN PO PAIN / TEMP; Start 03/09/17 at 20:15; Stop 03/10/17 at 16:10; Status DC Multi-Ingredient Ointment (Analgesic [place]) 1 morteza PRN QID PRN TP MUSCLE PAIN; Start 03/09/17 at 20:15; Stop 03/10/17 at 16:12; Status DC Al Hydroxide/Mg Hydroxide (Mylanta Plus Xs) 15 ml PRN AFTMEALHC PRN PO DYSPEPSIA; Start 03/09/17 at 20:15 Magnesium Hydroxide (Milk Of Magnesia) 2,400 mg PRN QHS PRN PO CONSTIPATION; Start 03/09/17 at 20:15; Stop 03/10/17 at 16:12; Status DC Buspirone HCl (Buspar) 10 mg TID PO Last administered on 03/16/17t 20:16; Start 03/09/17 at 22:30 Divalproex Sodium (Depakote Sprinkles) 250 mg BID92 PO Last administered on 13:04; Start 03/10/17 at 09:00 Divalproex Sodium (Depakote Sprinkles) 375 mg HS PO Last administered on 20:16; Start 03/09/17 at 22:30 Donepezil HCl (Aricept) 10 mg DAILY PO Last administered on 03/16/17 09:26; Start 03/10/17 at 09:00 Haloperidol (Haldol) 2 mg PRN Q4HRS PRN PO AGITATION; Start 03/09/17 at 22:15 Memantine (Namenda) 10 mg BID PO Last administered on 03/16/17 20:16; Start 03/09/17 at 22:30 Olanzapine (ZyPREXA ZYDIS) 2.5 mg PRN Q2HR PRN PO PSYCHOSIS Last administered on 03/13/17 16:28; Start 03/09/17 at 22:15 Sertraline HCl (Zoloft) 50 mg DAILY PO Last administered on 03/11/17 09:39; Start 03/10/17 at 09:00; Stop 03/11/17 at 18:11; Status DC Trazodone HCl (Desyrel) 50 mg QHS PO Last administered on 03/16/17 20:17; Start 03/10/17 at 21:00 Acetaminophen (Tylenol) 650 mg PRN Q6HRS PRN PO PAIN / TEMP Last administered on 03/11/17 09:50; Start 03/10/17 at 08:30 Amlodipine Besylate (Norvasc) 2.5 mg DAILY PO Last administered on 03/10/17 08 :43; Start 03/10/17 at 09:00; Stop 03/10/17 at 16:11; Status DC Cetirizine HCl (ZyrTEC) 10 mg DAILY PO Last administered on 03/16/17 09:26; Start 03/10/17 at 09:00 Magnesium Hydroxide (Milk Of Magnesia) 2,400 mg PRN QHS PRN PO CONSTIPATION; Start 03/10/17 at 08:30 Multi-Ingredient Ointment (Analgesic [place]) 1 morteza PRN QID PRN TP MUSCLE PAIN; Start 03/10/17 at 08:30 Sotalol HCl (Betapace) 80 mg BID PO Last administered on 03/16/17 20:20; Start 03/10/17 at 09:00 Warfarin Sodium (Coumadin) 2.5 mg DAILY16 PO Last administered on 03/13/17 16: 11; Start 03/10/17 at 16:00; Stop 03/14/17 at 14:02; Status DC Vitamin D (Vitamin D3) 2,000 unit DAILY PO Last administered on 03/16/17 09:25 ; Start 03/10/17 at 09:00 Warfarin Sodium (Coumadin Per Pharmacy) 1 each PRN DAILY PRN MC SEE COMMENTS Last administered on 03/16/17 13:55; Start 03/10/17 at 08:30 Warfarin Sodium (Coumadin) 1 mg DAILY16 PO Last administered on 03/13/17 16:10 ; Start 03/10/17 at 16:00; Stop 03/14/17 at 14:02; Status DC Amlodipine Besylate (Norvasc) 2.5 mg DAILY PO Last administered on 03/16/17 09 :28; Start 03/11/17 at 09:00 Sertraline HCl (Zoloft) 75 mg DAILY PO Last administered on 03/16/17 09:26; Start 03/12/17 at 09:00 Fosfomycin Tromethamine (Monurol) 3 gm 1X ONCE PO Last administered on 14:36; Start 03/12/17 at 12:00; Stop 03/12/17 at 12:01; Status DC Atorvastatin Calcium (Lipitor) 20 mg QHS PO Last administered on 03/16/17 20: 17; Start 03/13/17 at 21:00 Quetiapine Fumarate (SEROquel) 12.5 mg QHS PO Last administered on 03/15/17 19 :23; Start 03/13/17 at 21:00; Stop 03/16/17 at 17:40; Status DC Warfarin Sodium (Coumadin - No Dose Today) 1 each 1X WARF ONCE MC Last administered on 03/14/17 15:00; Start 03/14/17 at 16:00; Stop 03/14/17 at 16:01 ; Status DC Warfarin Sodium (Coumadin - No Dose Today) 1 each 1X WARF ONCE MC ; Start 03/15 at 16:00; Stop 03/15/17 at 16:01; Status DC Warfarin Sodium (Coumadin) 3 mg 1X WARF ONCE PO Last administered on 17:20; Start 03/16/17 at 16:00; Stop 03/16/17 at 16:01; Status DC Quetiapine Fumarate (SEROquel) 12.5 mg BID PO Last administered on 03/16/17 20 :17; Start 03/16/17 at 21:00 Active Scripts Active Reported Warfarin Sodium 3 Mg Tablet 3.5 Mg PO Depakote Sprinkle (Divalproex Sodium) 125 Mg Cap.sprink 375 Mg PO HS Buspirone Hcl 10 Mg Tablet 10 Mg PO TID Norvasc (Amlodipine Besylate) 10 Mg Tablet 10 Mg PO DAILY Zyprexa Zydis (Olanzapine) 5 Mg Tab.rapdis 2.5 Mg PO PRN Q2HR PRN MDD 7.5mg Analgesic [place] (Methyl Salicylate/Menthol) 28 Gm Oint...g. 1 [place] TP PRN QID PRN Milk Of Magnesia (Magnesium Hydroxide) 400 Mg/5 Ml Oral.susp 2,400 Mg PO PRN QHS PRN Aricept (Donepezil Hcl) 10 Mg Tablet 10 Mg PO DAILY Cetirizine Hcl 10 Mg Tablet 10 Mg PO DAILY Tylenol (Acetaminophen) 325 Mg Tablet 650 Mg PO PRN Q6HRS PRN Vitamin D (Cholecalciferol (Vitamin D3)) 2,000 Unit Capsule 2,000 Units PO DAILY Betapace (Sotalol Hcl) 80 Mg Tablet 80 Mg PO BID Divalproex Sodium 125 Mg Cap.sprink 250 Mg PO BID92 Namenda (Memantine Hcl) 10 Mg Tablet 10 Mg PO BID Mag-Al Plus Xs Suspension (Mag Hydrox/Al Hydrox/Simeth) 30 Ml Oral.susp 15 Ml PO PRN AFTMEAL PRN Haloperidol 2 Mg Tablet 2 Mg PO PRN Q4HRS PRN Zoloft (Sertraline Hcl) 50 Mg Tablet 50 Mg PO DAILY Trazodone Hcl 50 Mg Tablet 50 Mg PO QHS GIVE WITH FOOD Diagnosis: Problems: (1) Dementia with behavioral disturbance (2) Anxiety disorder (3) Impulse control disorder (4) Dementia, vascular, with depression (5) Dementia, vascular, with delusions (6) Dementia in Alzheimer's disease with depression (7) Dementia in Alzheimer's disease with delusions ADAN GOMES MD Mar 16, 2017 21:43
--- NOTE | 2017-03-16 23:37 | PN ---
DATE: 03/15/2017 This late entry 03/15/2017 covers elements not covered in my initial note of 03/15/2017. Met with the patient evening of 03/15/2017. The patient remains confused in her wheelchair, compliant with medications, less aggressive. REVIEW OF SYSTEMS: No CV, , pulmonary, eye, ENT system symptoms on review. Gait unsteady. MENTAL STATUS EXAM: Oriented to herself. Insight, judgment, recent and remote memory, attention, concentration, fund of knowledge poor, consistent with her diagnosis mentioned in my initial note. PLAN: Continue psychotropics mentioned in my initial note, reviewed drug interactions risk/benefit ratio favors no further change. Valproic acid level therapeutic at 69. MAN Saúl GOMES MD DR: FAISAL/alonso JOB#: [id number] / [id number]
[2017-03-17 06:40] VITALS: BP 183/79
[2017-03-17 07:19] LABS: BASO % 1 % (0-3); EOS # 0.9 x10^3/uL (0.0-0.7); EOS % 13 % (0-3); HEMATOCRIT 36.1 % (36.0-47.0); HEMOGLOBIN 12.1 g/dL (12.0-15.5); LYMPH # 2.3 x10^3/uL (1.0-4.8); LYMPH % 34 % (24-48); MEAN CORPUSCULAR HEMOGLOBIN 32 pg (25-35); MEAN CORPUSCULAR HGB CONC 34 g/dL (31-37); MEAN CORPUSCULAR VOLUME 96 fL (79-100); MONO # 0.6 x10^3/uL (0.0-1.1); MONO % 9 % (0-9); NEUT # 2.8 x10^3uL (1.8-7.7); NEUT % 43 % (31-73); PLATELET COUNT 144 x10^3/uL (140-400); RED BLOOD COUNT 3.76 x10^6/uL (3.50-5.40); RED CELL DISTRIBUTION WIDTH 16.5 % (11.5-14.5); WHITE BLOOD COUNT 6.6 x10^3/uL (4.0-11.0)
[2017-03-17 07:27] LABS: ALBUMIN 2.7 g/dL (3.4-5.0); ALBUMIN/GLOBULIN RATIO 0.7 (1.0-1.7); CALCIUM 10.2 mg/dL (8.5-10.1); CREATININE 0.8 mg/dL (0.6-1.0); GFR 83.9; MAGNESIUM 1.9 mg/dL (1.8-2.4); POTASSIUM 4.1 mmol/L (3.5-5.1); TOTAL BILIRUBIN 0.2 mg/dL (0.2-1.0); TOTAL PROTEIN 6.8 g/dL (6.4-8.2)
[2017-03-17] MEDS: amLODIPine BESYLATE 2.5 MG TABLET PO SCH (07:37)
[2017-03-17] MEDS: SERTRALINE 50 MG TABLET. PO SCH (07:37)
[2017-03-17] MEDS: DIVALPROEX 125 MG CAP.SPRINK PO SCH ×3 (07:38→19:43)
[2017-03-17] MEDS: busPIRone 10 MG TABLET. PO SCH ×3 (07:38→19:43)
[2017-03-17] MEDS: DONEPEZIL HCL 10 MG TABLET PO SCH (07:38)
[2017-03-17] MEDS: QUEtiapine 25 MG TABLET. PO SCH ×2 (07:38→19:43)
[2017-03-17] MEDS: SOTALOL 80 MG TABLET. PO SCH ×2 (07:39→19:46)
[2017-03-17] MEDS: MEMANTINE 10 MG TABLET. PO SCH ×2 (07:39→19:42)
[2017-03-17] MEDS: CETIRIZINE HCL 10 MG TABLET PO SCH (07:39)
[2017-03-17] MEDS: CHOLECALCIFEROL (VITAMIN D3) 1,000 UNIT TABLET PO SCH (07:39)
[2017-03-17] MEDS: HALOPERIDOL 2 MG TABLET PO PRN (11:41)
[2017-03-17 15:20] VITALS: BP 98/54
[2017-03-17] MEDS ORDERED: WARFARIN 5 MG TABLET. PO ONE (16:00)
[2017-03-17] MEDS: ATORVASTATIN CALCIUM 20 MG TABLET PO SCH (19:42)
[2017-03-17] MEDS: traZODone 50 MG TABLET. PO SCH (19:46)
[2017-03-18 06:09] VITALS: BP 94/61
[2017-03-18 06:43] LABS: BASO % 0 % (0-3); EOS # 0.9 x10^3/uL (0.0-0.7); EOS % 15 % (0-3); HEMATOCRIT 35.2 % (36.0-47.0); HEMOGLOBIN 11.9 g/dL (12.0-15.5); LYMPH % 34 % (24-48); MEAN CORPUSCULAR HEMOGLOBIN 32 pg (25-35); MEAN CORPUSCULAR HGB CONC 34 g/dL (31-37); MEAN CORPUSCULAR VOLUME 96 fL (79-100); MONO # 0.5 x10^3/uL (0.0-1.1); MONO % 8 % (0-9); NEUT # 2.6 x10^3uL (1.8-7.7); NEUT % 43 % (31-73); PLATELET COUNT 138 x10^3/uL (140-400); RED BLOOD COUNT 3.68 x10^6/uL (3.50-5.40); RED CELL DISTRIBUTION WIDTH 16.3 % (11.5-14.5)
[2017-03-18 06:59] LABS: ALBUMIN 2.4 g/dL (3.4-5.0); ALBUMIN/GLOBULIN RATIO 0.5 (1.0-1.7); CREATININE 0.7 mg/dL (0.6-1.0); GFR 97.9; POTASSIUM 4.2 mmol/L (3.5-5.1); TOTAL BILIRUBIN 0.2 mg/dL (0.2-1.0); TOTAL PROTEIN 6.8 g/dL (6.4-8.2)
[2017-03-18] MEDS: SOTALOL 80 MG TABLET. PO SCH ×3 (09:00→20:46)
[2017-03-18] MEDS: MEMANTINE 10 MG TABLET. PO SCH (10:30)
[2017-03-18] MEDS: DIVALPROEX 125 MG CAP.SPRINK PO SCH ×3 (10:30→20:23)
[2017-03-18] MEDS: amLODIPine BESYLATE 2.5 MG TABLET PO SCH (10:30)
[2017-03-18] MEDS: SERTRALINE 50 MG TABLET. PO SCH (10:31)
[2017-03-18] MEDS: DONEPEZIL HCL 10 MG TABLET PO SCH (10:31)
[2017-03-18] MEDS: busPIRone 10 MG TABLET. PO SCH ×3 (10:31→20:23)
[2017-03-18] MEDS: QUEtiapine 25 MG TABLET. PO SCH ×3 (10:31→16:30)
[2017-03-18] MEDS: CHOLECALCIFEROL (VITAMIN D3) 1,000 UNIT TABLET PO SCH (10:31)
[2017-03-18] MEDS: CETIRIZINE HCL 10 MG TABLET PO SCH (10:31)
[2017-03-18] MEDS: HALOPERIDOL 2 MG TABLET PO PRN (16:30)
[2017-03-18] MEDS: WARFARIN 3 MG TABLET. PO SCH (16:30)
[2017-03-18 16:34] VITALS: BP 130/70
--- NOTE | 2017-03-18 20:08 | PDOC ---
Exam Note: Vikram Note: Please also refer to the separate dictated note~for this date of service dictated separately.~Patient seen individually. Discussed the patient with Nursing staff reviewed the chart.~Reviewed interim history and current functioning. Reviewed vital signs,~Labs/ Radiology~and current medications noted below. Continue current treatment with the changes noted in the dictated addendum note Assessment: Vital Signs: Vital Signs Date Time Temp Pulse Resp B/P (MAP) Pulse Ox O2 Delivery O2 Flow Rate FiO2 03/18/17 16:34 97.9 72 16 130/70 (90) 98 03/17/17 15:20 Room Air I&O Intake and Output 03/19/17 07:00 Intake Total 840 ml Balance 840 ml Intake Oral 840 ml Labs: Laboratory Tests Test 03/18/17 06:25 White Blood Count 6.0 x10^3/uL (4.0-11.0) Red Blood Count 3.68 x10^6/uL (3.50-5.40) Hemoglobin 11.9 g/dL (12.0-15.5) L Hematocrit 35.2 % (36.0-47.0) L Mean Corpuscular Volume 96 fL (79-100) Mean Corpuscular Hemoglobin 32 pg (25-35) Mean Corpuscular Hemoglobin Concent 34 g/dL (31-37) Red Cell Distribution Width 16.3 % (11.5-14.5) H Platelet Count 138 x10^3/uL (140-400) L Neutrophils (%) (Auto) 43 % (31-73) Lymphocytes (%) (Auto) 34 % (24-48) Monocytes (%) (Auto) 8 % (0-9) Eosinophils (%) (Auto) 15 % (0-3) H Basophils (%) (Auto) 0 % (0-3) Neutrophils # (Auto) 2.6 x10^3uL (1.8-7.7) Lymphocytes # (Auto) 2.0 x10^3/uL (1.0-4.8) Monocytes # (Auto) 0.5 x10^3/uL (0.0-1.1) Eosinophils # (Auto) 0.9 x10^3/uL (0.0-0.7) H Basophils # (Auto) 0.0 x10^3/uL (0.0-0.2) Prothrombin Time 20.7 SEC (9.4-11.4) H Prothrombin Time INR 2.0 (0.9-1.1) H Sodium Level 146 mmol/L (136-145) H Potassium Level 4.2 mmol/L (3.5-5.1) Chloride Level 109 mmol/L (98-107) H Carbon Dioxide Level 36 mmol/L (21-32) H Anion Gap 1 (6-14) L Blood Urea Nitrogen 21 mg/dL (7-20) H Creatinine 0.7 mg/dL (0.6-1.0) Estimated GFR (Cockcroft-Gault) 97.9 BUN/Creatinine Ratio 30 (6-20) H Glucose Level 85 mg/dL (70-99) Calcium Level 10.0 mg/dL (8.5-10.1) Total Bilirubin 0.2 mg/dL (0.2-1.0) Aspartate Amino Transferase (AST) 24 U/L (15-37) Alanine Aminotransferase (ALT) 21 U/L (14-59) Alkaline Phosphatase 92 U/L (46-116) Total Protein 6.8 g/dL (6.4-8.2) Albumin 2.4 g/dL (3.4-5.0) L Albumin/Globulin Ratio 0.5 (1.0-1.7) L Current Medications: Meds: Current Medications Lidocaine/ Epinephrine (Xylocaine 2%-Epi 1:100,000) 20 ml 1X ONCE IJ ; Start 03/09/17 at 18:30; Stop 03/09/17 at 18:31; Status DC Cephalexin HCl (Keflex) 500 mg 1X ONCE PO Last administered on 03/09/17t 22:30 ; Start 03/09/17 at 19:30; Stop 03/09/17 at 19:32; Status DC Acetaminophen (Tylenol) 650 mg PRN Q6HRS PRN PO PAIN / TEMP; Start 03/09/17 at 20:15; Stop 03/10/17 at 16:10; Status DC Multi-Ingredient Ointment (Analgesic [place]) 1 morteza PRN QID PRN TP MUSCLE PAIN; Start 03/09/17 at 20:15; Stop 03/10/17 at 16:12; Status DC Al Hydroxide/Mg Hydroxide (Mylanta Plus Xs) 15 ml PRN AFTMEALHC PRN PO DYSPEPSIA; Start 03/09/17 at 20:15 Magnesium Hydroxide (Milk Of Magnesia) 2,400 mg PRN QHS PRN PO CONSTIPATION; Start 03/09/17 at 20:15; Stop 03/10/17 at 16:12; Status DC Buspirone HCl (Buspar) 10 mg TID PO Last administered on 03/18/17 13:36; Start 03/09/17 at 22:30 Divalproex Sodium (Depakote Sprinkles) 250 mg BID92 PO Last administered on 13:36; Start 03/10/17 at 09:00 Divalproex Sodium (Depakote Sprinkles) 375 mg HS PO Last administered on 19:43; Start 03/09/17 at 22:30 Donepezil HCl (Aricept) 10 mg DAILY PO Last administered on 03/18/17 10:31; Start 03/10/17 at 09:00; Stop 03/18/17 at 19:23; Status DC Haloperidol (Haldol) 2 mg PRN Q4HRS PRN PO AGITATION Last administered on 03/18 16:30; Start 03/09/17 at 22:15 Memantine (Namenda) 10 mg BID PO Last administered on 03/18/17 10:30; Start 03/09/17 at 22:30; Stop 03/18/17 at 19:23; Status DC Olanzapine (ZyPREXA ZYDIS) 2.5 mg PRN Q2HR PRN PO PSYCHOSIS Last administered on 03/18/17 10:33; Start 03/09/17 at 22:15 Sertraline HCl (Zoloft) 50 mg DAILY PO Last administered on 03/11/17 09:39; Start 03/10/17 at 09:00; Stop 03/11/17 at 18:11; Status DC Trazodone HCl (Desyrel) 50 mg QHS PO Last administered on 03/17/17 19:46; Start 03/10/17 at 21:00 Acetaminophen (Tylenol) 650 mg PRN Q6HRS PRN PO PAIN / TEMP Last administered on 03/11/17 09:50; Start 03/10/17 at 08:30 Amlodipine Besylate (Norvasc) 2.5 mg DAILY PO Last administered on 03/10/17 08 :43; Start 03/10/17 at 09:00; Stop 03/10/17 at 16:11; Status DC Cetirizine HCl (ZyrTEC) 10 mg DAILY PO Last administered on 03/18/17 10:31; Start 03/10/17 at 09:00 Magnesium Hydroxide (Milk Of Magnesia) 2,400 mg PRN QHS PRN PO CONSTIPATION; Start 03/10/17 at 08:30 Multi-Ingredient Ointment (Analgesic [place]) 1 morteza PRN QID PRN TP MUSCLE PAIN; Start 03/10/17 at 08:30 Sotalol HCl (Betapace) 80 mg BID PO Last administered on 03/17/17 19:46; Start 03/10/17 at 09:00 Warfarin Sodium (Coumadin) 2.5 mg DAILY16 PO Last administered on 03/13/17 16: 11; Start 03/10/17 at 16:00; Stop 03/14/17 at 14:02; Status DC Vitamin D (Vitamin D3) 2,000 unit DAILY PO Last administered on 03/18/17 10: 31; Start 03/10/17 at 09:00 Warfarin Sodium (Coumadin Per Pharmacy) 1 each PRN DAILY PRN MC SEE COMMENTS Last administered on 03/18/17 14:45; Start 03/10/17 at 08:30 Warfarin Sodium (Coumadin) 1 mg DAILY16 PO Last administered on 03/13/17 16:10 ; Start 03/10/17 at 16:00; Stop 03/14/17 at 14:02; Status DC Amlodipine Besylate (Norvasc) 2.5 mg DAILY PO Last administered on 03/18/17 10:30; Start 03/11/17 at 09:00 Sertraline HCl (Zoloft) 75 mg DAILY PO Last administered on 03/18/17 10:31; Start 03/12/17 at 09:00 Fosfomycin Tromethamine (Monurol) 3 gm 1X ONCE PO Last administered on 14:36; Start 03/12/17 at 12:00; Stop 03/12/17 at 12:01; Status DC Atorvastatin Calcium (Lipitor) 20 mg QHS PO Last administered on 03/17/17 19: 42; Start 03/13/17 at 21:00 Quetiapine Fumarate (SEROquel) 12.5 mg QHS PO Last administered on 03/15/17 19 :23; Start 03/13/17 at 21:00; Stop 03/16/17 at 17:40; Status DC Warfarin Sodium (Coumadin - No Dose Today) 1 each 1X WARF ONCE MC Last administered on 03/14/17 15:00; Start 03/14/17 at 16:00; Stop 03/14/17 at 16:01 ; Status DC Warfarin Sodium (Coumadin - No Dose Today) 1 each 1X WARF ONCE MC ; Start 03/15 at 16:00; Stop 03/15/17 at 16:01; Status DC Warfarin Sodium (Coumadin) 3 mg 1X WARF ONCE PO Last administered on 17:20; Start 03/16/17 at 16:00; Stop 03/16/17 at 16:01; Status DC Quetiapine Fumarate (SEROquel) 12.5 mg BID PO Last administered on 03/17/17 07 :38; Start 03/16/17 at 21:00; Stop 03/17/17 at 18:58; Status DC Warfarin Sodium (Coumadin) 5 mg 1X WARF ONCE PO Last administered on 16:18; Start 03/17/17 at 16:00; Stop 03/17/17 at 16:01; Status DC Quetiapine Fumarate (SEROquel) 12.5 mg TID@0900,1400,1700 PO Last administered on 03/18/17 16:30; Start 03/17/17 at 19:30 Warfarin Sodium (Coumadin) 3 mg DAILY16 PO Last administered on 03/18/17 16: 30; Start 03/18/17 at 16:00 Quetiapine Fumarate (SEROquel) 25 mg QHS PO ; Start 03/18/17 at 21:00 Active Scripts Active Reported Warfarin Sodium 3 Mg Tablet 3.5 Mg PO Depakote Sprinkle (Divalproex Sodium) 125 Mg Cap.sprink 375 Mg PO HS Buspirone Hcl 10 Mg Tablet 10 Mg PO TID Norvasc (Amlodipine Besylate) 10 Mg Tablet 10 Mg PO DAILY Zyprexa Zydis (Olanzapine) 5 Mg Tab.rapdis 2.5 Mg PO PRN Q2HR PRN MDD 7.5mg Analgesic [place] (Methyl Salicylate/Menthol) 28 Gm Oint...g. 1 Morteza TP PRN QID PRN Milk Of Magnesia (Magnesium Hydroxide) 400 Mg/5 Ml Oral.susp 2,400 Mg PO PRN QHS PRN Aricept (Donepezil Hcl) 10 Mg Tablet 10 Mg PO DAILY Cetirizine Hcl 10 Mg Tablet 10 Mg PO DAILY Tylenol (Acetaminophen) 325 Mg Tablet 650 Mg PO PRN Q6HRS PRN Vitamin D (Cholecalciferol (Vitamin D3)) 2,000 Unit Capsule 2,000 Units PO DAILY Betapace (Sotalol Hcl) 80 Mg Tablet 80 Mg PO BID Divalproex Sodium 125 Mg Cap.sprink 250 Mg PO BID92 Namenda (Memantine Hcl) 10 Mg Tablet 10 Mg PO BID Mag-Al Plus Xs Suspension (Mag Hydrox/Al Hydrox/Simeth) 30 Ml Oral.susp 15 Ml PO PRN AFTMEAL PRN Haloperidol 2 Mg Tablet 2 Mg PO PRN Q4HRS PRN Zoloft (Sertraline Hcl) 50 Mg Tablet 50 Mg PO DAILY Trazodone Hcl 50 Mg Tablet 50 Mg PO QHS GIVE WITH FOOD I have reviewed the current psychotropics carefully including drug interactions. Risk benefit ratio favors no change other than as noted in my dictated progress note. Diagnosis: Problems: (1) Dementia with behavioral disturbance (2) Anxiety disorder (3) Impulse control disorder (4) Dementia, vascular, with depression (5) Dementia, vascular, with delusions (6) Dementia in Alzheimer's disease with depression (7) Dementia in Alzheimer's disease with delusions ADAN GOMES MD Mar 18, 2017 20:08
[2017-03-18] MEDS: traZODone 50 MG TABLET. PO SCH (20:23)
[2017-03-18] MEDS: ATORVASTATIN CALCIUM 20 MG TABLET PO SCH (20:23)
[2017-03-18] MEDS ORDERED: QUEtiapine 25 MG TABLET. PO SCH (21:00)
--- NOTE | 2017-03-19 03:54 | PN ---
DATE: 03/16/2017 This late entry for 03/16/2017 covers elements not covered in my initial note of 03/16/2017. SUBJECTIVE: I met with the patient in the evening of 03/16/2017. The patient remains confused. The previous evening, she was laughing hysterically, labile in her mood, compliant with medications, agitated with activities of daily living, slept 6-3/4 hours previous evening. REVIEW OF SYSTEMS: Ambulation impaired, in wheelchair. No CV, , pulmonary, eye, ENT system symptoms on review. Reliability poor. MENTAL STATUS EXAM: Oriented to herself. Insight, judgment, recent and remote memory, attention, concentration, fund of knowledge poor, consistent with her diagnosis as mentioned in my initial note. PLAN: Continue current psychotropics. Reviewed drug interactions. Risk/benefit ratio favors no further change, but we will increase the Seroquel by adding 12.5 mg at 09:00 a.m. Continue rest unchanged. MAN Saúl GOMES MD DR: FAISAL/alonso JOB#: [id number] / [id number]
--- NOTE | 2017-03-19 04:14 | PN ---
DATE: 03/17/2017 This late entry for 03/17/2017 covers elements not covered in my initial note of 03/17/2017. SUBJECTIVE: The patient was staffed at a treatment team meeting morning of 03/17/2017 with the entire team and seen individually in the evening of 03/17/2017. She is calm at times, but confused, but evening of 03/17/2017, she was yelling, loud, using obscenities; otherwise, at times nonverbal, refuses her medications at times. Her brother visited. She was cooperative during showers. REVIEW OF SYSTEMS: Ambulation impaired, in wheelchair. No CV, , pulmonary, eye, ENT system symptoms on review. Reliability poor. MENTAL STATUS EXAM: Oriented to herself. Insight, judgment, recent and remote memory, attention, concentration, fund of knowledge poor, consistent with her diagnosis. LABORATORY DATA: Reviewed. IMPRESSION: Unchanged from initial note. PLAN: Increase Seroquel from 12.5 mg b.i.d. to 12.5 mg 3 times a day. Maintain rest of the psychotropics unchanged. Reviewed drug interactions. Risk/benefit ratio favors no further change. MAN Saúl GOMES MD DR: FAISAL/alonso JOB#: [id number] / [id number]
[2017-03-19 06:03] VITALS: BP 186/76
[2017-03-19] MEDS: DIVALPROEX 125 MG CAP.SPRINK PO SCH ×3 (08:35→21:01)
[2017-03-19] MEDS: SERTRALINE 50 MG TABLET. PO SCH (08:35)
[2017-03-19] MEDS: CHOLECALCIFEROL (VITAMIN D3) 1,000 UNIT TABLET PO SCH (08:36)
[2017-03-19] MEDS: QUEtiapine 25 MG TABLET. PO SCH ×3 (08:36→17:22)
[2017-03-19] MEDS: busPIRone 10 MG TABLET. PO SCH ×3 (08:37→21:00)
[2017-03-19] MEDS: CETIRIZINE HCL 10 MG TABLET PO SCH (08:37)
[2017-03-19] MEDS: amLODIPine BESYLATE 2.5 MG TABLET PO SCH (08:37)
[2017-03-19] MEDS: SOTALOL 80 MG TABLET. PO SCH ×2 (08:40→21:00)
[2017-03-19 16:04] VITALS: BP 136/61
[2017-03-19] MEDS: WARFARIN 3 MG TABLET. PO SCH (17:22)
--- NOTE | 2017-03-19 19:53 | PDOC ---
Exam Note: Vikram Note: Please also refer to the separate dictated note~for this date of service dictated separately.~Patient seen individually. Discussed the patient with Nursing staff reviewed the chart.~Reviewed interim history and current functioning. Reviewed vital signs,~Labs/ Radiology~and current medications noted below. Continue current treatment with the changes noted in the dictated addendum note Assessment: Vital Signs: Vital Signs Date Time Temp Pulse Resp B/P (MAP) Pulse Ox O2 Delivery O2 Flow Rate FiO2 03/19/17 16:04 96.8 57 15 136/61 (86) 98 Room Air I&O Intake and Output 03/20/17 07:00 Intake Total 600 ml Balance 600 ml Intake Oral 600 ml Current Medications: Meds: Current Medications Lidocaine/ Epinephrine (Xylocaine 2%-Epi 1:100,000) 20 ml 1X ONCE IJ ; Start 03/09/17 at 18:30; Stop 03/09/17 at 18:31; Status DC Cephalexin HCl (Keflex) 500 mg 1X ONCE PO Last administered on 03/09/17 22:30 ; Start 03/09/17 at 19:30; Stop 03/09/17 at 19:32; Status DC Acetaminophen (Tylenol) 650 mg PRN Q6HRS PRN PO PAIN / TEMP; Start 03/09/17 at 20:15; Stop 03/10/17 at 16:10; Status DC Multi-Ingredient Ointment (Analgesic [place]) 1 morteza PRN QID PRN TP MUSCLE PAIN; Start 03/09/17 at 20:15; Stop 03/10/17 at 16:12; Status DC Al Hydroxide/Mg Hydroxide (Mylanta Plus Xs) 15 ml PRN AFTMEALHC PRN PO DYSPEPSIA; Start 03/09/17 at 20:15 Magnesium Hydroxide (Milk Of Magnesia) 2,400 mg PRN QHS PRN PO CONSTIPATION; Start 03/09/17 at 20:15; Stop 03/10/17 at 16:12; Status DC Buspirone HCl (Buspar) 10 mg TID PO Last administered on 03/19/17 11:54; Start 03/09/17 at 22:30 Divalproex Sodium (Depakote Sprinkles) 250 mg BID92 PO Last administered on 11:55; Start 03/10/17 at 09:00 Divalproex Sodium (Depakote Sprinkles) 375 mg HS PO Last administered on 20:23; Start 03/09/17 at 22:30 Donepezil HCl (Aricept) 10 mg DAILY PO Last administered on 03/18/17 10:31; Start 03/10/17 at 09:00; Stop 03/18/17 at 19:23; Status DC Haloperidol (Haldol) 2 mg PRN Q4HRS PRN PO AGITATION Last administered on 03/18 16:30; Start 03/09/17 at 22:15 Memantine (Namenda) 10 mg BID PO Last administered on 03/18/17 10:30; Start 03/09/17 at 22:30; Stop 03/18/17 at 19:23; Status DC Olanzapine (ZyPREXA ZYDIS) 2.5 mg PRN Q2HR PRN PO PSYCHOSIS Last administered on 03/18/17 10:33; Start 03/09/17 at 22:15 Sertraline HCl (Zoloft) 50 mg DAILY PO Last administered on 03/11/17 09:39; Start 03/10/17 at 09:00; Stop 03/11/17 at 18:11; Status DC Trazodone HCl (Desyrel) 50 mg QHS PO Last administered on 03/18/17 20:23; Start 03/10/17 at 21:00 Acetaminophen (Tylenol) 650 mg PRN Q6HRS PRN PO PAIN / TEMP Last administered on 03/11/17 09:50; Start 03/10/17 at 08:30 Amlodipine Besylate (Norvasc) 2.5 mg DAILY PO Last administered on 03/10/17 08 :43; Start 03/10/17 at 09:00; Stop 03/10/17 at 16:11; Status DC Cetirizine HCl (ZyrTEC) 10 mg DAILY PO Last administered on 03/19/17 08:37; Start 03/10/17 at 09:00 Magnesium Hydroxide (Milk Of Magnesia) 2,400 mg PRN QHS PRN PO CONSTIPATION; Start 03/10/17 at 08:30 Multi-Ingredient Ointment (Analgesic [place]) 1 morteza PRN QID PRN TP MUSCLE PAIN; Start 03/10/17 at 08:30 Sotalol HCl (Betapace) 80 mg BID PO Last administered on 03/19/17 08:40; Start 03/10/17 at 09:00 Warfarin Sodium (Coumadin) 2.5 mg DAILY16 PO Last administered on 03/13/17 16: 11; Start 03/10/17 at 16:00; Stop 03/14/17 at 14:02; Status DC Vitamin D (Vitamin D3) 2,000 unit DAILY PO Last administered on 03/19/17 08: 36; Start 03/10/17 at 09:00 Warfarin Sodium (Coumadin Per Pharmacy) 1 each PRN DAILY PRN MC SEE COMMENTS Last administered on 03/18/17 14:45; Start 03/10/17 at 08:30 Warfarin Sodium (Coumadin) 1 mg DAILY16 PO Last administered on 03/13/17 16:10 ; Start 03/10/17 at 16:00; Stop 03/14/17 at 14:02; Status DC Amlodipine Besylate (Norvasc) 2.5 mg DAILY PO Last administered on 03/19/17 08:37; Start 03/11/17 at 09:00 Sertraline HCl (Zoloft) 75 mg DAILY PO Last administered on 03/19/17 08:35; Start 03/12/17 at 09:00 Fosfomycin Tromethamine (Monurol) 3 gm 1X ONCE PO Last administered on 14:36; Start 03/12/17 at 12:00; Stop 03/12/17 at 12:01; Status DC Atorvastatin Calcium (Lipitor) 20 mg QHS PO Last administered on 03/18/17 20: 23; Start 03/13/17 at 21:00 Quetiapine Fumarate (SEROquel) 12.5 mg QHS PO Last administered on 03/15/17 19 :23; Start 03/13/17 at 21:00; Stop 03/16/17 at 17:40; Status DC Warfarin Sodium (Coumadin - No Dose Today) 1 each 1X WARF ONCE MC Last administered on 03/14/17 15:00; Start 03/14/17 at 16:00; Stop 03/14/17 at 16:01 ; Status DC Warfarin Sodium (Coumadin - No Dose Today) 1 each 1X WARF ONCE MC ; Start 03/15 at 16:00; Stop 03/15/17 at 16:01; Status DC Warfarin Sodium (Coumadin) 3 mg 1X WARF ONCE PO Last administered on 17:20; Start 03/16/17 at 16:00; Stop 03/16/17 at 16:01; Status DC Quetiapine Fumarate (SEROquel) 12.5 mg BID PO Last administered on 03/17/17 07 :38; Start 03/16/17 at 21:00; Stop 03/17/17 at 18:58; Status DC Warfarin Sodium (Coumadin) 5 mg 1X WARF ONCE PO Last administered on 16:18; Start 03/17/17 at 16:00; Stop 03/17/17 at 16:01; Status DC Quetiapine Fumarate (SEROquel) 12.5 mg TID@0900,1400,1700 PO Last administered on 03/19/17 17:22; Start 03/17/17 at 19:30 Warfarin Sodium (Coumadin) 3 mg DAILY16 PO Last administered on 03/19/17 17: 22; Start 03/18/17 at 16:00 Quetiapine Fumarate (SEROquel) 25 mg QHS PO Last administered on 03/18/17 20: 25; Start 03/18/17 at 21:00; Stop 03/19/17 at 19:04; Status DC Quetiapine Fumarate (SEROquel) 50 mg QHS PO ; Start 03/19/17 at 21:00 Active Scripts Active Reported Warfarin Sodium 3 Mg Tablet 3.5 Mg PO Depakote Sprinkle (Divalproex Sodium) 125 Mg Cap.sprink 375 Mg PO HS Buspirone Hcl 10 Mg Tablet 10 Mg PO TID Norvasc (Amlodipine Besylate) 10 Mg Tablet 10 Mg PO DAILY Zyprexa Zydis (Olanzapine) 5 Mg Tab.rapdis 2.5 Mg PO PRN Q2HR PRN MDD 7.5mg Analgesic [place] (Methyl Salicylate/Menthol) 28 Gm Oint...g. 1 Morteza TP PRN QID PRN Milk Of Magnesia (Magnesium Hydroxide) 400 Mg/5 Ml Oral.susp 2,400 Mg PO PRN QHS PRN Aricept (Donepezil Hcl) 10 Mg Tablet 10 Mg PO DAILY Cetirizine Hcl 10 Mg Tablet 10 Mg PO DAILY Tylenol (Acetaminophen) 325 Mg Tablet 650 Mg PO PRN Q6HRS PRN Vitamin D (Cholecalciferol (Vitamin D3)) 2,000 Unit Capsule 2,000 Units PO DAILY Betapace (Sotalol Hcl) 80 Mg Tablet 80 Mg PO BID Divalproex Sodium 125 Mg Cap.sprink 250 Mg PO BID92 Namenda (Memantine Hcl) 10 Mg Tablet 10 Mg PO BID Mag-Al Plus Xs Suspension (Mag Hydrox/Al Hydrox/Simeth) 30 Ml Oral.susp 15 Ml PO PRN AFTMEAL PRN Haloperidol 2 Mg Tablet 2 Mg PO PRN Q4HRS PRN Zoloft (Sertraline Hcl) 50 Mg Tablet 50 Mg PO DAILY Trazodone Hcl 50 Mg Tablet 50 Mg PO QHS GIVE WITH FOOD I have reviewed the current psychotropics carefully including drug interactions. Risk benefit ratio favors no change other than as noted in my dictated progress note. Diagnosis: Problems: (1) Dementia with behavioral disturbance (2) Anxiety disorder (3) Impulse control disorder (4) Dementia, vascular, with depression (5) Dementia, vascular, with delusions (6) Dementia in Alzheimer's disease with depression (7) Dementia in Alzheimer's disease with delusions ADAN GOMES MD Mar 19, 2017 19:53
[2017-03-19] MEDS: ATORVASTATIN CALCIUM 20 MG TABLET PO SCH (21:00)
[2017-03-19] MEDS: traZODone 50 MG TABLET. PO SCH (21:00)
[2017-03-19] MEDS: QUEtiapine 50 MG TABLET. PO SCH (21:03)
[2017-03-20 06:28] VITALS: BP 151/80
[2017-03-20 06:35] LABS: AMORPHOUS SEDIMENT,UR PRESENT /HPF; BACTERIA,URINE FEW /HPF (0-FEW); BILIRUBIN,URINE NEG (NEG); CLARITY,URINE CLOUDY; COLOR,URINE YELLOW; GLUCOSE,URINE NEG (NEG); NITRITE,URINE NEG (NEG); SQUAMOUS EPITHELIAL CELL,UR FEW /LPF; UROBILINOGEN,URINE 0.2 mg/dL (0.2 mg/dL)
--- NOTE | 2017-03-20 07:12 | PN ---
DATE: 03/18/2017 PSYCHIATRIC PROGRESS NOTE This late entry 03/18/2017, covers elements not covered in my initial note of 03/18/2017. I met with the patient evening of 03/18/2017. Per nursing report, the patient did well previous evening, quite disorganized morning of 03/18/2017, combative in the morning, restless, received Zyprexa at 4:10 in the morning, wandering, put herself on the floor, injured her tongue as part of this process, received Haldol at 16:30, 16:45 again put herself on the floor and had to be placed on the East hallway. REVIEW OF SYSTEMS: Ambulation impaired. No CV, , pulmonary, eye system symptoms on review. MENTAL STATUS EXAM: Oriented to herself. Insight, judgment, recent and remote memory, attention, concentration, fund of knowledge poor, consistent with her diagnosis mentioned in my initial note. The patient slept 7 hours the previous evening. PLAN: Stop the Aricept and Namenda as they probably have little beneficial effect at this stage of her dementia. Continue rest of psychotropics mentioned in my initial note including Seroquel 12.5 mg t.i.d., add Seroquel 25 mg p.o. at bedtime. ADAN GOMES MD DR: FAISAL/alonso JOB#: [id number] / [id number]
[2017-03-20] MEDS: amLODIPine BESYLATE 2.5 MG TABLET PO SCH (07:46)
[2017-03-20] MEDS: SOTALOL 80 MG TABLET. PO SCH ×2 (07:47→21:00)
[2017-03-20] MEDS: SERTRALINE 50 MG TABLET. PO SCH (07:47)
[2017-03-20] MEDS: QUEtiapine 25 MG TABLET. PO SCH ×3 (07:47→17:22)
[2017-03-20] MEDS: busPIRone 10 MG TABLET. PO SCH ×3 (07:48→20:00)
[2017-03-20] MEDS: DIVALPROEX 125 MG CAP.SPRINK PO SCH ×3 (07:48→20:01)
[2017-03-20] MEDS: CHOLECALCIFEROL (VITAMIN D3) 1,000 UNIT TABLET PO SCH (07:48)
[2017-03-20] MEDS: CETIRIZINE HCL 10 MG TABLET PO SCH (07:49)
[2017-03-20] MEDS ORDERED: BENZOCAINE 20% ORAL GEL 11.9GM TUBE. TP PRN (14:00)
[2017-03-20 16:02] VITALS: BP 95/62
[2017-03-20] MEDS: WARFARIN 3 MG TABLET. PO SCH (17:22)
[2017-03-20] MEDS: HALOPERIDOL 2 MG TABLET PO PRN (18:25)
--- NOTE | 2017-03-20 19:54 | PDOC ---
Exam Note: Vikram Note: Please also refer to the separate dictated note~for this date of service dictated separately.~Patient seen individually. Discussed the patient with Nursing staff reviewed the chart.~Reviewed interim history and current functioning. Reviewed vital signs,~Labs/ Radiology~and current medications noted below. Continue current treatment with the changes noted in the dictated addendum note Assessment: Vital Signs: Vital Signs Date Time Temp Pulse Resp B/P (MAP) Pulse Ox O2 Delivery O2 Flow Rate FiO2 03/20/17 16:02 97.9 61 18 95/62 (73) 97 Room Air I&O Intake and Output 03/21/17 07:00 Intake Total 1140 ml Balance 1140 ml Intake Oral 1140 ml Labs: Laboratory Tests Test 03/20/17 06:05 Urine Collection Type U cath Urine Color Yellow Urine Clarity Cloudy Urine pH 7.5 Urine Specific [place] 1.015 Urine Protein Neg (NEG-TRACE) Urine Glucose (UA) Neg mg/dL (NEG) Urine Ketones (Stick) Neg mg/dL (NEG) Urine Blood Neg (NEG) Urine Nitrite Neg (NEG) Urine Bilirubin Neg (NEG) Urine Urobilinogen Dipstick 0.2 mg/dL (0.2 mg/dL) Urine Leukocyte Esterase Neg (NEG) Urine RBC 1-2 /HPF (0-2) Urine WBC 1-4 /HPF (0-4) Urine Squamous Epithelial Cells Few /LPF Urine Amorphous Sediment Present /HPF Urine Bacteria Few /HPF (0-FEW) Urine Mucus Slight /LPF Current Medications: Meds: Current Medications Lidocaine/ Epinephrine (Xylocaine 2%-Epi 1:100,000) 20 ml 1X ONCE IJ ; Start 03/09/17 at 18:30; Stop 03/09/17 at 18:31; Status DC Cephalexin HCl (Keflex) 500 mg 1X ONCE PO Last administered on 03/09/17t 22:30 ; Start 03/09/17 at 19:30; Stop 03/09/17 at 19:32; Status DC Acetaminophen (Tylenol) 650 mg PRN Q6HRS PRN PO PAIN / TEMP; Start 03/09/17 at 20:15; Stop 03/10/17 at 16:10; Status DC Multi-Ingredient Ointment (Analgesic [place]) 1 morteza PRN QID PRN TP MUSCLE PAIN; Start 03/09/17 at 20:15; Stop 03/10/17 at 16:12; Status DC Al Hydroxide/Mg Hydroxide (Mylanta Plus Xs) 15 ml PRN AFTMEALHC PRN PO DYSPEPSIA; Start 03/09/17 at 20:15 Magnesium Hydroxide (Milk Of Magnesia) 2,400 mg PRN QHS PRN PO CONSTIPATION; Start 03/09/17 at 20:15; Stop 03/10/17 at 16:12; Status DC Buspirone HCl (Buspar) 10 mg TID PO Last administered on 03/20/17 13:26; Start 03/09/17 at 22:30 Divalproex Sodium (Depakote Sprinkles) 250 mg BID92 PO Last administered on 13:26; Start 03/10/17 at 09:00 Divalproex Sodium (Depakote Sprinkles) 375 mg HS PO Last administered on 21:01; Start 03/09/17 at 22:30 Donepezil HCl (Aricept) 10 mg DAILY PO Last administered on 03/18/17 10:31; Start 03/10/17 at 09:00; Stop 03/18/17 at 19:23; Status DC Haloperidol (Haldol) 2 mg PRN Q4HRS PRN PO AGITATION Last administered on 03/20 18:25; Start 03/09/17 at 22:15 Memantine (Namenda) 10 mg BID PO Last administered on 03/18/17 10:30; Start 03/09/17 at 22:30; Stop 03/18/17 at 19:23; Status DC Olanzapine (ZyPREXA ZYDIS) 2.5 mg PRN Q2HR PRN PO PSYCHOSIS Last administered on 03/18/17 10:33; Start 03/09/17 at 22:15 Sertraline HCl (Zoloft) 50 mg DAILY PO Last administered on 03/11/17 09:39; Start 03/10/17 at 09:00; Stop 03/11/17 at 18:11; Status DC Trazodone HCl (Desyrel) 50 mg QHS PO Last administered on 03/19/17 21:00; Start 03/10/17 at 21:00 Acetaminophen (Tylenol) 650 mg PRN Q6HRS PRN PO PAIN / TEMP Last administered on 03/11/17 09:50; Start 03/10/17 at 08:30 Amlodipine Besylate (Norvasc) 2.5 mg DAILY PO Last administered on 03/10/17 08 :43; Start 03/10/17 at 09:00; Stop 03/10/17 at 16:11; Status DC Cetirizine HCl (ZyrTEC) 10 mg DAILY PO Last administered on 03/20/17 07:49; Start 03/10/17 at 09:00 Magnesium Hydroxide (Milk Of Magnesia) 2,400 mg PRN QHS PRN PO CONSTIPATION; Start 03/10/17 at 08:30 Multi-Ingredient Ointment (Analgesic [place]) 1 morteza PRN QID PRN TP MUSCLE PAIN; Start 03/10/17 at 08:30 Sotalol HCl (Betapace) 80 mg BID PO Last administered on 03/20/17 07:47; Start 03/10/17 at 09:00 Warfarin Sodium (Coumadin) 2.5 mg DAILY16 PO Last administered on 03/13/17 16: 11; Start 03/10/17 at 16:00; Stop 03/14/17 at 14:02; Status DC Vitamin D (Vitamin D3) 2,000 unit DAILY PO Last administered on 03/20/17 07: 48; Start 03/10/17 at 09:00 Warfarin Sodium (Coumadin Per Pharmacy) 1 each PRN DAILY PRN MC SEE COMMENTS Last administered on 03/18/17 14:45; Start 03/10/17 at 08:30 Warfarin Sodium (Coumadin) 1 mg DAILY16 PO Last administered on 03/13/17 16:10 ; Start 03/10/17 at 16:00; Stop 03/14/17 at 14:02; Status DC Amlodipine Besylate (Norvasc) 2.5 mg DAILY PO Last administered on 03/20/17 07:46; Start 03/11/17 at 09:00 Sertraline HCl (Zoloft) 75 mg DAILY PO Last administered on 03/20/17 07:47; Start 03/12/17 at 09:00 Fosfomycin Tromethamine (Monurol) 3 gm 1X ONCE PO Last administered on 14:36; Start 03/12/17 at 12:00; Stop 03/12/17 at 12:01; Status DC Atorvastatin Calcium (Lipitor) 20 mg QHS PO Last administered on 03/19/17 21: 00; Start 03/13/17 at 21:00 Quetiapine Fumarate (SEROquel) 12.5 mg QHS PO Last administered on 03/15/17 19 :23; Start 03/13/17 at 21:00; Stop 03/16/17 at 17:40; Status DC Warfarin Sodium (Coumadin - No Dose Today) 1 each 1X WARF ONCE MC Last administered on 03/14/17 15:00; Start 03/14/17 at 16:00; Stop 03/14/17 at 16:01 ; Status DC Warfarin Sodium (Coumadin - No Dose Today) 1 each 1X WARF ONCE MC ; Start 03/15 at 16:00; Stop 03/15/17 at 16:01; Status DC Warfarin Sodium (Coumadin) 3 mg 1X WARF ONCE PO Last administered on 17:20; Start 03/16/17 at 16:00; Stop 03/16/17 at 16:01; Status DC Quetiapine Fumarate (SEROquel) 12.5 mg BID PO Last administered on 03/17/17 07 :38; Start 03/16/17 at 21:00; Stop 03/17/17 at 18:58; Status DC Warfarin Sodium (Coumadin) 5 mg 1X WARF ONCE PO Last administered on 16:18; Start 03/17/17 at 16:00; Stop 03/17/17 at 16:01; Status DC Quetiapine Fumarate (SEROquel) 12.5 mg TID@0900,1400,1700 PO Last administered on 03/20/17 17:22; Start 03/17/17 at 19:30 Warfarin Sodium (Coumadin) 3 mg DAILY16 PO Last administered on 03/20/17 17: 22; Start 03/18/17 at 16:00 Quetiapine Fumarate (SEROquel) 25 mg QHS PO Last administered on 03/18/17 20: 25; Start 03/18/17 at 21:00; Stop 03/19/17 at 19:04; Status DC Quetiapine Fumarate (SEROquel) 50 mg QHS PO Last administered on 03/19/17t 21: 03; Start 03/19/17 at 21:00 Benzocaine (Ora-Jel Maximum) 1 morteza PRN QID PRN TP ORAL PAIN; Start 03/20/17 at 14:00 Active Scripts Active Reported Warfarin Sodium 3 Mg Tablet 3.5 Mg PO Depakote Sprinkle (Divalproex Sodium) 125 Mg Cap.sprink 375 Mg PO HS Buspirone Hcl 10 Mg Tablet 10 Mg PO TID Norvasc (Amlodipine Besylate) 10 Mg Tablet 10 Mg PO DAILY Zyprexa Zydis (Olanzapine) 5 Mg Tab.rapdis 2.5 Mg PO PRN Q2HR PRN MDD 7.5mg Analgesic [place] (Methyl Salicylate/Menthol) 28 Gm Oint...g. 1 Morteza TP PRN QID PRN Milk Of Magnesia (Magnesium Hydroxide) 400 Mg/5 Ml Oral.susp 2,400 Mg PO PRN QHS PRN Aricept (Donepezil Hcl) 10 Mg Tablet 10 Mg PO DAILY Cetirizine Hcl 10 Mg Tablet 10 Mg PO DAILY Tylenol (Acetaminophen) 325 Mg Tablet 650 Mg PO PRN Q6HRS PRN Vitamin D (Cholecalciferol (Vitamin D3)) 2,000 Unit Capsule 2,000 Units PO DAILY Betapace (Sotalol Hcl) 80 Mg Tablet 80 Mg PO BID Divalproex Sodium 125 Mg Cap.sprink 250 Mg PO BID92 Namenda (Memantine Hcl) 10 Mg Tablet 10 Mg PO BID Mag-Al Plus Xs Suspension (Mag Hydrox/Al Hydrox/Simeth) 30 Ml Oral.susp 15 Ml PO PRN AFTMEAL PRN Haloperidol 2 Mg Tablet 2 Mg PO PRN Q4HRS PRN Zoloft (Sertraline Hcl) 50 Mg Tablet 50 Mg PO DAILY Trazodone Hcl 50 Mg Tablet 50 Mg PO QHS GIVE WITH FOOD I have reviewed the current psychotropics carefully including drug interactions. Risk benefit ratio favors no change other than as noted in my dictated progress note. Diagnosis: Problems: (1) Dementia with behavioral disturbance (2) Anxiety disorder (3) Impulse control disorder (4) Dementia, vascular, with depression (5) Dementia, vascular, with delusions (6) Dementia in Alzheimer's disease with depression (7) Dementia in Alzheimer's disease with delusions ADAN GOMES MD Mar 20, 2017 19:54
[2017-03-20] MEDS: traZODone 50 MG TABLET. PO SCH (20:00)
[2017-03-20] MEDS: QUEtiapine 50 MG TABLET. PO SCH (20:00)
[2017-03-20] MEDS: ATORVASTATIN CALCIUM 20 MG TABLET PO SCH (20:01)
--- NOTE | 2017-03-21 02:22 | PN ---
DATE: 03/19/2017 PSYCHIATRIC PROGRESS NOTE This late entry 03/19/2017, covers elements not covered in my initial note. I met with the patient evening of 03/19/2017. The patient slept 5-3/4 hours previous evening, did well the morning of 03/19/2017, then in the afternoon, was upset, threw her lunch at the nursing staff, appeared tired, put herself on the floor the previous evening. REVIEW OF SYSTEMS: Ambulation impaired, in a wheelchair. No CV, , pulmonary, eye, ENT system symptoms on review. MENTAL STATUS EXAM: Oriented to herself. Insight, judgment, recent and remote memory, attention, concentration, fund of knowledge poor, consistent with her diagnosis. PLAN: Increase Seroquel to 50 mg at bedtime. Check a UA to make sure this is not causing worsening of her agitation. Rest unchanged from my initial note. ADAN GOMES MD DR: FAISAL/alonso JOB#: [id number] / [id number]
[2017-03-21 05:58] VITALS: BP 155/99
[2017-03-21] MEDS: amLODIPine BESYLATE 2.5 MG TABLET PO SCH (09:49)
[2017-03-21] MEDS: SERTRALINE 50 MG TABLET. PO SCH (09:50)
[2017-03-21] MEDS: SOTALOL 80 MG TABLET. PO SCH ×2 (09:50→20:42)
[2017-03-21] MEDS: CETIRIZINE HCL 10 MG TABLET PO SCH (09:51)
[2017-03-21] MEDS: DIVALPROEX 125 MG CAP.SPRINK PO SCH ×3 (09:51→20:32)
[2017-03-21] MEDS: CHOLECALCIFEROL (VITAMIN D3) 1,000 UNIT TABLET PO SCH (09:51)
[2017-03-21] MEDS: busPIRone 10 MG TABLET. PO SCH ×3 (09:51→20:32)
[2017-03-21] MEDS: QUEtiapine 25 MG TABLET. PO SCH ×3 (09:51→17:14)
[2017-03-21 16:16] VITALS: BP 118/64
--- NOTE | 2017-03-21 20:11 | PDOC ---
Exam Note: Vikram Note: Please also refer to the separate dictated note~for this date of service dictated separately.~Patient seen individually. Discussed the patient with Nursing staff reviewed the chart.~Reviewed interim history and current functioning. Reviewed vital signs,~Labs/ Radiology~and current medications noted below. Continue current treatment with the changes noted in the dictated addendum note Assessment: Vital Signs: Vital Signs Date Time Temp Pulse Resp B/P (MAP) Pulse Ox O2 Delivery O2 Flow Rate FiO2 03/21/17 16:16 97.1 58 18 118/64 (82) 97 03/20/17 16:02 Room Air I&O Intake and Output 03/21/17 07:00 Intake Total 1380 ml Balance 1380 ml Intake Oral 1380 ml Labs: Laboratory Tests Test 03/21/17 07:05 Prothrombin Time 37.6 SEC (9.4-11.4) H Prothrombin Time INR 3.8 (0.9-1.1) H Current Medications: Meds: Current Medications Lidocaine/ Epinephrine (Xylocaine 2%-Epi 1:100,000) 20 ml 1X ONCE IJ ; Start 03/09/17 at 18:30; Stop 03/09/17 at 18:31; Status DC Cephalexin HCl (Keflex) 500 mg 1X ONCE PO Last administered on 03/09/17t 22:30 ; Start 03/09/17 at 19:30; Stop 03/09/17 at 19:32; Status DC Acetaminophen (Tylenol) 650 mg PRN Q6HRS PRN PO PAIN / TEMP; Start 03/09/17 at 20:15; Stop 03/10/17 at 16:10; Status DC Multi-Ingredient Ointment (Analgesic [place]) 1 morteza PRN QID PRN TP MUSCLE PAIN; Start 03/09/17 at 20:15; Stop 03/10/17 at 16:12; Status DC Al Hydroxide/Mg Hydroxide (Mylanta Plus Xs) 15 ml PRN AFTMEALHC PRN PO DYSPEPSIA; Start 03/09/17 at 20:15 Magnesium Hydroxide (Milk Of Magnesia) 2,400 mg PRN QHS PRN PO CONSTIPATION; Start 03/09/17 at 20:15; Stop 03/10/17 at 16:12; Status DC Buspirone HCl (Buspar) 10 mg TID PO Last administered on 03/21/17 15:05; Start 03/09/17 at 22:30 Divalproex Sodium (Depakote Sprinkles) 250 mg BID92 PO Last administered on 15:06; Start 03/10/17 at 09:00 Divalproex Sodium (Depakote Sprinkles) 375 mg HS PO Last administered on 20:01; Start 03/09/17 at 22:30 Donepezil HCl (Aricept) 10 mg DAILY PO Last administered on 03/18/17 10:31; Start 03/10/17 at 09:00; Stop 03/18/17 at 19:23; Status DC Haloperidol (Haldol) 2 mg PRN Q4HRS PRN PO AGITATION Last administered on 03/20 18:25; Start 03/09/17 at 22:15 Memantine (Namenda) 10 mg BID PO Last administered on 03/18/17 10:30; Start 03/09/17 at 22:30; Stop 03/18/17 at 19:23; Status DC Olanzapine (ZyPREXA ZYDIS) 2.5 mg PRN Q2HR PRN PO PSYCHOSIS Last administered on 03/18/17 10:33; Start 03/09/17 at 22:15 Sertraline HCl (Zoloft) 50 mg DAILY PO Last administered on 03/11/17 09:39; Start 03/10/17 at 09:00; Stop 03/11/17 at 18:11; Status DC Trazodone HCl (Desyrel) 50 mg QHS PO Last administered on 03/20/17 20:00; Start 03/10/17 at 21:00 Acetaminophen (Tylenol) 650 mg PRN Q6HRS PRN PO PAIN / TEMP Last administered on 03/11/17 09:50; Start 03/10/17 at 08:30 Amlodipine Besylate (Norvasc) 2.5 mg DAILY PO Last administered on 03/10/17 08 :43; Start 03/10/17 at 09:00; Stop 03/10/17 at 16:11; Status DC Cetirizine HCl (ZyrTEC) 10 mg DAILY PO Last administered on 03/21/17 09:51; Start 03/10/17 at 09:00 Magnesium Hydroxide (Milk Of Magnesia) 2,400 mg PRN QHS PRN PO CONSTIPATION; Start 03/10/17 at 08:30 Multi-Ingredient Ointment (Analgesic [place]) 1 morteza PRN QID PRN TP MUSCLE PAIN; Start 03/10/17 at 08:30 Sotalol HCl (Betapace) 80 mg BID PO Last administered on 03/21/17 09:50; Start 03/10/17 at 09:00 Warfarin Sodium (Coumadin) 2.5 mg DAILY16 PO Last administered on 03/13/17 16: 11; Start 03/10/17 at 16:00; Stop 03/14/17 at 14:02; Status DC Vitamin D (Vitamin D3) 2,000 unit DAILY PO Last administered on 03/21/17 09: 51; Start 03/10/17 at 09:00 Warfarin Sodium (Coumadin Per Pharmacy) 1 each PRN DAILY PRN MC SEE COMMENTS Last administered on 03/21/17 13:54; Start 03/10/17 at 08:30 Warfarin Sodium (Coumadin) 1 mg DAILY16 PO Last administered on 03/13/17 16:10 ; Start 03/10/17 at 16:00; Stop 03/14/17 at 14:02; Status DC Amlodipine Besylate (Norvasc) 2.5 mg DAILY PO Last administered on 03/21/17 09:49; Start 03/11/17 at 09:00 Sertraline HCl (Zoloft) 75 mg DAILY PO Last administered on 03/21/17 09:50; Start 03/12/17 at 09:00 Fosfomycin Tromethamine (Monurol) 3 gm 1X ONCE PO Last administered on 14:36; Start 03/12/17 at 12:00; Stop 03/12/17 at 12:01; Status DC Atorvastatin Calcium (Lipitor) 20 mg QHS PO Last administered on 03/20/17 20: 01; Start 03/13/17 at 21:00 Quetiapine Fumarate (SEROquel) 12.5 mg QHS PO Last administered on 03/15/17 19 :23; Start 03/13/17 at 21:00; Stop 03/16/17 at 17:40; Status DC Warfarin Sodium (Coumadin - No Dose Today) 1 each 1X WARF ONCE MC Last administered on 03/14/17 15:00; Start 03/14/17 at 16:00; Stop 03/14/17 at 16:01 ; Status DC Warfarin Sodium (Coumadin - No Dose Today) 1 each 1X WARF ONCE MC ; Start 03/15 at 16:00; Stop 03/15/17 at 16:01; Status DC Warfarin Sodium (Coumadin) 3 mg 1X WARF ONCE PO Last administered on 17:20; Start 03/16/17 at 16:00; Stop 03/16/17 at 16:01; Status DC Quetiapine Fumarate (SEROquel) 12.5 mg BID PO Last administered on 03/17/17 07 :38; Start 03/16/17 at 21:00; Stop 03/17/17 at 18:58; Status DC Warfarin Sodium (Coumadin) 5 mg 1X WARF ONCE PO Last administered on 16:18; Start 03/17/17 at 16:00; Stop 03/17/17 at 16:01; Status DC Quetiapine Fumarate (SEROquel) 12.5 mg TID@0900,1400,1700 PO Last administered on 03/21/17 17:14; Start 03/17/17 at 19:30; Stop 03/21/17 at 18:55; Status DC Warfarin Sodium (Coumadin) 3 mg DAILY16 PO Last administered on 03/20/17 17: 22; Start 03/18/17 at 16:00; Stop 03/21/17 at 13:49; Status DC Quetiapine Fumarate (SEROquel) 25 mg QHS PO Last administered on 03/18/17 20: 25; Start 03/18/17 at 21:00; Stop 03/19/17 at 19:04; Status DC Quetiapine Fumarate (SEROquel) 50 mg QHS PO Last administered on 03/20/17 20: 00; Start 03/19/17 at 21:00 Benzocaine (Ora-Jel Maximum) 1 morteza PRN QID PRN TP ORAL PAIN; Start 03/20/17 at 14:00 Warfarin Sodium (Coumadin - No Dose Today) 1 each 1X WARF ONCE MC ; Start at 16:00; Stop 03/21/17 at 16:01; Status DC Quetiapine Fumarate (SEROquel) 12.5 mg BID@0900,1400 PO ; Start 03/22/17 at 09: 00 Quetiapine Fumarate (SEROquel) 25 mg DAILY@1700 PO ; Start 03/22/17 at 17:00 Active Scripts Active Reported Warfarin Sodium 3 Mg Tablet 3.5 Mg PO Depakote Sprinkle (Divalproex Sodium) 125 Mg Cap.sprink 375 Mg PO HS Buspirone Hcl 10 Mg Tablet 10 Mg PO TID Norvasc (Amlodipine Besylate) 10 Mg Tablet 10 Mg PO DAILY Zyprexa Zydis (Olanzapine) 5 Mg Tab.rapdis 2.5 Mg PO PRN Q2HR PRN MDD 7.5mg Analgesic [place] (Methyl Salicylate/Menthol) 28 Gm Oint...g. 1 [place] TP PRN QID PRN Milk Of Magnesia (Magnesium Hydroxide) 400 Mg/5 Ml Oral.susp 2,400 Mg PO PRN QHS PRN Aricept (Donepezil Hcl) 10 Mg Tablet 10 Mg PO DAILY Cetirizine Hcl 10 Mg Tablet 10 Mg PO DAILY Tylenol (Acetaminophen) 325 Mg Tablet 650 Mg PO PRN Q6HRS PRN Vitamin D (Cholecalciferol (Vitamin D3)) 2,000 Unit Capsule 2,000 Units PO DAILY Betapace (Sotalol Hcl) 80 Mg Tablet 80 Mg PO BID Divalproex Sodium 125 Mg Cap.sprink 250 Mg PO BID92 Namenda (Memantine Hcl) 10 Mg Tablet 10 Mg PO BID Mag-Al Plus Xs Suspension (Mag Hydrox/Al Hydrox/Simeth) 30 Ml Oral.susp 15 Ml PO PRN AFTMEAL PRN Haloperidol 2 Mg Tablet 2 Mg PO PRN Q4HRS PRN Zoloft (Sertraline Hcl) 50 Mg Tablet 50 Mg PO DAILY Trazodone Hcl 50 Mg Tablet 50 Mg PO QHS GIVE WITH FOOD I have reviewed the current psychotropics carefully including drug interactions. Risk benefit ratio favors no change other than as noted in my dictated progress note. Diagnosis: Problems: (1) Dementia with behavioral disturbance (2) Anxiety disorder (3) Impulse control disorder (4) Dementia, vascular, with depression (5) Dementia, vascular, with delusions (6) Dementia in Alzheimer's disease with depression (7) Dementia in Alzheimer's disease with delusions ADAN GOMES MD Mar 21, 2017 20:11
[2017-03-21] MEDS: traZODone 50 MG TABLET. PO SCH (20:32)
[2017-03-21] MEDS: ATORVASTATIN CALCIUM 20 MG TABLET PO SCH (20:32)
[2017-03-21] MEDS: QUEtiapine 50 MG TABLET. PO SCH (20:32)
--- NOTE | 2017-03-22 05:40 | PN ---
DATE: 03/20/2017 PSYCHIATRIC PROGRESS NOTE This late entry 03/20/2017, covers elements not covered in my initial note 03/20/2017. I met with the patient evening of 03/20/2017. Overall, the patient remains confused, but per nursing report, has had a good day. Previous evening, she was resistive with care, better during the day on 03/20/2017. REVIEW OF SYSTEMS: Ambulation impaired, in a wheelchair. No CV, , pulmonary, eye, ENT system symptoms on review. I fed her part of her supper as she was having difficulty. MENTAL STATUS EXAM: Oriented to herself. Insight, judgment, recent and remote memory, attention, concentration, fund of knowledge poor, consistent with her diagnosis mentioned in my initial note. PLAN: No change in psychotropics from my initial note. MAN Saúl GOMES MD DR: FAISAL/alonso JOB#: [id number] / [id number]
[2017-03-22 05:59] VITALS: BP 173/77
[2017-03-22] MEDS: SERTRALINE 50 MG TABLET. PO SCH (09:07)
[2017-03-22] MEDS: SOTALOL 80 MG TABLET. PO SCH ×2 (09:07→20:54)
[2017-03-22] MEDS: DIVALPROEX 125 MG CAP.SPRINK PO SCH ×3 (09:07→20:36)
[2017-03-22] MEDS: busPIRone 10 MG TABLET. PO SCH ×3 (09:07→20:36)
[2017-03-22] MEDS: CHOLECALCIFEROL (VITAMIN D3) 1,000 UNIT TABLET PO SCH (09:08)
[2017-03-22] MEDS: CETIRIZINE HCL 10 MG TABLET PO SCH (09:08)
[2017-03-22] MEDS: amLODIPine BESYLATE 2.5 MG TABLET PO SCH (09:08)
[2017-03-22] MEDS: QUEtiapine 25 MG TABLET. PO SCH ×3 (09:09→17:00)
[2017-03-22] MEDS: HALOPERIDOL 2 MG TABLET PO PRN (12:02)
[2017-03-22] MEDS ORDERED: WARFARIN 3 MG TABLET. PO ONE (16:00)
[2017-03-22 16:44] VITALS: BP 114/78
--- NOTE | 2017-03-22 19:54 | PDOC ---
Exam Note: Vikram Note: Please also refer to the separate dictated note~for this date of service dictated separately.~Patient seen individually. Discussed the patient with Nursing staff reviewed the chart.~Reviewed interim history and current functioning. Reviewed vital signs,~Labs/ Radiology~and current medications noted below. Continue current treatment with the changes noted in the dictated addendum note Assessment: Vital Signs: Vital Signs Date Time Temp Pulse Resp B/P (MAP) Pulse Ox O2 Delivery O2 Flow Rate FiO2 03/22/17 16:44 97.5 65 18 114/78 (90) 99 03/20/17 16:02 Room Air I&O Intake and Output 03/22/17 07:00 Intake Total 900 ml Balance 900 ml Intake Oral 900 ml Labs: Laboratory Tests Test 03/22/17 09:43 Prothrombin Time 30.3 SEC (9.4-11.4) H Prothrombin Time INR 3.0 (0.9-1.1) H Current Medications: Meds: Current Medications Lidocaine/ Epinephrine (Xylocaine 2%-Epi 1:100,000) 20 ml 1X ONCE IJ ; Start 03/09/17 at 18:30; Stop 03/09/17 at 18:31; Status DC Cephalexin HCl (Keflex) 500 mg 1X ONCE PO Last administered on 03/09/17t 22:30 ; Start 03/09/17 at 19:30; Stop 03/09/17 at 19:32; Status DC Acetaminophen (Tylenol) 650 mg PRN Q6HRS PRN PO PAIN / TEMP; Start 03/09/17 at 20:15; Stop 03/10/17 at 16:10; Status DC Multi-Ingredient Ointment (Analgesic [place]) 1 morteza PRN QID PRN TP MUSCLE PAIN; Start 03/09/17 at 20:15; Stop 03/10/17 at 16:12; Status DC Al Hydroxide/Mg Hydroxide (Mylanta Plus Xs) 15 ml PRN AFTMEALHC PRN PO DYSPEPSIA; Start 03/09/17 at 20:15 Magnesium Hydroxide (Milk Of Magnesia) 2,400 mg PRN QHS PRN PO CONSTIPATION; Start 03/09/17 at 20:15; Stop 03/10/17 at 16:12; Status DC Buspirone HCl (Buspar) 10 mg TID PO Last administered on 03/22/17t 13:08; Start 03/09/17 at 22:30 Divalproex Sodium (Depakote Sprinkles) 250 mg BID92 PO Last administered on 13:08; Start 03/10/17 at 09:00 Divalproex Sodium (Depakote Sprinkles) 375 mg HS PO Last administered on 20:32; Start 03/09/17 at 22:30 Donepezil HCl (Aricept) 10 mg DAILY PO Last administered on 03/18/17 10:31; Start 03/10/17 at 09:00; Stop 03/18/17 at 19:23; Status DC Haloperidol (Haldol) 2 mg PRN Q4HRS PRN PO AGITATION Last administered on 03/22 12:02; Start 03/09/17 at 22:15 Memantine (Namenda) 10 mg BID PO Last administered on 03/18/17 10:30; Start 03/09/17 at 22:30; Stop 03/18/17 at 19:23; Status DC Olanzapine (ZyPREXA ZYDIS) 2.5 mg PRN Q2HR PRN PO PSYCHOSIS Last administered on 03/18/17 10:33; Start 03/09/17 at 22:15 Sertraline HCl (Zoloft) 50 mg DAILY PO Last administered on 03/11/17 09:39; Start 03/10/17 at 09:00; Stop 03/11/17 at 18:11; Status DC Trazodone HCl (Desyrel) 50 mg QHS PO Last administered on 03/21/17 20:32; Start 03/10/17 at 21:00 Acetaminophen (Tylenol) 650 mg PRN Q6HRS PRN PO PAIN / TEMP Last administered on 03/11/17 09:50; Start 03/10/17 at 08:30 Amlodipine Besylate (Norvasc) 2.5 mg DAILY PO Last administered on 03/10/17 08 :43; Start 03/10/17 at 09:00; Stop 03/10/17 at 16:11; Status DC Cetirizine HCl (ZyrTEC) 10 mg DAILY PO Last administered on 03/22/17 09:08; Start 03/10/17 at 09:00 Magnesium Hydroxide (Milk Of Magnesia) 2,400 mg PRN QHS PRN PO CONSTIPATION; Start 03/10/17 at 08:30 Multi-Ingredient Ointment (Analgesic [place]) 1 morteza PRN QID PRN TP MUSCLE PAIN; Start 03/10/17 at 08:30 Sotalol HCl (Betapace) 80 mg BID PO Last administered on 03/22/17 09:07; Start 03/10/17 at 09:00 Warfarin Sodium (Coumadin) 2.5 mg DAILY16 PO Last administered on 03/13/17 16: 11; Start 03/10/17 at 16:00; Stop 03/14/17 at 14:02; Status DC Vitamin D (Vitamin D3) 2,000 unit DAILY PO Last administered on 03/22/17 09: 08; Start 03/10/17 at 09:00 Warfarin Sodium (Coumadin Per Pharmacy) 1 each PRN DAILY PRN MC SEE COMMENTS Last administered on 03/22/17 14:24; Start 03/10/17 at 08:30 Warfarin Sodium (Coumadin) 1 mg DAILY16 PO Last administered on 03/13/17 16:10 ; Start 03/10/17 at 16:00; Stop 03/14/17 at 14:02; Status DC Amlodipine Besylate (Norvasc) 2.5 mg DAILY PO Last administered on 03/22/17 09:08; Start 03/11/17 at 09:00 Sertraline HCl (Zoloft) 75 mg DAILY PO Last administered on 03/22/17 09:07; Start 03/12/17 at 09:00 Fosfomycin Tromethamine (Monurol) 3 gm 1X ONCE PO Last administered on 14:36; Start 03/12/17 at 12:00; Stop 03/12/17 at 12:01; Status DC Atorvastatin Calcium (Lipitor) 20 mg QHS PO Last administered on 03/21/17 20: 32; Start 03/13/17 at 21:00 Quetiapine Fumarate (SEROquel) 12.5 mg QHS PO Last administered on 03/15/17 19 :23; Start 03/13/17 at 21:00; Stop 03/16/17 at 17:40; Status DC Warfarin Sodium (Coumadin - No Dose Today) 1 each 1X WARF ONCE MC Last administered on 03/14/17 15:00; Start 03/14/17 at 16:00; Stop 03/14/17 at 16:01 ; Status DC Warfarin Sodium (Coumadin - No Dose Today) 1 each 1X WARF ONCE MC ; Start 03/15 at 16:00; Stop 03/15/17 at 16:01; Status DC Warfarin Sodium (Coumadin) 3 mg 1X WARF ONCE PO Last administered on 17:20; Start 03/16/17 at 16:00; Stop 03/16/17 at 16:01; Status DC Quetiapine Fumarate (SEROquel) 12.5 mg BID PO Last administered on 03/17/17 07 :38; Start 03/16/17 at 21:00; Stop 03/17/17 at 18:58; Status DC Warfarin Sodium (Coumadin) 5 mg 1X WARF ONCE PO Last administered on 16:18; Start 03/17/17 at 16:00; Stop 03/17/17 at 16:01; Status DC Quetiapine Fumarate (SEROquel) 12.5 mg TID@0900,1400,1700 PO Last administered on 03/21/17 17:14; Start 03/17/17 at 19:30; Stop 03/21/17 at 18:55; Status DC Warfarin Sodium (Coumadin) 3 mg DAILY16 PO Last administered on 03/20/17 17: 22; Start 03/18/17 at 16:00; Stop 03/21/17 at 13:49; Status DC Quetiapine Fumarate (SEROquel) 25 mg QHS PO Last administered on 03/18/17 20: 25; Start 03/18/17 at 21:00; Stop 03/19/17 at 19:04; Status DC Quetiapine Fumarate (SEROquel) 50 mg QHS PO Last administered on 03/21/17 20: 32; Start 03/19/17 at 21:00 Benzocaine (Ora-Jel Maximum) 1 morteza PRN QID PRN TP ORAL PAIN; Start 03/20/17 at 14:00 Warfarin Sodium (Coumadin - No Dose Today) 1 each 1X WARF ONCE MC ; Start at 16:00; Stop 03/21/17 at 16:01; Status DC Quetiapine Fumarate (SEROquel) 12.5 mg BID@0900,1400 PO Last administered on 13:07; Start 03/22/17 at 09:00 Quetiapine Fumarate (SEROquel) 25 mg DAILY@1700 PO Last administered on 17:00; Start 03/22/17 at 17:00 Warfarin Sodium (Coumadin) 3 mg 1X WARF ONCE PO Last administered on 16:00; Start 03/22/17 at 16:00; Stop 03/22/17 at 16:01; Status DC Active Scripts Active Reported Warfarin Sodium 3 Mg Tablet 3.5 Mg PO Depakote Sprinkle (Divalproex Sodium) 125 Mg Cap.sprink 375 Mg PO HS Buspirone Hcl 10 Mg Tablet 10 Mg PO TID Norvasc (Amlodipine Besylate) 10 Mg Tablet 10 Mg PO DAILY Zyprexa Zydis (Olanzapine) 5 Mg Tab.rapdis 2.5 Mg PO PRN Q2HR PRN MDD 7.5mg Analgesic [place] (Methyl Salicylate/Menthol) 28 Gm Oint...g. 1 Morteza TP PRN QID PRN Milk Of Magnesia (Magnesium Hydroxide) 400 Mg/5 Ml Oral.susp 2,400 Mg PO PRN QHS PRN Aricept (Donepezil Hcl) 10 Mg Tablet 10 Mg PO DAILY Cetirizine Hcl 10 Mg Tablet 10 Mg PO DAILY Tylenol (Acetaminophen) 325 Mg Tablet 650 Mg PO PRN Q6HRS PRN Vitamin D (Cholecalciferol (Vitamin D3)) 2,000 Unit Capsule 2,000 Units PO DAILY Betapace (Sotalol Hcl) 80 Mg Tablet 80 Mg PO BID Divalproex Sodium 125 Mg Cap.sprink 250 Mg PO BID92 Namenda (Memantine Hcl) 10 Mg Tablet 10 Mg PO BID Mag-Al Plus Xs Suspension (Mag Hydrox/Al Hydrox/Simeth) 30 Ml Oral.susp 15 Ml PO PRN AFTMEAL PRN Haloperidol 2 Mg Tablet 2 Mg PO PRN Q4HRS PRN Zoloft (Sertraline Hcl) 50 Mg Tablet 50 Mg PO DAILY Trazodone Hcl 50 Mg Tablet 50 Mg PO QHS GIVE WITH FOOD I have reviewed the current psychotropics carefully including drug interactions. Risk benefit ratio favors no change other than as noted in my dictated progress note. Diagnosis: Problems: (1) Dementia with behavioral disturbance (2) Anxiety disorder (3) Impulse control disorder (4) Dementia, vascular, with depression (5) Dementia, vascular, with delusions (6) Dementia in Alzheimer's disease with depression (7) Dementia in Alzheimer's disease with delusions ADAN GOMES MD Mar 22, 2017 19:54
[2017-03-22] MEDS: ATORVASTATIN CALCIUM 20 MG TABLET PO SCH (20:35)
[2017-03-22] MEDS: traZODone 50 MG TABLET. PO SCH (20:35)
[2017-03-22] MEDS: QUEtiapine 50 MG TABLET. PO SCH (20:36)
[2017-03-23 05:43] VITALS: BP 165/95
[2017-03-23] MEDS: QUEtiapine 25 MG TABLET. PO SCH ×3 (08:44→17:21)
[2017-03-23] MEDS: CHOLECALCIFEROL (VITAMIN D3) 1,000 UNIT TABLET PO SCH (08:45)
[2017-03-23] MEDS: SERTRALINE 50 MG TABLET. PO SCH (08:45)
[2017-03-23] MEDS: CETIRIZINE HCL 10 MG TABLET PO SCH (08:45)
[2017-03-23] MEDS: busPIRone 10 MG TABLET. PO SCH ×3 (08:45→20:26)
[2017-03-23] MEDS: amLODIPine BESYLATE 2.5 MG TABLET PO SCH (08:45)
[2017-03-23] MEDS: DIVALPROEX 125 MG CAP.SPRINK PO SCH ×3 (08:46→20:27)
[2017-03-23] MEDS: SOTALOL 80 MG TABLET. PO SCH ×2 (08:46→20:26)
--- NOTE | 2017-03-23 10:19 | PN ---
DATE: 03/21/2017 This late entry 03/21/2017 covers elements not covered in my initial note 03/21/2017. I met with the patient evening of 03/21/2017. The patient was quite agitated previous evening, received Haldol at 6:30 p.m. She gets more psychotic, paranoid, confused late in the evening and this was evident on 03/21/2017 in the evening as well. REVIEW OF SYSTEMS: Ambulation impaired in wheelchair. She was shouting at another demented patient across the room as I met with her. No CV, , pulmonary, eye, ENT system symptoms on review. MENTAL STATUS EXAM: Oriented to herself. Insight, judgment, recent and remote memory, attention, concentration, fund of knowledge poor, consistent with her diagnosis mentioned in my initial note. PLAN: Continue current psychotropics, increase the 5 p.m. Seroquel to 25 mg from the current 12.5 mg. Review drug interactions, risks/benefit ratio favors no further change. ADAN GOMES MD DR: FAISAL/alonso JOB#: [id number] / [id number]
[2017-03-23] MEDS ORDERED: WARFARIN 3 MG TABLET. PO ONE (16:00)
[2017-03-23 16:02] VITALS: BP 150/71
--- NOTE | 2017-03-23 20:01 | PDOC ---
Exam Note: Vikram Note: Please also refer to the separate dictated note~for this date of service dictated separately.~Patient seen individually. Discussed the patient with Nursing staff reviewed the chart.~Reviewed interim history and current functioning. Reviewed vital signs,~Labs/ Radiology~and current medications noted below. Continue current treatment with the changes noted in the dictated addendum note Assessment: Vital Signs: Vital Signs Date Time Temp Pulse Resp B/P (MAP) Pulse Ox O2 Delivery O2 Flow Rate FiO2 03/23/17 16:02 97.5 60 16 150/71 (97) 95 03/20/17 16:02 Room Air I&O Intake and Output 03/23/17 07:00 Intake Total 840 ml Balance 840 ml Intake Oral 840 ml Labs: Laboratory Tests Test 03/23/17 06:57 Prothrombin Time 29.7 SEC (9.4-11.4) H Prothrombin Time INR 2.9 (0.9-1.1) H Current Medications: Meds: Current Medications Lidocaine/ Epinephrine (Xylocaine 2%-Epi 1:100,000) 20 ml 1X ONCE IJ ; Start 03/09/17 at 18:30; Stop 03/09/17 at 18:31; Status DC Cephalexin HCl (Keflex) 500 mg 1X ONCE PO Last administered on 03/09/17t 22:30 ; Start 03/09/17 at 19:30; Stop 03/09/17 at 19:32; Status DC Acetaminophen (Tylenol) 650 mg PRN Q6HRS PRN PO PAIN / TEMP; Start 03/09/17 at 20:15; Stop 03/10/17 at 16:10; Status DC Multi-Ingredient Ointment (Analgesic [place]) 1 morteza PRN QID PRN TP MUSCLE PAIN; Start 03/09/17 at 20:15; Stop 03/10/17 at 16:12; Status DC Al Hydroxide/Mg Hydroxide (Mylanta Plus Xs) 15 ml PRN AFTMEALHC PRN PO DYSPEPSIA; Start 03/09/17 at 20:15 Magnesium Hydroxide (Milk Of Magnesia) 2,400 mg PRN QHS PRN PO CONSTIPATION; Start 03/09/17 at 20:15; Stop 03/10/17 at 16:12; Status DC Buspirone HCl (Buspar) 10 mg TID PO Last administered on 03/23/17 12:44; Start 03/09/17 at 22:30 Divalproex Sodium (Depakote Sprinkles) 250 mg BID92 PO Last administered on 12:44; Start 03/10/17 at 09:00 Divalproex Sodium (Depakote Sprinkles) 375 mg HS PO Last administered on 20:36; Start 03/09/17 at 22:30 Donepezil HCl (Aricept) 10 mg DAILY PO Last administered on 03/18/17 10:31; Start 03/10/17 at 09:00; Stop 03/18/17 at 19:23; Status DC Haloperidol (Haldol) 2 mg PRN Q4HRS PRN PO AGITATION Last administered on 03/22 12:02; Start 03/09/17 at 22:15 Memantine (Namenda) 10 mg BID PO Last administered on 03/18/17 10:30; Start 03/09/17 at 22:30; Stop 03/18/17 at 19:23; Status DC Olanzapine (ZyPREXA ZYDIS) 2.5 mg PRN Q2HR PRN PO PSYCHOSIS Last administered on 03/18/17 10:33; Start 03/09/17 at 22:15 Sertraline HCl (Zoloft) 50 mg DAILY PO Last administered on 03/11/17 09:39; Start 03/10/17 at 09:00; Stop 03/11/17 at 18:11; Status DC Trazodone HCl (Desyrel) 50 mg QHS PO Last administered on 03/22/17 20:35; Start 03/10/17 at 21:00 Acetaminophen (Tylenol) 650 mg PRN Q6HRS PRN PO PAIN / TEMP Last administered on 03/11/17 09:50; Start 03/10/17 at 08:30 Amlodipine Besylate (Norvasc) 2.5 mg DAILY PO Last administered on 03/10/17 08 :43; Start 03/10/17 at 09:00; Stop 03/10/17 at 16:11; Status DC Cetirizine HCl (ZyrTEC) 10 mg DAILY PO Last administered on 03/23/17 08:45; Start 03/10/17 at 09:00 Magnesium Hydroxide (Milk Of Magnesia) 2,400 mg PRN QHS PRN PO CONSTIPATION; Start 03/10/17 at 08:30 Multi-Ingredient Ointment (Analgesic [place]) 1 morteza PRN QID PRN TP MUSCLE PAIN; Start 03/10/17 at 08:30 Sotalol HCl (Betapace) 80 mg BID PO Last administered on 03/23/17 08:46; Start 03/10/17 at 09:00 Warfarin Sodium (Coumadin) 2.5 mg DAILY16 PO Last administered on 03/13/17 16: 11; Start 03/10/17 at 16:00; Stop 03/14/17 at 14:02; Status DC Vitamin D (Vitamin D3) 2,000 unit DAILY PO Last administered on 03/23/17 08: 45; Start 03/10/17 at 09:00 Warfarin Sodium (Coumadin Per Pharmacy) 1 each PRN DAILY PRN MC SEE COMMENTS Last administered on 03/23/17 12:31; Start 03/10/17 at 08:30 Warfarin Sodium (Coumadin) 1 mg DAILY16 PO Last administered on 03/13/17 16:10 ; Start 03/10/17 at 16:00; Stop 03/14/17 at 14:02; Status DC Amlodipine Besylate (Norvasc) 2.5 mg DAILY PO Last administered on 03/23/17 08:45; Start 03/11/17 at 09:00 Sertraline HCl (Zoloft) 75 mg DAILY PO Last administered on 03/23/17 08:45; Start 03/12/17 at 09:00 Fosfomycin Tromethamine (Monurol) 3 gm 1X ONCE PO Last administered on 14:36; Start 03/12/17 at 12:00; Stop 03/12/17 at 12:01; Status DC Atorvastatin Calcium (Lipitor) 20 mg QHS PO Last administered on 03/22/17 20: 35; Start 03/13/17 at 21:00 Quetiapine Fumarate (SEROquel) 12.5 mg QHS PO Last administered on 03/15/17 19 :23; Start 03/13/17 at 21:00; Stop 03/16/17 at 17:40; Status DC Warfarin Sodium (Coumadin - No Dose Today) 1 each 1X WARF ONCE MC Last administered on 03/14/17 15:00; Start 03/14/17 at 16:00; Stop 03/14/17 at 16:01 ; Status DC Warfarin Sodium (Coumadin - No Dose Today) 1 each 1X WARF ONCE MC ; Start 03/15 at 16:00; Stop 03/15/17 at 16:01; Status DC Warfarin Sodium (Coumadin) 3 mg 1X WARF ONCE PO Last administered on 17:20; Start 03/16/17 at 16:00; Stop 03/16/17 at 16:01; Status DC Quetiapine Fumarate (SEROquel) 12.5 mg BID PO Last administered on 03/17/17 07 :38; Start 03/16/17 at 21:00; Stop 03/17/17 at 18:58; Status DC Warfarin Sodium (Coumadin) 5 mg 1X WARF ONCE PO Last administered on 16:18; Start 03/17/17 at 16:00; Stop 03/17/17 at 16:01; Status DC Quetiapine Fumarate (SEROquel) 12.5 mg TID@0900,1400,1700 PO Last administered on 03/21/17 17:14; Start 03/17/17 at 19:30; Stop 03/21/17 at 18:55; Status DC Warfarin Sodium (Coumadin) 3 mg DAILY16 PO Last administered on 03/20/17 17: 22; Start 03/18/17 at 16:00; Stop 03/21/17 at 13:49; Status DC Quetiapine Fumarate (SEROquel) 25 mg QHS PO Last administered on 03/18/17 20: 25; Start 03/18/17 at 21:00; Stop 03/19/17 at 19:04; Status DC Quetiapine Fumarate (SEROquel) 50 mg QHS PO Last administered on 03/22/17 20: 36; Start 03/19/17 at 21:00 Benzocaine (Ora-Jel Maximum) 1 morteza PRN QID PRN TP ORAL PAIN; Start 03/20/17 at 14:00 Warfarin Sodium (Coumadin - No Dose Today) 1 each 1X WARF ONCE MC ; Start at 16:00; Stop 03/21/17 at 16:01; Status DC Quetiapine Fumarate (SEROquel) 12.5 mg BID@0900,1400 PO Last administered on 12:44; Start 03/22/17 at 09:00 Quetiapine Fumarate (SEROquel) 25 mg DAILY@1700 PO Last administered on 17:21; Start 03/22/17 at 17:00 Warfarin Sodium (Coumadin) 3 mg 1X WARF ONCE PO Last administered on 16:00; Start 03/22/17 at 16:00; Stop 03/22/17 at 16:01; Status DC Warfarin Sodium (Coumadin) 3 mg 1X WARF ONCE PO Last administered on 17:21; Start 03/23/17 at 16:00; Stop 03/23/17 at 16:01; Status DC Active Scripts Active Reported Warfarin Sodium 3 Mg Tablet 3.5 Mg PO Depakote Sprinkle (Divalproex Sodium) 125 Mg Cap.sprink 375 Mg PO HS Buspirone Hcl 10 Mg Tablet 10 Mg PO TID Norvasc (Amlodipine Besylate) 10 Mg Tablet 10 Mg PO DAILY Zyprexa Zydis (Olanzapine) 5 Mg Tab.rapdis 2.5 Mg PO PRN Q2HR PRN MDD 7.5mg Analgesic [place] (Methyl Salicylate/Menthol) 28 Gm Oint...g. 1 [place] TP PRN QID PRN Milk Of Magnesia (Magnesium Hydroxide) 400 Mg/5 Ml Oral.susp 2,400 Mg PO PRN QHS PRN Aricept (Donepezil Hcl) 10 Mg Tablet 10 Mg PO DAILY Cetirizine Hcl 10 Mg Tablet 10 Mg PO DAILY Tylenol (Acetaminophen) 325 Mg Tablet 650 Mg PO PRN Q6HRS PRN Vitamin D (Cholecalciferol (Vitamin D3)) 2,000 Unit Capsule 2,000 Units PO DAILY Betapace (Sotalol Hcl) 80 Mg Tablet 80 Mg PO BID Divalproex Sodium 125 Mg Cap.sprink 250 Mg PO BID92 Namenda (Memantine Hcl) 10 Mg Tablet 10 Mg PO BID Mag-Al Plus Xs Suspension (Mag Hydrox/Al Hydrox/Simeth) 30 Ml Oral.susp 15 Ml PO PRN AFTMEAL PRN Haloperidol 2 Mg Tablet 2 Mg PO PRN Q4HRS PRN Zoloft (Sertraline Hcl) 50 Mg Tablet 50 Mg PO DAILY Trazodone Hcl 50 Mg Tablet 50 Mg PO QHS GIVE WITH FOOD I have reviewed the current psychotropics carefully including drug interactions. Risk benefit ratio favors no change other than as noted in my dictated progress note. Diagnosis: Problems: (1) Dementia with behavioral disturbance (2) Anxiety disorder (3) Impulse control disorder (4) Dementia, vascular, with depression (5) Dementia, vascular, with delusions (6) Dementia in Alzheimer's disease with depression (7) Dementia in Alzheimer's disease with delusions ADAN GOMES MD Mar 23, 2017 20:01
[2017-03-23] MEDS: traZODone 50 MG TABLET. PO SCH (20:25)
[2017-03-23] MEDS: QUEtiapine 50 MG TABLET. PO SCH (20:25)
[2017-03-23] MEDS: ATORVASTATIN CALCIUM 20 MG TABLET PO SCH (20:26)
[2017-03-24 05:47] VITALS: BP 180/83
--- NOTE | 2017-03-24 06:14 | PN ---
DATE: 03/22/2017 This is a late entry for date of service 03/22/2017 and covers elements not covered in my initial note of 03/22/2017. SUBJECTIVE: I met with the patient evening of 03/22/2017. The patient remains confused, slept 7-1/4 hours previous evening, resistive to medications, but did better in the shower on 03/22/2017. She was agitated with cares in the afternoon, received Haldol, did much better after that. REVIEW OF SYSTEMS: No CV, , pulmonary, eye, ENT system symptoms on review. Reliability poor. Gait unsteady, in a wheelchair. MENTAL STATUS EXAM: Oriented to herself. Insight, judgment, recent and remote memory, attention, concentration, fund of knowledge poor, consistent with her diagnoses as mentioned in my initial note. PLAN: Continue psychotropics mentioned in my initial note for now. MAN Saúl GOMES MD DR: FAISAL/alonso JOB#: [id number] / [id number]
[2017-03-24] MEDS: DIVALPROEX 125 MG CAP.SPRINK PO SCH ×3 (09:04→19:20)
[2017-03-24] MEDS: QUEtiapine 25 MG TABLET. PO SCH ×4 (09:04→19:31)
[2017-03-24] MEDS: CETIRIZINE HCL 10 MG TABLET PO SCH (09:04)
[2017-03-24] MEDS: busPIRone 10 MG TABLET. PO SCH ×3 (09:04→19:20)
[2017-03-24] MEDS: CHOLECALCIFEROL (VITAMIN D3) 1,000 UNIT TABLET PO SCH (09:04)
[2017-03-24] MEDS: SERTRALINE 50 MG TABLET. PO SCH (09:04)
[2017-03-24] MEDS: amLODIPine BESYLATE 2.5 MG TABLET PO SCH (09:05)
[2017-03-24] MEDS: SOTALOL 80 MG TABLET. PO SCH ×2 (09:06→19:21)
[2017-03-24] MEDS ORDERED: traZODone 50 MG TABLET. PO PRN (11:15)
[2017-03-24] MEDS ORDERED: WARFARIN 1 MG TABLET. PO ONE (16:00)
[2017-03-24 16:48] VITALS: BP 125/69
[2017-03-24] MEDS: ATORVASTATIN CALCIUM 20 MG TABLET PO SCH (19:20)
[2017-03-24] MEDS: traZODone 50 MG TABLET. PO SCH (19:20)
--- NOTE | 2017-03-24 20:18 | PDOC ---
Exam Note: Vikram Note: Please also refer to the separate dictated note~for this date of service dictated separately.~Patient seen individually. Discussed the patient with Nursing staff reviewed the chart.~Reviewed interim history and current functioning. Reviewed vital signs,~Labs/ Radiology~and current medications noted below. Continue current treatment with the changes noted in the dictated addendum note Assessment: Vital Signs: Vital Signs Date Time Temp Pulse Resp B/P (MAP) Pulse Ox O2 Delivery O2 Flow Rate FiO2 03/24/17 19:21 66 125/69 03/24/17 16:48 97.9 16 99 Room Air I&O Intake and Output 03/24/17 07:00 Intake Total 960 ml Balance 960 ml Intake Oral 960 ml # Bowel Movements 1 Labs: Laboratory Tests Test 03/24/17 09:20 Prothrombin Time 31.2 SEC (9.4-11.4) H Prothrombin Time INR 3.2 (0.9-1.1) H Current Medications: Meds: Current Medications Lidocaine/ Epinephrine (Xylocaine 2%-Epi 1:100,000) 20 ml 1X ONCE IJ ; Start 03/09/17 at 18:30; Stop 03/09/17 at 18:31; Status DC Cephalexin HCl (Keflex) 500 mg 1X ONCE PO Last administered on 03/09/17t 22:30 ; Start 03/09/17 at 19:30; Stop 03/09/17 at 19:32; Status DC Acetaminophen (Tylenol) 650 mg PRN Q6HRS PRN PO PAIN / TEMP; Start 03/09/17 at 20:15; Stop 03/10/17 at 16:10; Status DC Multi-Ingredient Ointment (Analgesic [place]) 1 morteza PRN QID PRN TP MUSCLE PAIN; Start 03/09/17 at 20:15; Stop 03/10/17 at 16:12; Status DC Al Hydroxide/Mg Hydroxide (Mylanta Plus Xs) 15 ml PRN AFTMEALHC PRN PO DYSPEPSIA; Start 03/09/17 at 20:15 Magnesium Hydroxide (Milk Of Magnesia) 2,400 mg PRN QHS PRN PO CONSTIPATION; Start 03/09/17 at 20:15; Stop 03/10/17 at 16:12; Status DC Buspirone HCl (Buspar) 10 mg TID PO Last administered on 03/24/17 19:20; Start 03/09/17 at 22:30 Divalproex Sodium (Depakote Sprinkles) 250 mg BID92 PO Last administered on 14:18; Start 03/10/17 at 09:00 Divalproex Sodium (Depakote Sprinkles) 375 mg HS PO Last administered on 19:20; Start 03/09/17 at 22:30 Donepezil HCl (Aricept) 10 mg DAILY PO Last administered on 03/18/17 10:31; Start 03/10/17 at 09:00; Stop 03/18/17 at 19:23; Status DC Haloperidol (Haldol) 2 mg PRN Q4HRS PRN PO AGITATION Last administered on 03/22 12:02; Start 03/09/17 at 22:15 Memantine (Namenda) 10 mg BID PO Last administered on 03/18/17 10:30; Start 03/09/17 at 22:30; Stop 03/18/17 at 19:23; Status DC Olanzapine (ZyPREXA ZYDIS) 2.5 mg PRN Q2HR PRN PO PSYCHOSIS Last administered on 03/18/17 10:33; Start 03/09/17 at 22:15 Sertraline HCl (Zoloft) 50 mg DAILY PO Last administered on 03/11/17 09:39; Start 03/10/17 at 09:00; Stop 03/11/17 at 18:11; Status DC Trazodone HCl (Desyrel) 50 mg QHS PO Last administered on 03/24/17 19:20; Start 03/10/17 at 21:00 Acetaminophen (Tylenol) 650 mg PRN Q6HRS PRN PO PAIN / TEMP Last administered on 03/11/17 09:50; Start 03/10/17 at 08:30 Amlodipine Besylate (Norvasc) 2.5 mg DAILY PO Last administered on 03/10/17 08 :43; Start 03/10/17 at 09:00; Stop 03/10/17 at 16:11; Status DC Cetirizine HCl (ZyrTEC) 10 mg DAILY PO Last administered on 03/24/17 09:04; Start 03/10/17 at 09:00 Magnesium Hydroxide (Milk Of Magnesia) 2,400 mg PRN QHS PRN PO CONSTIPATION; Start 03/10/17 at 08:30 Multi-Ingredient Ointment (Analgesic [place]) 1 morteza PRN QID PRN TP MUSCLE PAIN; Start 03/10/17 at 08:30 Sotalol HCl (Betapace) 80 mg BID PO Last administered on 03/24/17 19:21; Start 03/10/17 at 09:00 Warfarin Sodium (Coumadin) 2.5 mg DAILY16 PO Last administered on 03/13/17 16: 11; Start 03/10/17 at 16:00; Stop 03/14/17 at 14:02; Status DC Vitamin D (Vitamin D3) 2,000 unit DAILY PO Last administered on 03/24/17 09: 04; Start 03/10/17 at 09:00 Warfarin Sodium (Coumadin Per Pharmacy) 1 each PRN DAILY PRN MC SEE COMMENTS Last administered on 03/24/17 11:00; Start 03/10/17 at 08:30 Warfarin Sodium (Coumadin) 1 mg DAILY16 PO Last administered on 03/13/17 16:10 ; Start 03/10/17 at 16:00; Stop 03/14/17 at 14:02; Status DC Amlodipine Besylate (Norvasc) 2.5 mg DAILY PO Last administered on 03/24/17 09:05; Start 03/11/17 at 09:00 Sertraline HCl (Zoloft) 75 mg DAILY PO Last administered on 03/24/17 09:04; Start 03/12/17 at 09:00 Fosfomycin Tromethamine (Monurol) 3 gm 1X ONCE PO Last administered on 14:36; Start 03/12/17 at 12:00; Stop 03/12/17 at 12:01; Status DC Atorvastatin Calcium (Lipitor) 20 mg QHS PO Last administered on 03/24/17 19: 20; Start 03/13/17 at 21:00 Quetiapine Fumarate (SEROquel) 12.5 mg QHS PO Last administered on 03/15/17 19 :23; Start 03/13/17 at 21:00; Stop 03/16/17 at 17:40; Status DC Warfarin Sodium (Coumadin - No Dose Today) 1 each 1X WARF ONCE MC Last administered on 03/14/17 15:00; Start 03/14/17 at 16:00; Stop 03/14/17 at 16:01 ; Status DC Warfarin Sodium (Coumadin - No Dose Today) 1 each 1X WARF ONCE MC ; Start 03/15 at 16:00; Stop 03/15/17 at 16:01; Status DC Warfarin Sodium (Coumadin) 3 mg 1X WARF ONCE PO Last administered on 17:20; Start 03/16/17 at 16:00; Stop 03/16/17 at 16:01; Status DC Quetiapine Fumarate (SEROquel) 12.5 mg BID PO Last administered on 03/17/17 07 :38; Start 03/16/17 at 21:00; Stop 03/17/17 at 18:58; Status DC Warfarin Sodium (Coumadin) 5 mg 1X WARF ONCE PO Last administered on 16:18; Start 03/17/17 at 16:00; Stop 03/17/17 at 16:01; Status DC Quetiapine Fumarate (SEROquel) 12.5 mg TID@0900,1400,1700 PO Last administered on 03/21/17 17:14; Start 03/17/17 at 19:30; Stop 03/21/17 at 18:55; Status DC Warfarin Sodium (Coumadin) 3 mg DAILY16 PO Last administered on 03/20/17 17: 22; Start 03/18/17 at 16:00; Stop 03/21/17 at 13:49; Status DC Quetiapine Fumarate (SEROquel) 25 mg QHS PO Last administered on 03/18/17 20: 25; Start 03/18/17 at 21:00; Stop 03/19/17 at 19:04; Status DC Quetiapine Fumarate (SEROquel) 50 mg QHS PO Last administered on 03/23/17 20: 25; Start 03/19/17 at 21:00; Stop 03/24/17 at 11:12; Status DC Benzocaine (Ora-Jel Maximum) 1 morteza PRN QID PRN TP ORAL PAIN; Start 03/20/17 at 14:00 Warfarin Sodium (Coumadin - No Dose Today) 1 each 1X WARF ONCE MC ; Start at 16:00; Stop 03/21/17 at 16:01; Status DC Quetiapine Fumarate (SEROquel) 12.5 mg BID@0900,1400 PO Last administered on 14:17; Start 03/22/17 at 09:00 Quetiapine Fumarate (SEROquel) 25 mg DAILY@1700 PO Last administered on 16:41; Start 03/22/17 at 17:00 Warfarin Sodium (Coumadin) 3 mg 1X WARF ONCE PO Last administered on 16:00; Start 03/22/17 at 16:00; Stop 03/22/17 at 16:01; Status DC Warfarin Sodium (Coumadin) 3 mg 1X WARF ONCE PO Last administered on 17:21; Start 03/23/17 at 16:00; Stop 03/23/17 at 16:01; Status DC Warfarin Sodium (Coumadin) 1 mg 1X WARF ONCE PO Last administered on 16:41; Start 03/24/17 at 16:00; Stop 03/24/17 at 16:01; Status DC Warfarin Sodium (Coumadin) 2.5 mg 1X WARF ONCE PO ; Start 03/25/17 at 16:00; Stop 03/25/17 at 16:01 Quetiapine Fumarate (SEROquel) 62.5 mg QHS PO Last administered on 03/24/17 19:31; Start 03/24/17 at 21:00 Trazodone HCl (Desyrel) 50 mg PRN QHS PRN PO INSOMNIA; Start 03/24/17 at 11:15 Active Scripts Active Reported Warfarin Sodium 3 Mg Tablet 3.5 Mg PO Depakote Sprinkle (Divalproex Sodium) 125 Mg Cap.sprink 375 Mg PO HS Buspirone Hcl 10 Mg Tablet 10 Mg PO TID Norvasc (Amlodipine Besylate) 10 Mg Tablet 10 Mg PO DAILY Zyprexa Zydis (Olanzapine) 5 Mg Tab.rapdis 2.5 Mg PO PRN Q2HR PRN MDD 7.5mg Analgesic [place] (Methyl Salicylate/Menthol) 28 Gm Oint...g. 1 Morteza TP PRN QID PRN Milk Of Magnesia (Magnesium Hydroxide) 400 Mg/5 Ml Oral.susp 2,400 Mg PO PRN QHS PRN Aricept (Donepezil Hcl) 10 Mg Tablet 10 Mg PO DAILY Cetirizine Hcl 10 Mg Tablet 10 Mg PO DAILY Tylenol (Acetaminophen) 325 Mg Tablet 650 Mg PO PRN Q6HRS PRN Vitamin D (Cholecalciferol (Vitamin D3)) 2,000 Unit Capsule 2,000 Units PO DAILY Betapace (Sotalol Hcl) 80 Mg Tablet 80 Mg PO BID Divalproex Sodium 125 Mg Cap.sprink 250 Mg PO BID92 Namenda (Memantine Hcl) 10 Mg Tablet 10 Mg PO BID Mag-Al Plus Xs Suspension (Mag Hydrox/Al Hydrox/Simeth) 30 Ml Oral.susp 15 Ml PO PRN AFTMEAL PRN Haloperidol 2 Mg Tablet 2 Mg PO PRN Q4HRS PRN Zoloft (Sertraline Hcl) 50 Mg Tablet 50 Mg PO DAILY Trazodone Hcl 50 Mg Tablet 50 Mg PO QHS GIVE WITH FOOD I have reviewed the current psychotropics carefully including drug interactions. Risk benefit ratio favors no change other than as noted in my dictated progress note. Diagnosis: Problems: (1) Dementia with behavioral disturbance (2) Anxiety disorder (3) Impulse control disorder (4) Dementia, vascular, with depression (5) Dementia, vascular, with delusions (6) Dementia in Alzheimer's disease with depression (7) Dementia in Alzheimer's disease with delusions ADAN GOMES MD Mar 24, 2017 20:18
[2017-03-25 05:56] VITALS: BP 160/68
[2017-03-25 07:43] LABS: BASO % 0 % (0-3); EOS # 0.7 x10^3/uL (0.0-0.7); EOS % 10 % (0-3); HEMATOCRIT 30.7 % (36.0-47.0); HEMOGLOBIN 10.1 g/dL (12.0-15.5); LYMPH # 1.6 x10^3/uL (1.0-4.8); LYMPH % 24 % (24-48); MEAN CORPUSCULAR HEMOGLOBIN 32 pg (25-35); MEAN CORPUSCULAR HGB CONC 33 g/dL (31-37); MEAN CORPUSCULAR VOLUME 97 fL (79-100); MONO # 0.6 x10^3/uL (0.0-1.1); MONO % 10 % (0-9); NEUT # 3.7 x10^3uL (1.8-7.7); NEUT % 56 % (31-73); PLATELET COUNT 138 x10^3/uL (140-400); RED BLOOD COUNT 3.17 x10^6/uL (3.50-5.40); RED CELL DISTRIBUTION WIDTH 16.3 % (11.5-14.5); WHITE BLOOD COUNT 6.6 x10^3/uL (4.0-11.0)
[2017-03-25 07:59] LABS: ALBUMIN 2.5 g/dL (3.4-5.0); ALBUMIN/GLOBULIN RATIO 0.5 (1.0-1.7); CALCIUM 10.5 mg/dL (8.5-10.1); CREATININE 0.7 mg/dL (0.6-1.0); GFR 97.9; MAGNESIUM 1.8 mg/dL (1.8-2.4); TOTAL BILIRUBIN 0.4 mg/dL (0.2-1.0); TOTAL PROTEIN 7.2 g/dL (6.4-8.2)
[2017-03-25 08:01] LABS: VAL ACID 60 mcg/mL (50-100)
[2017-03-25] MEDS: DIVALPROEX 125 MG CAP.SPRINK PO SCH ×3 (08:19→19:32)
[2017-03-25] MEDS: CHOLECALCIFEROL (VITAMIN D3) 1,000 UNIT TABLET PO SCH (08:19)
[2017-03-25] MEDS: SOTALOL 80 MG TABLET. PO SCH ×2 (08:19→19:33)
[2017-03-25] MEDS: busPIRone 10 MG TABLET. PO SCH ×3 (08:19→19:32)
[2017-03-25] MEDS: QUEtiapine 25 MG TABLET. PO SCH ×4 (08:20→19:32)
[2017-03-25] MEDS: amLODIPine BESYLATE 2.5 MG TABLET PO SCH (08:20)
[2017-03-25] MEDS: SERTRALINE 50 MG TABLET. PO SCH (08:20)
[2017-03-25] MEDS: CETIRIZINE HCL 10 MG TABLET PO SCH (08:21)
[2017-03-25] MEDS: HALOPERIDOL 2 MG TABLET PO PRN (13:05)
[2017-03-25] MEDS ORDERED: WARFARIN 2.5 MG TABLET. PO ONE (16:00)
[2017-03-25 16:07] VITALS: BP 178/99
[2017-03-25] MEDS: traZODone 50 MG TABLET. PO SCH (19:32)
[2017-03-25] MEDS: ATORVASTATIN CALCIUM 20 MG TABLET PO SCH (19:32)
--- NOTE | 2017-03-25 20:02 | PDOC ---
Exam Note: Vikram Note: Please also refer to the separate dictated note~for this date of service dictated separately.~Patient seen individually. Discussed the patient with Nursing staff reviewed the chart.~Reviewed interim history and current functioning. Reviewed vital signs,~Labs/ Radiology~and current medications noted below. Continue current treatment with the changes noted in the dictated addendum note Assessment: Vital Signs: Vital Signs Date Time Temp Pulse Resp B/P (MAP) Pulse Ox O2 Delivery O2 Flow Rate FiO2 03/25/17 19:33 69 178/99 03/25/17 16:07 97.6 18 99 Room Air I&O Intake and Output 03/25/17 07:00 Intake Total 1560 ml Balance 1560 ml Intake Oral 1560 ml # Bowel Movements 2 Labs: Laboratory Tests Test 03/25/17 07:32 White Blood Count 6.6 x10^3/uL (4.0-11.0) Red Blood Count 3.17 x10^6/uL (3.50-5.40) L Hemoglobin 10.1 g/dL (12.0-15.5) L Hematocrit 30.7 % (36.0-47.0) L Mean Corpuscular Volume 97 fL (79-100) Mean Corpuscular Hemoglobin 32 pg (25-35) Mean Corpuscular Hemoglobin Concent 33 g/dL (31-37) Red Cell Distribution Width 16.3 % (11.5-14.5) H Platelet Count 138 x10^3/uL (140-400) L Neutrophils (%) (Auto) 56 % (31-73) Lymphocytes (%) (Auto) 24 % (24-48) Monocytes (%) (Auto) 10 % (0-9) H Eosinophils (%) (Auto) 10 % (0-3) H Basophils (%) (Auto) 0 % (0-3) Neutrophils # (Auto) 3.7 x10^3uL (1.8-7.7) Lymphocytes # (Auto) 1.6 x10^3/uL (1.0-4.8) Monocytes # (Auto) 0.6 x10^3/uL (0.0-1.1) Eosinophils # (Auto) 0.7 x10^3/uL (0.0-0.7) Basophils # (Auto) 0.0 x10^3/uL (0.0-0.2) Sodium Level 146 mmol/L (136-145) H Potassium Level 4.0 mmol/L (3.5-5.1) Chloride Level 106 mmol/L (98-107) Carbon Dioxide Level 35 mmol/L (21-32) H Anion Gap 5 (6-14) L Blood Urea Nitrogen 22 mg/dL (7-20) H Creatinine 0.7 mg/dL (0.6-1.0) Estimated GFR (Cockcroft-Gault) 97.9 BUN/Creatinine Ratio 31 (6-20) H Glucose Level 88 mg/dL (70-99) Calcium Level 10.5 mg/dL (8.5-10.1) H Magnesium Level 1.8 mg/dL (1.8-2.4) Total Bilirubin 0.4 mg/dL (0.2-1.0) Aspartate Amino Transferase (AST) 26 U/L (15-37) Alanine Aminotransferase (ALT) 26 U/L (14-59) Alkaline Phosphatase 104 U/L (46-116) Total Protein 7.2 g/dL (6.4-8.2) Albumin 2.5 g/dL (3.4-5.0) L Albumin/Globulin Ratio 0.5 (1.0-1.7) L Valproic Acid Level 60 mcg/mL (50-100) Valproic Acid Last Dose Date 03/24/17 Valproic Acid Last Dose Time 2100 Current Medications: Meds: Current Medications Lidocaine/ Epinephrine (Xylocaine 2%-Epi 1:100,000) 20 ml 1X ONCE IJ ; Start 03/09/17 at 18:30; Stop 03/09/17 at 18:31; Status DC Cephalexin HCl (Keflex) 500 mg 1X ONCE PO Last administered on 03/09/17t 22:30 ; Start 03/09/17 at 19:30; Stop 03/09/17 at 19:32; Status DC Acetaminophen (Tylenol) 650 mg PRN Q6HRS PRN PO PAIN / TEMP; Start 03/09/17 at 20:15; Stop 03/10/17 at 16:10; Status DC Multi-Ingredient Ointment (Analgesic [place]) 1 morteza PRN QID PRN TP MUSCLE PAIN; Start 03/09/17 at 20:15; Stop 03/10/17 at 16:12; Status DC Al Hydroxide/Mg Hydroxide (Mylanta Plus Xs) 15 ml PRN AFTMEALHC PRN PO DYSPEPSIA; Start 03/09/17 at 20:15 Magnesium Hydroxide (Milk Of Magnesia) 2,400 mg PRN QHS PRN PO CONSTIPATION; Start 03/09/17 at 20:15; Stop 03/10/17 at 16:12; Status DC Buspirone HCl (Buspar) 10 mg TID PO Last administered on 03/25/17 19:32; Start 03/09/17 at 22:30 Divalproex Sodium (Depakote Sprinkles) 250 mg BID92 PO Last administered on 14:05; Start 03/10/17 at 09:00 Divalproex Sodium (Depakote Sprinkles) 375 mg HS PO Last administered on 19:32; Start 03/09/17 at 22:30 Donepezil HCl (Aricept) 10 mg DAILY PO Last administered on 03/18/17 10:31; Start 03/10/17 at 09:00; Stop 03/18/17 at 19:23; Status DC Haloperidol (Haldol) 2 mg PRN Q4HRS PRN PO AGITATION Last administered on 03/25 13:05; Start 03/09/17 at 22:15 Memantine (Namenda) 10 mg BID PO Last administered on 03/18/17 10:30; Start 03/09/17 at 22:30; Stop 03/18/17 at 19:23; Status DC Olanzapine (ZyPREXA ZYDIS) 2.5 mg PRN Q2HR PRN PO PSYCHOSIS Last administered on 03/18/17 10:33; Start 03/09/17 at 22:15 Sertraline HCl (Zoloft) 50 mg DAILY PO Last administered on 03/11/17 09:39; Start 03/10/17 at 09:00; Stop 03/11/17 at 18:11; Status DC Trazodone HCl (Desyrel) 50 mg QHS PO Last administered on 03/25/17 19:32; Start 03/10/17 at 21:00 Acetaminophen (Tylenol) 650 mg PRN Q6HRS PRN PO PAIN / TEMP Last administered on 03/11/17 09:50; Start 03/10/17 at 08:30 Amlodipine Besylate (Norvasc) 2.5 mg DAILY PO Last administered on 03/10/17 08 :43; Start 03/10/17 at 09:00; Stop 03/10/17 at 16:11; Status DC Cetirizine HCl (ZyrTEC) 10 mg DAILY PO Last administered on 03/25/17 08:21; Start 03/10/17 at 09:00 Magnesium Hydroxide (Milk Of Magnesia) 2,400 mg PRN QHS PRN PO CONSTIPATION; Start 03/10/17 at 08:30 Multi-Ingredient Ointment (Analgesic [place]) 1 morteza PRN QID PRN TP MUSCLE PAIN; Start 03/10/17 at 08:30 Sotalol HCl (Betapace) 80 mg BID PO Last administered on 03/25/17 19:33; Start 03/10/17 at 09:00 Warfarin Sodium (Coumadin) 2.5 mg DAILY16 PO Last administered on 03/13/17 16: 11; Start 03/10/17 at 16:00; Stop 03/14/17 at 14:02; Status DC Vitamin D (Vitamin D3) 2,000 unit DAILY PO Last administered on 03/25/17 08: 19; Start 03/10/17 at 09:00 Warfarin Sodium (Coumadin Per Pharmacy) 1 each PRN DAILY PRN MC SEE COMMENTS Last administered on 03/24/17 11:00; Start 03/10/17 at 08:30 Warfarin Sodium (Coumadin) 1 mg DAILY16 PO Last administered on 03/13/17 16:10 ; Start 03/10/17 at 16:00; Stop 03/14/17 at 14:02; Status DC Amlodipine Besylate (Norvasc) 2.5 mg DAILY PO Last administered on 03/25/17 08:20; Start 03/11/17 at 09:00 Sertraline HCl (Zoloft) 75 mg DAILY PO Last administered on 03/25/17 08:20; Start 03/12/17 at 09:00 Fosfomycin Tromethamine (Monurol) 3 gm 1X ONCE PO Last administered on 14:36; Start 03/12/17 at 12:00; Stop 03/12/17 at 12:01; Status DC Atorvastatin Calcium (Lipitor) 20 mg QHS PO Last administered on 03/25/17 19: 32; Start 03/13/17 at 21:00 Quetiapine Fumarate (SEROquel) 12.5 mg QHS PO Last administered on 03/15/17 19 :23; Start 03/13/17 at 21:00; Stop 03/16/17 at 17:40; Status DC Warfarin Sodium (Coumadin - No Dose Today) 1 each 1X WARF ONCE MC Last administered on 03/14/17 15:00; Start 03/14/17 at 16:00; Stop 03/14/17 at 16:01 ; Status DC Warfarin Sodium (Coumadin - No Dose Today) 1 each 1X WARF ONCE MC ; Start 03/15 at 16:00; Stop 03/15/17 at 16:01; Status DC Warfarin Sodium (Coumadin) 3 mg 1X WARF ONCE PO Last administered on 17:20; Start 03/16/17 at 16:00; Stop 03/16/17 at 16:01; Status DC Quetiapine Fumarate (SEROquel) 12.5 mg BID PO Last administered on 03/17/17 07 :38; Start 03/16/17 at 21:00; Stop 03/17/17 at 18:58; Status DC Warfarin Sodium (Coumadin) 5 mg 1X WARF ONCE PO Last administered on 16:18; Start 03/17/17 at 16:00; Stop 03/17/17 at 16:01; Status DC Quetiapine Fumarate (SEROquel) 12.5 mg TID@0900,1400,1700 PO Last administered on 03/21/17 17:14; Start 03/17/17 at 19:30; Stop 03/21/17 at 18:55; Status DC Warfarin Sodium (Coumadin) 3 mg DAILY16 PO Last administered on 03/20/17 17: 22; Start 03/18/17 at 16:00; Stop 03/21/17 at 13:49; Status DC Quetiapine Fumarate (SEROquel) 25 mg QHS PO Last administered on 03/18/17 20: 25; Start 03/18/17 at 21:00; Stop 03/19/17 at 19:04; Status DC Quetiapine Fumarate (SEROquel) 50 mg QHS PO Last administered on 03/23/17 20: 25; Start 03/19/17 at 21:00; Stop 03/24/17 at 11:12; Status DC Benzocaine (Ora-Jel Maximum) 1 morteza PRN QID PRN TP ORAL PAIN; Start 03/20/17 at 14:00 Warfarin Sodium (Coumadin - No Dose Today) 1 each 1X WARF ONCE MC ; Start at 16:00; Stop 03/21/17 at 16:01; Status DC Quetiapine Fumarate (SEROquel) 12.5 mg BID@0900,1400 PO Last administered on 14:05; Start 03/22/17 at 09:00; Stop 03/25/17 at 18:43; Status DC Quetiapine Fumarate (SEROquel) 25 mg DAILY@1700 PO Last administered on 16:57; Start 03/22/17 at 17:00; Stop 03/25/17 at 18:43; Status DC Warfarin Sodium (Coumadin) 3 mg 1X WARF ONCE PO Last administered on 16:00; Start 03/22/17 at 16:00; Stop 03/22/17 at 16:01; Status DC Warfarin Sodium (Coumadin) 3 mg 1X WARF ONCE PO Last administered on 17:21; Start 03/23/17 at 16:00; Stop 03/23/17 at 16:01; Status DC Warfarin Sodium (Coumadin) 1 mg 1X WARF ONCE PO Last administered on 16:41; Start 03/24/17 at 16:00; Stop 03/24/17 at 16:01; Status DC Warfarin Sodium (Coumadin) 2.5 mg 1X WARF ONCE PO Last administered on 16:58; Start 03/25/17 at 16:00; Stop 03/25/17 at 16:01; Status DC Quetiapine Fumarate (SEROquel) 62.5 mg QHS PO Last administered on 03/25/17 19:32; Start 03/24/17 at 21:00 Trazodone HCl (Desyrel) 50 mg PRN QHS PRN PO INSOMNIA; Start 03/24/17 at 11:15 Quetiapine Fumarate (SEROquel) 12.5 mg DAILY@1400 PO ; Start 03/26/17 at 14:00 Quetiapine Fumarate (SEROquel) 25 mg BID@0900,1700 PO ; Start 03/26/17 at 09:00 Active Scripts Active Reported Warfarin Sodium 3 Mg Tablet 3.5 Mg PO Depakote Sprinkle (Divalproex Sodium) 125 Mg Cap.sprink 375 Mg PO HS Buspirone Hcl 10 Mg Tablet 10 Mg PO TID Norvasc (Amlodipine Besylate) 10 Mg Tablet 10 Mg PO DAILY Zyprexa Zydis (Olanzapine) 5 Mg Tab.rapdis 2.5 Mg PO PRN Q2HR PRN MDD 7.5mg Analgesic Bacl[place] (Methyl Salicylate/Menthol) 28 Gm Oint...g. 1 Morteza TP PRN QID PRN Milk Of Magnesia (Magnesium Hydroxide) 400 Mg/5 Ml Oral.susp 2,400 Mg PO PRN QHS PRN Aricept (Donepezil Hcl) 10 Mg Tablet 10 Mg PO DAILY Cetirizine Hcl 10 Mg Tablet 10 Mg PO DAILY Tylenol (Acetaminophen) 325 Mg Tablet 650 Mg PO PRN Q6HRS PRN Vitamin D (Cholecalciferol (Vitamin D3)) 2,000 Unit Capsule 2,000 Units PO DAILY Betapace (Sotalol Hcl) 80 Mg Tablet 80 Mg PO BID Divalproex Sodium 125 Mg Cap.sprink 250 Mg PO BID92 Namenda (Memantine Hcl) 10 Mg Tablet 10 Mg PO BID Mag-Al Plus Xs Suspension (Mag Hydrox/Al Hydrox/Simeth) 30 Ml Oral.susp 15 Ml PO PRN AFTMEAL PRN Haloperidol 2 Mg Tablet 2 Mg PO PRN Q4HRS PRN Zoloft (Sertraline Hcl) 50 Mg Tablet 50 Mg PO DAILY Trazodone Hcl 50 Mg Tablet 50 Mg PO QHS GIVE WITH FOOD I have reviewed the current psychotropics carefully including drug interactions. Risk benefit ratio favors no change other than as noted in my dictated progress note. Diagnosis: Problems: (1) Dementia with behavioral disturbance (2) Anxiety disorder (3) Impulse control disorder (4) Dementia, vascular, with depression (5) Dementia, vascular, with delusions (6) Dementia in Alzheimer's disease with depression (7) Dementia in Alzheimer's disease with delusions ADAN GOMES MD Mar 25, 2017 20:02
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
[2017-03-26 05:48] VITALS: BP 149/79
[2017-03-26] MEDS: DIVALPROEX 125 MG CAP.SPRINK PO SCH ×3 (07:51→19:35)
[2017-03-26] MEDS: CETIRIZINE HCL 10 MG TABLET PO SCH (07:51)
[2017-03-26] MEDS: amLODIPine BESYLATE 2.5 MG TABLET PO SCH (07:51)
[2017-03-26] MEDS: CHOLECALCIFEROL (VITAMIN D3) 1,000 UNIT TABLET PO SCH (07:52)
[2017-03-26] MEDS: SOTALOL 80 MG TABLET. PO SCH ×2 (07:52→19:37)
[2017-03-26] MEDS: SERTRALINE 50 MG TABLET. PO SCH (07:53)
[2017-03-26] MEDS: busPIRone 10 MG TABLET. PO SCH ×3 (07:53→19:35)
[2017-03-26] MEDS: QUEtiapine 25 MG TABLET. PO SCH ×4 (07:55→19:35)
[2017-03-26 15:59] VITALS: BP 134/78
[2017-03-26] MEDS: traZODone 50 MG TABLET. PO SCH (19:35)
[2017-03-26] MEDS: ATORVASTATIN CALCIUM 20 MG TABLET PO SCH (19:35)
--- NOTE | 2017-03-26 21:12 | PDOC ---
Exam Note: Vikram Note: Please also refer to the separate dictated note~for this date of service dictated separately.~Patient seen individually. Discussed the patient with Nursing staff reviewed the chart.~Reviewed interim history and current functioning. Reviewed vital signs,~Labs/ Radiology~and current medications noted below. Continue current treatment with the changes noted in the dictated addendum note Assessment: Vital Signs: Vital Signs Date Time Temp Pulse Resp B/P (MAP) Pulse Ox O2 Delivery O2 Flow Rate FiO2 03/26/17 19:37 69 134/78 03/26/17 15:59 97.6 18 98 03/25/17 16:07 Room Air I&O Intake and Output 03/26/17 07:00 Intake Total 1440 ml Balance 1440 ml Intake Oral 1440 ml Labs: Laboratory Tests Test 03/26/17 06:31 Prothrombin Time 35.1 SEC (9.4-11.4) H Prothrombin Time INR 3.5 (0.9-1.1) H Current Medications: Meds: Current Medications Lidocaine/ Epinephrine (Xylocaine 2%-Epi 1:100,000) 20 ml 1X ONCE IJ ; Start 03/09/17 at 18:30; Stop 03/09/17 at 18:31; Status DC Cephalexin HCl (Keflex) 500 mg 1X ONCE PO Last administered on 03/09/17t 22:30 ; Start 03/09/17 at 19:30; Stop 03/09/17 at 19:32; Status DC Acetaminophen (Tylenol) 650 mg PRN Q6HRS PRN PO PAIN / TEMP; Start 03/09/17 at 20:15; Stop 03/10/17 at 16:10; Status DC Multi-Ingredient Ointment (Analgesic [place]) 1 morteza PRN QID PRN TP MUSCLE PAIN; Start 03/09/17 at 20:15; Stop 03/10/17 at 16:12; Status DC Al Hydroxide/Mg Hydroxide (Mylanta Plus Xs) 15 ml PRN AFTMEALHC PRN PO DYSPEPSIA; Start 03/09/17 at 20:15 Magnesium Hydroxide (Milk Of Magnesia) 2,400 mg PRN QHS PRN PO CONSTIPATION; Start 03/09/17 at 20:15; Stop 03/10/17 at 16:12; Status DC Buspirone HCl (Buspar) 10 mg TID PO Last administered on 03/26/17 19:35; Start 03/09/17 at 22:30 Divalproex Sodium (Depakote Sprinkles) 250 mg BID92 PO Last administered on 14:57; Start 03/10/17 at 09:00 Divalproex Sodium (Depakote Sprinkles) 375 mg HS PO Last administered on 19:35; Start 03/09/17 at 22:30 Donepezil HCl (Aricept) 10 mg DAILY PO Last administered on 03/18/17 10:31; Start 03/10/17 at 09:00; Stop 03/18/17 at 19:23; Status DC Haloperidol (Haldol) 2 mg PRN Q4HRS PRN PO AGITATION Last administered on 03/25 13:05; Start 03/09/17 at 22:15 Memantine (Namenda) 10 mg BID PO Last administered on 03/18/17 10:30; Start 03/09/17 at 22:30; Stop 03/18/17 at 19:23; Status DC Olanzapine (ZyPREXA ZYDIS) 2.5 mg PRN Q2HR PRN PO PSYCHOSIS Last administered on 03/18/17 10:33; Start 03/09/17 at 22:15 Sertraline HCl (Zoloft) 50 mg DAILY PO Last administered on 03/11/17 09:39; Start 03/10/17 at 09:00; Stop 03/11/17 at 18:11; Status DC Trazodone HCl (Desyrel) 50 mg QHS PO Last administered on 03/26/17 19:35; Start 03/10/17 at 21:00 Acetaminophen (Tylenol) 650 mg PRN Q6HRS PRN PO PAIN / TEMP Last administered on 03/11/17 09:50; Start 03/10/17 at 08:30 Amlodipine Besylate (Norvasc) 2.5 mg DAILY PO Last administered on 03/10/17 08 :43; Start 03/10/17 at 09:00; Stop 03/10/17 at 16:11; Status DC Cetirizine HCl (ZyrTEC) 10 mg DAILY PO Last administered on 03/26/17 07:51; Start 03/10/17 at 09:00 Magnesium Hydroxide (Milk Of Magnesia) 2,400 mg PRN QHS PRN PO CONSTIPATION; Start 03/10/17 at 08:30 Multi-Ingredient Ointment (Analgesic [place]) 1 morteza PRN QID PRN TP MUSCLE PAIN; Start 03/10/17 at 08:30 Sotalol HCl (Betapace) 80 mg BID PO Last administered on 03/26/17 19:37; Start 03/10/17 at 09:00 Warfarin Sodium (Coumadin) 2.5 mg DAILY16 PO Last administered on 03/13/17 16: 11; Start 03/10/17 at 16:00; Stop 03/14/17 at 14:02; Status DC Vitamin D (Vitamin D3) 2,000 unit DAILY PO Last administered on 03/26/17 07: 52; Start 03/10/17 at 09:00 Warfarin Sodium (Coumadin Per Pharmacy) 1 each PRN DAILY PRN MC SEE COMMENTS Last administered on 03/24/17 11:00; Start 03/10/17 at 08:30 Warfarin Sodium (Coumadin) 1 mg DAILY16 PO Last administered on 03/13/17 16:10 ; Start 03/10/17 at 16:00; Stop 03/14/17 at 14:02; Status DC Amlodipine Besylate (Norvasc) 2.5 mg DAILY PO Last administered on 03/26/17 07:51; Start 03/11/17 at 09:00 Sertraline HCl (Zoloft) 75 mg DAILY PO Last administered on 03/26/17 07:53; Start 03/12/17 at 09:00 Fosfomycin Tromethamine (Monurol) 3 gm 1X ONCE PO Last administered on 14:36; Start 03/12/17 at 12:00; Stop 03/12/17 at 12:01; Status DC Atorvastatin Calcium (Lipitor) 20 mg QHS PO Last administered on 03/26/17 19: 35; Start 03/13/17 at 21:00 Quetiapine Fumarate (SEROquel) 12.5 mg QHS PO Last administered on 03/15/17 19 :23; Start 03/13/17 at 21:00; Stop 03/16/17 at 17:40; Status DC Warfarin Sodium (Coumadin - No Dose Today) 1 each 1X WARF ONCE MC Last administered on 03/14/17 15:00; Start 03/14/17 at 16:00; Stop 03/14/17 at 16:01 ; Status DC Warfarin Sodium (Coumadin - No Dose Today) 1 each 1X WARF ONCE MC ; Start 03/15 at 16:00; Stop 03/15/17 at 16:01; Status DC Warfarin Sodium (Coumadin) 3 mg 1X WARF ONCE PO Last administered on 17:20; Start 03/16/17 at 16:00; Stop 03/16/17 at 16:01; Status DC Quetiapine Fumarate (SEROquel) 12.5 mg BID PO Last administered on 03/17/17 07 :38; Start 03/16/17 at 21:00; Stop 03/17/17 at 18:58; Status DC Warfarin Sodium (Coumadin) 5 mg 1X WARF ONCE PO Last administered on 16:18; Start 03/17/17 at 16:00; Stop 03/17/17 at 16:01; Status DC Quetiapine Fumarate (SEROquel) 12.5 mg TID@0900,1400,1700 PO Last administered on 03/21/17 17:14; Start 03/17/17 at 19:30; Stop 03/21/17 at 18:55; Status DC Warfarin Sodium (Coumadin) 3 mg DAILY16 PO Last administered on 03/20/17 17: 22; Start 03/18/17 at 16:00; Stop 03/21/17 at 13:49; Status DC Quetiapine Fumarate (SEROquel) 25 mg QHS PO Last administered on 03/18/17 20: 25; Start 03/18/17 at 21:00; Stop 03/19/17 at 19:04; Status DC Quetiapine Fumarate (SEROquel) 50 mg QHS PO Last administered on 03/23/17 20: 25; Start 03/19/17 at 21:00; Stop 03/24/17 at 11:12; Status DC Benzocaine (Ora-Jel Maximum) 1 morteza PRN QID PRN TP ORAL PAIN; Start 03/20/17 at 14:00 Warfarin Sodium (Coumadin - No Dose Today) 1 each 1X WARF ONCE MC ; Start at 16:00; Stop 03/21/17 at 16:01; Status DC Quetiapine Fumarate (SEROquel) 12.5 mg BID@0900,1400 PO Last administered on 14:05; Start 03/22/17 at 09:00; Stop 03/25/17 at 18:43; Status DC Quetiapine Fumarate (SEROquel) 25 mg DAILY@1700 PO Last administered on 16:57; Start 03/22/17 at 17:00; Stop 03/25/17 at 18:43; Status DC Warfarin Sodium (Coumadin) 3 mg 1X WARF ONCE PO Last administered on 16:00; Start 03/22/17 at 16:00; Stop 03/22/17 at 16:01; Status DC Warfarin Sodium (Coumadin) 3 mg 1X WARF ONCE PO Last administered on 17:21; Start 03/23/17 at 16:00; Stop 03/23/17 at 16:01; Status DC Warfarin Sodium (Coumadin) 1 mg 1X WARF ONCE PO Last administered on 16:41; Start 03/24/17 at 16:00; Stop 03/24/17 at 16:01; Status DC Warfarin Sodium (Coumadin) 2.5 mg 1X WARF ONCE PO Last administered on 16:58; Start 03/25/17 at 16:00; Stop 03/25/17 at 16:01; Status DC Quetiapine Fumarate (SEROquel) 62.5 mg QHS PO Last administered on 03/26/17 19:35; Start 03/24/17 at 21:00 Trazodone HCl (Desyrel) 50 mg PRN QHS PRN PO INSOMNIA; Start 03/24/17 at 11:15 Quetiapine Fumarate (SEROquel) 12.5 mg DAILY@1400 PO Last administered on 03/26 14:57; Start 03/26/17 at 14:00 Quetiapine Fumarate (SEROquel) 25 mg BID@0900,1700 PO Last administered on 17:33; Start 03/26/17 at 09:00 Warfarin Sodium (Coumadin - No Dose Today) 1 each 1X WARF ONCE MC Last administered on 03/26/17t 15:57; Start 03/26/17 at 16:00; Stop 03/26/17 at 16 :01; Status DC Warfarin Sodium (Coumadin) 2 mg DAILY16 PO ; Start 03/27/17 at 16:00 Active Scripts Active Reported Warfarin Sodium 3 Mg Tablet 3.5 Mg PO Depakote Sprinkle (Divalproex Sodium) 125 Mg Cap.sprink 375 Mg PO HS Buspirone Hcl 10 Mg Tablet 10 Mg PO TID Norvasc (Amlodipine Besylate) 10 Mg Tablet 10 Mg PO DAILY Zyprexa Zydis (Olanzapine) 5 Mg Tab.rapdis 2.5 Mg PO PRN Q2HR PRN MDD 7.5mg Analgesic [place] (Methyl Salicylate/Menthol) 28 Gm Oint...g. 1 Morteza TP PRN QID PRN Milk Of Magnesia (Magnesium Hydroxide) 400 Mg/5 Ml Oral.susp 2,400 Mg PO PRN QHS PRN Aricept (Donepezil Hcl) 10 Mg Tablet 10 Mg PO DAILY Cetirizine Hcl 10 Mg Tablet 10 Mg PO DAILY Tylenol (Acetaminophen) 325 Mg Tablet 650 Mg PO PRN Q6HRS PRN Vitamin D (Cholecalciferol (Vitamin D3)) 2,000 Unit Capsule 2,000 Units PO DAILY Betapace (Sotalol Hcl) 80 Mg Tablet 80 Mg PO BID Divalproex Sodium 125 Mg Cap.sprink 250 Mg PO BID92 Namenda (Memantine Hcl) 10 Mg Tablet 10 Mg PO BID Mag-Al Plus Xs Suspension (Mag Hydrox/Al Hydrox/Simeth) 30 Ml Oral.susp 15 Ml PO PRN AFTMEAL PRN Haloperidol 2 Mg Tablet 2 Mg PO PRN Q4HRS PRN Zoloft (Sertraline Hcl) 50 Mg Tablet 50 Mg PO DAILY Trazodone Hcl 50 Mg Tablet 50 Mg PO QHS GIVE WITH FOOD I have reviewed the current psychotropics carefully including drug interactions. Risk benefit ratio favors no change other than as noted in my dictated progress note. Diagnosis: Problems: (1) Dementia with behavioral disturbance (2) Anxiety disorder (3) Impulse control disorder (4) Dementia, vascular, with depression (5) Dementia, vascular, with delusions (6) Dementia in Alzheimer's disease with depression (7) Dementia in Alzheimer's disease with delusions ADAN GOMES MD Mar 26, 2017 21:12
[2017-03-27 06:07] VITALS: BP 148/81
[2017-03-27] MEDS: CETIRIZINE HCL 10 MG TABLET PO SCH (08:30)
[2017-03-27] MEDS: QUEtiapine 25 MG TABLET. PO SCH ×4 (08:30→19:55)
[2017-03-27] MEDS: busPIRone 10 MG TABLET. PO SCH ×3 (08:30→19:55)
[2017-03-27] MEDS: CHOLECALCIFEROL (VITAMIN D3) 1,000 UNIT TABLET PO SCH (08:30)
[2017-03-27] MEDS: DIVALPROEX 125 MG CAP.SPRINK PO SCH ×3 (08:31→19:55)
[2017-03-27] MEDS: SOTALOL 80 MG TABLET. PO SCH ×2 (08:31→19:56)
[2017-03-27] MEDS: amLODIPine BESYLATE 2.5 MG TABLET PO SCH (08:31)
[2017-03-27] MEDS: SERTRALINE 50 MG TABLET. PO SCH (08:31)
--- NOTE | 2017-03-27 12:17 | PN ---
DATE: 03/25/2017 PSYCHIATRIC PROGRESS NOTE This is a late entry 03/25/2017, covers elements not covered in my initial note 03/25/2017. SUBJECTIVE: I met with the patient the evening of 03/25/2017. The patient was yelling, screaming at lunchtime, trying to throw her tray on the floor, received Haldol at 1:00 p.m. seemed to help. She is combative with cares, confused, believes she is going to school with kids, shaking the table at dinnertime as well, gets overstimulated with noise. REVIEW OF SYSTEMS: No CV, , pulmonary, eye system symptoms on review. Gait unsteady. MENTAL STATUS EXAM: Oriented to herself. Insight, judgment, recent and remote memory, attention, concentration, fund of knowledge poor, consistent with her diagnoses mentioned in my initial note. PLAN: Increase a.m. Seroquel from 12.5 mg to 25 mg. Continue the other 2 dosages at 12.5 mg and the 5:00 p.m. dosage at 25 mg. Rest of the psychotropics unchanged, so the current Seroquel regimen will be 25 mg in the morning and 12.5 at 2:00 p.m. and 25 mg at 1700. MAN Saúl GOMES MD DR: FAISAL/alonso JOB#: [id number] / [id number]
--- NOTE | 2017-03-27 12:20 | PN ---
DATE: 03/26/2017 PSYCHIATRIC PROGRESS NOTE This is a late entry 03/26/2017, covers elements not covered in my initial note 03/26/2017. SUBJECTIVE: I met with the patient the evening of 03/26/2017. She has been confused, somewhat resistive with cares, but not aggressive at meal times like the day before, somewhat more quiet. Seems to be responding to the increased Seroquel. REVIEW OF SYSTEMS: Ambulation impaired, in wheelchair. No CV, , pulmonary, eye, ENT system symptoms on review. Reliability poor. MENTAL STATUS EXAM: Oriented to herself. Insight, judgment, recent and remote memory, attention, concentration, fund of knowledge poor, consistent with her diagnoses mentioned in my initial note. PLAN: No change in psychotropics from my initial note. MAN Saúl GOMES MD DR: FAISAL/alonso JOB#: [id number] / [id number]
[2017-03-27] MEDS ORDERED: WARFARIN 2 MG TABLET. PO SCH (16:00)
[2017-03-27 16:05] VITALS: BP 146/94
[2017-03-27] MEDS: ATORVASTATIN CALCIUM 20 MG TABLET PO SCH (19:55)
[2017-03-27] MEDS: traZODone 50 MG TABLET. PO SCH (19:55)
--- NOTE | 2017-03-27 20:14 | PDOC ---
Exam Note: Vikram Note: Please also refer to the separate dictated note~for this date of service dictated separately.~Patient seen individually. Discussed the patient with Nursing staff reviewed the chart.~Reviewed interim history and current functioning. Reviewed vital signs,~Labs/ Radiology~and current medications noted below. Continue current treatment with the changes noted in the dictated addendum note Assessment: Vital Signs: Vital Signs Date Time Temp Pulse Resp B/P (MAP) Pulse Ox O2 Delivery O2 Flow Rate FiO2 03/27/17 19:56 73 146/94 03/27/17 16:05 97.8 20 95 03/25/17 16:07 Room Air I&O Intake and Output 03/27/17 07:00 Intake Total 490 ml Balance 490 ml Intake Oral 490 ml Current Medications: Meds: Current Medications Lidocaine/ Epinephrine (Xylocaine 2%-Epi 1:100,000) 20 ml 1X ONCE IJ ; Start 03/09/17 at 18:30; Stop 03/09/17 at 18:31; Status DC Cephalexin HCl (Keflex) 500 mg 1X ONCE PO Last administered on 03/09/17 22:30 ; Start 03/09/17 at 19:30; Stop 03/09/17 at 19:32; Status DC Acetaminophen (Tylenol) 650 mg PRN Q6HRS PRN PO PAIN / TEMP; Start 03/09/17 at 20:15; Stop 03/10/17 at 16:10; Status DC Multi-Ingredient Ointment (Analgesic [place]) 1 morteza PRN QID PRN TP MUSCLE PAIN; Start 03/09/17 at 20:15; Stop 03/10/17 at 16:12; Status DC Al Hydroxide/Mg Hydroxide (Mylanta Plus Xs) 15 ml PRN AFTMEALHC PRN PO DYSPEPSIA; Start 03/09/17 at 20:15 Magnesium Hydroxide (Milk Of Magnesia) 2,400 mg PRN QHS PRN PO CONSTIPATION; Start 03/09/17 at 20:15; Stop 03/10/17 at 16:12; Status DC Buspirone HCl (Buspar) 10 mg TID PO Last administered on 03/27/17 19:55; Start 03/09/17 at 22:30 Divalproex Sodium (Depakote Sprinkles) 250 mg BID92 PO Last administered on 13:51; Start 03/10/17 at 09:00 Divalproex Sodium (Depakote Sprinkles) 375 mg HS PO Last administered on 19:55; Start 03/09/17 at 22:30 Donepezil HCl (Aricept) 10 mg DAILY PO Last administered on 03/18/17 10:31; Start 03/10/17 at 09:00; Stop 03/18/17 at 19:23; Status DC Haloperidol (Haldol) 2 mg PRN Q4HRS PRN PO AGITATION Last administered on 03/25 13:05; Start 03/09/17 at 22:15 Memantine (Namenda) 10 mg BID PO Last administered on 03/18/17 10:30; Start 03/09/17 at 22:30; Stop 03/18/17 at 19:23; Status DC Olanzapine (ZyPREXA ZYDIS) 2.5 mg PRN Q2HR PRN PO PSYCHOSIS Last administered on 03/18/17 10:33; Start 03/09/17 at 22:15 Sertraline HCl (Zoloft) 50 mg DAILY PO Last administered on 03/11/17 09:39; Start 03/10/17 at 09:00; Stop 03/11/17 at 18:11; Status DC Trazodone HCl (Desyrel) 50 mg QHS PO Last administered on 03/27/17 19:55; Start 03/10/17 at 21:00 Acetaminophen (Tylenol) 650 mg PRN Q6HRS PRN PO PAIN / TEMP Last administered on 03/11/17 09:50; Start 03/10/17 at 08:30 Amlodipine Besylate (Norvasc) 2.5 mg DAILY PO Last administered on 03/10/17 08 :43; Start 03/10/17 at 09:00; Stop 03/10/17 at 16:11; Status DC Cetirizine HCl (ZyrTEC) 10 mg DAILY PO Last administered on 03/27/17 08:30; Start 03/10/17 at 09:00 Magnesium Hydroxide (Milk Of Magnesia) 2,400 mg PRN QHS PRN PO CONSTIPATION; Start 03/10/17 at 08:30 Multi-Ingredient Ointment (Analgesic [place]) 1 morteza PRN QID PRN TP MUSCLE PAIN; Start 03/10/17 at 08:30 Sotalol HCl (Betapace) 80 mg BID PO Last administered on 03/27/17 19:56; Start 03/10/17 at 09:00 Warfarin Sodium (Coumadin) 2.5 mg DAILY16 PO Last administered on 03/13/17 16: 11; Start 03/10/17 at 16:00; Stop 03/14/17 at 14:02; Status DC Vitamin D (Vitamin D3) 2,000 unit DAILY PO Last administered on 03/27/17 08: 30; Start 03/10/17 at 09:00 Warfarin Sodium (Coumadin Per Pharmacy) 1 each PRN DAILY PRN MC SEE COMMENTS Last administered on 03/24/17 11:00; Start 03/10/17 at 08:30 Warfarin Sodium (Coumadin) 1 mg DAILY16 PO Last administered on 03/13/17 16:10 ; Start 03/10/17 at 16:00; Stop 03/14/17 at 14:02; Status DC Amlodipine Besylate (Norvasc) 2.5 mg DAILY PO Last administered on 03/27/17 08:31; Start 03/11/17 at 09:00 Sertraline HCl (Zoloft) 75 mg DAILY PO Last administered on 03/27/17 08:31; Start 03/12/17 at 09:00 Fosfomycin Tromethamine (Monurol) 3 gm 1X ONCE PO Last administered on 14:36; Start 03/12/17 at 12:00; Stop 03/12/17 at 12:01; Status DC Atorvastatin Calcium (Lipitor) 20 mg QHS PO Last administered on 03/27/17 19: 55; Start 03/13/17 at 21:00 Quetiapine Fumarate (SEROquel) 12.5 mg QHS PO Last administered on 03/15/17 19 :23; Start 03/13/17 at 21:00; Stop 03/16/17 at 17:40; Status DC Warfarin Sodium (Coumadin - No Dose Today) 1 each 1X WARF ONCE MC Last administered on 03/14/17 15:00; Start 03/14/17 at 16:00; Stop 03/14/17 at 16:01 ; Status DC Warfarin Sodium (Coumadin - No Dose Today) 1 each 1X WARF ONCE MC ; Start 03/15 at 16:00; Stop 03/15/17 at 16:01; Status DC Warfarin Sodium (Coumadin) 3 mg 1X WARF ONCE PO Last administered on 17:20; Start 03/16/17 at 16:00; Stop 03/16/17 at 16:01; Status DC Quetiapine Fumarate (SEROquel) 12.5 mg BID PO Last administered on 03/17/17 07 :38; Start 03/16/17 at 21:00; Stop 03/17/17 at 18:58; Status DC Warfarin Sodium (Coumadin) 5 mg 1X WARF ONCE PO Last administered on 16:18; Start 03/17/17 at 16:00; Stop 03/17/17 at 16:01; Status DC Quetiapine Fumarate (SEROquel) 12.5 mg TID@0900,1400,1700 PO Last administered on 03/21/17 17:14; Start 03/17/17 at 19:30; Stop 03/21/17 at 18:55; Status DC Warfarin Sodium (Coumadin) 3 mg DAILY16 PO Last administered on 03/20/17 17: 22; Start 03/18/17 at 16:00; Stop 03/21/17 at 13:49; Status DC Quetiapine Fumarate (SEROquel) 25 mg QHS PO Last administered on 03/18/17 20: 25; Start 03/18/17 at 21:00; Stop 03/19/17 at 19:04; Status DC Quetiapine Fumarate (SEROquel) 50 mg QHS PO Last administered on 03/23/17 20: 25; Start 03/19/17 at 21:00; Stop 03/24/17 at 11:12; Status DC Benzocaine (Ora-Jel Maximum) 1 morteza PRN QID PRN TP ORAL PAIN; Start 03/20/17 at 14:00 Warfarin Sodium (Coumadin - No Dose Today) 1 each 1X WARF ONCE MC ; Start at 16:00; Stop 03/21/17 at 16:01; Status DC Quetiapine Fumarate (SEROquel) 12.5 mg BID@0900,1400 PO Last administered on 14:05; Start 03/22/17 at 09:00; Stop 03/25/17 at 18:43; Status DC Quetiapine Fumarate (SEROquel) 25 mg DAILY@1700 PO Last administered on 16:57; Start 03/22/17 at 17:00; Stop 03/25/17 at 18:43; Status DC Warfarin Sodium (Coumadin) 3 mg 1X WARF ONCE PO Last administered on 16:00; Start 03/22/17 at 16:00; Stop 03/22/17 at 16:01; Status DC Warfarin Sodium (Coumadin) 3 mg 1X WARF ONCE PO Last administered on 17:21; Start 03/23/17 at 16:00; Stop 03/23/17 at 16:01; Status DC Warfarin Sodium (Coumadin) 1 mg 1X WARF ONCE PO Last administered on 16:41; Start 03/24/17 at 16:00; Stop 03/24/17 at 16:01; Status DC Warfarin Sodium (Coumadin) 2.5 mg 1X WARF ONCE PO Last administered on 16:58; Start 03/25/17 at 16:00; Stop 03/25/17 at 16:01; Status DC Quetiapine Fumarate (SEROquel) 62.5 mg QHS PO Last administered on 03/27/17 19:55; Start 03/24/17 at 21:00 Trazodone HCl (Desyrel) 50 mg PRN QHS PRN PO INSOMNIA; Start 03/24/17 at 11:15 Quetiapine Fumarate (SEROquel) 12.5 mg DAILY@1400 PO Last administered on 03/27 13:52; Start 03/26/17 at 14:00 Quetiapine Fumarate (SEROquel) 25 mg BID@0900,1700 PO Last administered on 16:51; Start 03/26/17 at 09:00 Warfarin Sodium (Coumadin - No Dose Today) 1 each 1X WARF ONCE MC Last administered on 03/26/17 15:57; Start 03/26/17 at 16:00; Stop 03/26/17 at 16 :01; Status DC Warfarin Sodium (Coumadin) 2 mg DAILY16 PO Last administered on 03/27/17t 16: 51; Start 03/27/17 at 16:00 Active Scripts Active Reported Warfarin Sodium 3 Mg Tablet 3.5 Mg PO Depakote Sprinkle (Divalproex Sodium) 125 Mg Cap.sprink 375 Mg PO HS Buspirone Hcl 10 Mg Tablet 10 Mg PO TID Norvasc (Amlodipine Besylate) 10 Mg Tablet 10 Mg PO DAILY Zyprexa Zydis (Olanzapine) 5 Mg Tab.rapdis 2.5 Mg PO PRN Q2HR PRN MDD 7.5mg Analgesic [place] (Methyl Salicylate/Menthol) 28 Gm Oint...g. 1 Morteza TP PRN QID PRN Milk Of Magnesia (Magnesium Hydroxide) 400 Mg/5 Ml Oral.susp 2,400 Mg PO PRN QHS PRN Aricept (Donepezil Hcl) 10 Mg Tablet 10 Mg PO DAILY Cetirizine Hcl 10 Mg Tablet 10 Mg PO DAILY Tylenol (Acetaminophen) 325 Mg Tablet 650 Mg PO PRN Q6HRS PRN Vitamin D (Cholecalciferol (Vitamin D3)) 2,000 Unit Capsule 2,000 Units PO DAILY Betapace (Sotalol Hcl) 80 Mg Tablet 80 Mg PO BID Divalproex Sodium 125 Mg Cap.sprink 250 Mg PO BID92 Namenda (Memantine Hcl) 10 Mg Tablet 10 Mg PO BID Mag-Al Plus Xs Suspension (Mag Hydrox/Al Hydrox/Simeth) 30 Ml Oral.susp 15 Ml PO PRN AFTMEAL PRN Haloperidol 2 Mg Tablet 2 Mg PO PRN Q4HRS PRN Zoloft (Sertraline Hcl) 50 Mg Tablet 50 Mg PO DAILY Trazodone Hcl 50 Mg Tablet 50 Mg PO QHS GIVE WITH FOOD I have reviewed the current psychotropics carefully including drug interactions. Risk benefit ratio favors no change other than as noted in my dictated progress note. Diagnosis: Problems: (1) Dementia with behavioral disturbance (2) Anxiety disorder (3) Impulse control disorder (4) Dementia, vascular, with depression (5) Dementia, vascular, with delusions (6) Dementia in Alzheimer's disease with depression (7) Dementia in Alzheimer's disease with delusions ADAN GOMES MD Mar 27, 2017 20:14
[2017-03-28] MEDS ORDERED: AMLO2.5T2 PO (02:53)
[2017-03-28] MEDS ORDERED: ATOR20TA58 PO (02:54)
[2017-03-28] MEDS ORDERED: BENZ9GEL3 MM (02:56)
[2017-03-28] MEDS ORDERED: QUET25TA5 PO ×3 (02:58→03:01)
[2017-03-28] MEDS ORDERED: TRAZ50TA15 PO (03:02)
[2017-03-28 05:56] VITALS: BP 137/89
[2017-03-28] MEDS ORDERED: WARFARIN 2 MG TABLET. PO ONE (08:30)
[2017-03-28] MEDS: CETIRIZINE HCL 10 MG TABLET PO SCH (08:34)
[2017-03-28] MEDS: busPIRone 10 MG TABLET. PO SCH (08:34)
[2017-03-28] MEDS: SERTRALINE 50 MG TABLET. PO SCH (08:34)
[2017-03-28] MEDS: amLODIPine BESYLATE 2.5 MG TABLET PO SCH (08:34)
[2017-03-28] MEDS: QUEtiapine 25 MG TABLET. PO SCH (08:34)
[2017-03-28] MEDS: DIVALPROEX 125 MG CAP.SPRINK PO SCH (08:35)
[2017-03-28] MEDS: CHOLECALCIFEROL (VITAMIN D3) 1,000 UNIT TABLET PO SCH (08:35)
[2017-03-28 09:29] VITALS: BP 137/89
[2017-03-28] MEDS: SOTALOL 80 MG TABLET. PO SCH (09:29)
--- NOTE | 2017-03-28 09:55 | PDOC ---
Exam Note: Vikram Note: Please also refer to the separate dictated note~for this date of service dictated separately.~Patient seen individually. Discussed the patient with Nursing staff reviewed the chart.~Reviewed interim history and current functioning. Reviewed vital signs,~Labs/ Radiology~and current medications noted below. Continue current treatment with the changes noted in the dictated addendum note Assessment: Vital Signs: Vital Signs Date Time Temp Pulse Resp B/P (MAP) Pulse Ox O2 Delivery O2 Flow Rate FiO2 03/28/17 09:29 56 137/89 03/28/17 05:56 14 95 03/27/17 16:05 97.8 03/25/17 16:07 Room Air I&O Intake and Output 03/28/17 06:59 Intake Total 960 ml Balance 960 ml Intake Oral 960 ml Current Medications: Meds: Current Medications Lidocaine/ Epinephrine (Xylocaine 2%-Epi 1:100,000) 20 ml 1X ONCE IJ ; Start 03/09/17 at 18:30; Stop 03/09/17 at 18:31; Status DC Cephalexin HCl (Keflex) 500 mg 1X ONCE PO Last administered on 03/09/17t 22:30 ; Start 03/09/17 at 19:30; Stop 03/09/17 at 19:32; Status DC Acetaminophen (Tylenol) 650 mg PRN Q6HRS PRN PO PAIN / TEMP; Start 03/09/17 at 20:15; Stop 03/10/17 at 16:10; Status DC Multi-Ingredient Ointment (Analgesic [place]) 1 morteza PRN QID PRN TP MUSCLE PAIN; Start 03/09/17 at 20:15; Stop 03/10/17 at 16:12; Status DC Al Hydroxide/Mg Hydroxide (Mylanta Plus Xs) 15 ml PRN AFTMEALHC PRN PO DYSPEPSIA; Start 03/09/17 at 20:15 Magnesium Hydroxide (Milk Of Magnesia) 2,400 mg PRN QHS PRN PO CONSTIPATION; Start 03/09/17 at 20:15; Stop 03/10/17 at 16:12; Status DC Buspirone HCl (Buspar) 10 mg TID PO Last administered on 03/28/17 08:34; Start 03/09/17 at 22:30 Divalproex Sodium (Depakote Sprinkles) 250 mg BID92 PO Last administered on 08:35; Start 03/10/17 at 09:00 Divalproex Sodium (Depakote Sprinkles) 375 mg HS PO Last administered on 19:55; Start 03/09/17 at 22:30 Donepezil HCl (Aricept) 10 mg DAILY PO Last administered on 03/18/17 10:31; Start 03/10/17 at 09:00; Stop 03/18/17 at 19:23; Status DC Haloperidol (Haldol) 2 mg PRN Q4HRS PRN PO AGITATION Last administered on 03/25 13:05; Start 03/09/17 at 22:15 Memantine (Namenda) 10 mg BID PO Last administered on 03/18/17 10:30; Start 03/09/17 at 22:30; Stop 03/18/17 at 19:23; Status DC Olanzapine (ZyPREXA ZYDIS) 2.5 mg PRN Q2HR PRN PO PSYCHOSIS Last administered on 03/18/17 10:33; Start 03/09/17 at 22:15 Sertraline HCl (Zoloft) 50 mg DAILY PO Last administered on 03/11/17 09:39; Start 03/10/17 at 09:00; Stop 03/11/17 at 18:11; Status DC Trazodone HCl (Desyrel) 50 mg QHS PO Last administered on 03/27/17 19:55; Start 03/10/17 at 21:00 Acetaminophen (Tylenol) 650 mg PRN Q6HRS PRN PO PAIN / TEMP Last administered on 03/11/17 09:50; Start 03/10/17 at 08:30 Amlodipine Besylate (Norvasc) 2.5 mg DAILY PO Last administered on 03/10/17 08 :43; Start 03/10/17 at 09:00; Stop 03/10/17 at 16:11; Status DC Cetirizine HCl (ZyrTEC) 10 mg DAILY PO Last administered on 03/28/17 08:34; Start 03/10/17 at 09:00 Magnesium Hydroxide (Milk Of Magnesia) 2,400 mg PRN QHS PRN PO CONSTIPATION; Start 03/10/17 at 08:30 Multi-Ingredient Ointment (Analgesic [place]) 1 morteza PRN QID PRN TP MUSCLE PAIN; Start 03/10/17 at 08:30 Sotalol HCl (Betapace) 80 mg BID PO Last administered on 03/28/17 09:29; Start 03/10/17 at 09:00 Warfarin Sodium (Coumadin) 2.5 mg DAILY16 PO Last administered on 03/13/17 16: 11; Start 03/10/17 at 16:00; Stop 03/14/17 at 14:02; Status DC Vitamin D (Vitamin D3) 2,000 unit DAILY PO Last administered on 03/28/17 08: 35; Start 03/10/17 at 09:00 Warfarin Sodium (Coumadin Per Pharmacy) 1 each PRN DAILY PRN MC SEE COMMENTS Last administered on 03/24/17 11:00; Start 03/10/17 at 08:30 Warfarin Sodium (Coumadin) 1 mg DAILY16 PO Last administered on 03/13/17 16:10 ; Start 03/10/17 at 16:00; Stop 03/14/17 at 14:02; Status DC Amlodipine Besylate (Norvasc) 2.5 mg DAILY PO Last administered on 03/28/17 08:34; Start 03/11/17 at 09:00 Sertraline HCl (Zoloft) 75 mg DAILY PO Last administered on 03/28/17 08:34; Start 03/12/17 at 09:00 Fosfomycin Tromethamine (Monurol) 3 gm 1X ONCE PO Last administered on 14:36; Start 03/12/17 at 12:00; Stop 03/12/17 at 12:01; Status DC Atorvastatin Calcium (Lipitor) 20 mg QHS PO Last administered on 03/27/17 19: 55; Start 03/13/17 at 21:00 Quetiapine Fumarate (SEROquel) 12.5 mg QHS PO Last administered on 03/15/17 19 :23; Start 03/13/17 at 21:00; Stop 03/16/17 at 17:40; Status DC Warfarin Sodium (Coumadin - No Dose Today) 1 each 1X WARF ONCE MC Last administered on 03/14/17 15:00; Start 03/14/17 at 16:00; Stop 03/14/17 at 16:01 ; Status DC Warfarin Sodium (Coumadin - No Dose Today) 1 each 1X WARF ONCE MC ; Start 03/15 at 16:00; Stop 03/15/17 at 16:01; Status DC Warfarin Sodium (Coumadin) 3 mg 1X WARF ONCE PO Last administered on 17:20; Start 03/16/17 at 16:00; Stop 03/16/17 at 16:01; Status DC Quetiapine Fumarate (SEROquel) 12.5 mg BID PO Last administered on 03/17/17 07 :38; Start 03/16/17 at 21:00; Stop 03/17/17 at 18:58; Status DC Warfarin Sodium (Coumadin) 5 mg 1X WARF ONCE PO Last administered on 16:18; Start 03/17/17 at 16:00; Stop 03/17/17 at 16:01; Status DC Quetiapine Fumarate (SEROquel) 12.5 mg TID@0900,1400,1700 PO Last administered on 03/21/17 17:14; Start 03/17/17 at 19:30; Stop 03/21/17 at 18:55; Status DC Warfarin Sodium (Coumadin) 3 mg DAILY16 PO Last administered on 03/20/17 17: 22; Start 03/18/17 at 16:00; Stop 03/21/17 at 13:49; Status DC Quetiapine Fumarate (SEROquel) 25 mg QHS PO Last administered on 03/18/17 20: 25; Start 03/18/17 at 21:00; Stop 03/19/17 at 19:04; Status DC Quetiapine Fumarate (SEROquel) 50 mg QHS PO Last administered on 03/23/17 20: 25; Start 03/19/17 at 21:00; Stop 03/24/17 at 11:12; Status DC Benzocaine (Ora-Jel Maximum) 1 morteza PRN QID PRN TP ORAL PAIN; Start 03/20/17 at 14:00 Warfarin Sodium (Coumadin - No Dose Today) 1 each 1X WARF ONCE MC ; Start at 16:00; Stop 03/21/17 at 16:01; Status DC Quetiapine Fumarate (SEROquel) 12.5 mg BID@0900,1400 PO Last administered on 14:05; Start 03/22/17 at 09:00; Stop 03/25/17 at 18:43; Status DC Quetiapine Fumarate (SEROquel) 25 mg DAILY@1700 PO Last administered on 16:57; Start 03/22/17 at 17:00; Stop 03/25/17 at 18:43; Status DC Warfarin Sodium (Coumadin) 3 mg 1X WARF ONCE PO Last administered on 16:00; Start 03/22/17 at 16:00; Stop 03/22/17 at 16:01; Status DC Warfarin Sodium (Coumadin) 3 mg 1X WARF ONCE PO Last administered on 17:21; Start 03/23/17 at 16:00; Stop 03/23/17 at 16:01; Status DC Warfarin Sodium (Coumadin) 1 mg 1X WARF ONCE PO Last administered on 16:41; Start 03/24/17 at 16:00; Stop 03/24/17 at 16:01; Status DC Warfarin Sodium (Coumadin) 2.5 mg 1X WARF ONCE PO Last administered on 16:58; Start 03/25/17 at 16:00; Stop 03/25/17 at 16:01; Status DC Quetiapine Fumarate (SEROquel) 62.5 mg QHS PO Last administered on 03/27/17 19:55; Start 03/24/17 at 21:00 Trazodone HCl (Desyrel) 50 mg PRN QHS PRN PO INSOMNIA; Start 03/24/17 at 11:15 Quetiapine Fumarate (SEROquel) 12.5 mg DAILY@1400 PO Last administered on 03/27 13:52; Start 03/26/17 at 14:00 Quetiapine Fumarate (SEROquel) 25 mg BID@0900,1700 PO Last administered on 08:34; Start 03/26/17 at 09:00 Warfarin Sodium (Coumadin - No Dose Today) 1 each 1X WARF ONCE MC Last administered on 03/26/17 15:57; Start 03/26/17 at 16:00; Stop 03/26/17 at 16 :01; Status DC Warfarin Sodium (Coumadin) 2 mg DAILY16 PO Last administered on 03/27/17t 16: 51; Start 03/27/17 at 16:00; Stop 03/28/17 at 08:09; Status DC Warfarin Sodium (Coumadin) 2 mg 1X WARF ONCE PO ; Start 03/28/17 at 08:30; Stop 03/28/17 at 08:31; Status DC Active Scripts Active Reported Seroquel (Quetiapine Fumarate) 25 Mg Tablet 25 Mg PO BID@0900,1700 Seroquel (Quetiapine Fumarate) 25 Mg Tablet 12.5 Mg PO DAILY@1400 Seroquel (Quetiapine Fumarate) 25 Mg Tablet 62.5 Mg PO QHS Oral Analgesic (Benzocaine) 9 Gm Gel..gram. 1 Morteza MM PRN QID PRN Atorvastatin Calcium 20 Mg Tablet 20 Mg PO QHS Norvasc (Amlodipine Besylate) 2.5 Mg Tablet 2.5 Mg PO DAILY Warfarin Sodium 3 Mg Tablet 2 Mg PO Depakote Sprinkle (Divalproex Sodium) 125 Mg Cap.sprink 375 Mg PO HS Buspirone Hcl 10 Mg Tablet 10 Mg PO TID Zyprexa Zydis (Olanzapine) 5 Mg Tab.rapdis 2.5 Mg PO PRN Q2HR PRN MDD 7.5mg Analgesic [place] (Methyl Salicylate/Menthol) 28 Gm Oint...g. 1 Morteza TP PRN QID PRN Milk Of Magnesia (Magnesium Hydroxide) 400 Mg/5 Ml Oral.susp 2,400 Mg PO PRN QHS PRN Cetirizine Hcl 10 Mg Tablet 10 Mg PO DAILY Tylenol (Acetaminophen) 325 Mg Tablet 650 Mg PO PRN Q6HRS PRN Vitamin D (Cholecalciferol (Vitamin D3)) 2,000 Unit Capsule 2,000 Units PO DAILY Betapace (Sotalol Hcl) 80 Mg Tablet 80 Mg PO BID Divalproex Sodium 125 Mg Cap.sprink 250 Mg PO BID92 Mag-Al Plus Xs Suspension (Mag Hydrox/Al Hydrox/Simeth) 30 Ml Oral.susp 15 Ml PO PRN AFTMEAL PRN Haloperidol 2 Mg Tablet 2 Mg PO PRN Q4HRS PRN Zoloft (Sertraline Hcl) 50 Mg Tablet 75 Mg PO DAILY Trazodone Hcl 50 Mg Tablet 50 Mg PO QHS GIVE WITH FOOD I have reviewed the current psychotropics carefully including drug interactions. Risk benefit ratio favors no change other than as noted in my dictated progress note. Diagnosis: Problems: (1) Dementia in Alzheimer's disease with delusions (2) Dementia in Alzheimer's disease with depression (3) Dementia, vascular, with delusions (4) Dementia, vascular, with depression (5) Impulse control disorder (6) Anxiety disorder (7) Dementia with behavioral disturbance ADAN GOMES MD Mar 28, 2017 09:55
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
--- NOTE | 2017-03-28 22:58 | PN ---
DATE: 03/27/2017 This late entry 03/27/2017 covers elements not covered in my initial note 03/27/2017. SUBJECTIVE: Met with the patient evening of 03/27/2017. The patient remains confused, but has been calm, nonverbal, less combative with cares, rude at times and infrequently curses in the dining room. REVIEW OF SYSTEMS: Ambulation impaired, in wheelchair. No CV, , pulmonary, eye, ENT system symptoms on review. Reliability poor. MENTAL STATUS EXAM: Oriented to herself. Insight, judgment, recent and remote memory, attention, concentration, fund of knowledge poor, consistent with her diagnosis mentioned in my initial note. PLAN: No changes from a psychiatric standpoint. May increase Seroquel if combativeness with cares persists. MAN Saúl GOMES MD DR: FAISAL/alonso JOB#: [id number] / [id number]
== END 2017-03-28 10:41 | disposition home or self-care (01) | DRG 56 ==
LOC: ER 17:30 → GEROPSY 19:26
PROVIDERS: ADMIT Psychiatry & Neurology Psychiatry; ATTEND Psychiatry & Neurology Psychiatry
DX: G30.9 Alzheimer's disease, unspecified (principal); E41 Nutritional marasmus; F01.51 Vascular dementia, unspecified severity, with behavioral disturbance; I48.91 Unspecified atrial fibrillation; N39.0 Urinary tract infection, site not specified; F22 Delusional disorders; R13.10 Dysphagia, unspecified; R45.851 Suicidal ideations; F02.81 Dementia in other diseases classified elsewhere, unspecified severity, with behavioral disturbance; Z68.20 Body mass index [BMI] 20.0-20.9, adult; E78.5 Hyperlipidemia, unspecified; F32.9 Major depressive disorder, single episode, unspecified; F41.9 Anxiety disorder, unspecified; F63.9 Impulse disorder, unspecified; G47.00 Insomnia, unspecified; I10 Essential (primary) hypertension; Z66 Do not resuscitate; Z79.899 Other long term (current) drug therapy; Z91.81 History of falling; Z91.83 Wandering in diseases classified elsewhere
CPT/HCPCS: 36415; 71010; 80053; 80061; 80164; 81001; 82306; 82607; 83036; 83540; 83550; 83735; 84436; 84443; 84480; 85025; 85610; 86592; 86593; 87086; 87186; 93005; 97110; 97530; 97535; 99285-25